=== PATIENT | female | born 1950 | race Caucasian/White ===

== ENCOUNTER 2020-02-04 14:28 | Outpatient (CLI) | payer MEDICARE, MEDICAID, SELFPAY ==
--- NOTE | 2020-02-04 14:40 | USCV_ITS ---
Lisa Rahman Age: 69 Gender: F : 1950 Exam Date: 02/04/2020 14:57 Ordering Phys: Slava Hart MD ([email or web address]) Technologist: Joanne Post [place] [facility] [place]: AV STENOSIS BP: 115 / 78 HR: 60 Rhythm: Sinus Technical Quality: Adequate MEASUREMENTS (Male / Female) Normal Values 2D ECHO LV Diastolic Diameter PLAX 5.1 cm 4.2 - 5.9 / 3.9 - 5.3 cm LV Systolic Diameter PLAX 2.6 cm LV Chamber Size 3.3 cm IVS Diastolic Thickness 1.7 cm 0.6 - 1.0 / 0.6 - 0.9 cm IVS Systolic Thickness 1.7 cm LVPW Diastolic Thickness 1.9 cm 0.6 - 1.0 / 0.6 - 0.9 cm LVPW Systolic Thickness 2.3 cm RV Chamber Size 3.6 cm LVOT Diameter 2.0 cm LV Ejection Fraction 2D Teich 79.7 % LV Ejection Fraction MOD 2C 52.5 % LV Ejection Fraction 2C AL 52.1 % LA Diameter 5.1 cm LA Width 3.9 cm LA Height 5.0 cm RA Width 4.4 cm RA Height 4.8 cm Aorta at Sinotubular Diameter 2.2 cm M-MODE LV Diastolic Diameter MM 6.7 cm 4.2 - 5.9 / 3.9 - 5.3 cm LV Systolic Diameter MM 4.3 cm LV Ejection Fraction MM Teich 63.7 % IVS Diastolic Thickness MM 1.2 cm 0.6 - 1.0 / 0.6 - 0.9 cm IVS Systolic Thickness MM 1.4 cm LVPW Diastolic Thickness MM 1.0 cm 0.6 - 1.0 / 0.6 - 0.9 cm LVPW Systolic Thickness MM 1.4 cm Aortic Annulus Diameter 2.8 cm LA Ao Ratio MM 1.8 MV E Point Septal Separation 1.0 cm DOPPLER AV Peak Velocity 230.0 cm/s LVOT Peak Velocity 141.0 cm/s AV Area Cont Eq vti 2.5 cm squared AV Area Cont Eq pk 2.0 cm squared MV Area PHT 2.8 cm squared Mitral E to A Ratio 0.7 MV E' Velocity 9.0 cm/s Mitral E to MV E' Ratio 6.5 Mitral E to LV E' Lateral Ratio 7.1 Mitral E to LV E' Septal Ratio 6.0 TR Peak Velocity 183.0 cm/s TR Peak Gradient 13.4 mmHg TV Peak E Velocity 61.0 cm/s Right Atrial Pressure 3.0 mmHg Pulmonary Artery Systolic Pressu 16.4 mmHg PV Peak Velocity 112.0 cm/s RV Acceleration Time 0.2 s RV Ejection Time 0.4 s RV AcT/ET 0.5 FINDINGS Left Ventricle Normal left ventricular size and systolic function, EF 56 %. Moderate left ventricular hypertrophy. No regional wall motion abnormalities. Right Ventricle Normal right ventricular size and systolic function. Right Atrium Normal right atrial size. Left Atrium Mildly increased left atrial size. Mitral Valve Structurally normal mitral valve without significant stenosis or prolapse. There is no mitral regurgitation. Aortic Valve Thickened aortic valve. Aortic valve sclerosis. Tricuspid Valve No gross abnormalities noted.trace tricuspid valve regurgitation. Pulmonic Valve Not visualized well Pericardium No pericardial effusion. Aorta Normal ascending aorta dimension. CONCLUSIONS Normal left ventricular size and systolic function, EF 56 %. Moderate left ventricular hypertrophy. Type I diastolic dysfunction. No regional wall motion abnormalities. Features of aortic valve sclerosis. Peak velocity of 2.3 m/s . Mildly increased left atrial size. Trace tricuspid valve regurgitation. Normal pulmonary artery peak systolic pressure There is no pericardial effusion. There are no intracardiac masses. No previous study is available for comparison. Compared to the previous study from 04/28/2016, there may not be a significant change Dr Slava Hart MD [facility] (Electronically Signed) Final Date: 05 February 2020 10:01 S
== END 2020-02-04 14:29 | disposition home or self-care (01) ==
LOC: RAD 14:33
PROVIDERS: PCP Internal Medicine; Visit Provider Internal Medicine Cardiovascular Disease
DX: I08.2 Rheumatic disorders of both aortic and tricuspid valves
CPT/HCPCS: 93306

== ENCOUNTER → 2021-05-17 12:06 | Outpatient (BNVA) | payer MEDICARE, MEDICAID, SELFPAY | PROVIDERS: PCP Internal Medicine; Visit Provider Internal Medicine Cardiovascular Disease | DX: T46.0X1A Poisoning by cardiac-stimulant glycosides and drugs of similar action, accidental (unintentional), initial encounter (principal); E11.65 Type 2 diabetes mellitus with hyperglycemia | CPT/HCPCS: 80048; 80162 ==

== ENCOUNTER → 2021-12-08 10:40 | Outpatient (BNVA) | payer MEDICARE, MEDICAID, SELFPAY | PROVIDERS: PCP Internal Medicine; Visit Provider Internal Medicine Cardiovascular Disease | DX: I10 Essential (primary) hypertension (principal); G47.33 Obstructive sleep apnea (adult) (pediatric); E11.65 Type 2 diabetes mellitus with hyperglycemia; Z79.84 Long term (current) use of oral hypoglycemic drugs; I35.8 Other nonrheumatic aortic valve disorders; Z79.01 Long term (current) use of anticoagulants; Z87.891 Personal history of nicotine dependence | CPT/HCPCS: 99213; 99214 ==

== ENCOUNTER 2022-04-27 09:58 | Outpatient (CLI) | payer MEDICARE, MEDICAID, SELFPAY ==
--- NOTE | 2022-04-27 10:15 | MM_ITS ---
WS: [id number] BILATERAL SCREENING DIGITAL TOMOSYNTHESIS MAMMOGRAM WITH CAD HISTORY: SCREENING COMPARISON: 12/05/2018 and 12/04/2017 Bilateral CC and MLO views with tomosynthesis and synthetic mammography submitted. Computer aided det ection analyzed. Breast composition: There are scattered areas of fibroglandular density. No suspicious masses, microc alcifications or architectural distortion. Benign calcifications in each breast. MM/[place] [id number] IMPRESSION: BI-RADS: 2-Benign FOLLOW UP: 1 Year Follow-up
== END 2022-04-27 09:59 | disposition home or self-care (01) ==
LOC: RAD 10:00
PROVIDERS: PCP Internal Medicine; Visit Provider Internal Medicine
DX: Z12.31 Encounter for screening mammogram for malignant neoplasm of breast (principal)
CPT/HCPCS: 77063; 77067

== ENCOUNTER → 2022-07-20 11:00 | Outpatient (BNVA) | payer MEDICARE, MEDICAID, SELFPAY | PROVIDERS: PCP Internal Medicine; Visit Provider Internal Medicine Cardiovascular Disease | DX: I25.10 Atherosclerotic heart disease of native coronary artery without angina pectoris (principal); Z79.01 Long term (current) use of anticoagulants; Z79.899 Other long term (current) drug therapy; E11.65 Type 2 diabetes mellitus with hyperglycemia; Z79.84 Long term (current) use of oral hypoglycemic drugs; I35.8 Other nonrheumatic aortic valve disorders; I10 Essential (primary) hypertension; I48.0 Paroxysmal atrial fibrillation; G47.33 Obstructive sleep apnea (adult) (pediatric); Z87.891 Personal history of nicotine dependence | CPT/HCPCS: 99213 ==

== ENCOUNTER → 2023-01-18 14:48 | Outpatient (BNVA) | payer MEDICARE, MEDICAID, SELFPAY | PROVIDERS: PCP Internal Medicine; Visit Provider Internal Medicine Cardiovascular Disease | DX: R07.9 Chest pain, unspecified (principal); I70.0 Atherosclerosis of aorta; I35.8 Other nonrheumatic aortic valve disorders; E11.65 Type 2 diabetes mellitus with hyperglycemia; I10 Essential (primary) hypertension; G47.33 Obstructive sleep apnea (adult) (pediatric); I48.0 Paroxysmal atrial fibrillation; Z79.891 Long term (current) use of opiate analgesic; Z87.891 Personal history of nicotine dependence; R94.31 Abnormal electrocardiogram [ECG] [EKG] | CPT/HCPCS: 93005; 99214 ==

== ENCOUNTER 2023-02-08 10:29 | Outpatient (CLI) | payer MEDICARE, MEDICAID, SELFPAY ==
--- NOTE | 2023-02-08 11:00 | USCV_ITS ---
Lisa Rahman Age: 72 Gender: F : 1950 Exam Date: 02/08/2023 10:44 Ordering Phys: Slava Hart MD ([email or web address]) Technologist: Dora Sarkar [place]am Location[place] [facility] [place]ication: AORTIC VALVE STENOSIS BP: 130 / 75 HR: 62 Rhythm: Sinus Technical Quality: Adequate MEASUREMENTS (Male / Female) Normal Values 2D ECHO LV Diastolic Diameter PLAX 4.0 cm 4.2 - 5.9 / 3.9 - 5.3 cm LV Systolic Diameter PLAX 2.1 cm LV Chamber Size 4.7 cm IVS Diastolic Thickness 1.5 cm 0.6 - 1.0 / 0.6 - 0.9 cm IVS Systolic Thickness 1.3 cm LVPW Diastolic Thickness 1.7 cm 0.6 - 1.0 / 0.6 - 0.9 cm LVPW Systolic Thickness 1.7 cm RV Chamber Size 3.9 cm LVOT Diameter 2.0 cm LV Ejection Fraction 2D Teich 76.4 % LV Ejection Fraction MOD 2C 64.9 % LV Ejection Fraction 2C AL 64.8 % LA Diameter 4.5 cm LA Width 3.8 cm LA Height 4.5 cm RA Width 2.9 cm RA Height 4.0 cm Aorta at Sinotubular Diameter 2.4 cm IVC Diameter 1.2 cm M-MODE Aortic Annulus Diameter 3.1 cm LA Ao Ratio MM 1.8 MV E Point Septal Separation 0.3 cm DOPPLER AV Peak Velocity 215.0 cm/s LVOT Peak Velocity 113.0 cm/s AV Area Cont Eq vti 1.8 cm squared AV Area Cont Eq pk 1.7 cm squared MV Area PHT 2.2 cm squared Mitral E to A Ratio 1.0 MV E' Velocity 52.0 cm/s Mitral E to MV E' Ratio 10.9 Mitral E to LV E' Lateral Ratio 9.0 Mitral E to LV E' Septal Ratio 14.0 TR Peak Velocity 185.1 cm/s TR Peak Gradient 13.7 mmHg TR Mean Velocity 126.6 cm/s TR Mean Gradient 7.1 mmHg TR Velocity Time Integral 46.6 cm TV Peak E Velocity 52.0 cm/s Right Atrial Pressure 3.0 mmHg Pulmonary Artery Systolic Pressu 16.7 mmHg RV Acceleration Time 0.1 s RV Ejection Time 0.3 s RV AcT/ET 0.3 FINDINGS Left Ventricle Normal left ventricular size and systolic function, EF 73 %. No regional wall motion abnormalities. Mild to moderate concentric left-ventricular hypertrophy.Grade I/IV diastolic dysfunction (abnormal relaxation filling pattern), normal to mildly elevated filling pressures. Right Ventricle The right ventricle is normal in size and function. Right Atrium The right atrium is normal in size. Left Atrium Mildly increased left atrial size. Mitral Valve Thickened mitral valve. Aortic Valve Moderate aortic valve calcification. Aortic valve sclerosis. Tricuspid Valve Trace tricuspid valve regurgitation. Estimated pulmonary artery peak systolic pressure, within normal limits Pulmonic Valve Pulmonic valve not well visualized. Pericardium Normal pericardium without effusion. Aorta Normal aortic annulus size. IVC Normal inferior vena cava. CONCLUSIONS Normal left ventricular size and systolic function, EF 73 %. No regional wall motion abnormalities. Mild to moderate concentric left-ventricular hypertrophy.Grade I/IV diastolic dysfunction (abnormal relaxation filling pattern), normal to mildly elevated filling pressures. Mildly increased left atrial size. Thickened mitral valve. Moderate aortic valve calcification. Aortic valve sclerosis. Trace tricuspid valve regurgitation. Estimated pulmonary artery peak systolic pressure, within normal limits. There is no pericardial effusion. There are no intracardiac masses. Compared to the study from 02/04/2020, there may not be a significant change Dr Slava Hart MD [facility] (Electronically Signed) Final Date: 09 February 2023 17:39 S
== END 2023-02-08 10:30 | disposition home or self-care (01) ==
LOC: RAD 10:31
PROVIDERS: PCP Internal Medicine; Visit Provider Internal Medicine Cardiovascular Disease
DX: I35.0 Nonrheumatic aortic (valve) stenosis (principal); R06.09 Other forms of dyspnea; I51.7 Cardiomegaly; I35.8 Other nonrheumatic aortic valve disorders
CPT/HCPCS: 93306

== ENCOUNTER 2023-03-09 07:30 | Inpatient (IN) | payer MEDICARE, MEDICAID, SELFPAY ==
[2023-03-09] VITALS (73 sets, daily range): BP systolic 56–126; BP diastolic 5–78; PULSE 57–127; RESP 12–26; TEMP 36.1–37.3; O2SAT 92–99; BMI 43.8
--- NOTE | 2023-03-09 07:48 | XR_ITS ---
WS: [id number] Exam: XR chest 1V portable [id number] Date/Time of Exam: 03/09/2023 8:25 AM Reason For Exam: dyspnea/cough Comparison 12/28/2022. Lungs are clear and fully inflated. Normal cardiomediastinal silhouette. No pleural effusions. Region al bony elements are intact. Several scattered calcified granulomas noted. IMPRESSION: 1. No acute process identified.
--- NOTE | 2023-03-09 07:48 | CT_ITS ---
WS: [id number] CT ABDOMEN AND PELVIS WITH CONTRAST HISTORY: abd pain, dark stools and vomiting for 3 days. TECHNIQUE: Imaging performed of the abdomen and pelvis with IV contrast. Single phase imaging of the abdomen. Coronal and sagittal reformats are submitted. All CT scans at [facility] use at [address] one of these dose optimization techniques: automated exposure control; mA and/or kV adjustment per patient size (includes targeted exams where dose is matched to clinical indication); or iterative re construction. IV CONTRAST: Omnipaque 350; 100 mL IV. Oral contrast: No DLP: 1127.59 mGy.cm COMPARISON: 12/25/2005 Lower thorax: Lung bases are clear. Heart is normal size. No hiatal hernia. Liver/biliary system: Liver is normal size. Surface of the liver is nodular and irregular. No mass. N ormal portal vein. Gallbladder: Moderately distended gallbladder with stones. There are several stones in the gallbladde r with the largest measuring 1.8 cm. No bile duct dilatation. Pancreas: Normal size pancreas and pancreatic duct. No adjacent inflammation. Spleen: Normal size spleen. No mass or infarct. Adrenal glands: Normal. Right kidney: Atrophied kidney. Multiple acquired cysts. There is no obstruction. Mild perinephric st randing. Kidney has atrophied since the prior study from 2005. Left kidney: Normal size kidney with numerous cysts. Some of these low-attenuation masses are too sma ll to characterize. There is a complex mass from the lower pole of the LEFT kidney measuring 2.1 x 2. 7 cm. There is increased density within this mass. This is not a simple cyst. Mild perinephric strand ing. Aorta: Mild atherosclerosis with no aneurysm. Lymphadenopathy: None. Free fluid: None. GI tract: Nondistended stomach. There are several small bowel loops which are mildly distended but th ere is no obstructive pattern. Normal appendix. No colitis. There are a few diverticula in the sigmoi d colon. No mass is identified. Abdominal wall: Unremarkable abdominal wall. No hernia. Pelvis: Uterus is midline. No mass or fluid. Negative bladder. Bones: L4 anterolisthesis by 3 mm. Large bridging osteophytes along the lower LEFT lateral L5 and S1 vertebral bodies with complete fusion. IMPRESSION: 1. No GI tract obstruction. No mass identified by CT. 2. Cholelithiasis without acute cholecystitis. 3. Atrophied RIGHT kidney. Atrophy is new since 2006. Acquired cyst. 4. Solid mass versus hemorrhagic cyst LEFT kidney. Mass measures 2.1 x 2.7 cm. Recommend renal mass CT or MRI protocol further evaluation. 5. Cirrhosis.
[2023-03-09 08:09] LABS: Basophils # 0.1 10^3/uL (0.0-0.1); Basophils % 0.4 %; Eosinophils % 0.1 %; Lymphocytes # 3.2 10^3/uL (0.8-4.8); Lymphocytes % 17.6 %; Mean Corpuscular Hemoglobin 30.4 pg (27-33); Mean Platelet Volume 11.8 fL (7.4-10.4); Monocytes # 0.8 10^3/uL (0.2-0.9); Monocytes % 4.6 %; Neutrophils # 13.93 10^3/uL (1.8-7.7); Neutrophils % 76.6 %; Nucleated Red Blood Cells % 0 %; Platelet Count 187 10^3/cmm (157-399); Red Blood Count 3.06 10^6/uL (3.85-5.65); White Blood Count 18.18 10^3/uL (3.29-11.43)
--- NOTE | 2023-03-09 08:13 | ED_ITS ---
HPI - GI Bleed General: Chief complaint: GI Bleed Stated complaint: N/D Time Seen by Provider: 03/09/23 07:47 Source: patient Mode of arrival: ambulatory History of Present Illness: 72-year-old female presents emergency room complaining of an melena. Patient has had dark stools and vomiting for 3 days worse this morning with hematemesis and melena. Patient is on Eliquis for A-fib she has been taking her Eliquis through last night. Presents here with obvious gross hematemesis from smears of melanotic stool on her clothing and lower extremities. She feels lightheaded and weak denies any chest pain or shortness of breath MD complaint: gross hematemesis and melena Onset (ago): day(s) (3) Relieving factors: none Exacerbating factors: none Associated symptoms: Reports nausea, poor appetite, vomiting and weakness; Denies abdominal pain, chills, easy bruising, epistaxis, fever(s), headache(s), malaise, other bleeding, rash, syncope or other Treatments Prior to Arrival: none Review of Systems Const: Denies: fever(s), chills or malaise ENMT: Denies: epistaxis Card: Denies: chest pain or syncope Resp: Denies: dyspnea GI: Reports: nausea, vomiting, hematemesis, GI cramping, change in bowel habits and melena; Denies: abdominal pain : Denies: dysuria, urinary frequency or urinary urgency Musc: Denies: neck pain or back pain Skin/Breast: Denies: rash Neuro: Denies: headache(s) Obie/Lymph: Denies: easy bruising PFSH ED PFSH: Medical History Anticoagulation adequate with anticoagulant therapy Aortic valve sclerosis Asthma CAD (coronary artery disease) Chronic cough Essential (primary) hypertension GERD (gastroesophageal reflux disease) High risk medication use ELVIN (obstructive sleep apnea) Paroxysmal A-fib Type 2 diabetes mellitus Surgical History H/O partial nephrectomy H/O shoulder surgery H/O tubal ligation History of kidney surgery Hx of cataract surgery Family History Mother Hypertension Diabetes CHF (congestive heart failure) CAD (coronary artery disease) Stroke Brother Hypertension Stroke Cancer Diabetes Father Myocardial infarction CAD (coronary artery disease) Grandfather Diabetes Family/Other Diabetes Denies family history of Clotting disorder Dementia Chronic kidney disease (CKD) Suicide Anesthesia complication Bleeding disorder Lung disease Social History Smoking and tobacco/nicotine status: former use of tobacco/nicotine Quit status (tobacco/nicotine): has quit using Alcohol intake: never Substance/Drug Use: never Household members: none Marital status: / Current occupational status: retired Do you think of yourself as: Straight/Heterosexual Current gender identity: Female Physical Exam 2 Const: GENERAL APPEARANCE: cooperative and comfortable ORIENTATION/CONSCIOUSNESS: Yes awake and Yes confused HENMT: COMMON NORMALS: normocephalic, atraumatic and hearing grossly normal bilaterally HEAD & SCALP: normocephalic and atraumatic Resp: COMMON NORMALS: normal respiratory effort, No retractions, No use of accessory muscles and clear to auscultation bilaterally AUSCULTATION: clear to auscultation bilaterally Cardio: COMMON NORMALS: regular rate, regular rhythm and No murmurs present (Cardio) RATE: regular rate RHYTHM: regular rhythm GI: COMMON NORMALS: Soft to palpation and No hepatosplenomegaly present AUSCULTATION: Yes normoactive bowel sounds PALPATION: Yes Soft to palpation, No Tenderness to palpation present (GI), No Guarding due to palpation present (GI) and Yes No hepatosplenomegaly present Extremity: COMMON NORMALS: normal to inspection, capillary refill normal, no clubbing, cyanosis or edema, no calf tenderness and no pedal edema Skin: COMMON NORMALS: no rashes or lesions noted GENERAL SKIN EXAM: no rashes or lesions noted Course Vital Signs: Vital signs: Vital Signs Temperature 97 F L 03/09/23 12:53 Pulse Rate 81 03/09/23 12:53 Respiratory Rate 16 03/09/23 12:53 Blood Pressure 107/66 03/09/23 12:53 Pulse Oximetry 93 03/09/23 12:53 Oxygen Delivery Me thod Room Air 03/09/23 12:49 MDM - GI Bleed Medical Decision Making Patient confused and disoriented for a time and to soft restraints prevented her from pulling out the IVs or giving blood she is hypotensive transiently blood pressures in the 50s and 60s systolic. Patient admitted to the ICU given 2 units of blood and 1 unit fresh frozen plasma in the emergency room. Discussed with hospitalist and with on-call surgery. Patient also given IV PPI. Medical Records I reviewed the patient's medical records. Lab Data I reviewed the patient's lab results. 03/09/23 08:00 03/09/23 08:00 Laboratory Results WBC 18.18 10^3/uL (3.29-11.43) H 03/09/23 08:00 RBC 3.06 10^6/uL (3.85-5.65) L 03/09/23 08:00 Hgb 9.30 g/dL (11.27-16.99) L 03/09/23 08:00 Hct 30.0 % (36-47) L 03/09/23 08:00 MCV 98.0 fl (85-98) 03/09/23 08:00 MCH 30.4 pg (27-33) 03/09/23 08:00 MCHC 31.0 g/dL (30-55) 03/09/23 08:00 RDW 16.0 % (12.1-15.1) H 03/09/23 08:00 Plt Count 187 10^3/cmm (157-399) 03/09/23 08:00 MPV 11.8 fL (7.4-10.4) H 03/09/23 08:00 Neut % (Auto) 76.6 % 03/09/23 08:00 Lymph % (Auto) 17.6 % 03/09/23 08:00 [place] % (Auto) 4.6 % 03/09/23 08:00 Eos % (Auto) 0.1 % 03/09/23 08:00 Baso % (Auto) 0.4 % 03/09/23 08:00 Neut # (Auto) 13.93 10^3/uL (1.8-7.7) H 03/09/23 08:00 Lymph # (Auto) 3.2 10^3/uL (0.8-4.8) 03/09/23 08:00 [place] # (Auto) 0.8 10^3/uL (0.2-0.9) 03/09/23 08:00 Eos # (Auto) 0.0 10^3/uL (0.0-0.8) 03/09/23 08:00 Baso # (Auto) 0.1 10^3/uL (0.0-0.1) 03/09/23 08:00 Nucleated RBC % (auto) 0 % 03/09/23 08:00 Nucleated RBCs # 0.0 /100WBC 03/09/23 08:00 PT 16.80 SECONDS (12.1-14.9) H 03/09/23 08:00 INR 1.32 (0.8-1.2) H 03/09/23 08:00 APTT 41.9 SECONDS (23.9-36.7) H 03/09/23 08:00 Sodium 139 mmol/L (136-145) 03/09/23 08:00 Potassium 4.7 mmol/L (3.5-5.1) 03/09/23 08:00 Chloride 104 mmol/L (98-107) 03/09/23 08:00 Carbon Dioxide 25 mmol/L (22-29) 03/09/23 08:00 Anion Gap 14.7 (5-19) 03/09/23 08:00 BUN 82 mg/dL (8-23) H* D 03/09/23 08:00 Creatinine 1.2 mg/dL (0.5-0.9) H 03/09/23 08:00 GFR Calculation Not Reportable 03/09/23 08:00 Glucose 173 mg/dL (65-115) H 03/09/23 08:00 Estimat Average Glucose 100 03/09/23 08:00 Hemoglobin A1c 5.1 % (4.0-6.0) 03/09/23 08:00 Calculated Osmolality 317 mOsm/kg (285-295) H 03/09/23 08:00 Calcium 8.3 mg/dL (8.5-10.5) L 03/09/23 08:00 Iron 52 ug/dL (37-145) 03/09/23 08:00 TIBC 239 mcg/dl 03/09/23 08:00 % Saturation 21.7 % (20-50) 03/09/23 08:00 Unsat Iron Binding 187 ug/dL (112-347) 03/09/23 08:00 Ferritin 73 ng/mL (15-150) 03/09/23 08:00 Total Bilirubin 0.3 mg/dL (0.15-1.2) 03/09/23 08:00 AST 16 U/L (0-32) 03/09/23 08:00 ALT 12 U/L (0-33) 03/09/23 08:00 Alkaline Phosphatase 64 U/L (35-105) 03/09/23 08:00 NT-Pro-B Natriuret Pep 91 pg/mL (0-125) 03/09/23 08:00 Total Protein 6.0 g/dL (6.6-8.7) L 03/09/23 08:00 Albumin 3.2 g/dL (3.5-5.2) L 03/09/23 08:00 Globulin 2.8 g/dL (1.3-4.6) 03/09/23 08:00 Triglycerides 157 mg/dL (0-150) H 03/09/23 08:00 Cholesterol 124 mg/dL (0-200) 03/09/23 08:00 LDL Cholesterol, Calc 58 mg/dL (50-129) 03/09/23 08:00 HDL Cholesterol 35 mg/dL (60-100) L 03/09/23 08:00 LDL/HDL Ratio 1.66 RATIO (0.00-3.22) 03/09/23 08:00 Cholesterol/HDL Ratio 3.54 mg/dL (0.0-4.40) 03/09/23 08:00 Lipase 63 U/L (13-60) H 03/09/23 08:00 Folate 7.4 ng/mL (4.8-37.3) 03/09/23 08:00 TSH 1.19 uIU/mL (0.27-4.20) 03/09/23 08:00 Digoxin 0.5 ng/mL (0.6-1.2) L 03/09/23 08:00 Hepatitis A IgM Ab Non-reactive (Nonreactive) 03/09/23 08:00 Hep Bs Antigen Non-reactive (Nonreactive) 03/09/23 08:00 Hep B Core IgM Ab Non-reactive (Nonreactive) 03/09/23 08:00 Hepatitis C Antibody Non-reactive (Nonreactive) 03/09/23 08:00 Blood Type O Negative 03/09/23 08:00 Blood Type O Negative 03/09/23 08:00 Rho(D) Type Negative 03/09/23 08:00 Rho(D) Type Negative 03/09/23 08:00 Antibody Screen Negative 03/09/23 08:00 Antibody Screen Negative 03/09/23 08:00 Crossmatch See Detail 03/09/23 08:00 Crossmatch See Detail 03/09/23 08:00 All radiology interpretation(s) finalized by discharge Discharge Plan Discharge Patient Disposition: Admitted As Inpatient Admit Provider: Arslan Howard Clinical Impression: Upper GI bleed, Acute anemia, Type 2 diabetes mellitus Condition: Stable Coding Level of Care Code ED Band Saw Filer for Bhavik Hernandez
[2023-03-09] MEDS: sodium chloride 0.9% 1,000 ML 999 ML IV (08:17)
[2023-03-09] MEDS: pantoprazole 40 mg SDV 80 MG IVP (08:17)
[2023-03-09 08:22] LABS: Partial Thromboplastin Time 41.9 SECONDS (23.9-36.7)
[2023-03-09 08:23] LABS: INR 1.32 (0.8-1.2)
[2023-03-09 08:28] LABS: Alanine Aminotransferase 12 U/L (0-33); Albumin Level 3.2 g/dL (3.5-5.2); Alkaline Phosphatase 64 U/L (35-105); Anion Gap 14.7 (5-19); Aspartate Amino Transferase 16 U/L (0-32); Calcium 8.3 mg/dL (8.5-10.5); Carbon Dioxide 25 mmol/L (22-29); Chloride 104 mmol/L (98-107); Globulin 2.8 g/dL (1.3-4.6); Glucose 173 mg/dL (65-115); Lipase 63 U/L (13-60); Osmolality Calculated 317 mOsm/kg (285-295); Potassium 4.7 mmol/L (3.5-5.1); Sodium 139 mmol/L (136-145); Total Bilirubin 0.3 mg/dL (0.15-1.2)
[2023-03-09 08:34] LABS: Blood Urea Nitrogen 82 mg/dL (8-23)
[2023-03-09] MEDS: iohexol 350 mg/mL 500 mL Btl (per mL) IV (10:10)
[2023-03-09 11:22] LABS: Digoxin 0.5 ng/mL (0.6-1.2)
--- NOTE | 2023-03-09 12:13 | P.HP_ITS ---
Providers/Chief Complaint Admitting Physician: Arslan Howard MD Primary Care Provider: Ihsan Velásquez DO Chief Complaint: N/D History of Present Illness Lisa Rahman is a 72 year old female with a past medical history of atrial fibrillation, on Eliquis, history of aortic valve sclerosis, type 2 diabetes mellitus, obstructive sleep apnea, morbid obesity, hypertension, who presents to [facility] due to a few day history of feeling fatigue, malaise, and black tarry stools, denies a history of alcoholism, denies a history of alcoholic liver cirrhosis, no history of esophageal varices, denies using NSAIDs, she does have chronic back pain for which she uses hydrocodone, denies a history of GI bleeds in the past, no history of blood transfusion she does report she had a colonoscopy a few years ago and a few noncancerous polyps were removed, she did use her Eliquis last night, has not taken it this morning, in the emergency room, she was found to have an acute GI bleed, with BUN of 82 creatinine 1.2, hemoglobin of 9.3, is receiving her second unit of blood, has received 2 units of FFP, she was hypotensive on admission, blood pressures for fevers of 40, hemorrhagic shock, currently she is alert awake, following all commands, blood pressure 111/47, pulse 80, respirate 20, 96% on room air, denies any lightheadedness, no dizziness, INR is 1.32, CT of the abdomen and pelvis does note she has a left renal mass cyst versus mass, she does have radiographic evidence of liver cirrhosis, LFTs are within normal limits, albumin slightly low at 3.2 Review of Systems Const: Denies: fever(s) Eyes: Denies: change in vision Card: Denies: chest pain Resp: Denies: dyspnea GI: Denies: abdominal pain : Denies: flank pain Musc: Reports: back pain Skin/Breast: Denies: rash Neuro: Reports: dizziness; Denies: headache(s) Psych: Denies: anxiety Medications/Allergies Home Medications Medication Instructions Recorded Confirmed Last Taken Type alprazolam 0.5 mg tablet 0.5 mg PO TID 05/27/19 03/09/23 03/08/23 History fluticasone propionate 50 2 spray intranasal DAILY 05/27/19 03/09/23 03/08/23 History mcg/actuation nasal spray,suspension (Flonase Allergy Relief) hydrocodone 7.5 mg-acetaminophen 1 tab PO Q4H PRN Pain 05/27/19 03/09/23 Unknown History 325 mg tablet montelukast 10 mg tablet 10 mg PO DAILY 05/27/19 03/09/23 03/08/23 History (Singulair) apixaban 5 mg tablet (Eliquis) 5 mg PO BID #180 tabs 05/30/22 03/09/23 03/08/23 Rx amlodipine 2.5 mg tablet 2.5 mg PO DAILY #90 tabs 06/29/22 03/09/23 03/08/23 Rx digoxin 125 mcg (0.125 mg) tablet 125 mcg PO DAILY #90 tabs 06/29/22 03/09/23 03/08/23 Rx potassium chloride 8 mEq 8 meq PO DAILY #90 caps 06/29/22 03/09/23 03/08/23 Rx capsule,extended release sotalol 80 mg tablet 120 mg PO BID #270 tabs 06/29/22 03/09/23 03/08/23 Rx losartan 25 mg tablet 25 mg PO DAILY 07/20/22 03/09/23 03/08/23 History magnesium oxide 250 mg PO DAILY #90 tabs 07/27/22 03/09/23 03/08/23 Rx hydrochlorothiazide 12.5 mg tablet 12.5 mg PO QAM 03/09/23 03/09/23 03/08/23 History Allergies Allergy/AdvReac Type Severity Reaction Status Date / Time [id number] Reductase Allergy leg pain Verified 01/18/23 14:24 Inhibitor PFSH Acute PFSH: Medical History Anticoagulation adequate with anticoagulant therapy Aortic valve sclerosis Asthma CAD (coronary artery disease) Chronic cough Essential (primary) hypertension GERD (gastroesophageal reflux disease) High risk medication use ELVIN (obstructive sleep apnea) Paroxysmal A-fib Type 2 diabetes mellitus Surgical History H/O partial nephrectomy H/O shoulder surgery H/O tubal ligation History of kidney surgery Hx of cataract surgery Family History Mother Hypertension Diabetes CHF (congestive heart failure) CAD (coronary artery disease) Stroke Brother Hypertension Stroke Cancer Diabetes Father Myocardial infarction CAD (coronary artery disease) Grandfather Diabetes Family/Other Diabetes Denies family history of Clotting disorder Dementia Chronic kidney disease (CKD) Suicide Anesthesia complication Bleeding disorder Lung disease Social History Smoking and tobacco/nicotine status: former use of tobacco/nicotine Quit status (tobacco/nicotine): has quit using Alcohol intake: never Substance/Drug Use: never Household members: none Marital status: / Current occupational status: retired Do you think of yourself as: Straight/Heterosexual Current gender identity: Female Vitals/I&O/Wt Last Vital Signs Temp 98.6 F 03/09/23 09:35 Pulse 80 03/09/23 10:17 Resp 20 H 03/09/23 10:17 BP 111/47 03/09/23 10:17 Pulse Ox 96 03/09/23 10:17 O2 Del Method Room Air 03/09/23 10:17 03/08/23 03/09/23 03/09/23 22:59 06:59 14:59 Intake Total 339 / 339 Balance 339 / 339 Weight last 48 hrs Weight 127.006 kg Physical Exam Const: COMMON NORMALS: no acute distress and patient oriented x3 GENERAL APPEARANCE: cooperative and comfortable ORIENTATION/CONSCIOUSNESS: Yes awake, Yes oriented to person and Yes oriented to time HENMT: COMMON NORMALS: normocephalic HEAD & SCALP: normocephalic Eye: COMMON NORMALS: Equal, round and reactive pupils present and EOMs intact bilaterally Neck/C-Spine: COMMON NORMALS: no JVD Lymph: LYMPHATIC: no lymphadenopathy noted Chest: COMMONS NORMALS: normal inspection of the chest Resp: COMMON NORMALS: normal respiratory effort, No retractions, No use of accessory muscles and clear to auscultation bilaterally AUSCULTATION: clear to auscultation bilaterally Cardio: COMMON NORMALS: no JVD, regular rate, regular rhythm, S1 normal heart sound present and S2 normal heart sound present RATE: regular rate RHYTHM: regular rhythm HEART SOUNDS: S1 normal heart sound present and S2 normal heart sound present GI: COMMON NORMALS: Normal to inspection, nondistended, normoactive bowel sounds present, Soft to palpation and non-tender Extremity: COMMON NORMALS: no calf tenderness and no pedal edema Neuro: COMMON NORMALS: patient oriented x3, CN's II-XII intact bilaterally, moves all extremities and no focal motor deficits Psych: COMMON NORMALS: mental status grossly normal Data 03/09/23 08:00 03/09/23 08:00 A&P Assessment and plan (1) Hemorrhagic shock: (2) Upper GI bleed: (3) Acute anemia: (4) Type 2 diabetes mellitus: Qualifiers: Diabetes mellitus correction insulin use: without correction use Diabetes mellitus complication status: with hyperglycemia Qualified Code(s): E11.65 - Type 2 diabetes mellitus with hyperglycemia (5) Essential (primary) hypertension: (6) ELVIN (obstructive sleep apnea): (7) Paroxysmal A-fib: (8) Hypertension: (9) Liver cirrhosis: (10) Left kidney mass: Plan Hemorrhagic shock ? Upper GI bleed ? Acute anemia ? Hypotension ? On Eliquis therapy Plan ? N.p.o. ? General surgery has been consulted for EGD ? Status post 2 units FFP, has received 1 unit of blood, 1 unit currently being transfused ? Monitor hemodynamics closely, IV fluids, 1 dose of albumin -Protonix 40 IV twice daily, Carafate ? Monitor lactic acid, serial hemoglobins every 4 hours ? Is on atrial fibrillation medication blood pressure medications, hold for now ? Hold Eliquis for now ? Iron studies ? Monitor hemodynamics monitor telemetry ? Radiographic evidence of liver cirrhosis, denies history of alcoholism, does have morbid obesity could be related to fatty liver disease, will check hepatitis panel ? Left renal mass, will need to have patient follow-up with urology as outpatient -Type II diabetes mellitus A1c, blood sugar monitoring ? CODE STATUS patient is a full code ? SCDs for DVT prophylaxis, Lovenox relatively contraindicated as patient has an upper GI bleed and hemorrhagic shock Attestations Medical Necessity Statement*: Patient requires hospitalization, inpatient, greater than 2 midnights, for hemorrhagic shock, GI bleed, acute anemia, hypotension Diagnoses Hemorrhagic shock R57.8 Upper GI bleed K92.2 Acute anemia D64.9 Type 2 diabetes mellitus E11.65 Diabetes mellitus correction insulin use: without correction use Diabetes mellitus complication status: with hyperglycemia Essential (primary) hypertension I10 ELVIN (obstructive sleep apnea) G47.33 Paroxysmal A-fib I48.0 Hypertension I10 Liver cirrhosis K74.60 Left kidney mass N28.89
[2023-03-09] MEDS: sodium chloride 0.9% 1,000 ML 100 ML IV (12:22)
[2023-03-09 12:48] LABS: Add Urine Microscopic? NO; Charge for UA Resulting for Rev
[2023-03-09 12:48] LABS: Estmated Average Glucose 100; Hemoglobin A1C 5.1 % (4.0-6.0)
--- NOTE | 2023-03-09 12:50 | PM.CONSULT ---
Providers/Reason For Consult Consulting Physician/Specialty*: Dr. Demetrio Lindsey, /General surgery Reason for Consult*: GI bleed Attending Physician: Arsaln Howard MD Primary Care Provider: Ihsan Velásquez DO History of Present Illness History of Present Illness Lisa Rahman is a 72 year old female, on Eliquis for A-fib, who presented to the hospital with a 3-day history of epigastric abdominal pain nausea, hematemesis and melena. The pain is dull and constant and does not radiate. Nothing makes the pain better or worse. She last took her Eliquis last night. Denies any hematochezia. Denies any fever or chills Review of Systems General: Reports: 10 or more systems reviewed and unremarkable except in HPI and below Medications/Allergies Home Medications Medication Instructions Recorded Confirmed Last Taken Type alprazolam 0.5 mg tablet 0.5 mg PO TID 05/27/19 03/09/23 03/08/23 History fluticasone propionate 50 2 spray intranasal DAILY 05/27/19 03/09/23 03/08/23 History mcg/actuation nasal spray,suspension (Flonase Allergy Relief) hydrocodone 7.5 mg-acetaminophen 1 tab PO Q4H PRN Pain 05/27/19 03/09/23 Unknown History 325 mg tablet montelukast 10 mg tablet 10 mg PO DAILY 05/27/19 03/09/23 03/08/23 History (Singulair) apixaban 5 mg tablet (Eliquis) 5 mg PO BID #180 tabs 05/30/22 03/09/23 03/08/23 Rx amlodipine 2.5 mg tablet 2.5 mg PO DAILY #90 tabs 06/29/22 03/09/23 03/08/23 Rx digoxin 125 mcg (0.125 mg) tablet 125 mcg PO DAILY #90 tabs 06/29/22 03/09/23 03/08/23 Rx potassium chloride 8 mEq 8 meq PO DAILY #90 caps 06/29/22 03/09/23 03/08/23 Rx capsule,extended release sotalol 80 mg tablet 120 mg PO BID #270 tabs 06/29/22 03/09/23 03/08/23 Rx losartan 25 mg tablet 25 mg PO DAILY 07/20/22 03/09/23 03/08/23 History magnesium oxide 250 mg PO DAILY #90 tabs 07/27/22 03/09/23 03/08/23 Rx hydrochlorothiazide 12.5 mg tablet 12.5 mg PO QAM 03/09/23 03/09/23 03/08/23 History Allergies Allergy/AdvReac Type Severity Reaction Status Date / Time [id number] Reductase Allergy leg pain Verified 01/18/23 14:24 Inhibitor Current Medications Generic Name Dose Route Start Last Admin Trade Name Vanessa PRN Reason Stop Dose Admin Sodium Chloride 1,000 mls @ 100 mls/hr 03/09/23 12:15 03/09/23 12:22 Sodium Chloride 0.9% IV 100 mls/hr .Q10H MATTIE Administration PFSH Acute PFSH: Medical History Anticoagulation adequate with anticoagulant therapy Aortic valve sclerosis Asthma CAD (coronary artery disease) Chronic cough Essential (primary) hypertension GERD (gastroesophageal reflux disease) High risk medication use ELVIN (obstructive sleep apnea) Paroxysmal A-fib Type 2 diabetes mellitus Surgical History H/O partial nephrectomy H/O shoulder surgery H/O tubal ligation History of kidney surgery Hx of cataract surgery Family History Mother Hypertension Diabetes CHF (congestive heart failure) CAD (coronary artery disease) Stroke Brother Hypertension Stroke Cancer Diabetes Father Myocardial infarction CAD (coronary artery disease) Grandfather Diabetes Family/Other Diabetes Denies family history of Clotting disorder Dementia Chronic kidney disease (CKD) Suicide Anesthesia complication Bleeding disorder Lung disease Social History Smoking and tobacco/nicotine status: former use of tobacco/nicotine Quit status (tobacco/nicotine): has quit using Alcohol intake: never Substance/Drug Use: never Household members: none Marital status: / Current occupational status: retired Do you think of yourself as: Straight/Heterosexual Current gender identity: Female Vitals/I&O/Wt Last Vital Signs Temp 97.0 F L 03/09/23 12:49 Pulse 74 03/09/23 12:49 Resp 16 03/09/23 12:49 BP 107/66 03/09/23 12:49 Pulse Ox 94 03/09/23 12:49 O2 Del Method Room Air 03/09/23 12:49 03/08/23 03/09/23 03/09/23 22:59 06:59 14:59 Intake Total 339 / 339 Balance 339 / 339 Weight last 48 hrs Weight 280 lb Physical Exam Narrative: General : Patient is well developed , no acute distress, oriented x3 Head : Normal cephalic, a-traumatic. Ears : Pinnae and external canal are normal. Hearing is normal. Eyes : PERRLA, Sclera and injection are normal. No conjunctival discharge. Nose : Mucous membranes are without erythema. Throat : buccal mucosa is normal, gums are without significant recession or hypertrophy. Lungs : Equal chest rise bilaterally, no use of accessory muscles, trachea is midline. Cor : Rate and rhythm are normal. Abdomen : Soft, ND, NT, no g/r/m Extremities : No edema, no cyanosis or clubbing, dorsalis pedis pulses are present bilaterally, non-tender to palpation of calves. Upper extremities are normal bilaterally. Back : non-tender to palpation, no CVA tenderness. Neuro : CN II - XII intact, Upper and lower extremities have equal and full strength Data 03/09/23 08:00 03/09/23 08:00 A&P Assessment and plan (1) Upper GI bleed: Plan EGD The risks and benefits of the procedure, including bleeding, infection, intestinal perforation requiring surgery, missed lesion were explained to the patient. The patient is understanding of the risks and wishes to proceed. Medical management per hospitalist Coding Level of Care Code 14902 Diagnoses Upper GI bleed K92.2
[2023-03-09 12:54] LABS: Bilirubin Urine Neg (Negative); Blood Urine Neg (Negative); Glucose Urine UA Norm (Normal); Ketones Urine Negative (Negative); Leukocyte Esterase Urine Negative (Negative); Nitrate Urine Negative (Negative); Protein Urine Neg (Negative); Specific Gravity, Urine 1.005 (1.005-1.030); Urine Appearance Clear (CLEAR); Urine Color Yellow (Yellow); Urobilinogen Urine Norm (Negative); pH Urine 5 (5-7)
[2023-03-09 12:54] LABS: Chol HDL Ratio 3.54 mg/dL (0.0-4.40); Cholesterol 124 mg/dL (0-200); HDL Cholesterol 35 mg/dL (60-100); LDL Cholesterol Calculated 58 mg/dL (50-129); LDL HDL Ratio 1.66 RATIO (0.00-3.22); NT Pro B Type Natriuretic Pept 91 pg/mL (0-125); Thyroid Stimulating Hormone 1.19 uIU/mL (0.27-4.20); Triglycerides 157 mg/dL (0-150)
[2023-03-09 12:59] LABS: Hepatitis A Antibody IgM Non-Reactive (Nonreactive); Hepatitis B Core IgM Non-Reactive (Nonreactive); Hepatitis B Surface Antigen Non-Reactive (Nonreactive); Hepatitis C Virus Antibody Non-Reactive (Nonreactive)
[2023-03-09 13:02] LABS: Ferritin 73 ng/mL (15-150); Iron 52 ug/dL (37-145); Percent Saturation 21.7 % (20-50); Total Iron Binding Capacity 239 mcg/dl; Unsaturated Iron Binding 187 ug/dL (112-347); Vitamin B12 189 pg/mL (232-1245)
[2023-03-09 13:03] LABS: Folate Level 7.4 ng/mL (4.8-37.3)
--- NOTE | 2023-03-09 13:06 | P.ANESASSM_ITS ---
Pre-Anesthetic Assessment Height/Weight: Height 1.7 m Weight 127.006 kg Temp Pulse Resp BP Pulse Ox O2 Del Method 97 F L 81 16 107/66 93 Room Air 03/09/23 12:53 03/09/23 12:53 03/09/23 12:53 03/09/23 12:53 03/09/23 12:53 03/09/23 12:49 Operation Date: 03/09/23 12:30 Proposed Procedures p EGD(Not Applicable) - Demetrio Lindsey DO Familial anesthetic complications: none Was Beta Yudith taken within 24 hours: N/A Was Clonidine taken within 24 hours: N/A Social No alcohol and No tobacco Exam alert, oriented x 3, clear to auscultation bilaterally and regular rate & rhythm Palpation of pulse regular Airway Submandibular: within normal limits Cervical ROM: within normal limits Mallampati: Class I Dentition: false Pulmonary Sleep Apnea CV/HEM Atrial Fibrillation, Anemia and Hypertension Metabolic Diabetes Mellitus, Hyperlipidemia and Morbid Obesity Anesthetic Plan ASA status: 3 Anesthesia: MAC Medications/Allergies Home Medications Medication Instructions Recorded Confirmed Last Taken Type alprazolam 0.5 mg tablet 0.5 mg PO TID 05/27/19 03/09/23 03/08/23 History fluticasone propionate 50 2 spray intranasal DAILY 05/27/19 03/09/23 03/08/23 History mcg/actuation nasal spray,suspension (Flonase Allergy Relief) hydrocodone 7.5 mg-acetaminophen 1 tab PO Q4H PRN Pain 05/27/19 03/09/23 Unknown History 325 mg tablet montelukast 10 mg tablet 10 mg PO DAILY 05/27/19 03/09/23 03/08/23 History (Singulair) apixaban 5 mg tablet (Eliquis) 5 mg PO BID #180 tabs 05/30/22 03/09/23 03/08/23 Rx amlodipine 2.5 mg tablet 2.5 mg PO DAILY #90 tabs 06/29/22 03/09/23 03/08/23 Rx digoxin 125 mcg (0.125 mg) tablet 125 mcg PO DAILY #90 tabs 06/29/22 03/09/23 03/08/23 Rx potassium chloride 8 mEq 8 meq PO DAILY #90 caps 06/29/22 03/09/23 03/08/23 Rx capsule,extended release sotalol 80 mg tablet 120 mg PO BID #270 tabs 06/29/22 03/09/23 03/08/23 Rx losartan 25 mg tablet 25 mg PO DAILY 07/20/22 03/09/23 03/08/23 History magnesium oxide 250 mg PO DAILY #90 tabs 07/27/22 03/09/23 03/08/23 Rx hydrochlorothiazide 12.5 mg tablet 12.5 mg PO QAM 03/09/23 03/09/23 03/08/23 History Allergies Allergy/AdvReac Type Severity Reaction Status Date / Time [id number] Reductase Allergy leg pain Verified 01/18/23 14:24 Inhibitor Current Medications Generic Name Dose Route Start Last Admin Trade Name Freq PRN Reason Stop Dose Admin Sodium Chloride 1,000 mls @ 100 mls/hr 03/09/23 12:15 03/09/23 12:22 Sodium Chloride 0.9% IV 100 mls/hr .Q10H MATTIE Administration PFSH Anesthesia Medical History Anticoagulation adequate with anticoagulant therapy Aortic valve sclerosis Asthma CAD (coronary artery disease) Chronic cough Essential (primary) hypertension GERD (gastroesophageal reflux disease) High risk medication use ELVIN (obstructive sleep apnea) Paroxysmal A-fib Type 2 diabetes mellitus Surgical History H/O partial nephrectomy H/O shoulder surgery H/O tubal ligation History of kidney surgery Hx of cataract surgery Family History Mother Hypertension Diabetes CHF (congestive heart failure) CAD (coronary artery disease) Stroke Brother Hypertension Stroke Cancer Diabetes Father Myocardial infarction CAD (coronary artery disease) Grandfather Diabetes Family/Other Diabetes Denies family history of Clotting disorder Dementia Chronic kidney disease (CKD) Suicide Anesthesia complication Bleeding disorder Lung disease Social History Smoking and tobacco/nicotine status: former use of tobacco/nicotine Quit status (tobacco/nicotine): has quit using Alcohol intake: never Substance/Drug Use: never Household members: none Marital status: / Current occupational status: retired Do you think of yourself as: Straight/Heterosexual Current gender identity: Female Data Anesthesia 03/09/23 08:00 03/09/23 08:00 Short CBC 03/09/23 Range/Units 08:00 WBC 18.18 H (3.29-11.43) 10^3/uL Hgb 9.30 L (11.27-16.99) g/dL Hct 30.0 L (36-47) % MCV 98.0 (85-98) fl Plt Count 187 (157-399) 10^3/cmm Neut % (Auto) 76.6 % Neut # (Auto) 13.93 H (1.8-7.7) 10^3/uL BMP 03/09/23 08:00 Sodium 139 Potassium 4.7 Chloride 104 Carbon Dioxide 25 BUN 82 H* D Creatinine 1.2 H Glucose 173 H Calcium 8.3 L Cardiac Enzymes 03/09/23 Range/Units 08:00 NT-Pro-B Natriuret Pep 91 (0-125) pg/mL Liver Function 03/09/23 Range/Units 08:00 Total Bilirubin 0.3 (0.15-1.2) mg/dL AST 16 (0-32) U/L ALT 12 (0-33) U/L Alkaline Phosphatase 64 (35-105) U/L Albumin 3.2 L (3.5-5.2) g/dL Urine 03/09/23 Range/Units 12:30 Urine Color Yellow (Yellow) Urine Appearance Clear (CLEAR) Urine pH 5 (5-7) Ur Specific [employer] 1.005 (1.005-1.030) Urine Protein Neg (Negative) Urine Glucose (UA) Norm (Normal) Urine Ketones Negative (Negative) Urine Nitrate Negative (Negative) Urine Bilirubin Neg (Negative) Ur Leukocyte Esterase Negative (Negative) Blood Bank 03/09/23 03/09/23 08:00 08:00 Blood Type O Negative O Negative Rho(D) Type Negative Negative Antibody Screen Negative Negative Coags 03/09/23 08:00 PT 16.80 H INR 1.32 H APTT 41.9 H Cardiac Studies: Echocardiogram 02/08/23 Echocardiogram Ultrasound 02/04/20 Cardiac Event Monitor 08/10/22
--- NOTE | 2023-03-09 13:26 | ANE.PACU2 ---
Inpatient post-anesthesia follow up: Airway intact: Yes Vital signs: Temperature 97.0 F Pulse Rate 76 Respiratory Rate 16 Blood Pressure 99/63 Pulse Oximetry 98 Oxygen Delivery Me thod Room Air Oxygen Flow Rate Fraction of Inspir ed Oxygen Hydration adequate: Yes Nausea and vomiting: No Pain level: 2 Mental status: Baseline
[2023-03-09] MEDS: sodium chloride 0.9% 100 mL Bag 50 ML IV (15:18)
[2023-03-09] MEDS: ALPRAZolam 0.5 mg Tablet PO ×2 (15:18→20:40)
[2023-03-09] MEDS: albumin 50 G/200 ML BAG 60 G IV (16:34)
--- NOTE | 2023-03-09 17:08 | PC.NURSE ---
Recieved patient from ER staff at 1230. Patient is alert to person, place, time, and situation. BP: 121/66, HR: 79, SPO2: 94% on room air.
[2023-03-09 18:01] LABS: Hematocrit 31.7 % (36-47)
[2023-03-09 20:32] LABS: Hematocrit 27.7 % (36-47)
[2023-03-09] MEDS: sucralfate 1 gm/10 mL Oral Liq UDC PO (20:39)
[2023-03-09] MEDS: pantoprazole 40 mg SDV IVP (20:40)
[2023-03-10] VITALS (36 sets, daily range): BP systolic 94–142; BP diastolic 54–80; PULSE 69–97; RESP 3–27; TEMP 36.8–37.1; O2SAT 91–98
[2023-03-10 02:32] LABS: Glucose Point of Care 159 mg/dL (70-110)
[2023-03-10 05:07] LABS: Basophils % 0.2 %; Hematocrit 26.4 % (36-47); Lymphocytes # 2.3 10^3/uL (0.8-4.8); Lymphocytes % 19.7 %; Mean Corpuscular HGB Conc 31.4 g/dL (30-55); Mean Corpuscular Hemoglobin 29.9 pg (27-33); Mean Platelet Volume 12.1 fL (7.4-10.4); Monocytes # 0.6 10^3/uL (0.2-0.9); Monocytes % 5.4 %; Neutrophils # 8.51 10^3/uL (1.8-7.7); Nucleated Red Blood Cells % 0 %; Platelet Count 105 10^3/cmm (157-399); Red Blood Count 2.78 10^6/uL (3.85-5.65); Red Cell Distribution Width 16.9 % (12.1-15.1)
[2023-03-10 05:29] LABS: Alanine Aminotransferase 9 U/L (0-33); Albumin Level 3.6 g/dL (3.5-5.2); Alkaline Phosphatase 53 U/L (35-105); Anion Gap 14.2 (5-19); Aspartate Amino Transferase 16 U/L (0-32); Blood Urea Nitrogen 67 mg/dL (8-23); Calcium 8.9 mg/dL (8.5-10.5); Carbon Dioxide 24 mmol/L (22-29); Chloride 111 mmol/L (98-107); Globulin 2.6 g/dL (1.3-4.6); Glucose 145 mg/dL (65-115); Magnesium 2.5 mg/dL (1.7-2.3); Osmolality Calculated 322 mOsm/kg (285-295); Phosphorus 4.2 mg/dL (2.5-4.5); Potassium 4.2 mmol/L (3.5-5.1); Sodium 145 mmol/L (136-145); Total Bilirubin 0.3 mg/dL (0.15-1.2); Total Protein 6.2 g/dL (6.6-8.7)
[2023-03-10 05:35] LABS: NT Pro B Type Natriuretic Pept 231 pg/mL (0-125)
[2023-03-10] MEDS: pantoprazole 40 mg SDV IVP ×2 (07:56→19:03)
[2023-03-10] MEDS: sucralfate 1 gm/10 mL Oral Liq UDC PO ×2 (07:56→19:03)
[2023-03-10] MEDS: ALPRAZolam 0.5 mg Tablet PO ×2 (07:59→19:06)
[2023-03-10] MEDS: montelukast sodium 10 mg Tablet PO (07:59)
[2023-03-10 08:49] LABS: Hematocrit 26.5 % (36-47)
[2023-03-10] MEDS: sotalol 80 mg Tablet 120 MG PO ×2 (08:55→19:03)
[2023-03-10] MEDS: digoxin 125 mcg Tablet PO (08:55)
--- NOTE | 2023-03-10 10:26 | P.DS_ITS ---
Discharge Providers Date of Admission: 03/09/23 10:52 Date of Discharge: March 13, 2023 Attending Provider at Admission: Arslan Howard MD Attending Provider at Discharge: Arslan Howard MD Primary Care Provider: Ihsan Velásquez DO Diagnoses at Discharge Discharge Diagnosis (1) Upper GI bleed: Status: Acute Reason for Visit Reason for Visit: N/D Hospital Course Hospital Course stephanie Rahman is a 72 year old female with a past medical history of atrial fibrillation, on Eliquis, history of aortic valve sclerosis, type 2 diabetes mellitus, obstructive sleep apnea, morbid obesity, hypertension, who presents to [facility] due to a few day history of feeling fatigue, malaise, and black tarry stools, denies a history of alcoholism, denies a history of alcoholic liver cirrhosis, no history of esophageal varices, denies using NSAIDs, she does have chronic back pain for which she uses hydrocodone, denies a history of GI bleeds in the past, no history of blood transfusion she does report she had a colonoscopy a few years ago and a few noncancerous polyps were removed, she did use her Eliquis last night, has not taken it this morning, in the emergency room, she was found to have an acute GI bleed, with BUN of 82 creatinine 1.2, hemoglobin of 9.3, is receiving her second unit of blood, has received 2 units of FFP, she was hypotensive on admission, blood pressures for fevers of 40, hemorrhagic shock, currently she is alert awake, following all commands, blood pressure 111/47, pulse 80, respirate 20, 96% on room air, denies any lightheadedness, no dizziness, INR is 1.32, CT of the abdomen and pelvis does note she has a left renal mass cyst versus mass, she does have radiographic evidence of liver cirrhosis, LFTs are within normal limits, albumin slightly low at 3.2 For hemorrhagic shock secondary to GI bleed, with acute anemia, on Eliquis therapy, she received 2 units PRBC 2 units platelets, general surgery performed EGD, found to have a gastric ulcer, with gastritis, no signs of bleeding, no biopsy was obtained as patient last dose of Eliquis was less than 12 hours ago, she was monitored as inpatient, hemoglobin monitored, she did have episodes of black tarry stools thereafter, hemoglobin has remained stable 8.4, hemodynamically stable. On discharge, I had an extensive discussion with patient about anticoagulant therapy, no gastric ulcer, certainly this is not a ideal situation, there is no perfect answer. On the one hand she has a significant risk of strokes as she is not on Eliquis, but on the other hand with her gastric ulcer, she is a high risk of bleeding, and with her persistent anemia, she is a high risk of further GI bleeds. Anticoagulant therapy was held as inpatient, after EGD, she was monitored for another 48 hours as her hemoglobin drifted down to 7, requiring another unit of blood, monitor thereafter hemoglobin on discharge was 8.0. After discussing the risk and benefits of holding anticoagulation, as she has persistent anemia that is transfusion dependent,, shared decision making, all questions answered, decision was made to hold anticoagulant therapy at least 2 weeks, longer depending on her hemoglobin trend and her symptomatology, she sees her primary care within this week, we will recheck her hemoglobin, if her hemoglobin is less than 7 she might require another unit of blood, no recurrent black or tarry stools. Nonetheless have discharged on Protonix, Carafate with a close follow-up with general surgery in 2 weeks. I have also ordered H. pylori antigen, test results to be followed up as outpatient. Patient was advised if she were to have any recurrent bloody or black stools lightheadedness dizziness to go to the emergency room. In terms of her H. pylori risk factors she has significant risk factors for H. pylori, given her diet, and her gastric ulcers, no biopsy was obtained due to patient being on Eliquis therapy, H. pylori stool antigen is pending, after discussing the risk and benefits of treating her for presumptive H. pylori infection, she voiced understanding, all consents are, agreed to proceed. We will treat her with amoxicillin, clarithromycin, PPI, as above, for at least 2 weeks, follow-up with general surgery and primary care as outpatient Patient was also found to have a left renal mass, cyst versus mass, will have patient follow-up with urology as outpatient She was also found to have liver cirrhosis, on CT imaging, possibly fatty liver disease, will have her follow-up with gastroenterology as outpatient. Have her follow-up with cardiology. - Please hold Eliquis at least 2 weeks, it could be longer depending on what your hemoglobin trend as -Please have your primary care provider recheck your hemoglobin in 48 hours -Decision to resume anticoagulation will be based on shared decision making with general surgery and primary care, as you have persistent anemia -Your hemoglobin on discharge was 8.0 -Take antibiotics for H. pylori gastritis -If hemoglobin less than 7 you might require a unit of blood -If you develop bloody or black stools please go to emergency room -Follow-up with general surgery in 2 weeks -Follow-up results general surgery in 2 weeks for consideration of repeat EGD and colonoscopy -Avoid blood thinners, avoid anti-inflammatory medications, avoid NSAIDs -For your liver mass, please follow-up with urology in 2 weeks -For your liver cirrhosis please follow-up with gastroenterology in 1 month -If you develop recurrent bloody or black stools please go to the emergency room Physical Exam Const: COMMON NORMALS: no acute distress Resp: COMMON NORMALS: normal respiratory effort, No retractions, No use of accessory muscles and clear to auscultation bilaterally AUSCULTATION: clear to auscultation bilaterally Cardio: COMMON NORMALS: regular rate, regular rhythm, S1 normal heart sound present and S2 normal heart sound present RATE: regular rate RHYTHM: regular rhythm HEART SOUNDS: S1 normal heart sound present and S2 normal heart sound present GI: COMMON NORMALS: Normal to inspection, nondistended, normoactive bowel sounds present and non-tender Extremity: COMMON NORMALS: no pedal edema Urinary Catheter Management: Ulloa: Cath Placed During This Visit: yes Reason for Continuing Indwelling Catheter: Accurate Measurement of Urinary Output in Critically Ill Patients Urinary Catheter Date of Insertion: 03/09/23 Urinary Catheter Time of Insertion: 17:25 Discharge Data Studies Completed and Pending Completed Studies During Hospitalization Category Date Time Status CT abdomen pelvis w con* [id number] Stat Cat Scan 03/09/23 07:48 Completed XR chest 1V portable [id number] Stat Exams 03/09/23 07:48 Completed Pending at discharge Category Date Time Status Complete Blood Count w/Auto AM LABS Lab 03/11/23 04:00 Ordered Complete Blood Count w/Auto AM LABS Lab 03/12/23 04:00 Ordered Comprehensive Metabolic Panel AM LABS Lab 03/11/23 04:00 Ordered Comprehensive Metabolic Panel AM LABS Lab 03/12/23 04:00 Ordered Helicobacter Pylori AG Stool Routine Lab 03/11/23 10:00 Uncollected Hemoglobin and Hematocrit Stat Lab 03/10/23 12:00 Ordered Magnesium AM LABS Lab 03/11/23 04:00 Ordered Magnesium AM LABS Lab 03/12/23 04:00 Ordered Phosphorus AM LABS Lab 03/11/23 04:00 Ordered Phosphorus AM LABS Lab 03/12/23 04:00 Ordered Laboratory Results WBC 11.50 10^3/uL (3.29-11.43) H 03/10/23 04:05 RBC 2.78 10^6/uL (3.85-5.65) L 03/10/23 04:05 Hgb 8.40 g/dL (11.27-16.99) L 03/10/23 08:18 Hct 26.5 % (36-47) L 03/10/23 08:18 MCV 95.0 fl (85-98) 03/10/23 04:05 MCH 29.9 pg (27-33) 03/10/23 04:05 MCHC 31.4 g/dL (30-55) 03/10/23 04:05 RDW 16.9 % (12.1-15.1) H 03/10/23 04:05 Plt Count 105 10^3/cmm (157-399) L D 03/10/23 04:05 MPV 12.1 fL (7.4-10.4) H 03/10/23 04:05 Neut % (Auto) 74.0 % 03/10/23 04:05 Lymph % (Auto) 19.7 % 03/10/23 04:05 Dickenson % (Auto) 5.4 % 03/10/23 04:05 Eos % (Auto) 0.0 % 03/10/23 04:05 Baso % (Auto) 0.2 % 03/10/23 04:05 Neut # (Auto) 8.51 10^3/uL (1.8-7.7) H 03/10/23 04:05 Lymph # (Auto) 2.3 10^3/uL (0.8-4.8) 03/10/23 04:05 Dickenson # (Auto) 0.6 10^3/uL (0.2-0.9) 03/10/23 04:05 Eos # (Auto) 0.0 10^3/uL (0.0-0.8) 03/10/23 04:05 Baso # (Auto) 0.0 10^3/uL (0.0-0.1) 03/10/23 04:05 Nucleated RBC % (auto) 0 % 03/10/23 04:05 Nucleated RBCs # 0.0 /100WBC 03/10/23 04:05 PT 16.80 SECONDS (12.1-14.9) H 03/09/23 08:00 INR 1.32 (0.8-1.2) H 03/09/23 08:00 APTT 41.9 SECONDS (23.9-36.7) H 03/09/23 08:00 Sodium 145 mmol/L (136-145) 03/10/23 04:05 Potassium 4.2 mmol/L (3.5-5.1) 03/10/23 04:05 Chloride 111 mmol/L (98-107) H 03/10/23 04:05 Carbon Dioxide 24 mmol/L (22-29) 03/10/23 04:05 Anion Gap 14.2 (5-19) 03/10/23 04:05 BUN 67 mg/dL (8-23) H 03/10/23 04:05 Creatinine 0.9 mg/dL (0.5-0.9) 03/10/23 04:05 GFR Calculation Not Reportable 03/10/23 04:05 Glucose 145 mg/dL (65-115) H 03/10/23 04:05 POC Glucose 159 mg/dL (70-110) H 03/09/23 22:38 Estimat Average Glucose 100 03/09/23 08:00 Hemoglobin A1c 5.1 % (4.0-6.0) 03/09/23 08:00 Calculated Osmolality 322 mOsm/kg (285-295) H 03/10/23 04:05 Lactic Acid 2.0 mmol/L (0.5-2.2) 03/09/23 17:50 Calcium 8.9 mg/dL (8.5-10.5) 03/10/23 04:05 Phosphorus 4.2 mg/dL (2.5-4.5) 03/10/23 04:05 Magnesium 2.5 mg/dL (1.7-2.3) H 03/10/23 04:05 Iron 52 ug/dL (37-145) 03/09/23 08:00 TIBC 239 mcg/dl 03/09/23 08:00 % Saturation 21.7 % (20-50) 03/09/23 08:00 Unsat Iron Binding 187 ug/dL (112-347) 03/09/23 08:00 Ferritin 73 ng/mL (15-150) 03/09/23 08:00 Total Bilirubin 0.3 mg/dL (0.15-1.2) 03/10/23 04:05 AST 16 U/L (0-32) 03/10/23 04:05 ALT 9 U/L (0-33) 03/10/23 04:05 Alkaline Phosphatase 53 U/L (35-105) 03/10/23 04:05 NT-Pro-B Natriuret Pep 231 pg/mL (0-125) H 03/10/23 04:05 Total Protein 6.2 g/dL (6.6-8.7) L 03/10/23 04:05 Albumin 3.6 g/dL (3.5-5.2) 03/10/23 04:05 Globulin 2.6 g/dL (1.3-4.6) 03/10/23 04:05 Triglycerides 157 mg/dL (0-150) H 03/09/23 08:00 Cholesterol 124 mg/dL (0-200) 03/09/23 08:00 LDL Cholesterol, Calc 58 mg/dL (50-129) 03/09/23 08:00 HDL Cholesterol 35 mg/dL (60-100) L 03/09/23 08:00 LDL/HDL Ratio 1.66 RATIO (0.00-3.22) 03/09/23 08:00 Cholesterol/HDL Ratio 3.54 mg/dL (0.0-4.40) 03/09/23 08:00 Lipase 63 U/L (13-60) H 03/09/23 08:00 Vitamin B12 189 pg/mL (232-1245) L 03/09/23 08:00 Folate 7.4 ng/mL (4.8-37.3) 03/09/23 08:00 TSH 1.19 uIU/mL (0.27-4.20) 03/09/23 08:00 Urine Color Yellow (Yellow) 03/09/23 12:30 Urine Appearance Clear (CLEAR) 03/09/23 12:30 Urine pH 5 (5-7) 03/09/23 12:30 Ur Specific [place] 1.005 (1.005-1.030) 03/09/23 12:30 Urine Protein Neg (Negative) 03/09/23 12:30 Urine Glucose (UA) Norm (Normal) 03/09/23 12:30 Urine Ketones Negative (Negative) 03/09/23 12:30 Urine Blood Neg (Negative) 03/09/23 12:30 Urine Nitrate Negative (Negative) 03/09/23 12:30 Urine Bilirubin Neg (Negative) 03/09/23 12:30 Urine Urobilinogen Norm mg/dL (Negative) 03/09/23 12:30 Ur Leukocyte Esterase Negative (Negative) 03/09/23 12:30 Digoxin 0.5 ng/mL (0.6-1.2) L 03/09/23 08:00 Hepatitis A IgM Ab Non-reactive (Nonreactive) 03/09/23 08:00 Hep Bs Antigen Non-reactive (Nonreactive) 03/09/23 08:00 Hep B Core IgM Ab Non-reactive (Nonreactive) 03/09/23 08:00 Hepatitis C Antibody Non-reactive (Nonreactive) 03/09/23 08:00 Blood Type O Negative 03/09/23 08:00 Blood Type O Negative 03/09/23 08:00 Rho(D) Type Negative 03/09/23 08:00 Rho(D) Type Negative 03/09/23 08:00 Antibody Screen Negative 03/09/23 08:00 Antibody Screen Negative 03/09/23 08:00 Crossmatch See Detail 03/09/23 08:00 Crossmatch See Detail 03/09/23 08:00 Vitals Last Vital Signs Temp 98.8 F 03/09/23 19:30 Pulse 90 03/10/23 09:09 Resp 17 03/10/23 09:00 BP 120/80 03/10/23 09:00 Pulse Ox 97 03/10/23 09:09 O2 Del Method Nasal Cannula 03/10/23 09:09 O2 Flow Rate 2 03/10/23 09:09 Discharge Plan Discharge Patient Disposition: Home Condition: Stable Prescriptions: New Protonix 40 mg tablet,delayed release (DR/EC) 40 mg PO BID 30 Days Qty: 60 0RF Carafate 1 gram tablet 1 g PO BID 28 Days Qty: 56 0RF amoxicillin 500 mg Capsule 1,000 mg PO BID 12 Days Qty: 48 0RF clarithromycin 500 mg Tablet 500 mg PO BID 12 Days Qty: 24 0RF Continued montelukast [Singulair] 10 mg tablet 10 mg PO DAILY fluticasone propionate [Flonase Allergy Relief] 50 mcg/actuation spray,suspension 2 spray INTRANASAL DAILY hydrocodone-acetaminophen 7.5-325 mg tablet 1 tab PO Q4H PRN (Reason: Pain) alprazolam 0.5 mg tablet 0.5 mg PO TID sotalol 80 mg tablet 120 mg PO BID Qty: 270 3RF digoxin 125 mcg (0.125 mg) tablet 125 mcg PO DAILY Qty: 90 3RF potassium chloride 8 mEq capsule, extended release 8 meq PO DAILY Qty: 90 3RF magnesium oxide 250 mg magnesium tablet 250 mg PO DAILY Qty: 90 3RF Held losartan 25 mg tablet 25 mg PO DAILY Hold Instructions: Resume on 03/17/23. Hold until you see your primary care hydrochlorothiazide 12.5 mg tablet 12.5 mg PO QAM Hold Instructions: Resume on 03/17/23. Hold until you see your primary care Discontinued Eliquis 5 mg tablet 5 mg PO BID Qty: 180 3RF Hold Instructions: Resume on 03/13/23. hold until monday recheck hgb on monday, if reasonable resume amlodipine 2.5 mg tablet 2.5 mg PO DAILY Qty: 90 3RF Hold Instructions: Resume on 03/13/23. hold until you see primary care Discharge Orders: Discharge Order (Routine); Ordered 03/13/23 Ordered By: Arslan Howard Other Ambulatory Orders: DME: [facility] (Order) Location: None Selected Ordered By: Arslan Howard [place] [facility] [place] Shaheen Muhammad MD [Referring] - 1 month (liver cirohosis / left message for this clinic in [facility]/please contact this clinic if you do not hear from them or please have Primary Care Physican contact for referrral ) Demetrio Lindsey DO [Physician] - 2 weeks (We have notified your physician's clinic of the need for a follow-up appointment to be scheduled. If you have not heard from them within the next 2 business days, please call them directly. You may also reach out to our controller operations and hr manager at [phone] and she can assist you.) Adams Alvarado MD [Referring] - 2 weeks (Will need to contact have attempted to call from your discharge today /please call or have Primary Care [facility] staff contact for referral ) Judi Back FNP [Nurse Practitioner] - 03/20/23 9:00 am (We have notified your physician's clinic of the need for a follow-up appointment to be scheduled. If you have not heard from them within the next 2 business days, please call them directly. You may also reach out to our controller operations and hr manager at [phone] and she can assist you.) Ihsan Velásquez DO [Primary Care Provider] - 03/13/23 9:10 am Discharge Diet: Cardiac Discharge Activity: Resume usual activity Patient Instructions: Sucralfate (By mouth) (Carafate), Pantoprazole (By mouth) (Protonix), Gastrointestinal Bleeding (DC), GI Discharge Instructions, Opioid Safety Activity Restrictions/Additional Instructions: - Please hold Eliquis at least 2 weeks, it could be longer depending on what your hemoglobin trend as -Please have your primary care provider recheck your hemoglobin in 48 hours -Decision to resume anticoagulation will be based on shared decision making with general surgery and primary care, as you have persistent anemia -Your hemoglobin on discharge was 8.0 -Take antibiotics for H. pylori gastritis -If hemoglobin less than 7 you might require a unit of blood -If you develop bloody or black stools please go to emergency room -Follow-up with general surgery in 2 weeks -Follow-up results general surgery in 2 weeks for consideration of repeat EGD and colonoscopy -Avoid blood thinners, avoid anti-inflammatory medications, avoid NSAIDs -For your liver mass, please follow-up with urology in 2 weeks -For your liver cirrhosis please follow-up with gastroenterology in 1 month -If you develop recurrent bloody or black stools please go to the emergency room Discharge Attestations Time Spent in Discharge Care*: greater than 30 min Quality Metrics Clinical Quality Measures [ No reported AMI, CVA or VTE this stay] Coding Level of Care Code 85076 Total time (in minutes) for Discharge: 45 Diagnoses Upper GI bleed K92.2
--- NOTE | 2023-03-10 11:06 | PC.RESP ---
nsg. wants to wait on PT. before getting up for home O2
[2023-03-10 12:07] LABS: Hematocrit 25.7 % (36-47)
[2023-03-10] MEDS: HYDROcodone-acetaminophen 7.5-325 mg Tablet 1 TAB PO ×2 (13:35→19:02)
--- NOTE | 2023-03-10 14:03 | PC.NURSE ---
Report called to ARMINDA Goodwin on the medical surgical floor. Patient transferred via wheelchair to room 253-1 accompanied by this nurse and 3 daughters. Belongings placed at bedside. Christa noted to be at bedside during transfer of care. Patient denies pain at this time and is noted to be A&Ox4.
[2023-03-10 17:30] LABS: Glucose Point of Care 168 mg/dL (70-110)
[2023-03-10] MEDS: clarithromycin 500 mg Tablet PO (17:44)
[2023-03-10] MEDS: amoxicillin 500 mg Capsule 1000 MG PO (17:44)
[2023-03-10 20:53] LABS: Glucose Point of Care 161 mg/dL (70-110)
[2023-03-11] VITALS (11 sets, daily range): BP systolic 96–130; BP diastolic 55–72; PULSE 58–70; RESP 16–18; TEMP 36.6–36.9; O2SAT 92–98
--- NOTE | 2023-03-11 01:12 | PC.NURSE ---
Patient had BM in toilet. Bright red blood noted with stool.
[2023-03-11] MEDS: HYDROcodone-acetaminophen 7.5-325 mg Tablet 1 TAB PO ×2 (04:39→20:53)
[2023-03-11] MEDS: ALPRAZolam 0.5 mg Tablet PO ×2 (04:42→20:53)
[2023-03-11 05:18] LABS: Basophils % 0.1 %; Hematocrit 25.9 % (36-47); Lymphocytes # 1.8 10^3/uL (0.8-4.8); Lymphocytes % 15.6 %; Mean Corpuscular HGB Conc 30.5 g/dL (30-55); Mean Corpuscular Volume 98.5 fl (85-98); Mean Platelet Volume 11.9 fL (7.4-10.4); Monocytes # 0.7 10^3/uL (0.2-0.9); Monocytes % 5.8 %; Neutrophils # 8.89 10^3/uL (1.8-7.7); Neutrophils % 77.6 %; Nucleated Red Blood Cells % 0 %; Platelet Count 109 10^3/cmm (157-399); Red Blood Count 2.63 10^6/uL (3.85-5.65); Red Cell Distribution Width 16.9 % (12.1-15.1); White Blood Count 11.44 10^3/uL (3.29-11.43)
[2023-03-11 05:59] LABS: Alanine Aminotransferase 12 U/L (0-33); Albumin Level 3.6 g/dL (3.5-5.2); Alkaline Phosphatase 54 U/L (35-105); Aspartate Amino Transferase 22 U/L (0-32); Blood Urea Nitrogen 49 mg/dL (8-23); Calcium 8.5 mg/dL (8.5-10.5); Carbon Dioxide 24 mmol/L (22-29); Chloride 111 mmol/L (98-107); Globulin 2.7 g/dL (1.3-4.6); Glucose 132 mg/dL (65-115); Magnesium 2.4 mg/dL (1.7-2.3); Osmolality Calculated 315 mOsm/kg (285-295); Phosphorus 3.7 mg/dL (2.5-4.5); Sodium 145 mmol/L (136-145); Total Bilirubin 0.4 mg/dL (0.15-1.2); Total Protein 6.3 g/dL (6.6-8.7)
[2023-03-11 06:55] LABS: Glucose Point of Care 147 mg/dL (70-110)
[2023-03-11] MEDS: sotalol 80 mg Tablet 120 MG PO ×2 (07:47→19:43)
[2023-03-11] MEDS: montelukast sodium 10 mg Tablet PO (07:48)
[2023-03-11] MEDS: digoxin 125 mcg Tablet PO (07:48)
[2023-03-11] MEDS: sucralfate 1 gm/10 mL Oral Liq UDC PO ×2 (07:50→19:42)
[2023-03-11] MEDS: pantoprazole 40 mg SDV IVP ×2 (07:50→19:43)
[2023-03-11] MEDS: amoxicillin 500 mg Capsule 1000 MG PO ×2 (08:07→17:25)
[2023-03-11] MEDS: clarithromycin 500 mg Tablet PO ×2 (08:07→17:25)
[2023-03-11 11:44] LABS: Glucose Point of Care 133 mg/dL (70-110)
[2023-03-11 12:05] LABS: Hematocrit 26.8 % (36-47)
--- NOTE | 2023-03-11 13:54 | PC.NUTR ---
Pt had asked to speak to a dietitian. Took low-fiber handout to her and discussed what a GI soft diet entailed. She asked appropriate questions and seemed motivated.
--- NOTE | 2023-03-11 16:29 | PM.PN ---
Subjective Subjective: Patient was seen this morning, yesterday I had extensive discussion with patient and her daughters at bedside, patient has risk factors for H. pylori. She eats a lot of smoke leads, she eats a lot of peppers, hot foods, given that she had a gastric ulcer however biopsy was not able to be obtained as she had taken Eliquis, there is a question if she has H. pylori or not, and the question if the gastric ulcer is having features of malignancy, she will need to have another EGD in 2 weeks, but given her persistent anemia, and her risk factors, I am going to presumptively treat her for H. pylori, discussed risk and benefits, she voiced understanding, all questions are, agreed to proceed, this morning hemoglobin has drifted down to 7.9, she does report dizziness with exertion, and when changing position, presyncopal symptoms, and she does report black tarry stools, we discussed monitoring her hemoglobin as inpatient, continue to have physical therapy work with her, she is agreeable Vitals/I&O/Wt Last Vital Signs Temp 97.9 F 03/11/23 15:55 Pulse 65 03/11/23 15:55 Resp 17 03/11/23 15:55 BP 130/72 03/11/23 15:55 Pulse Ox 95 03/11/23 15:55 O2 Del Method CPAP 03/11/23 03:31 O2 Flow Rate 2 03/10/23 21:20 03/11/23 03/11/23 03/11/23 06:59 14:59 22:59 Intake Total 480 / 480 Output Total 300 / 1300 Balance -300 / 660 480 / 480 Physical Exam Const: COMMON NORMALS: no acute distress and patient oriented x3 Resp: COMMON NORMALS: normal respiratory effort, No retractions, No use of accessory muscles and clear to auscultation bilaterally AUSCULTATION: clear to auscultation bilaterally Cardio: COMMON NORMALS: regular rate, regular rhythm, S1 normal heart sound present and S2 normal heart sound present RATE: regular rate RHYTHM: regular rhythm HEART SOUNDS: S1 normal heart sound present and S2 normal heart sound present GI: COMMON NORMALS: Normal to inspection, nondistended, normoactive bowel sounds present and non-tender Extremity: COMMON NORMALS: no pedal edema Neuro: COMMON NORMALS: patient oriented x3 Psych: COMMON NORMALS: mental status grossly normal Urinary Catheter Management: Ulloa: Cath Placed During This Visit: yes, but has since been removed by the nurse Reason for Continuing Indwelling Catheter: Does Not Meet Criteria Urinary Catheter Date of Insertion: 03/09/23 Urinary Catheter Time of Insertion: 17:25 Date Urinary Catheter Removed: 03/10/23 Time Urinary Catheter Discontinued: 16:50 Data 03/11/23 11:59 03/11/23 04:30 A&P Assessment and plan (1) Hemorrhagic shock: (2) Upper GI bleed: (3) Acute anemia: (4) Type 2 diabetes mellitus: (5) Essential (primary) hypertension: (6) ELVIN (obstructive sleep apnea): (7) Paroxysmal A-fib: (8) Hypertension: (9) Liver cirrhosis: (10) Left kidney mass: Plan Hemorrhagic shock ? Upper GI bleed ? Acute anemia ? Hypotension ? On Eliquis therapy Plan ? Cardiac diet ? General surgery has been consulted for EGD, EGD showed nonbleeding bleeding gastric ulcer, no biopsies obtained due to patient on Eliquis therapy, risk of bleeding ? In 2 to 4 weeks she would likely need another EGD for consideration of biopsy, H. pylori testing ? Given her H. pylori risk factors, we will presumptively treat her for H. pylori ? Status post 2 units FFP, status post 2 units PRBC ? Monitor hemodynamics closely, -Protonix 40 IV twice daily, Carafate ?Hemoglobin 8.3, monitor hemoglobin ? Is on atrial fibrillation medication blood pressure medications, ? Hold Eliquis for now ? Iron studies, ferritin 73, iron 52 ? Monitor hemodynamics monitor telemetry ? Radiographic evidence of liver cirrhosis, denies history of alcoholism, does have morbid obesity could be related to fatty liver disease, hepatitis panel within normal limits ? Left renal mass, will need to have patient follow-up with urology as outpatient -Type II diabetes mellitus A1c, blood sugar monitoring ? CODE STATUS patient is a full code ? SCDs for DVT prophylaxis, Lovenox relatively contraindicated as patient has an upper GI bleed and hemorrhagic shock Plan for today monitor hemoglobin, monitor hemodynamics, treat for H. pylori gastritis, continue to hold Eliquis Patient was seen this morning, yesterday I had extensive discussion with patient and her daughters at bedside, patient has risk factors for H. pylori. She eats a lot of smoke leads, she eats a lot of peppers, hot foods, given that she had a gastric ulcer however biopsy was not able to be obtained as she had taken Eliquis, there is a question if she has H. pylori or not, and the question if the gastric ulcer is having features of malignancy, she will need to have another EGD in 2 weeks, but given her persistent anemia, and her risk factors, I am going to presumptively treat her for H. pylori, discussed risk and benefits, she voiced understanding, all questions are, agreed to proceed, this morning hemoglobin has drifted down to 7.9, she does report dizziness with exertion, and when changing position, presyncopal symptoms, and she does report black tarry stools, we discussed monitoring her hemoglobin as inpatient, continue to have physical therapy work with her, she is agreeable Attestations Medical Necessity Statement*: This is a 72-year-old female, presents [facility] for hemorrhagic shock, GI bleed, now with presyncopal symptoms persistent anemia, black tarry stools, requiring inpatient monitoring, treatment for H. pylori gastritis Diagnoses Hemorrhagic shock R57.8 Upper GI bleed K92.2 Acute anemia D64.9 Type 2 diabetes mellitus E11.9 Essential (primary) hypertension I10 ELVIN (obstructive sleep apnea) G47.33 Paroxysmal A-fib I48.0 Hypertension I10 Liver cirrhosis K74.60 Left kidney mass N28.89
[2023-03-11 17:16] LABS: Glucose Point of Care 135 mg/dL (70-110)
[2023-03-11 18:29] LABS: Hematocrit 26.1 % (36-47)
[2023-03-11 21:20] LABS: Glucose Point of Care 167 mg/dL (70-110)
[2023-03-12] VITALS (18 sets, daily range): BP systolic 96–135; BP diastolic 55–76; PULSE 54–78; RESP 16–18; TEMP 36.4–37.1; O2SAT 92–99
[2023-03-12] MEDS: HYDROcodone-acetaminophen 7.5-325 mg Tablet 1 TAB PO ×2 (03:28→21:17)
[2023-03-12 04:27] LABS: Basophils % 0.1 %; Hematocrit 23.3 % (36-47); Lymphocytes # 1.8 10^3/uL (0.8-4.8); Lymphocytes % 22.2 %; Mean Corpuscular HGB Conc 30.5 g/dL (30-55); Mean Corpuscular Hemoglobin 30.1 pg (27-33); Mean Corpuscular Volume 98.7 fl (85-98); Monocytes # 0.6 10^3/uL (0.2-0.9); Monocytes % 7.3 %; Neutrophils # 5.62 10^3/uL (1.8-7.7); Neutrophils % 69.2 %; Nucleated Red Blood Cells % 0 %; Platelet Count 102 10^3/cmm (157-399); Red Blood Count 2.36 10^6/uL (3.85-5.65); Red Cell Distribution Width 16.5 % (12.1-15.1); White Blood Count 8.12 10^3/uL (3.29-11.43)
[2023-03-12 04:54] LABS: Alanine Aminotransferase 17 U/L (0-33); Albumin Level 3.6 g/dL (3.5-5.2); Alkaline Phosphatase 53 U/L (35-105); Anion Gap 10.8 (5-19); Aspartate Amino Transferase 30 U/L (0-32); Blood Urea Nitrogen 44 mg/dL (8-23); Calcium 8.4 mg/dL (8.5-10.5); Carbon Dioxide 25 mmol/L (22-29); Chloride 109 mmol/L (98-107); Globulin 2.3 g/dL (1.3-4.6); Glucose 141 mg/dL (65-115); Magnesium 2.5 mg/dL (1.7-2.3); Osmolality Calculated 306 mOsm/kg (285-295); Phosphorus 3.6 mg/dL (2.5-4.5); Potassium 3.8 mmol/L (3.5-5.1); Sodium 141 mmol/L (136-145); Total Bilirubin 0.3 mg/dL (0.15-1.2); Total Protein 5.9 g/dL (6.6-8.7)
[2023-03-12 06:47] LABS: Glucose Point of Care 144 mg/dL (70-110)
[2023-03-12] MEDS: sucralfate 1 gm/10 mL Oral Liq UDC PO ×2 (08:12→20:06)
[2023-03-12] MEDS: montelukast sodium 10 mg Tablet PO (08:12)
[2023-03-12] MEDS: digoxin 125 mcg Tablet PO (08:12)
[2023-03-12] MEDS: amoxicillin 500 mg Capsule 1000 MG PO ×2 (08:13→18:06)
[2023-03-12] MEDS: clarithromycin 500 mg Tablet PO ×2 (08:13→18:06)
[2023-03-12] MEDS: pantoprazole 40 mg SDV IVP ×2 (08:13→20:07)
[2023-03-12] MEDS: sotalol 80 mg Tablet 120 MG PO ×2 (08:18→20:06)
[2023-03-12 12:10] LABS: Glucose Point of Care 132 mg/dL (70-110)
--- NOTE | 2023-03-12 15:42 | PM.PN ---
Subjective Subjective: Patient was seen this morning, she does report lightheadedness and dizziness at times when exerting herself does report generalized weakness, denies any fevers, no chills, no cough, Vitals/I&O/Wt Last Vital Signs Temp 98.6 F 03/12/23 12:48 Pulse 68 03/12/23 14:00 Resp 16 03/12/23 13:11 BP 102/57 03/12/23 12:48 Pulse Ox 92 03/12/23 13:11 O2 Del Method Room Air 03/12/23 13:11 O2 Flow Rate 2 03/10/23 21:20 03/12/23 03/12/23 03/12/23 06:59 14:59 22:59 Intake Total 960 / 960 Output Total 950 / 950 Balance -950 / 250 960 / 960 Physical Exam Const: COMMON NORMALS: no acute distress and patient oriented x3 Resp: COMMON NORMALS: normal respiratory effort, No retractions, No use of accessory muscles and clear to auscultation bilaterally AUSCULTATION: clear to auscultation bilaterally Cardio: COMMON NORMALS: regular rate, regular rhythm, S1 normal heart sound present and S2 normal heart sound present RATE: regular rate RHYTHM: regular rhythm HEART SOUNDS: S1 normal heart sound present and S2 normal heart sound present GI: COMMON NORMALS: Normal to inspection, nondistended, normoactive bowel sounds present and non-tender Extremity: COMMON NORMALS: no pedal edema Neuro: COMMON NORMALS: patient oriented x3 Psych: COMMON NORMALS: mental status grossly normal Urinary Catheter Management: Ulloa: Cath Placed During This Visit: yes, but has since been removed by the nurse Reason for Continuing Indwelling Catheter: Does Not Meet Criteria Urinary Catheter Date of Insertion: 03/09/23 Urinary Catheter Time of Insertion: 17:25 Date Urinary Catheter Removed: 03/10/23 Time Urinary Catheter Discontinued: 16:50 Data 03/12/23 03:26 03/12/23 03:26 A&P Assessment and plan (1) Hemorrhagic shock: (2) Upper GI bleed: (3) Acute anemia: (4) Type 2 diabetes mellitus: (5) Essential (primary) hypertension: (6) ELVIN (obstructive sleep apnea): (7) Paroxysmal A-fib: (8) Hypertension: (9) Liver cirrhosis: (10) Left kidney mass: Plan Hemorrhagic shock ? Upper GI bleed ? Acute anemia ? Hypotension ? On Eliquis therapy Plan ? Cardiac diet ? General surgery has been consulted for EGD, EGD showed nonbleeding bleeding gastric ulcer, no biopsies obtained due to patient on Eliquis therapy, risk of bleeding ? In 2 to 4 weeks she would likely need another EGD for consideration of biopsy, H. pylori testing ? Given her H. pylori risk factors, we will presumptively treat her for H. pylori ? Status post 2 units FFP, status post 2 units PRBC -We will give another unit of PRBC ? Monitor hemodynamics closely, -Protonix 40 IV twice daily, Carafate ?Hemoglobin 7.1, monitor hemoglobin ? Is on atrial fibrillation medication blood pressure medications, ? Hold Eliquis at least 2 weeks ? Iron studies, ferritin 73, iron 52 ? Monitor hemodynamics monitor telemetry ? Radiographic evidence of liver cirrhosis, denies history of alcoholism, does have morbid obesity could be related to fatty liver disease, hepatitis panel within normal limits ? Left renal mass, will need to have patient follow-up with urology as outpatient -Type II diabetes mellitus A1c, blood sugar monitoring ? CODE STATUS patient is a full code ? SCDs for DVT prophylaxis, Lovenox relatively contraindicated as patient has an upper GI bleed and hemorrhagic shock Plan for today monitor hemoglobin, monitor hemodynamics, treat for H. pylori gastritis, continue to hold Eliquis, PT OT, 1 unit PRBC Attestations Medical Necessity Statement*: Patient requires hospitalization for hemorrhagic shock, persistent anemia, requiring further transfusion, concerns for H. pylori gastritis to be getting treated with antibiotic treatment Coding Level of Care Code Acute Code for Chg Fwd Diagnoses Hemorrhagic shock R57.8 Upper GI bleed K92.2 Acute anemia D64.9 Type 2 diabetes mellitus E11.9 Essential (primary) hypertension I10 ELVIN (obstructive sleep apnea) G47.33 Paroxysmal A-fib I48.0 Hypertension I10 Liver cirrhosis K74.60 Left kidney mass N28.89
[2023-03-12 18:02] LABS: Glucose Point of Care 128 mg/dL (70-110)
[2023-03-12 21:07] LABS: Glucose Point of Care 218 mg/dL (70-110)
[2023-03-12] MEDS: ALPRAZolam 0.5 mg Tablet PO (21:17)
[2023-03-13] MEDS: HYDROcodone-acetaminophen 7.5-325 mg Tablet 1 TAB PO (01:55)
[2023-03-13 04:00] VITALS: BP 108/65; PULSE 62; RESP 18; TEMP 36.7; O2SAT 98
[2023-03-13 05:20] VITALS: PULSE 53
[2023-03-13 05:22] LABS: Basophils % 0.1 %; Eosinophils % 0.2 %; Hematocrit 25.7 % (36-47); Lymphocytes # 2.4 10^3/uL (0.8-4.8); Lymphocytes % 28.2 %; Mean Corpuscular HGB Conc 31.1 g/dL (30-55); Mean Corpuscular Hemoglobin 30.3 pg (27-33); Mean Corpuscular Volume 97.3 fl (85-98); Mean Platelet Volume 11.9 fL (7.4-10.4); Monocytes # 0.8 10^3/uL (0.2-0.9); Neutrophils # 5.03 10^3/uL (1.8-7.7); Neutrophils % 60.5 %; Nucleated Red Blood Cells % 0 %; Platelet Count 109 10^3/cmm (157-399); Red Blood Count 2.64 10^6/uL (3.85-5.65); Red Cell Distribution Width 16.4 % (12.1-15.1); White Blood Count 8.32 10^3/uL (3.29-11.43)
[2023-03-13 05:52] LABS: Alanine Aminotransferase 26 U/L (0-33); Albumin Level 3.3 g/dL (3.5-5.2); Alkaline Phosphatase 54 U/L (35-105); Anion Gap 11.9 (5-19); Aspartate Amino Transferase 36 U/L (0-32); Blood Urea Nitrogen 32 mg/dL (8-23); Calcium 7.9 mg/dL (8.5-10.5); Carbon Dioxide 26 mmol/L (22-29); Chloride 109 mmol/L (98-107); Globulin 2.4 g/dL (1.3-4.6); Glucose 93 mg/dL (65-115); Magnesium 2.3 mg/dL (1.7-2.3); Osmolality Calculated 303 mOsm/kg (285-295); Phosphorus 2.7 mg/dL (2.5-4.5); Potassium 3.9 mmol/L (3.5-5.1); Sodium 143 mmol/L (136-145); Total Bilirubin 0.4 mg/dL (0.15-1.2); Total Protein 5.7 g/dL (6.6-8.7)
[2023-03-13 06:45] LABS: Glucose Point of Care 105 mg/dL (70-110)
[2023-03-13 07:33] VITALS: BP 129/83; PULSE 57; RESP 17; TEMP 36.7; O2SAT 96
[2023-03-13] MEDS: sucralfate 1 gm/10 mL Oral Liq UDC PO (09:00)
[2023-03-13] MEDS: pantoprazole 40 mg SDV IVP (09:00)
[2023-03-13 09:01] VITALS: PULSE 61
[2023-03-13] MEDS: sotalol 80 mg Tablet 120 MG PO (09:01)
[2023-03-13] MEDS: digoxin 125 mcg Tablet PO (09:01)
[2023-03-13] MEDS: montelukast sodium 10 mg Tablet PO (09:02)
[2023-03-13] MEDS: amoxicillin 500 mg Capsule 1000 MG PO (10:13)
[2023-03-13] MEDS: clarithromycin 500 mg Tablet PO (10:14)
[2023-03-13 11:46] VITALS: BP 123/78; PULSE 61; RESP 17; TEMP 36.8; O2SAT 96
[2023-03-13 11:54] LABS: Glucose Point of Care 108 mg/dL (70-110)
--- NOTE | 2023-03-13 12:31 | PC.SOCIAL ---
PG 2 IMM Explained to pt Pg 2 IMM. No questions voiced. Provided pt a copy. Initialed, dated, & timed a copy & placed in chart.
[2023-03-13 15:10] VITALS: BP 123/78; PULSE 61; RESP 17; TEMP 36.8; O2SAT 96
== END 2023-03-13 15:10 | disposition home or self-care (01) | DRG 377 ==
LOC: ER 08:16 → ICU 11:22 → MEDSURG 03-10 14:27
PROVIDERS: Surgery; Admitting Provider Family Medicine; Emergency Provider Family Medicine; PCP Internal Medicine; Visit Provider Family Medicine
PROC: 0DJ08ZZ Inspection of Upper Intestinal Tract, Via Natural or Artificial Opening Endoscopic (ICD-10-PCS; CPT 43235; principal; 2023-03-09 12:30)
DX: K92.2 Gastrointestinal hemorrhage, unspecified (principal); R57.8 Other shock; D62 Acute posthemorrhagic anemia; I48.91 Unspecified atrial fibrillation; Z79.01 Long term (current) use of anticoagulants; E66.01 Morbid (severe) obesity due to excess calories; I10 Essential (primary) hypertension; K92.0 Hematemesis; K92.1 Melena; G89.29 Other chronic pain; M54.50 Low back pain, unspecified; K74.60 Unspecified cirrhosis of liver; J45.909 Unspecified asthma, uncomplicated; G47.33 Obstructive sleep apnea (adult) (pediatric); K21.9 Gastro-esophageal reflux disease without esophagitis; E11.65 Type 2 diabetes mellitus with hyperglycemia; N28.89 Other specified disorders of kidney and ureter; Z87.891 Personal history of nicotine dependence
CPT/HCPCS: 36415; 36416; 36430; 43235; 51702; 71045; 74177; 80053; 80061; 80074; 80162; 81003; 82607; 82728; 82746; 82962; 83036; 83540; 83550; 83605; 83690; 83735; 83880; 84100; 84443; 85014; 85018; 85025; 85610; 85730; 86850; 86900; 86920; 86927; 87338; 94660; 94664; 94760; 96374; 96376; 97110; 97116; 97161; 97165; 99285; C9113; J2704; J7030; P9016; P9017; P9046; Q9967

== ENCOUNTER → 2023-03-20 08:56 | Outpatient (BNVA) | payer MEDICARE, MEDICAID, SELFPAY | PROVIDERS: PCP Internal Medicine; Visit Provider Nurse Practitioner Family | DX: I25.10 Atherosclerotic heart disease of native coronary artery without angina pectoris (principal); I10 Essential (primary) hypertension; I48.0 Paroxysmal atrial fibrillation; Z79.01 Long term (current) use of anticoagulants; Z87.891 Personal history of nicotine dependence | CPT/HCPCS: 99213 ==

== ENCOUNTER → 2023-03-21 12:20 | Outpatient (BNVA) | payer MEDICARE, MEDICAID, SELFPAY | PROVIDERS: PCP Internal Medicine; Visit Provider Nurse Practitioner Family | DX: D64.9 Anemia, unspecified (principal) | CPT/HCPCS: 85025 ==

== ENCOUNTER → 2023-03-29 11:59 | Outpatient (BNVA) | payer MEDICARE, MEDICAID, SELFPAY | PROVIDERS: PCP Internal Medicine; Visit Provider Nurse Practitioner Family | DX: D64.9 Anemia, unspecified (principal) | CPT/HCPCS: 85025 ==

== ENCOUNTER → 2023-04-04 10:57 | Outpatient (BNVA) | payer MEDICARE, MEDICAID, SELFPAY | PROVIDERS: PCP Internal Medicine; Visit Provider Surgery | DX: K25.9 Gastric ulcer, unspecified as acute or chronic, without hemorrhage or perforation; Z12.11 Encounter for screening for malignant neoplasm of colon | CPT/HCPCS: 99024; 99204 ==

== ENCOUNTER → 2023-04-05 11:01 | Outpatient (BNVA) | payer MEDICARE, MEDICAID, SELFPAY | PROVIDERS: PCP Internal Medicine; Visit Provider Nurse Practitioner Family | DX: K25.9 Gastric ulcer, unspecified as acute or chronic, without hemorrhage or perforation (principal) | CPT/HCPCS: 85025 ==

== ENCOUNTER 2023-05-24 07:01 | Day surgery (SDC) | payer MEDICARE, MEDICAID, SELFPAY ==
--- NOTE | 2023-05-24 07:18 | ANES.PREANE2 ---
Pre-Anesthetic Assessment Height/Weight: Height 1.7 m Preop Diagnosis: GI bleed/screening Operation Date: 05/24/23 08:00 Proposed Procedures p [id number] egd [id number] colon G0121 screen colon A risk(Not Applicable) - Demetrio Lindsey DO s Colonoscopy(Not Applicable) - Demetrio Lindsey DO Familial anesthetic complications: None Was Beta Yudith taken within 24 hours: Yes Was Clonidine taken within 24 hours: N/A Last intake: Solid food 05/22, liquid 05/23 Social No alcohol and No tobacco (Once in a while) Exam alert, oriented x 3 and regular rate & rhythm Diminished bilateral breath sounds Airway Submandibular: within normal limits Cervical ROM: within normal limits Mallampati: Class III Dentition: false History/ROS No significant history except as noted and No significant complaints Pulmonary Asthma, Cough and Sleep Apnea (CPAP) CV/HEM Atrial Fibrillation, Anemia, Arrythmia, Coronary Artery Disease, Hypertension and Murmur CONCLUSIONS Normal left ventricular size and systolic function, EF 73 %. No regional wall motion abnormalities. Mild to moderate concentric left-ventricular hypertrophy.Grade I/IV diastolic dysfunction (abnormal relaxation filling pattern), normal to mildly elevated filling pressures. Mildly increased left atrial size. Thickened mitral valve. Moderate aortic valve calcification. Aortic valve sclerosis. Trace tricuspid valve regurgitation. Estimated pulmonary artery peak systolic pressure, within normal limits. There is no pericardial effusion. There are no intracardiac masses. Compared to the study from 02/04/2020, there may not be a significant change Right kidney deformed at , left kidney mass Hepatic Cirrhosis GI Peptic Ulcer Disease Metabolic Diabetes Mellitus and Morbid Obesity [facility] [place] [facility] [place] Osteoarthritis/DJD and Rheumatoid Arthritis Neuropsych Anxiety, Depression and Neuropathy (left arm) Anesthetic Plan ASA status: 3 Anesthesia: Anesthesia Evaluation, General and MAC Risk of > 500 ml blood loss (7ml/kg in children): No Medications/Allergies Home Medications Medication Instructions Recorded Confirmed Last Taken Type alprazolam 0.5 mg tablet 0.5 mg PO TID 05/27/19 05/22/23 05/23/23 History fluticasone propionate 50 2 spray intranasal DAILY 05/27/19 05/22/23 05/23/23 History mcg/actuation nasal spray,suspension (Flonase Allergy Relief) hydrocodone 7.5 mg-acetaminophen 1 tab PO Q4H PRN Pain 05/27/19 05/22/23 05/23/23 History 325 mg tablet montelukast 10 mg tablet 10 mg PO DAILY 05/27/19 05/22/23 05/23/23 History (Singulair) digoxin 125 mcg (0.125 mg) tablet 125 mcg PO DAILY #90 tabs 06/29/22 05/22/23 05/23/23 Rx sotalol 80 mg tablet 120 mg (1.5 x 80 mg) PO BID #270 06/29/22 05/22/23 05/24/23 Rx tabs losartan 25 mg tablet 25 mg PO DAILY 07/20/22 05/22/23 05/23/23 History magnesium oxide 250 mg PO DAILY #90 tabs 07/27/22 05/22/23 05/23/23 Rx hydrochlorothiazide 12.5 mg tablet 12.5 mg PO QAM 03/09/23 05/22/23 05/23/23 History pantoprazole 40 mg tablet,delayed 40 mg PO BID 6 weeks #84 tabs 04/04/23 05/22/23 05/23/23 Rx release (Protonix) Allergies Allergy/AdvReac Type Severity Reaction Status Date / Time [id number] Reductase Allergy leg pain Verified 04/04/23 11:35 Inhibitor PFSH Anesthesia Medical History Anticoagulation adequate with anticoagulant therapy Aortic valve sclerosis Asthma CAD (coronary artery disease) Chronic cough Essential (primary) hypertension GERD (gastroesophageal reflux disease) High risk medication use ELVIN (obstructive sleep apnea) Paroxysmal A-fib Type 2 diabetes mellitus Surgical History H/O partial nephrectomy H/O shoulder surgery H/O tubal ligation History of kidney surgery Hx of cataract surgery Family History Mother Hypertension Diabetes CHF (congestive heart failure) CAD (coronary artery disease) Stroke Brother Hypertension Stroke Cancer Diabetes Father Myocardial infarction CAD (coronary artery disease) Grandfather Diabetes Family/Other Diabetes Denies family history of Clotting disorder Dementia Chronic kidney disease (CKD) Suicide Anesthesia complication Bleeding disorder Lung disease Social History (Updated 05/22/23 @ 10:20 by Angélica Last RN) Smoking and tobacco/nicotine status: current some day tobacco/nicotine user cigarettes Number of cigarettes per day: 1-5 Quit status (tobacco/nicotine): has quit using Alcohol intake: never Substance/Drug Use: never Household members: none Marital status: / Current occupational status: retired Do you think of yourself as: Straight/Heterosexual Current gender identity: Female Data Anesthesia Cardiac Studies: Echocardiogram 02/08/23 Echocardiogram Ultrasound 02/04/20 Cardiac Event Monitor 08/10/22
[2023-05-24 07:24] VITALS: BP 167/83; PULSE 58; RESP 18; TEMP 36.7; O2SAT 97
[2023-05-24] MEDS: sodium chloride 0.9% 1,000 ML 30 ML IV (07:29)
--- NOTE | 2023-05-24 07:29 | PM.HP ---
Providers/Chief Complaint Primary Care Provider: Ihsan Velásquez DO Chief Complaint: K25.9, Z12.11 History of Present Illness Lisa Rahman is a 72 year old female Review of Systems General: Reports: 10 or more systems reviewed and unremarkable except in HPI and below Medications/Allergies Home Medications Medication Instructions Recorded Confirmed Last Taken Type alprazolam 0.5 mg tablet 0.5 mg PO TID 05/27/19 05/22/23 05/23/23 History fluticasone propionate 50 2 spray intranasal DAILY 05/27/19 05/22/23 05/23/23 History mcg/actuation nasal spray,suspension (Flonase Allergy Relief) hydrocodone 7.5 mg-acetaminophen 1 tab PO Q4H PRN Pain 05/27/19 05/22/23 05/23/23 History 325 mg tablet montelukast 10 mg tablet 10 mg PO DAILY 05/27/19 05/22/23 05/23/23 History (Singulair) digoxin 125 mcg (0.125 mg) tablet 125 mcg PO DAILY #90 tabs 06/29/22 05/22/23 05/23/23 Rx sotalol 80 mg tablet 120 mg (1.5 x 80 mg) PO BID #270 06/29/22 05/22/23 05/24/23 Rx tabs losartan 25 mg tablet 25 mg PO DAILY 07/20/22 05/22/23 05/23/23 History magnesium oxide 250 mg PO DAILY #90 tabs 07/27/22 05/22/23 05/23/23 Rx hydrochlorothiazide 12.5 mg tablet 12.5 mg PO QAM 03/09/23 05/22/23 05/23/23 History pantoprazole 40 mg tablet,delayed 40 mg PO BID 6 weeks #84 tabs 04/04/23 05/22/23 05/23/23 Rx release (Protonix) Allergies Allergy/AdvReac Type Severity Reaction Status Date / Time [id number] Reductase Allergy leg pain Verified 04/04/23 11:35 Inhibitor PFSH Acute PFSH: Medical History Anticoagulation adequate with anticoagulant therapy Aortic valve sclerosis Asthma CAD (coronary artery disease) Chronic cough Essential (primary) hypertension GERD (gastroesophageal reflux disease) High risk medication use ELVIN (obstructive sleep apnea) Paroxysmal A-fib Type 2 diabetes mellitus Surgical History H/O partial nephrectomy H/O shoulder surgery H/O tubal ligation History of kidney surgery Hx of cataract surgery Family History Mother Hypertension Diabetes CHF (congestive heart failure) CAD (coronary artery disease) Stroke Brother Hypertension Stroke Cancer Diabetes Father Myocardial infarction CAD (coronary artery disease) Grandfather Diabetes Family/Other Diabetes Denies family history of Clotting disorder Dementia Chronic kidney disease (CKD) Suicide Anesthesia complication Bleeding disorder Lung disease Social History (Updated 05/22/23 @ 10:20 by Angélica Last RN) Smoking and tobacco/nicotine status: current some day tobacco/nicotine user cigarettes Number of cigarettes per day: 1-5 Quit status (tobacco/nicotine): has quit using Alcohol intake: never Substance/Drug Use: never Household members: none Marital status: / Current occupational status: retired Do you think of yourself as: Straight/Heterosexual Current gender identity: Female Vitals/I&O/Wt Last Vital Signs Temp 98.1 F 05/24/23 07:24 Pulse 58 L 05/24/23 07:24 Resp 18 05/24/23 07:24 BP 167/83 05/24/23 07:24 Pulse Ox 97 05/24/23 07:24 O2 Del Method Room Air 05/24/23 07:24 Weight last 48 hrs Weight 285 lb A&P Assessment and plan (1) Gastric ulcer: (2) Colon cancer screening: Plan EGD and Colonoscopy Attestations Medical Necessity Statement*: home Coding Level of Care Code Acute Code for Chg Fwd Diagnoses Gastric ulcer K25.9 Colon cancer screening Z12.11
[2023-05-24 08:13] VITALS: BP 100/46; PULSE 63; RESP 18; TEMP 36.1; O2SAT 91
[2023-05-24 08:24] VITALS: BP 109/76; PULSE 61; RESP 18; O2SAT 92
[2023-05-24 08:33] VITALS: BP 116/60; PULSE 57; RESP 16; O2SAT 97
== END 2023-05-24 08:54 | disposition home or self-care (01) ==
PROVIDERS: PCP Internal Medicine; Visit Provider Surgery
PROC: 0DJ08ZZ Inspection of Upper Intestinal Tract, Via Natural or Artificial Opening Endoscopic (ICD-10-PCS; CPT 43235; principal; 2023-05-24 08:00)
PROC: 0DJD8ZZ Inspection of Lower Intestinal Tract, Via Natural or Artificial Opening Endoscopic (ICD-10-PCS; CPT 45378; 2023-05-24 08:00)
DX: Z12.11 Encounter for screening for malignant neoplasm of colon (principal); D12.3 Benign neoplasm of transverse colon; K25.9 Gastric ulcer, unspecified as acute or chronic, without hemorrhage or perforation; K29.50 Unspecified chronic gastritis without bleeding; I25.10 Atherosclerotic heart disease of native coronary artery without angina pectoris; I10 Essential (primary) hypertension; K21.9 Gastro-esophageal reflux disease without esophagitis; G47.33 Obstructive sleep apnea (adult) (pediatric); I48.0 Paroxysmal atrial fibrillation; E11.9 Type 2 diabetes mellitus without complications; F17.210 Nicotine dependence, cigarettes, uncomplicated; Z87.11 Personal history of peptic ulcer disease; M06.9 Rheumatoid arthritis, unspecified
CPT/HCPCS: 43239; 45385; 88305; 88342; J2704; J7030

== ENCOUNTER 2023-07-05 08:23 | Outpatient (CLI) | payer MEDICARE, MEDICAID, SELFPAY ==
--- NOTE | 2023-07-05 08:29 | MR_ITS ---
WS: [id number] MRI ABDOMEN WITH AND WITHOUT CONTRAST. COMPARISON: CT abdomen 03/09/2023 and liver ultrasound 03/28/2023 Multiplanar, multisequence imaging is performed with and without contrast. MultiHance 20 mL IV. Renal mass MR protocol with dynamic postcontrast imaging. LEFT kidney: Normal size LEFT kidney. There are multiple T2 hyperintense masses scattered throughout the kidney. On the T1 fat-sat generation precontrast imaging majority of these masses are of low sign al. The indeterminate mass previously described in the inferior medial LEFT kidney is identified as i ntermediate signal. The intermediate signal mass measures 2.7 x 3.0 x 2.3 cm. On the dynamic postcont rast imaging there is increased enhancement of this mass which is most consistent with a solid neopla sm. The remaining cyst do not enhance. There is no obstruction. RIGHT kidney: Moderate atrophy with numerous cysts. There are multiple acquired cysts and cortical th inning. There are no enhancing masses or obstruction. Entire liver is not included. Liver is slightly enlarged. No significant loss of signal on the out of phase sequence. Spleen is enlarged measuring 15.9 cm. Abnormal gallbladder. Mildly hydropic distende d gallbladder. No adjacent pericholecystic fluid and the wall is not thickened. There are stones and sludge present. No bile duct dilatation. Pancreas is negative. No adenopathy or ascites. IMPRESSION: 1. Solid renal mass with enhancement in the inferior medial pole of the LEFT kidney. Mass measures 2 .7 x 3.0 x 2.3 cm and is highly suspicious for renal cell neoplasm. 2. Additional bilateral renal cysts. No additional enhancing mass. 3. Moderate atrophy RIGHT kidney with cortical thinning. 4. Abnormal gallbladder. Gallbladder is mildly hydropic with stones and sludge. Consider surgical ev aluation for cholecystectomy. Abnormal gallbladder was also noted on the prior ultrasound of 03/28/20 23. There is masslike material within the gallbladder which did not enhance. Recommend surgical evalu ation. 5. Mild splenomegaly.
[2023-07-05] MEDS: gadobenate dimeglumine 20 mL vial IV (10:04)
== END 2023-07-05 08:24 | disposition home or self-care (01) ==
LOC: RAD 08:24
PROVIDERS: PCP Internal Medicine; Visit Provider Physician Assistant
DX: N28.89 Other specified disorders of kidney and ureter (principal); N28.1 Cyst of kidney, acquired; N26.1 Atrophy of kidney (terminal); K80.20 Calculus of gallbladder without cholecystitis without obstruction; R16.1 Splenomegaly, not elsewhere classified
CPT/HCPCS: 74183; A9577

== ENCOUNTER → 2023-07-27 13:56 | Outpatient (BNVA) | payer MEDICARE, MEDICAID, SELFPAY | PROVIDERS: PCP Internal Medicine; Visit Provider Internal Medicine Cardiovascular Disease | DX: I48.0 Paroxysmal atrial fibrillation (principal); I35.8 Other nonrheumatic aortic valve disorders; I10 Essential (primary) hypertension; K25.4 Chronic or unspecified gastric ulcer with hemorrhage; N28.89 Other specified disorders of kidney and ureter; Z79.899 Other long term (current) drug therapy; F17.210 Nicotine dependence, cigarettes, uncomplicated | CPT/HCPCS: 99214 ==

== ENCOUNTER → 2023-08-07 14:37 | Outpatient (BNVA) | payer MEDICARE, MEDICAID, SELFPAY | PROVIDERS: PCP Internal Medicine; Visit Provider Internal Medicine Cardiovascular Disease | DX: I48.0 Paroxysmal atrial fibrillation (principal); Z79.899 Other long term (current) drug therapy | CPT/HCPCS: 93005 ==

== ENCOUNTER → 2023-09-04 13:52 | Outpatient (BNVA) | payer MEDICARE, MEDICAID, SELFPAY | PROVIDERS: PCP Internal Medicine; Visit Provider Surgery | DX: K82.8 Other specified diseases of gallbladder (principal); K80.20 Calculus of gallbladder without cholecystitis without obstruction | CPT/HCPCS: 99214 ==

== ENCOUNTER 2023-09-14 17:12 | Inpatient (IN) | payer MEDICARE, MEDICAID, SELFPAY ==
[2023-09-14] VITALS (64 sets, daily range): BP systolic 66–174; BP diastolic 42–94; PULSE 49–76; RESP 16–25; TEMP 36.2–36.7; O2SAT 89–100; BMI 44.8; BMI 46.0
[2023-09-14] MEDS: sodium chloride 0.9% 1,000 ML 30 ML IV (08:59)
--- NOTE | 2023-09-14 09:02 | ANES.PREANE2 ---
Pre-Anesthetic Assessment Height/Weight: Height 1.7 m Weight 129.727 kg Temp Pulse Resp BP Pulse Ox O2 Del Method 97.4 F L 49 L 17 174/84 94 Room Air 09/14/23 08:43 09/14/23 08:43 09/14/23 08:43 09/14/23 08:43 09/14/23 08:43 09/14/23 08:44 Operation Date: 09/14/23 09:50 Proposed Procedures p Laparoscopic Cholecystectomy 34920, K82.8 , K80.20(Not Applicable) - Demetrio Lindsey DO Last intake: Intake Last Liquid Date 09/13/23 Last Liquid Time 22:30 Last Solid Date 09/13/23 Last Solid Time 19:00 Social No alcohol and No tobacco Exam alert, oriented x 3, clear to auscultation bilaterally and regular rate & rhythm (no murmurs; occasional irreg beat) Airway Submandibular: within normal limits Cervical ROM: within normal limits Mallampati: Class II Pulmonary Sleep Apnea and Shortness of Breath CV/HEM Atrial Fibrillation and Hypertension Chronic Renal Insufficiency Left Renal Mass Hepatic Cirrhosis GI Gastroesophageal Reflux Disease Metabolic Diabetes Mellitus, Hyperlipidemia and Morbid Obesity Anesthetic Plan ASA status: 4 Anesthesia: General Medications/Allergies Home Medications Medication Instructions Recorded Confirmed Last Taken Type alprazolam 0.5 mg tablet 0.5 mg PO TID 05/27/19 09/13/23 09/13/23 History fluticasone propionate 50 2 spray intranasal DAILY 05/27/19 09/13/23 09/11/23 History mcg/actuation nasal spray,suspension (Flonase Allergy Relief) hydrocodone 7.5 mg-acetaminophen 1 tab PO Q4H PRN Pain 05/27/19 09/13/23 09/13/23 History 325 mg tablet montelukast 10 mg tablet 10 mg PO DAILY 05/27/19 09/13/23 09/13/23 History (Singulair) losartan 25 mg tablet 25 mg PO DAILY 07/20/22 09/13/23 09/13/23 History hydrochlorothiazide 12.5 mg tablet 12.5 mg PO QAM 03/09/23 09/13/23 09/13/23 History pantoprazole 40 mg tablet,delayed 40 mg PO BID 6 weeks #84 tabs 04/04/23 09/13/23 09/13/23 Rx release (Protonix) sotalol 80 mg tablet See Rx Instructions .Route 07/04/23 09/13/23 09/14/23 Rx .COMPLEX #270 tabs iron 65 mg-65 mg-folic acid 1,000 65 - 1,000 tab PO DAILY 07/27/23 09/13/23 09/13/23 History mcg (24)-vitB with C#12-succ. tablet magnesium oxide 250 mg PO DAILY #90 tabs 08/08/23 09/13/23 09/13/23 Rx digoxin 125 mcg (0.125 mg) tablet 125 mcg PO DAILY 09/13/23 09/13/23 09/13/23 History Allergies Allergy/AdvReac Type Severity Reaction Status Date / Time [id number] Reductase Allergy leg pain Verified 09/04/23 13:55 Inhibitor Current Medications Generic Name Dose Route Start Last Admin Trade Name Freq PRN Reason Stop Dose Admin Sodium Chloride 1,000 mls @ 30 mls/hr 09/14/23 07:30 09/14/23 08:59 Sodium Chloride 0.9% IV 09/15/23 07:29 30 mls/hr .Q24H AMTTIE Administration PFSH Anesthesia Medical History Anticoagulation adequate with anticoagulant therapy High risk medication use Aortic valve sclerosis Essential (primary) hypertension GERD (gastroesophageal reflux disease) Paroxysmal A-fib Asthma ELVIN (obstructive sleep apnea) Chronic cough CAD (coronary artery disease) Type 2 diabetes mellitus Surgical History History of kidney surgery H/O partial nephrectomy H/O tubal ligation H/O shoulder surgery Hx of cataract surgery Family History Mother Hypertension Diabetes Congestive heart failure (CHF) CAD (coronary artery disease) Stroke Brother Hypertension Stroke Cancer Diabetes Father Myocardial infarction CAD (coronary artery disease) Grandfather Diabetes Family/Other Diabetes Denies family history of Clotting disorder Dementia Chronic kidney disease (CKD) Suicide Anesthesia complication Bleeding disorder Lung disease Social History Smoking and tobacco/nicotine status: current some day tobacco/nicotine user cigarettes Quit status (tobacco/nicotine): has quit using Alcohol intake: never Substance/Drug Use: never Household members: none Marital status: / Current occupational status: retired Do you think of yourself as: Straight/Heterosexual Current gender identity: Female Data Anesthesia Cardiac Studies: Echocardiogram 02/08/23 Echocardiogram Ultrasound 02/04/20 Cardiac Event Monitor 08/10/22
--- NOTE | 2023-09-14 09:12 | W.PM.OPSUD ---
Surgery/Procedure H&P Update DATE OF PROCEDURE: September 14, 2023 DATE H&P PERFORMED: 09/04/23 H&P UPDATE INFORMATION: I have reviewed H&P completed within last 30 days, I have examined patient prior to procedure and No changes to prior documentation PLANNED PROCEDURE: Operation Date: 09/14/23 09:50 Proposed Procedures p Laparoscopic Cholecystectomy 89832, K82.8 , K80.20(Not Applicable) - Demetrio Lindsey, DO
[2023-09-14] MEDS: ceFAZolin 3,000 MG in sodium chloride 0.9% (plus) 100 ML 200 MG IV (09:18)
[2023-09-14] MEDS: lidocaine-epi 2% PF 1:200,000 20 mL SDV XX (09:54)
--- NOTE | 2023-09-14 10:00 | P.ANESASSM_ITS ---
Pre-Anesthetic Assessment Height/Weight: Height 1.7 m Weight 129.727 kg Temp Pulse Resp BP Pulse Ox O2 Del Method 97.4 F L 49 L 17 174/84 94 Room Air 09/14/23 08:43 09/14/23 08:43 09/14/23 08:43 09/14/23 08:43 09/14/23 08:43 09/14/23 08:44 Operation Date: 09/14/23 09:50 Proposed Procedures p Laparoscopic Cholecystectomy 18727, K82.8 , K80.20(Not Applicable) - Demetrio Lindsey DO Last intake: Intake Last Liquid Date 09/13/23 Last Liquid Time 22:30 Last Solid Date 09/13/23 Last Solid Time 19:00 Medications/Allergies Home Medications Medication Instructions Recorded Confirmed Last Taken Type alprazolam 0.5 mg tablet 0.5 mg PO TID 05/27/19 09/13/23 09/13/23 History fluticasone propionate 50 2 spray intranasal DAILY 05/27/19 09/13/23 09/11/23 History mcg/actuation nasal spray,suspension (Flonase Allergy Relief) hydrocodone 7.5 mg-acetaminophen 1 tab PO Q4H PRN Pain 05/27/19 09/13/23 09/13/23 History 325 mg tablet montelukast 10 mg tablet 10 mg PO DAILY 05/27/19 09/13/23 09/13/23 History (Singulair) losartan 25 mg tablet 25 mg PO DAILY 07/20/22 09/13/23 09/13/23 History hydrochlorothiazide 12.5 mg tablet 12.5 mg PO QAM 03/09/23 09/13/23 09/13/23 History pantoprazole 40 mg tablet,delayed 40 mg PO BID 6 weeks #84 tabs 04/04/23 09/13/23 09/13/23 Rx release (Protonix) sotalol 80 mg tablet See Rx Instructions .Route 07/04/23 09/13/23 09/14/23 Rx .COMPLEX #270 tabs iron 65 mg-65 mg-folic acid 1,000 65 - 1,000 tab PO DAILY 07/27/23 09/13/23 09/13/23 History mcg (24)-vitB with C#12-succ. tablet magnesium oxide 250 mg PO DAILY #90 tabs 08/08/23 09/13/23 09/13/23 Rx digoxin 125 mcg (0.125 mg) tablet 125 mcg PO DAILY 09/13/23 09/13/23 09/13/23 History Allergies Allergy/AdvReac Type Severity Reaction Status Date / Time [id number] Reductase Allergy leg pain Verified 09/04/23 13:55 Inhibitor Current Medications Generic Name Dose Route Start Last Admin Trade Name Freq PRN Reason Stop Dose Admin Sodium Chloride 1,000 mls @ 30 mls/hr 09/14/23 07:30 09/14/23 08:59 Sodium Chloride 0.9% IV 09/15/23 07:29 30 mls/hr .Q24H MATTIE Administration PFSH Anesthesia Medical History Anticoagulation adequate with anticoagulant therapy High risk medication use Aortic valve sclerosis Essential (primary) hypertension GERD (gastroesophageal reflux disease) Paroxysmal A-fib Asthma ELVIN (obstructive sleep apnea) Chronic cough CAD (coronary artery disease) Type 2 diabetes mellitus Surgical History History of kidney surgery H/O partial nephrectomy H/O tubal ligation H/O shoulder surgery Hx of cataract surgery Family History Mother Hypertension Diabetes Congestive heart failure (CHF) CAD (coronary artery disease) Stroke Brother Hypertension Stroke Cancer Diabetes Father Myocardial infarction CAD (coronary artery disease) Grandfather Diabetes Family/Other Diabetes Denies family history of Clotting disorder Dementia Chronic kidney disease (CKD) Suicide Anesthesia complication Bleeding disorder Lung disease Social History Smoking and tobacco/nicotine status: current some day tobacco/nicotine user cigarettes Quit status (tobacco/nicotine): has quit using Alcohol intake: never Substance/Drug Use: never Household members: none Marital status: / Current occupational status: retired Do you think of yourself as: Straight/Heterosexual Current gender identity: Female Data Anesthesia 09/14/23 08:53 09/14/23 08:53 Short CBC 09/14/23 Range/Units 08:53 WBC Cancelled Hgb Cancelled Hct Cancelled MCV Cancelled Plt Count Cancelled Neut % (Auto) Cancelled Neut # (Auto) Cancelled BMP 09/14/23 08:53 Sodium Cancelled Potassium Cancelled Chloride Cancelled Carbon Dioxide Cancelled BUN Cancelled Creatinine Cancelled Glucose Cancelled Calcium Cancelled Cardiac Studies: 2 Echocardiogram 02/08/23 Echocardiogram Ultrasound 02/04/20 Cardiac Event Monitor 08/10/22
--- NOTE | 2023-09-14 10:40 | P.OP_ITS ---
Operative Report Date of procedure: September 14, 2023 Pre-op diagnosis: Symptomatic cholelithiasis Gallbladder mass Cirrhosis Post-op diagnosis: same Procedure done: Laparoscopic cholecystectomy Implants: Surgicel x 3 Specimens removed/disposition: Gallbladder Surgeon: Demetrio Lindsey DO Anesthesia: General and Local Estimated blood loss (mL): 20 Complications: None apparent Brief History: This very pleasant 73-year-old female with known cirrhosis and symptomatic cholelithiasis. A gallbladder ultrasound identified cholelithiasis as well as a gallbladder mass. Laparoscopic cholecystectomy is indicated. The risk and benefits were explained and documented. Procedure: Patient was wheeled into the operative room and placed on the OR table in a supine position. Abdomen was inspected prepped and draped in usual sterile fashion. Time-out was performed and all present were in agreement. A 15 blade scalp was used to make a stab incision in the left upper quadrant and intra- abdominal insufflation was achieved using a Veress needle. After localizing the tissue incisions were made and a 5 millimeter trocar was placed into the umbilicus as well as 2 in the right upper quadrant. A 12 millimeter trocar was placed in the epigastrium. The gallbladder was extremely large gallbladder was grasped and elevated. The triangle of [place] was carefully dissected using blunt dissection and electrocautery until the triangle of [place] clearly identified. The cystic duct was clipped proximally and double clipped distally. The duct was then ligated proximally. The cystic artery was doubly clipped and ligated. The gallbladder was then removed from the liver bed using electrocautery. The gallbladder was removed from the abdomen using an Endo-Catch bag through the epigastric incision. The liver bed was inspected and there was venous oozing from the liver. 3 pieces of Surgicel were placed into the liver bed and hemostasis was noted. The abdomen was irrigated and suctioned. All ports removed. Skin was washed and dried. Incisions were closed with 4-0 Monocryl in a subcuticular interrupted fashion. Skin glue was applied. Patient tolerated the procedure well.
[2023-09-14] MEDS: fentaNYL 50 mcg/mL INJ 2mL IVP (11:03)
--- NOTE | 2023-09-14 11:11 | ANE.PACU2 ---
Inpatient post-anesthesia follow up: Vital signs: Temperature 97.6 F Pulse Rate 63 Respiratory Rate 21 Blood Pressure 165/65 Pulse Oximetry 97 Oxygen Delivery Me thod Simple Mask Oxygen Flow Rate 5 Fraction of Inspir ed Oxygen Hydration adequate: Yes Nausea and vomiting: No Pain level: 4 Mental status: Baseline
[2023-09-14] MEDS: HYDROmorphone 1 mg/mL INJ 1 mL 0.25 MG IVP (11:46)
[2023-09-14] MEDS: oxyCODONE 5 mg IR Tab/Cap 10 MG PO (12:24)
[2023-09-14] MEDS: ondansetron 2 mg/ML SDV 2 mL 4 MG IVP (12:58)
--- NOTE | 2023-09-14 13:36 | SUR.PHASEII ---
Patient has been very drowsy during post op phase 2 but is more awake now. Patient has sleep apnea and uses cpap at night. Her baseline O2 is 94%. O2 currently is 90-91% room air. Incentive spirometer has been ordered and teaching done to patient. Instructed her to use q15-20 min once at home. Also instructed patient to use her CPAP when napping today and for bedtime tonight. I instructed patient to not take any of her alprazolam today. Patient's family members have been at bedside for teaching.
[2023-09-14] MEDS: ipratropium-albuterol 3 mL Neb INHALATION (14:10)
[2023-09-14] MEDS: sodium chloride 0.9% 500 ML 999 ML IV (14:33)
[2023-09-14 14:42] LABS: Basophils # 0.1 10^3/uL (0.0-0.1); Basophils % 0.3 %; Eosinophils % 0.1 %; Hematocrit 44.9 % (36-47); Lymphocytes # 1.7 10^3/uL (0.8-4.8); Mean Corpuscular HGB Conc 31.2 g/dL (30-55); Mean Corpuscular Hemoglobin 28.4 pg (27-33); Mean Corpuscular Volume 91.1 fl (85-98); Mean Platelet Volume 10.8 fL (7.4-10.4); Monocytes # 0.6 10^3/uL (0.2-0.9); Monocytes % 3.4 %; Neutrophils # 16.28 10^3/uL (1.8-7.7); Neutrophils % 86.6 %; Nucleated Red Blood Cells % 0 %; Platelet Count 174 10^3/cmm (157-399); Red Blood Count 4.93 10^6/uL (3.85-5.65); Red Cell Distribution Width 21.4 % (12.1-15.1)
--- NOTE | 2023-09-14 14:48 | SUR.PHASEII ---
Patient still unable to stay above 88-89% on room air after breathing treatment administered and BP has been ranging from 80s/60s to 90s/60s. Dr. Bartlett contacted and he assessed patient. He has ordered to admit patient to observation to hospitalist for management of oxygen and blood pressure post op. Dr. Santiago contacted and he is waiting call from Dr. Bartlett. Will admit patient to med surg when room assigned and available. Patient is currently on NC with sats at 94% at 3L. BP currently 95/50 HR 67. Patient reports pain and being uncomfortable in the gurney. 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 Will hold pain meds until o2 and bp are improved.
--- NOTE | 2023-09-14 15:21 | XRR_ITS ---
PROCEDURE INFORMATION: Exam: XR Chest Exam date and time: 09/14/2023 4:14 PM Age: 73 years old Clinical indication: Prior surgery; Surgery date: Post-operative (0-2 days); Surgery type: Post op lap rolanda hypotension TECHNIQUE: Imaging protocol: Radiologic exam of the chest. Views: 1 view. COMPARISON: CR XR chest 1V portable [id number] 03/09/2023 8:21 AM FINDINGS: Lungs: No focal consolidation. Mild pulmonary vascular congestion. Pleural spaces: No evidence of pneumothorax. No evidence of pleural effusion. Heart/Mediastinum: Cardiomediastinal silhouette is within normal limits. Bones/joints: No evidence of acute osseous abnormality. XR/XR chest 1V portable [id number] IMPRESSION: 1. Mild pulmonary vascular congestion. Otherwise no acute cardiopulmonary abnormality.
--- NOTE | 2023-09-14 15:47 | P.CONIM_ITS ---
Providers/Reason For Consult 2 Consulting Physician/Specialty*: Internal Medicine/Dr. Shanon Colon Reason for Consult*: Post op hypotension Attending Physician: Demetrio Lindsey DO Primary Care Provider: Ihsan Velásquez DO History of Present Illness History of Present Illness Lisa Rahman is a 73 year old female With past medical history of GI bleed, previously on Eliquis which was stopped due to that, hypertension, GERD, paroxysmal atrial fibrillation, asthma, obstructive sleep apnea, chronic cough, CAD, type 2 diabetes mellitus presented to the hospital for elective cholecystectomy today. Postop patient required 3 L of oxygen and was hypotensive therefore hospital medicine was consulted for comanagement. Patient seen at the bedside. 3 daughters and a son present there. Daughters tell me that she has had a bleeding ulcer back in February and she was in the ICU for 3 days. At that time she was on Eliquis which was then stopped. She was found to have a mass on her kidney for which she has not pursued further workup yet since they also found issues with gallbladder and therefore lidocaine for the cholecystectomy today. Patient denies having COPD however has been a smoker in the past. Right now she feels nauseated and is having generalized abdominal pain. She states she is also hurting all over. Patient is morbidly obese. Family at bedside. Blood pressure currently 70 systolic. Albumin is running. Patient is currently in the PACU and stat labs have been ordered however nothing is resulted yet. It is noted that patient blood quite a bit during surgery. I do not have the actual estimated blood loss value at this time. Right now she has just been given Reymundo-Synephrine and blood pressure has come up to 100 systolic. Plan is to do a stat CT abdomen pelvis along with CT chest PE protocol. I explained to the family that if patient does have a PE we might not be able to do any kind of anticoagulation secondary to history of bleed and the fact that she just went through surgery and had increased bleeding. Family aware and understanding of the situation. Patient is not very stable to go for CT however we will have to do that as there is no other option at this time. Family agreeable. They understand the risk versus benefits. Daughter goes on to say we know she is a mess . Medications/Allergies Home Medications Medication Instructions Recorded Confirmed Last Taken Type alprazolam 0.5 mg tablet 0.5 mg PO TID 01/09/13/23 09/13/23 History fluticasone propionate 50 2 spray intranasal DAILY 05/27/19 09/13/23 09/11/23 History mcg/actuation nasal spray,suspension (Flonase Allergy Relief) hydrocodone 7.5 mg-acetaminophen 1 tab PO Q4H PRN Pain 05/27/19 09/13/23 09/13/23 History 325 mg tablet montelukast 10 mg tablet 10 mg PO DAILY 05/27/19 09/13/23 09/13/23 History (Singulair) losartan 25 mg tablet 25 mg PO DAILY 07/20/22 09/13/23 09/13/23 History hydrochlorothiazide 12.5 mg tablet 12.5 mg PO QAM 03/09/23 09/13/23 09/13/23 History pantoprazole 40 mg tablet,delayed 40 mg PO BID 6 weeks #84 tabs 04/04/23 09/13/23 09/13/23 Rx release (Protonix) sotalol 80 mg tablet See Rx Instructions .Route 07/04/23 09/13/23 09/14/23 Rx .COMPLEX #270 tabs iron 65 mg-65 mg-folic acid 1,000 65 - 1,000 tab PO DAILY 07/27/23 09/13/23 09/13/23 History mcg (24)-vitB with C#12-succ. tablet magnesium oxide 250 mg PO DAILY #90 tabs 08/08/23 09/13/23 09/13/23 Rx digoxin 125 mcg (0.125 mg) tablet 125 mcg PO DAILY 09/13/23 09/13/23 09/13/23 History amoxicillin 875 mg-potassium 1 tab PO Q12H #28 tabs 09/14/23 Unknown Rx clavulanate 125 mg tablet docusate sodium 100 mg capsule 100 mg PO BID #14 caps 09/14/23 Unknown Rx (Colace) oxycodone 10 mg tablet 10 mg PO Q6H PRN pain #20 tabs 09/14/23 Unknown Rx Allergies Allergy/AdvReac Type Severity Reaction Status Date / Time Lticdrx-UYG-OlK Reductase Allergy leg pain Verified 09/04/23 13:55 Inhibitor Current Medications Generic Name Dose Route Start Last Admin Trade Name Freq PRN Reason Stop Dose Admin Fentanyl 50 mcg 09/14/23 07:29 09/14/23 11:03 Fentanyl 50 Mcg/Ml Inj 2ml IVP 50 mcg Q10M PRN Administration Preop Pain Hydromorphone HCl 0.25 mg 09/14/23 07:29 09/14/23 11:46 Hydromorphone 1 Mg/Ml Inj 1 Ml IVP 09/15/23 07:29 0.25 mg Q10M PRN Administration Pain level 4-6 PACU Phase I Sodium Chloride 1,000 mls @ 30 mls/hr 09/14/23 07:30 09/14/23 08:59 Sodium Chloride 0.9% IV 09/15/23 07:29 30 mls/hr .Q24H MATTIE Administration Sodium Chloride 500 mls @ 999 mls/hr 09/14/23 07:29 09/14/23 14:33 Sodium Chloride 0.9% IV 999 mls/hr .Q31M PRN Administration HYPOTENSION Ondansetron HCl 4 mg 09/14/23 07:29 09/14/23 12:58 Ondansetron 2 Mg/Ml Sdv 2 Ml IVP 4 mg Q15M PRN Administration Nausea/Vomiting PACU PHASE II PFSH Acute 2 PFSH: Medical History Anticoagulation adequate with anticoagulant therapy High risk medication use Aortic valve sclerosis Essential (primary) hypertension GERD (gastroesophageal reflux disease) Paroxysmal A-fib Asthma ELVIN (obstructive sleep apnea) Chronic cough CAD (coronary artery disease) Type 2 diabetes mellitus Surgical History History of kidney surgery H/O partial nephrectomy H/O tubal ligation H/O shoulder surgery Hx of cataract surgery Family History Mother Hypertension Diabetes Congestive heart failure (CHF) CAD (coronary artery disease) Stroke Brother Hypertension Stroke Cancer Diabetes Father Myocardial infarction CAD (coronary artery disease) Grandfather Diabetes Family/Other Diabetes Denies family history of Clotting disorder Dementia Chronic kidney disease (CKD) Suicide Anesthesia complication Bleeding disorder Lung disease Social History Smoking and tobacco/nicotine status: current some day tobacco/nicotine user cigarettes Quit status (tobacco/nicotine): has quit using Alcohol intake: never Substance/Drug Use: never Household members: none Marital status: / Current occupational status: retired Do you think of yourself as: Straight/Heterosexual Current gender identity: Female Vitals/I&O/Wt Last Vital Signs Temp 97.7 F 09/14/23 11:35 Pulse 59 L 09/14/23 15:32 Resp 17 09/14/23 15:32 BP 79/50 09/14/23 15:32 Pulse Ox 95 09/14/23 15:32 O2 Del Method Nasal Cannula 09/14/23 15:32 O2 Flow Rate 3 09/14/23 15:32 09/14/23 09/14/23 09/14/23 06:59 14:59 22:59 Intake Total 100 / 100 Output Total 25 / Balance 75 / 75 Weight last 48 hrs Weight 129.727 kg Physical Exam 2 Narrative: General: Alert oriented x3, patient seen laying in bed appearing slightly nauseated. Awake and talking. HEENT: Normocephalic, atraumatic, EOMI, breathing 2 L nasal cannula saturating 95%. Cardio: Regular rate rhythm., normal S1-S2, Respiratory: Mainly clear to auscultation with diminished at bases. Difficult auscultation due to body habitus. GI: Abdomen slightly firm, generalized tenderness to palpation, expected after surgery. Bowel sounds sluggish Behavior: Appropriate and cooperative Extremities: Obese extremities, trace edema bilateral lower extremities Data 09/14/23 16:53 09/14/23 15:46 A&P Assessment and plan (1) CAD (coronary artery disease): Qualifiers: Coronary Disease-Associated Artery/Lesion type: [place] artery [place] vs. transplanted heart: [place] heart Associated angina: without angina Qualified Code(s): I25.10 - Atherosclerotic heart disease of [place] coronary artery without angina pectoris (2) Paroxysmal A-fib: (3) Liver cirrhosis: (4) Gallbladder mass: (5) Cholelithiasis: (6) GI bleed: Qualifiers: GI bleed type/associated pathology: gastric ulcer Qualified Code(s): K 25.4 - Chronic or unspecified gastric ulcer with hemorrhage (7) Postoperative haemorrhage: (8) Acute anemia: (9) Acute blood loss anemia: (10) Acute pulmonary embolism: (11) Type 2 diabetes mellitus: Plan #Hemorrhagic shock status post laparoscopic cholecystectomy #Acute pulmonary embolism right lower lobe #Liver disease? Nodular liver. Probable cirrhosis? #Kidney mass? #Masslike density in gallbladder along with cholecystitis status post elective cholecystectomy. #History of GI bleed, ulcers in the past #Unable to tolerate anticoagulation #High risk medication use #Type 2 diabetes mellitus/prediabetes #CAD #Splenomegaly, hepatomegaly ? Type and cross 4 units packed RBC, 2 units FFP ordered, 1 unit platelet ordered ? Check stat CBC, CMP, magnesium, ABG ? Check CT chest angio protocol PE, CT abdomen pelvis with contrast stat. ? V rads called with results: Patient does have acute pulmonary embolism right lower lobe, he is actively bleeding in gallbladder fossa. Findings suggestive of active hemorrhage arising from gallbladder right upper quadrant hemoperitoneum/hematoma. Hematoma exerts mass effect of proximal duodenum possibly resulting in functional gastric outlet obstruction. Pneumoperitoneum in lesser sac and upper abdomen favored to be postsurgical however consider correlation with direct visualization to exclude gastric perforation. ? Discussed the above findings with patient's family. Patient is being taken back to the OR at this time for exploration. ? I have told the family that patient is high risk at this time and prognosis may be poor given that she has active bleeding and a pulmonary embolism at the same time. I have told family patient is high risk for further blood clots. ? Tranexamic as it has been ordered by the surgeon. ? Levophed has been ordered ? Protonix 40 IV twice daily ? Recheck labs postop. Check CBC every 8 hours ? Check CMP, magnesium in a.m. ? Started on empiric Zosyn every 8 hours ? Check lactic acid -Continue oxygen and wean off as able. -Will transfer patient to ICU after surgery. Full code. Discussed this with the patient and she would like to be a full code at this time ? DVT prophylaxis: Pharmacological is contraindicated strictly in this patient. May only do SCDs. Thank you for involving us in the care of this patient. Medicine will continue to follow. Consult Attestations 2 Medical Necessity Statement: Patient requires ICU level care secondary to hemorrhagic shock status post laparoscopic cholecystectomy. Critical Care Time: The high probability of a clinically significant, sudden or life threatening deterioration of the patient's [cardiovascular, respiratory] system(s) required my full and direct attention, intervention and personal management. The critical care time is as shown. This time is in addition to time spent performing any reported procedures but includes the following: [x] Data and vital sign review and interpretation [x] Patient assessment, examination and intervention [x] Documentation [x] Medication orders and management Critical Care Time (min): 75 Coding Level of Care Code Critical Care >/= 30 minutes Critical care time (in minutes): 75 The high probability of a clinically significant, sudden or life threatening deterioration, as referenced in this documentation, required my full and direct attention, intervention and personal management. The critical care time shown is in addition to time spent performing any reported separately billable procedures and includes the following: [x] Data and vital sign review and interpretation [x ] Patient assessment, examination and intervention [x] Medication orders and management [x] Patient/Family updates as able [x] Care Coordination and Documentation. Diagnoses Coronary artery disease involving [place] coronary artery of [place] heart without angina pectoris I25.10 Coronary Disease-Associated Artery/Lesion type: [place] artery [place] vs. transplanted heart: [place] heart Associated angina: without angina Paroxysmal A-fib I48.0 Liver cirrhosis K74.60 Gallbladder mass K82.8 Cholelithiasis K80.20 Gastrointestinal hemorrhage associated with gastric ulcer K25.4 GI bleed type/associated pathology: gastric ulcer Postoperative haemorrhage Acute anemia D64.9 Acute blood loss anemia D62 Acute pulmonary embolism I26.99 Type 2 diabetes mellitus with hyperglycemia, without long-term current use of insulin E11.9
[2023-09-14] MEDS: albumin 12.5 GM/250 ML VIAL IV (16:04)
--- NOTE | 2023-09-14 16:17 | CTR_ITS ---
PROCEDURE INFORMATION: Exam: CTA Chest With Contrast Exam date and time: 09/14/2023 5:09 PM Age: 73 years old Clinical indication: Abdominal pain; Additional info: Post op, hypotension, hypoxia, check pe TECHNIQUE: Imaging protocol: Computed tomographic angiography of the chest with contrast. Exam focused on the arteries. 3D rendering (Not supervised by radiologist): MIP and/or 3D reconstructed images were created by the technologist. Radiation optimization: All CT scans at this facility use at least one of these dose optimization techniques: automated exposure control; mA and/or kV adjustment per patient size (includes targeted exams where dose is matched to clinical indication); or iterative reconstruction. Contrast material: OMNI 350; Contrast volume: 100 ml; Contrast route: INTRAVENOUS (IV); COMPARISON: CR XR chest 1V portable [id number] 09/14/2023 4:14 PM RADIATION DOSE METRICS: Total DLP (mGy-cm): 491 FINDINGS: Pulmonary arteries: Evaluation for pulmonary thromboembolism is limited beyond the segmental level due to respiratory motion. There is a filling defect within a right lower lobe posterior basilar subsegmental branch suspicious for PE (for example, images 324-327 of series 7). Aorta: No evidence of aneurysmal dilatation of the thoracic aorta. Evaluation for acute abnormalities limited by paucity of intraluminal contrast, designed for purposes of evaluation of the pulmonary arteries. Thyroid: Dense calcifications of the left thyroid lobe. Consider follow-up outpatient thyroid ultrasound. Lungs: No focal consolidation. No evidence of pneumonia. Bibasilar subsegmental atelectasis. No evidence of pulmonary infarct. Pleural spaces: No evidence of pleural effusion. No pneumothorax. Heart: No cardiomegaly. No pericardial effusion. Cardiac RV:LV ratio measures approximately 1.1. Mediastinal space: No evidence of mediastinal mass, fluid collection or hematoma. Lymph nodes: No mediastinal or hilar adenopathy. Bones/joints: No evidence of acute fracture or aggressive osseous lesion. Soft tissues: No evidence of fluid collection or hematoma in the superficial soft tissues. PROCEDURE INFORMATION: Exam: CT Abdomen And Pelvis With Contrast Exam date and time: 09/14/2023 5:09 PM Age: 73 years old Clinical indication: Abdominal pain; Additional info: Post op, hypotension, hypoxia, check pe TECHNIQUE: Imaging protocol: Computed tomography of the abdomen and pelvis with contrast. Radiation optimization: All CT scans at this facility use at least one of these dose optimization techniques: automated exposure control; mA and/or kV adjustment per patient size (includes targeted exams where dose is matched to clinical indication); or iterative reconstruction. Contrast material: OMNI 350; Contrast volume: 100 ml; Contrast route: INTRAVENOUS (IV); COMPARISON: MR abdomen wo/w con* [id number] 07/05/2023 9:16 AM RADIATION DOSE METRICS: Total DLP (mGy-cm): 1285 FINDINGS: Hepatobiliary: Patient is reportedly postoperative following laparoscopic cholecystectomy. There is associated pneumoperitoneum. Dense material in the right upper quadrant including a 12.5 x 9 cm rounded region of density in the subhepatic space is concerning for hemoperitoneum/hematoma. There are foci of hyperdensity in the right upper quadrant concerning for active hemorrhage (images 38 and 41 of series 5). Additional indents material is noted extending along the greater curvature of the stomach concerning for brisk active hemorrhage. Pancreas: Unremarkable. Spleen: Additional perisplenic hemoperitoneum. No evidence of acute abnormality of the splenic parenchyma. Adrenal glands: Unremarkable. Kidneys and ureters: There are simple appearing renal cysts for which dedicated imaging follow-up is not required. Otherwise no evidence of renal parenchymal abnormality. No hydronephrosis or ureteral stone. Stomach and bowel: There is extraluminal air in the lesser sac and upper abdomen, favored to be postsurgical. Consider correlation with direct visualization to assess for gastric perforation. There is fluid noted in the mid-distal esophagus compatible with GERD. Hemorrhage/hematoma results in severe narrowing of the proximal duodenum, likely resulting in a component of gastric outlet obstruction. Appendix: The appendix is not visualized, however there are no findings to suggest appendicitis. Vasculature: No aneurysmal dilatation or dissection of the abdominal aorta. The celiac trunk, SMA and CHRISTOPHE are grossly patent. No evidence of IVC thrombus. The portal vein, SMV and splenic veins are grossly patent. Lymph nodes: No adenopathy. Urinary bladder: Fully distended. Otherwise grossly unremarkable. Reproductive: Grossly unremarkable. Bones/joints: No evidence of acute fracture or aggressive osseous lesion. Soft tissues: No evidence of fluid collection or hematoma in the superficial soft tissues. CT/CT angio chest w abd pel w con IMPRESSION: 1. Acute right lower lobe subsegmental PE. No evidence of pulmonary infarct or right heart strain. IMPRESSION: 1. Findings suggestive of active hemorrhage arising from the gallbladder fossa with right upper quadrant hemoperitoneum/hematoma. 2. Hematoma exerts mass effect of the proximal duodenum, possibly resulting in functional gastric outlet obstruction. 3. Pneumoperitoneum in the lesser sac and upper abdomen, favored to be postsurgical. Consider correlation with direct visualization to exclude gastric perforation. The findings were verbally communicated by telephone with Dr. Colon at 5:37 PM CDT on 09/14/2023.
[2023-09-14 16:31] LABS: Alanine Aminotransferase 19 U/L (0-33); Albumin Level 3.2 g/dL (3.5-5.2); Alkaline Phosphatase 89 U/L (35-105); Blood Urea Nitrogen 22 mg/dL (8-23); Calcium 8.2 mg/dL (8.5-10.5); Carbon Dioxide 24 mmol/L (22-29); Chloride 103 mmol/L (98-107); Creatinine Clr Calc Pharmacy 61.9824; Globulin 3.9 g/dL (1.3-4.6); Glucose 178 mg/dL (65-115); Osmolality Calculated 290 mOsm/kg (285-295); Sodium 136 mmol/L (136-145); Total Bilirubin 0.5 mg/dL (0.15-1.2); Total Protein 7.1 g/dL (6.6-8.7)
--- NOTE | 2023-09-14 16:31 | SUR.PHASEII ---
Dr. Colon assessing patient, RT at bedside for ABG. Awaiting bed in ICU per request from Dr. Colon. CXR completed. Patient awake, bp 102/60, hr 60, O2 96 3L NC. Awaiting cmp results for CT to be done. Dr. Bartlett at bedside as well.
[2023-09-14 16:37] LABS: Anion Gap 14.5 (5-19); Aspartate Amino Transferase 42 U/L (0-32); Potassium 5.5 mmol/L (3.5-5.1)
[2023-09-14 16:41] LABS: ABG PCO2 43.2 mmHg (35-45); ABG PH Result 7.35 (7.35-7.45); Alveolar-Arterial Oxygen Gradi 11.1 mmHg (5-10); Arterial Blood Gas Hematocrit 39.4 % (37-47); Base Excess ABG -2.2 mmol/L (-2.0-2.0); Blood Gas Allen Test Pos; Blood Gas Operator Identificat glc; Blood Gas Sample Site Radial, right; Blood Gas Sample Type Arterial; Carboxyhemoglobin 2.4 %THgb (0.4-20.1); HCO3 ABG 23.6 mmol/L (22-26); HGB O2 Sat 93.7 % (95-100); Ionized Calcium Level - ABG 1.3 mmol/L (1.1-1.4); Methemoglobin 0.7 % (0.4-1.5); Oxygen Device NC; Oxygen Saturation ABG 96.7; PO2 FiO2 Ratio Arterial Blood 0; Potassium Level - ABG 4.7 mmol/L (3.5-5.0); Total Hemoglobin 12.8 g/dL (12-16)
[2023-09-14 17:08] LABS: Basophils # 0.1 10^3/uL (0.0-0.1); Basophils % 0.3 %; Hematocrit 42.3 % (36-47); Lymphocytes # 2.2 10^3/uL (0.8-4.8); Lymphocytes % 9.4 %; Mean Corpuscular HGB Conc 30.5 g/dL (30-55); Mean Corpuscular Hemoglobin 28.1 pg (27-33); Mean Corpuscular Volume 92.2 fl (85-98); Mean Platelet Volume 11.2 fL (7.4-10.4); Monocytes % 8.4 %; Neutrophils # 19.16 10^3/uL (1.8-7.7); Neutrophils % 81.2 %; Nucleated Red Blood Cells % 0 %; Platelet Count 196 10^3/cmm (157-399); Red Blood Count 4.59 10^6/uL (3.85-5.65); Red Cell Distribution Width 21.3 % (12.1-15.1); White Blood Count 23.59 10^3/uL (3.29-11.43)
[2023-09-14 17:22] LABS: D Dimer 2.24 ug/mLFEU (0-0.59)
[2023-09-14] MEDS: iohexol 350 mg/mL 500 mL Btl (per mL) IV (17:24)
[2023-09-14] MEDS: norepinephrine 4 MG/250 ML BAG 7.5 MG IV (17:39)
[2023-09-14] MEDS: piperacillin-tazobactam 3.375 GM in sodium chloride 0.9% (plus) 50 ML IV (17:40)
[2023-09-14] MEDS: sodium chloride 0.9% 1,000 ML 999 ML IV (17:40)
--- NOTE | 2023-09-14 17:43 | SUR.PHASEII ---
Patient taken to CT on [place], [place] 3L with sats at 95%. Hayley RANGEL and Jasen RN present in CT as well. Patient tolerated CT well. Patient taken to ICU from CT. Report given to ICU nurse. Patient awake, but very drowsy, VS charted. Patient family in ICU waiting room and family notified.
--- NOTE | 2023-09-14 17:45 | PC.NURSE ---
Dr. Colon called gave t.o. to 4 units PRBC 2 units Platelets 2 units ffp plan for patient to go back to OR
--- NOTE | 2023-09-14 17:57 | P.PN_ITS ---
Subjective 2 Subjective: Patient seen and examined. She underwent laparoscopic cholecystectomy earlier today and was found to have quite advanced cirrhosis. Postoperatively she was hypotensive and hypoxic. She was recently put on a neomycin drip. Hemoglobin drawn recently was 12.9. She underwent a CT of the abdomen pelvis which shows active bleeding from the gallbladder fossa. She has diffuse abdominal tenderness. She is not tachycardic but she does take sotalol at home for paroxysmal A-fib. Vitals/I&O/Wt Last Vital Signs Temp 98.1 F 09/14/23 17:35 Pulse 66 09/14/23 17:44 Resp 17 09/14/23 17:44 BP 91/69 09/14/23 17:35 Pulse Ox 95 09/14/23 17:44 O2 Del Method Nasal Cannula 09/14/23 17:44 O2 Flow Rate 3 09/14/23 17:44 09/14/23 09/14/23 09/14/23 06:59 14:59 22:59 Intake Total 100 / 100 Output Total 25 / 25 Balance 75 / 75 Weight last 48 hrs Weight 286 lb Physical Exam 2 Narrative: General: No acute distress, awake alert and oriented x 3 Abdomen: Soft, distended, diffusely tender to palpation, no guarding or rebound Data 09/14/23 16:53 09/14/23 15:46 A&P Assessment and plan (1) Postoperative haemorrhage: (2) Liver cirrhosis: (3) Paroxysmal A-fib: Plan Emergent diagnostic laparoscopy, possible exploratory laparotomy The risks and benefits of the procedure, including but not limited to, bleeding, infection, scar, numbness, pain, damage to surrounding structures, damage to common bile duct requiring additional surgery, conversion to an open procedure, were explained to the patient. She is understanding of the risks and wishes to proceed. Attestations 2 Medical Necessity Statement*: Patient is going to require at least 1 night in the intensive care unit for recovery from surgery for postoperative hemorrhage Coding Level of Care Code Acute Code for Chg Fwd Diagnoses Postoperative haemorrhage Liver cirrhosis K74.60 Paroxysmal A-fib I48.0
[2023-09-14] MEDS: tranexamic acid 1,000 MG/100 ML PREMIX 600 MG IV (18:00)
--- NOTE | 2023-09-14 18:18 | PC.NURSE ---
Pt brought to ICU at 1725. Levophed, fluid bolus, txa and ABT started on patient. Surgery staff took patient back to surgery shortly after. Family taken to surgery waiting room.
--- NOTE | 2023-09-14 18:50 | P.ANESASSM_ITS ---
Pre-Anesthetic Assessment Height/Weight: Height 1.7 m Weight 129.727 kg Temp Pulse Resp BP Pulse Ox O2 Del Method O2 Flow Rate 98.1 F 66 17 91/69 95 Nasal Cannula 3 09/14/23 17:35 09/14/23 17:44 09/14/23 17:44 09/14/23 17:35 09/14/23 17:44 09/14/23 17:44 09/14/23 17:44 Operation Date: 09/14/23 09:50 Proposed Procedures p Laparoscopic Cholecystectomy 08524, K82.8 , K80.20(Not Applicable) - Demetrio Lindsey DO Operation Date: 09/14/23 18:10 Proposed Procedures p Laparoscopic Cholecystectomy(Not Applicable) - Demetrio Lindsey DO Last intake: Intake Last Liquid Date 09/13/23 Last Liquid Time 22:30 Last Solid Date 09/13/23 Last Solid Time 19:00 Social Tobacco CV/HEM Severe hypotention ?post surgical bleeding Anesthetic Plan ASA status: 4E Anesthesia: General (GETA with a-line ; post op vent) Medications/Allergies Home Medications Medication Instructions Recorded Confirmed Last Taken Type alprazolam 0.5 mg tablet 0.5 mg PO TID 05/27/19 09/13/23 09/13/23 History fluticasone propionate 50 2 spray intranasal DAILY 05/27/19 09/13/23 09/11/23 History mcg/actuation nasal spray,suspension (Flonase Allergy Relief) hydrocodone 7.5 mg-acetaminophen 1 tab PO Q4H PRN Pain 05/27/19 09/13/23 09/13/23 History 325 mg tablet montelukast 10 mg tablet 10 mg PO DAILY 05/27/19 09/13/23 09/13/23 History (Singulair) losartan 25 mg tablet 25 mg PO DAILY 07/20/22 09/13/23 09/13/23 History hydrochlorothiazide 12.5 mg tablet 12.5 mg PO QAM 03/09/23 09/13/23 09/13/23 History pantoprazole 40 mg tablet,delayed 40 mg PO BID 6 weeks #84 tabs 04/04/23 09/13/23 09/13/23 Rx release (Protonix) sotalol 80 mg tablet See Rx Instructions .Route 07/04/23 09/13/23 09/14/23 Rx .COMPLEX #270 tabs iron 65 mg-65 mg-folic acid 1,000 65 - 1,000 tab PO DAILY 07/27/23 09/13/23 09/13/23 History mcg (24)-vitB with C#12-succ. tablet magnesium oxide 250 mg PO DAILY #90 tabs 08/08/23 09/13/23 09/13/23 Rx digoxin 125 mcg (0.125 mg) tablet 125 mcg PO DAILY 09/13/23 09/13/23 09/13/23 History amoxicillin 875 mg-potassium 1 tab PO Q12H #28 tabs 09/14/23 Unknown Rx clavulanate 125 mg tablet docusate sodium 100 mg capsule 100 mg PO BID #14 caps 09/14/23 Unknown Rx (Colace) oxycodone 10 mg tablet 10 mg PO Q6H PRN pain #20 tabs 09/14/23 Unknown Rx Allergies Allergy/AdvReac Type Severity Reaction Status Date / Time [id number] Reductase Allergy leg pain Verified 09/04/23 13:55 Inhibitor Current Medications Generic Name Dose Route Start Last Admin Trade Name Freq PRN Reason Stop Dose Admin norepinephrine 4 mg in 250 mls @ 0 mls/hr 09/14/23 16:15 09/14/23 17:39 Levophed IV 2 mcg/min .Q0M MATTIE 7.5 mls/hr Administration Protocol Per Protocol [facility] Anesthesia Medical History Anticoagulation adequate with anticoagulant therapy High risk medication use Aortic valve sclerosis Essential (primary) hypertension GERD (gastroesophageal reflux disease) Paroxysmal A-fib Asthma ELVIN (obstructive sleep apnea) Chronic cough CAD (coronary artery disease) Type 2 diabetes mellitus Surgical History History of kidney surgery H/O partial nephrectomy H/O tubal ligation H/O shoulder surgery Hx of cataract surgery Family History Mother Hypertension Diabetes Congestive heart failure (CHF) CAD (coronary artery disease) Stroke Brother Hypertension Stroke Cancer Diabetes Father Myocardial infarction CAD (coronary artery disease) Grandfather Diabetes Family/Other Diabetes Denies family history of Clotting disorder Dementia Chronic kidney disease (CKD) Suicide Anesthesia complication Bleeding disorder Lung disease Social History Smoking and tobacco/nicotine status: current some day tobacco/nicotine user cigarettes Quit status (tobacco/nicotine): has quit using Alcohol intake: never Substance/Drug Use: never Household members: none Marital status: / Current occupational status: retired Do you think of yourself as: Straight/Heterosexual Current gender identity: Female Data Anesthesia 09/14/23 16:53 09/14/23 15:46 Short CBC 09/14/23 09/14/23 09/14/23 Range/Units 08:53 14:28 16:53 WBC Cancelled 18.80 H 23.59 H Hgb Cancelled 14.00 12.90 Hct Cancelled 44.9 42.3 MCV Cancelled 91.1 92.2 Plt Count Cancelled 174 196 Neut % (Auto) Cancelled 86.6 81.2 Neut # (Auto) Cancelled 16.28 H 19.16 H BMP 09/14/23 09/14/23 08:53 15:46 Sodium Cancelled 136 Potassium Cancelled 5.5 H Chloride Cancelled 103 Carbon Dioxide Cancelled 24 BUN Cancelled 22 Creatinine Cancelled 1.1 H Glucose Cancelled 178 H Calcium Cancelled 8.2 L Liver Function 09/14/23 Range/Units 15:46 Total Bilirubin 0.5 (0.15-1.2) mg/dL AST 42 H (0-32) U/L ALT 19 (0-33) U/L Alkaline Phosphatase 89 (35-105) U/L Albumin 3.2 L (3.5-5.2) g/dL Blood Bank 09/14/23 16:48 Blood Type O Negative Rho(D) Type Rh negative Antibody Screen Negative Coags 09/14/23 16:49 D-Dimer 2.24 H ABG 09/14/23 16:30 Specimen Type Arterial Sample Site Radial, right ABG pH 7.35 ABG pCO2 43.2 ABG pO2 87.0 ABG PO2/FiO2 Ratio 0 ABG HCO3 23.6 ABG O2 Saturation 96.7 ABG Base Excess -2.2 L A-a O2 Gradient 11.1 H O2 Delivery Device Nc O2 Liters/Min 3.0 FiO2 32.0 Cardiac Studies: 2 Echocardiogram 02/08/23 Echocardiogram Ultrasound 02/04/20 Cardiac Event Monitor 08/10/22
--- NOTE | 2023-09-14 19:29 | P.OP_ITS ---
Operative Report Date of procedure: September 14, 2023 Pre-op diagnosis: Postoperative hemorrhage Hemorrhagic shock Post-op diagnosis: Postoperative hemorrhage from gallbladder fossa Hemorrhagic shock Cirrhosis Procedure done: Diagnostic laparoscopy with control of hemorrhage Implants: Surgicel x 2 for total of 5 pieces of Surgicel Specimens removed/disposition: None Surgeon: Demetrio Lindsey DO Anesthesia: General Estimated blood loss: 3100 cc of blood in the abdomen, 100 cc blood loss during surgery Complications: None apparent Findings: Arterial bleeding from the gallbladder fossa Brief History: This very pleasant 73-year-old female with advanced cirrhosis who underwent cholecystectomy earlier today for symptomatic cholelithiasis and gallbladder mass seen on ultrasound. Postoperatively she became hypotensive and hypoxic. A CT of the chest abdomen pelvis identified a pulmonary embolism as well as active bleeding from the gallbladder fossa. Diagnostic laparoscopy was indicated. The risk and benefits were explained and documented. Procedure: Patient was wheeled operative room placed on the OR table in the supine position. Patient was on a norepinephrine drip upon entering. General tracheal intubation was achieved by the department of anesthesia. 6 units PRBCs along with FFP and platelets were ordered. 1 g of TXA was given preoperatively. The abdomen was inspected prepped and draped in usual sterile fashion. A timeout was performed. All present were in agreement. Her previous incisions from the cholecystectomy were reopened with a 15 blade scalpel. A Veress needle was used in the left upper quadrant to achieve 15 mmHg intra-abdominal insufflation. A 5 mm trocar was placed into the umbilicus as well as 2 more 5 mm trocars placed into the right upper quadrant. A 12 mm trocar was placed into the epigastrium. Upon entering there was obvious clotted blood in the abdomen. Suctioning was performed in the gallbladder fossa and the previously placed Surgicel was taken down. Immediately pulsatile blood can be seen coming from the gallbladder fossa. A 10 mm clip machine operator hop worker was used to control this hemorrhage. No other active bleeding was identified. The abdomen was thoroughly irrigated and suctioned. After irrigation, a total of 3100 cc of blood was removed from the abdomen. A 19 [place] Venu drain was then placed along the liver and into Morison's pouch. This was sewn into place with a 3-0 silk suture. The epigastric incision was closed at the fascia with an 0 Vicryl suture and a Raffy-Tessie in a [id number]-wbtwm fashion. Skin was closed with 4-0 Monocryl in a subcuticular interrupted fashion. Skin was washed and dried. Dermabond was applied. A drain sponge was placed over the drain. Patient was then taken to the intensive care unit in critical but stable condition.
--- NOTE | 2023-09-14 19:39 | PC.NURSE ---
Arrival to ICU 4: Pt arrived from surgery @1939. Continuos cardiac monitoring continued. Levophed running @10mcg/min. Dr. Lindsey at bedside shortly after, verbal order to transfuse 3 units blood (in cooler at bedside) and 2 units FFP.
--- NOTE | 2023-09-14 19:42 | USCV_ITS ---
Lisa Rahman Age: 73 Gender: F : 1950 Exam Date: 09/14/2023 20:08 Ordering Phys: Curt Vaca MD Technologist: TREY [place] [facility] [place]: pulmonary emboli. Patient is on ventilator post-op in ICU-4 HISTORY: pulmonary emboli. Patient is on ventilator post-op in ICU-4 PROCEDURES: Venous duplex imaging was performed in bilateral lower extremities. The following venous structures were evaluated: common femoral vein, profunda vein, proximal portion of the greater saphenous vein, superficial femoral vein, and the popliteal vein. In addition, the posterior tibial veins were evaluated. Serial compression, augmentation maneuvers, and spectral Doppler flow evaluation were performed, which were normal. Bilaterally, the common femoral, superficial femoral, profunda femoral, popliteal, posterior tibial, and greater saphenous veins were identified and interrogated in the standard fashion. These veins were found to be easily compressible with spontaneous blood flow. No evidence of thrombus noted. CONCLUSIONS No evidence of right lower extremity DVT. No evidence of left lower extremity DVT. Jon Mullins MD (Electronically Signed) Final Date: 15 Sep 2023 08:38 S
[2023-09-14] MEDS: propofol 1,000 MG/100 ML INJ 7.78000000000000025 MG IV (20:14)
[2023-09-14] MEDS: fentaNYL 1,000 MCG/100 ML BAG 2.5 MCG IV (20:19)
[2023-09-14] MEDS: sodium chloride 0.9% 1,000 ML 125 ML IV (20:28)
[2023-09-14 20:32] LABS: Basophils # 0.1 10^3/uL (0.0-0.1); Basophils % 0.2 %; Lymphocytes # 1.9 10^3/uL (0.8-4.8); Lymphocytes % 6.5 %; Mean Corpuscular HGB Conc 31.2 g/dL (30-55); Mean Corpuscular Hemoglobin 28.3 pg (27-33); Mean Corpuscular Volume 90.5 fl (85-98); Mean Platelet Volume 11.7 fL (7.4-10.4); Monocytes # 1.9 10^3/uL (0.2-0.9); Monocytes % 6.8 %; Neutrophils # 24.46 10^3/uL (1.8-7.7); Neutrophils % 85.7 %; Nucleated Red Blood Cells % 0 %; Platelet Count 151 10^3/cmm (157-399); Red Blood Count 4.53 10^6/uL (3.85-5.65); Red Cell Distribution Width 19.5 % (12.1-15.1); White Blood Count 28.54 10^3/uL (3.29-11.43)
--- NOTE | 2023-09-14 20:59 | PC.NURSE ---
Ulloa Catheter: Placed in surgery, unknown insertion time.
[2023-09-14 21:05] LABS: Glucose Point of Care 155 mg/dL (70-110)
[2023-09-14 21:22] LABS: ABG PCO2 42.6 mmHg (35-45); ABG PH Result 7.31 (7.35-7.45); Alveolar-Arterial Oxygen Gradi 17.1 mmHg (5-10); Arterial Blood Gas Hematocrit 41.8 % (37-47); Base Excess ABG -4.8 mmol/L (-2.0-2.0); Blood Gas Allen Test Pos; Blood Gas Sample Site ARTLINE; Blood Gas Sample Type Arterial; Blood Gas Tidal Volume 0.45; Carboxyhemoglobin 2.1 %THgb (0.4-20.1); HCO3 ABG 21.4 mmol/L (22-26); HGB O2 Sat 95.4 % (95-100); Ionized Calcium Level - ABG 1.1 mmol/L (1.1-1.4); Methemoglobin 0.8 % (0.4-1.5); Oxygen Device VENT; Oxygen Saturation ABG 98.3; PO2 ABG 98.1 mmHg (80.0-100.0); PO2 FiO2 Ratio Arterial Blood 0; Potassium Level - ABG 5.7 mmol/L (3.5-5.0); Total Hemoglobin 13.6 g/dL (12-16)
[2023-09-14] MEDS: vancomycin 1,500 MG/300 ML PIGGYBACK 200 MG IV (21:48)
--- NOTE | 2023-09-14 22:00 | PC.NURSE ---
Infiltration: 16G IV present in R. AC on arrival to unit. Blood transfusion infiltrated in IV. IV removed, pressure dressing applied, arm is elevated on a pillow. Estimated 25-50ml infiltration. Spoke with daughter at bedside and explained that the arm would likely bruise. Dr. Vaca made aware, no new orders at this time.
--- NOTE | 2023-09-14 23:25 | SUR.OPER ---
185 UPDATED FAMILY VIA RAFAL TO WAITING AREA
--- NOTE | 2023-09-14 23:35 | PC.NURSE ---
Addendum entered by Brea Jin RN 09/15/23 05:24: Contacted Dr. Zambrano @[phone] to update on CBC results, continue with current care plan/hold off on blood/plt transfusion. Original Note: Physician Communication: Dr. Vaca on unit. New order to hold of on transfusion blood/platlets at this time. Check CBC @ midnight.
[2023-09-15] VITALS (68 sets, daily range): BP systolic 82–117; BP diastolic 45–98; PULSE 61–92; RESP 16–19; TEMP 36.3–37.3; O2SAT 93–100
[2023-09-15 00:22] LABS: Basophils % 0.2 %; Hematocrit 34.9 % (36-47); Lymphocytes # 2.2 10^3/uL (0.8-4.8); Lymphocytes % 8.5 %; Mean Corpuscular HGB Conc 32.1 g/dL (30-55); Mean Corpuscular Hemoglobin 28.6 pg (27-33); Mean Corpuscular Volume 89.3 fl (85-98); Mean Platelet Volume 10.7 fL (7.4-10.4); Monocytes # 2.2 10^3/uL (0.2-0.9); Monocytes % 8.4 %; Neutrophils # 21.51 10^3/uL (1.8-7.7); Neutrophils % 82.1 %; Nucleated Red Blood Cells % 0 %; Platelet Count 134 10^3/cmm (157-399); Red Blood Count 3.91 10^6/uL (3.85-5.65); Red Cell Distribution Width 19.9 % (12.1-15.1); White Blood Count 26.21 10^3/uL (3.29-11.43)
[2023-09-15 00:31] LABS: INR 1.26 (0.8-1.2)
[2023-09-15 00:36] LABS: Anion Gap 16.3 (5-19); Blood Urea Nitrogen 24 mg/dL (8-23); Calcium 7.9 mg/dL (8.5-10.5); Carbon Dioxide 21 mmol/L (22-29); Chloride 104 mmol/L (98-107); Creatinine Clr Calc Pharmacy 57.7802; Glucose 157 mg/dL (65-115); Osmolality Calculated 289 mOsm/kg (285-295); Potassium 5.3 mmol/L (3.5-5.1); Sodium 136 mmol/L (136-145)
[2023-09-15] MEDS: piperacillin-tazobactam 3.375 GM in sodium chloride 0.9% (plus) 50 ML IV ×3 (01:38→16:20)
[2023-09-15 02:31] LABS: Basophils # 0.1 10^3/uL (0.0-0.1); Basophils % 0.2 %; Hematocrit 34.3 % (36-47); Lymphocytes # 2.6 10^3/uL (0.8-4.8); Lymphocytes % 9.7 %; Mean Corpuscular HGB Conc 32.1 g/dL (30-55); Mean Corpuscular Hemoglobin 28.6 pg (27-33); Mean Corpuscular Volume 89.3 fl (85-98); Mean Platelet Volume 10.6 fL (7.4-10.4); Monocytes # 2.2 10^3/uL (0.2-0.9); Neutrophils # 21.85 10^3/uL (1.8-7.7); Neutrophils % 81.2 %; Nucleated Red Blood Cells % 0 %; Platelet Count 147 10^3/cmm (157-399); Red Blood Count 3.84 10^6/uL (3.85-5.65); Red Cell Distribution Width 20.2 % (12.1-15.1); White Blood Count 26.93 10^3/uL (3.29-11.43)
[2023-09-15] MEDS: propofol 1,000 MG/100 ML INJ 15.5700000000000003 MG IV (02:36)
[2023-09-15] MEDS: norepinephrine 4 MG/250 ML BAG 22.5 MG IV (03:14)
[2023-09-15] MEDS: sodium chloride 0.9% 1,000 ML 125 ML IV ×3 (04:33→18:19)
[2023-09-15 05:16] LABS: Basophils # 0.1 10^3/uL (0.0-0.1); Basophils % 0.2 %; Hematocrit 33.9 % (36-47); Lymphocytes # 2.9 10^3/uL (0.8-4.8); Mean Corpuscular HGB Conc 31.9 g/dL (30-55); Mean Corpuscular Hemoglobin 28.3 pg (27-33); Mean Platelet Volume 10.8 fL (7.4-10.4); Monocytes # 2.3 10^3/uL (0.2-0.9); Monocytes % 9.4 %; Neutrophils # 18.86 10^3/uL (1.8-7.7); Neutrophils % 77.7 %; Nucleated Red Blood Cells % 0 %; Platelet Count 145 10^3/cmm (157-399); Red Blood Count 3.81 10^6/uL (3.85-5.65); Red Cell Distribution Width 20.3 % (12.1-15.1)
[2023-09-15 05:40] LABS: Alanine Aminotransferase 16 U/L (0-33); Albumin Level 3.1 g/dL (3.5-5.2); Alkaline Phosphatase 71 U/L (35-105); Anion Gap 13.8 (5-19); Aspartate Amino Transferase 29 U/L (0-32); Blood Urea Nitrogen 25 mg/dL (8-23); Calcium 7.9 mg/dL (8.5-10.5); Carbon Dioxide 22 mmol/L (22-29); Chloride 106 mmol/L (98-107); Creatinine Clr Calc Pharmacy 57.7802; Glucose 161 mg/dL (65-115); Magnesium 1.7 mg/dL (1.7-2.3); Osmolality Calculated 292 mOsm/kg (285-295); Potassium 4.8 mmol/L (3.5-5.1); Sodium 137 mmol/L (136-145); Total Bilirubin 0.5 mg/dL (0.15-1.2); Total Protein 6.1 g/dL (6.6-8.7)
--- NOTE | 2023-09-15 08:20 | P.PN_ITS ---
Subjective 2 Subjective: Patient seen and examined. Still intubated and sedated on small amount of Levophed to support her blood pressure. No grimace to palpation of her abdomen Vitals/I&O/Wt Last Vital Signs Temp 99.0 F 09/15/23 10:00 Pulse 64 09/15/23 18:30 Resp 19 H 09/15/23 18:13 BP 112/98 09/15/23 10:00 Pulse Ox 96 09/15/23 18:30 O2 Del Method Mechanical Ventilation 09/15/23 09:54 O2 Flow Rate 50 09/14/23 19:39 FiO2 30 09/15/23 18:13 09/15/23 09/15/23 09/15/23 06:59 14:59 22:59 Intake Total 2037.610 / 7004.205 1450.199 / 1450.199 365.082 / 1815.281 Output Total 1050 / 5875 410 / 410 Balance 987.610 / 1807.699 9097.199 / 1040.199 365.082 / 1405.281 Weight last 48 hrs Weight 296 lb 8 oz Weight 294 lb 4.8 oz Weight 286 lb Physical Exam 2 Narrative: General: Intubated, sedated Abdomen: Soft, nondistended, no grimace to palpation, no guarding Urinary Catheter Management: Ulloa: Cath Placed During This Visit: yes Reason for Continuing Indwelling Catheter: Accurate Measurement of Urinary Output in Critically Ill Patients Urinary Catheter Date of Insertion: 09/14/23 Data 09/15/23 10:05 09/15/23 05:07 A&P Assessment and plan (1) Postoperative haemorrhage: (2) Liver cirrhosis: (3) Paroxysmal A-fib: Plan Postoperative day #1 status post diagnostic laparoscopy with control of hemorrhage after laparoscopic cholecystectomy 3100 cc blood in the abdomen, active bleeding from gallbladder fossa controlled with clipping and surgicel Daily labs I spoke with hospitalist. Planning to keep the patient intubated today and possibly weaning tomorrow. Hemoglobin has been stable Attestations 2 Medical Necessity Statement*: Anticipate greater than 2 midnights in the hospital for recovery after laparoscopic cholecystectomy and subsequent diagnostic laparoscopy with control of hemorrhage. Patient remains intubated and sedated on vasopressor Coding Level of Care Code Acute Code for Chg Fwd Diagnoses Postoperative haemorrhage Liver cirrhosis K74.60 Paroxysmal A-fib I48.0
[2023-09-15] MEDS: propofol 1,000 MG/100 ML INJ 19.4600000000000009 MG IV ×3 (08:21→16:17)
--- NOTE | 2023-09-15 09:08 | XR_ITS ---
WS: [id number] XR chest 1V portable [id number] REASON FOR EXAM: ET tube placement FINDINGS: Endotracheal tube in place with the tip at the level of the medial clavicles. Nasogastric tube in place the tip is not visualized but is beyond the gastroesophageal junction. Prominent central pulmonary veins. Chronic appearing interstitial reticular densities in both lung bases. No definite acute pulmonary parenchymal or pleural abnormality. The chest is stable compared to 09/14/2023. XR/XR chest 1V portable [id number] IMPRESSION: Stable chest with placement of endotracheal tube and nasogastric tube as above.
--- NOTE | 2023-09-15 10:14 | XRR_ITS ---
PROCEDURE INFORMATION: Exam: XR Chest Exam date and time: 09/15/2023 11:21 AM Age: 73 years old Clinical indication: Device placement; Other: Et tube advanced TECHNIQUE: Imaging protocol: Radiologic exam of the chest. Views: 1 view. COMPARISON: CR XR chest 1V portable [id number] 09/15/2023 9:16 AM FINDINGS: Tubes, catheters and devices: An endotracheal tube is present with the tip about 5 cm above the nithya. A nasogastric tube extends into the stomach. Lungs: There is bibasilar patchy atelectasis. Pleural spaces: Unremarkable. No pleural effusion. No pneumothorax. Heart/Mediastinum: Unremarkable. No cardiomegaly. Bones/joints: Unremarkable. XR/XR chest 1V portable [id number] IMPRESSION: 1. The tip of the endotracheal tube is about 5 cm above the nithya. 2. Patchy basilar atelectasis unchanged.
[2023-09-15 10:15] LABS: Basophils # 0.1 10^3/uL (0.0-0.1); Basophils % 0.4 %; Hematocrit 33.6 % (36-47); Lymphocytes # 3.5 10^3/uL (0.8-4.8); Lymphocytes % 16.2 %; Mean Corpuscular HGB Conc 32.7 g/dL (30-55); Mean Corpuscular Hemoglobin 29.4 pg (27-33); Mean Corpuscular Volume 89.8 fl (85-98); Mean Platelet Volume 11.1 fL (7.4-10.4); Monocytes % 14.1 %; Neutrophils # 14.71 10^3/uL (1.8-7.7); Neutrophils % 68.7 %; Nucleated Red Blood Cells % 0 %; Platelet Count 152 10^3/cmm (157-399); Red Blood Count 3.74 10^6/uL (3.85-5.65); Red Cell Distribution Width 20.3 % (12.1-15.1); White Blood Count 21.43 10^3/uL (3.29-11.43)
--- NOTE | 2023-09-15 13:26 | P.PN_ITS ---
Subjective 2 Subjective: intubated, sedated daughter at bedside still on levophed hb 11 wbc 21 Vitals/I&O/Wt Last Vital Signs Temp 99.0 F 09/15/23 10:00 Pulse 78 09/15/23 10:00 Resp 16 09/15/23 12:49 BP 112/98 09/15/23 10:00 Pulse Ox 95 09/15/23 12:49 O2 Del Method Mechanical Ventilation 09/15/23 09:54 O2 Flow Rate 50 09/14/23 19:39 FiO2 30 09/15/23 12:49 09/14/23 09/15/23 09/15/23 22:59 06:59 14:59 Intake Total 4866.595 / 4966.595 2037.610 / 7004.205 67.045 / 67.045 Output Total 4800 / 4825 1050 / 5875 330 / 330 Balance 66.595 / 141.595 987.610 / 1129.205 -262.955 / -262.955 Weight last 48 hrs Weight 134.49 kg Weight 133.492 kg Weight 129.727 kg Physical Exam 2 Narrative: General: intubated, sedated HEENT: Normocephalic, atraumatic, Cardio: Regular rate rhythm., normal S1-S2, Respiratory: Mainly clear to auscultation with diminished at bases. Difficult auscultation due to body habitus. GI: Abdomen slightly firm, aura drain in place Extremities: Obese extremities, trace edema bilateral lower extremities Urinary Catheter Management: Ulloa: Cath Placed During This Visit: yes Reason for Continuing Indwelling Catheter: Accurate Measurement of Urinary Output in Critically Ill Patients Urinary Catheter Date of Insertion: 09/14/23 Data 09/15/23 10:05 09/15/23 05:07 A&P Assessment and plan (1) CAD (coronary artery disease): Qualifiers: Coronary Disease-Associated Artery/Lesion type: [place] artery [place] vs. transplanted heart: [place] heart Associated angina: without angina Qualified Code(s): I25.10 - Atherosclerotic heart disease of [place] coronary artery without angina pectoris (2) Paroxysmal A-fib: (3) Liver cirrhosis: (4) Gallbladder mass: (5) Cholelithiasis: (6) GI bleed: Qualifiers: GI bleed type/associated pathology: gastric ulcer Qualified Code(s): K 25.4 - Chronic or unspecified gastric ulcer with hemorrhage (7) Postoperative haemorrhage: (8) Acute anemia: (9) Acute blood loss anemia: (10) Acute pulmonary embolism: (11) Type 2 diabetes mellitus: Plan #Hemorrhagic shock status post laparoscopic cholecystectomy followed by laproscopy for control of hemorrhage #Acute pulmonary embolism right lower lobe #Liver disease? Nodular liver. Probable cirrhosis? #Kidney mass? #Masslike density in gallbladder along with cholecystitis status post elective cholecystectomy. #History of GI bleed, ulcers in the past #Unable to tolerate anticoagulation #High risk medication use #Type 2 diabetes mellitus/prediabetes #CAD #Splenomegaly, hepatomegaly ? Type and cross 4 units packed RBC, 2 units FFP ordered, 1 unit platelet ordered ? Check stat CBC, CMP, magnesium, ABG ? Check CT chest angio protocol PE, CT abdomen pelvis with contrast stat. ? V rads called with results: Patient does have acute pulmonary embolism right lower lobe, he is actively bleeding in gallbladder fossa. Findings suggestive of active hemorrhage arising from gallbladder right upper quadrant hemoperitoneum/hematoma. Hematoma exerts mass effect of proximal duodenum possibly resulting in functional gastric outlet obstruction. Pneumoperitoneum in lesser sac and upper abdomen favored to be postsurgical however consider correlation with direct visualization to exclude gastric perforation. ? Discussed the above findings with patient's family. Patient is being taken back to the OR at this time for exploration. ? I have told the family that patient is high risk at this time and prognosis may be poor given that she has active bleeding and a pulmonary embolism at the same time. I have told family patient is high risk for further blood clots. ? Tranexamic as it has been ordered by the surgeon. ? Levophed has been ordered ? Protonix 40 IV twice daily ? Recheck labs postop. Check CBC every 8 hours ? Check CMP, magnesium in a.m. ? Started on empiric Zosyn every 8 hours ? Check lactic acid -Continue oxygen and wean off as able. -Will transfer patient to ICU after surgery. Full code. Discussed this with the patient and she would like to be a full code at this time ? DVT prophylaxis: Pharmacological is contraindicated strictly in this patient. May only do SCDs. Thank you for involving us in the care of this patient. Medicine will continue to follow. Todays plan: 09/15/2023 - Currently intubated sedated patient. ? Hemoglobin stable at 11. ? Continue to serially check CBC every 8 hours ? Wean off Levophed as able ? Continue propofol, fentanyl for sedation. ?Continue Zosyn, vancomycin ? Monitor for blood loss via Aura drain ? Plan for sedation vacation in a.m. if clinically stable and will attempt to extubate. ? Continue on vent today. ? Discussed with surgery, RN, patient's family in detail. Attestations 2 Medical Necessity Statement*: Patient is going to require at least 1 night in the intensive care unit for recovery from surgery for postoperative hemorrhage leading to hemorrhagic shock Critical Care Time: The high probability of a clinically significant, sudden or life threatening deterioration of the patient's [cardiovascular, respiratory] system(s) required my full and direct attention, intervention and personal management. The critical care time is as shown. This time is in addition to time spent performing any reported procedures but includes the following: [x] Data and vital sign review and interpretation [x] Patient assessment, examination and intervention [x] Documentation [x] Medication orders and management Critical Care Time (min): 45 Coding Level of Care Code Acute Code for Chg Fwd Diagnoses Coronary artery disease involving [place] coronary artery of [place] heart without angina pectoris I25.10 Coronary Disease-Associated Artery/Lesion type: [place] artery [place] vs. transplanted heart: [place] heart Associated angina: without angina Paroxysmal A-fib I48.0 Liver cirrhosis K74.60 Gallbladder mass K82.8 Cholelithiasis K80.20 Gastrointestinal hemorrhage associated with gastric ulcer K25.4 GI bleed type/associated pathology: gastric ulcer Postoperative haemorrhage Acute anemia D64.9 Acute blood loss anemia D62 Acute pulmonary embolism I26.99 Type 2 diabetes mellitus with hyperglycemia, without long-term current use of insulin E11.9
[2023-09-15] MEDS: fentaNYL 1,000 MCG/100 ML BAG 5 MCG IV (13:59)
[2023-09-15] MEDS: norepinephrine 4 MG/250 ML BAG 30 MG IV ×3 (13:59→21:52)
--- NOTE | 2023-09-15 18:32 | PC.NURSE ---
IV in left AC area infiltrated with levophed running. Dr. Smith notified and order for PICC line placed.
--- NOTE | 2023-09-15 18:37 | PC.NURSE ---
blood pressures printed and placed in paper chart
--- NOTE | 2023-09-15 18:58 | XRR_ITS ---
PROCEDURE INFORMATION: Exam: XR Chest Exam date and time: 09/15/2023 7:57 PM Age: 73 years old Clinical indication: Device placement; Patient HX: Picc line confirmation TECHNIQUE: Imaging protocol: Radiologic exam of the chest. Views: 1 view. COMPARISON: CR XR chest 1V portable [id number] 09/15/2023 11:21 AM FINDINGS: Tubes, catheters and devices: There is a right-sided PICC positioned with its tip near the upper cavoatrial junction. The ETT is positioned 6.3 cm above the nithya. There is an NG tube which tracks into the stomach and off the field of view. Lungs: Unremarkable. No consolidation. Pleural spaces: Unremarkable. No pleural effusion. No pneumothorax. Heart/Mediastinum: Unremarkable. No cardiomegaly. Bones/joints: Unremarkable. XR/XR chest 1V portable [id number] IMPRESSION: There is a right-sided PICC positioned with its tip near the upper cavoatrial junction.
--- NOTE | 2023-09-15 19:53 | PC.NURSE ---
Pharmacy called. Antidote for Levophed infiltration not available.
--- NOTE | 2023-09-15 20:40 | PICC.NOTE ---
Triple lumen PICC placed to right brachial vein. Referred to vascular access nurse for PICC placement due to poor access and need for vasopressors. Risks and benefits discussed with family. Informed consent obtained from patient daughter. Right arm assessed with right basilic vein measuring 4.8 mm, straight, and apparent best choice for placement. Using sterile technique and MST, right basilic vein accessed x 1 stick. Unable to thread wire. Needle removed. Right brachial vein then accessed x 1 stick. Wire able to thread without difficulty. Mid-arm circumference measured 10 cm from right AC 53 cm. Trimmed cath 44 cm with 3 cm external length noted. CXR shows tip to appear to be in the distal SVC, cavoatrial junction. Awaiting read from [facility]. Line secured with stat-lock. Insertion site covered with Biopatch and TSM. Report given to bedside nurse, ARMINDA Dean.
[2023-09-15] MEDS: vancomycin 1,500 MG/300 ML PIGGYBACK 200 MG IV (20:41)
[2023-09-15] MEDS: propofol 1,000 MG/100 ML INJ 35.0300000000000011 MG IV (20:47)
[2023-09-15 21:03] LABS: Basophils # 0.2 10^3/uL (0.0-0.1); Basophils % 0.7 %; Eosinophils % 0.1 %; Hematocrit 31.3 % (36-47); Lymphocytes # 3.7 10^3/uL (0.8-4.8); Lymphocytes % 16.9 %; Mean Corpuscular HGB Conc 32.3 g/dL (30-55); Mean Corpuscular Hemoglobin 29.1 pg (27-33); Mean Corpuscular Volume 90.2 fl (85-98); Mean Platelet Volume 11.5 fL (7.4-10.4); Monocytes # 3.2 10^3/uL (0.2-0.9); Monocytes % 14.8 %; Neutrophils # 14.54 10^3/uL (1.8-7.7); Neutrophils % 66.9 %; Nucleated Red Blood Cells % 0 %; Platelet Count 141 10^3/cmm (157-399); Red Blood Count 3.47 10^6/uL (3.85-5.65); Red Cell Distribution Width 20.2 % (12.1-15.1); White Blood Count 21.75 10^3/uL (3.29-11.43)
[2023-09-15 22:12] LABS: Glucose Point of Care 148 mg/dL (70-110)
[2023-09-15] MEDS: fentaNYL 1,000 MCG/100 ML BAG 10 MCG IV (23:15)
[2023-09-16] VITALS (76 sets, daily range): BP systolic 71–129; BP diastolic 36–79; PULSE 69–102; RESP 16–24; TEMP 36.6–37.2; O2SAT 89–98
[2023-09-16] MEDS: propofol 1,000 MG/100 ML INJ 15.5700000000000003 MG IV ×3 (01:16→21:28)
[2023-09-16] MEDS: piperacillin-tazobactam 3.375 GM in sodium chloride 0.9% (plus) 50 ML IV ×3 (01:53→18:09)
[2023-09-16] MEDS: norepinephrine 4 MG/250 ML BAG 67.5 MG IV (02:32)
[2023-09-16 03:17] LABS: Basophils # 0.2 10^3/uL (0.0-0.1); Basophils % 0.7 %; Eosinophils # 0.1 10^3/uL (0.0-0.8); Eosinophils % 0.3 %; Hematocrit 28.9 % (36-47); Lymphocytes # 5.1 10^3/uL (0.8-4.8); Lymphocytes % 23.2 %; Mean Corpuscular HGB Conc 31.8 g/dL (30-55); Mean Corpuscular Hemoglobin 28.8 pg (27-33); Mean Corpuscular Volume 90.3 fl (85-98); Monocytes % 13.6 %; Neutrophils # 13.61 10^3/uL (1.8-7.7); Neutrophils % 61.4 %; Nucleated Red Blood Cells % 0 %; Platelet Count 151 10^3/cmm (157-399); Red Cell Distribution Width 20.1 % (12.1-15.1); White Blood Count 22.15 10^3/uL (3.29-11.43)
--- NOTE | 2023-09-16 03:53 | PC.NURSE ---
[address] Zambrano notified of current level and downward trend. Notified of increased need of levophed. Approximately 200 mls out of MELONIE. Dr Zambrano to bedside pt assessed. Orders given to recheck HH 4 hrs after last check.
[2023-09-16] MEDS: sodium chloride 0.9% 1,000 ML 125 ML IV ×3 (04:22→21:31)
[2023-09-16 05:01] LABS: ABG PCO2 39.9 mmHg (35-45); ABG PH Result 7.34 (7.35-7.45); Alveolar-Arterial Oxygen Gradi 11.1 mmHg (5-10); Arterial Blood Gas Hematocrit 31.8 % (37-47); Base Excess ABG -4.3 mmol/L (-2.0-2.0); Blood Gas Allen Test Pos; Blood Gas Sample Site ARTLINE; Blood Gas Sample Type Arterial; Blood Gas Tidal Volume 0.45; Carboxyhemoglobin 1.8 %THgb (0.4-20.1); HCO3 ABG 21.2 mmol/L (22-26); HGB O2 Sat 93.9 % (95-100); Ionized Calcium Level - ABG 1.1 mmol/L (1.1-1.4); Methemoglobin 0.7 % (0.4-1.5); Oxygen Device VENT; Oxygen Saturation ABG 96.4; PO2 ABG 78.3 mmHg (80.0-100.0); PO2 FiO2 Ratio Arterial Blood 0; Potassium Level - ABG 3.7 mmol/L (3.5-5.0); Total Hemoglobin 10.4 g/dL (12-16)
--- NOTE | 2023-09-16 05:21 | PC.NURSE ---
Upon assuming care of pt at 1900 propofol was infusing at 50 mcg/kg/min, and fentanyl was infusing at 75 mcg/hr. Corrected rate in MAR to reflect current infusion rate.
[2023-09-16] MEDS: norepinephrine 4 MG/250 ML BAG 75 MG IV ×2 (05:26→07:32)
[2023-09-16 06:10] LABS: Alanine Aminotransferase 13 U/L (0-33); Alkaline Phosphatase 72 U/L (35-105); Anion Gap 13.1 (5-19); Aspartate Amino Transferase 27 U/L (0-32); Blood Urea Nitrogen 23 mg/dL (8-23); Calcium 7.3 mg/dL (8.5-10.5); Carbon Dioxide 22 mmol/L (22-29); Chloride 106 mmol/L (98-107); Creatinine Clr Calc Pharmacy 69.6426; Glucose 150 mg/dL (65-115); Magnesium 1.7 mg/dL (1.7-2.3); Osmolality Calculated 291 mOsm/kg (285-295); Potassium 4.1 mmol/L (3.5-5.1); Sodium 137 mmol/L (136-145); Total Bilirubin 0.6 mg/dL (0.15-1.2)
[2023-09-16 06:25] LABS: Hematocrit 26.5 % (36-47)
--- NOTE | 2023-09-16 06:44 | CTR_ITS ---
PROCEDURE INFORMATION: Exam: CT Abdomen And Pelvis With Contrast Exam date and time: 09/16/2023 8:59 AM Age: 73 years old Clinical indication: Other: Decreased h h, increased output from berny drain; Patient HX: 50ml oral contrast TECHNIQUE: Imaging protocol: Computed tomography of the abdomen and pelvis with contrast. Radiation optimization: All CT scans at this facility use at least one of these dose optimization techniques: automated exposure control; mA and/or kV adjustment per patient size (includes targeted exams where dose is matched to clinical indication); or iterative reconstruction. Contrast material: OMNI 350; Contrast volume: 100 ml; Contrast route: INTRAVENOUS (IV); COMPARISON: CT angio chest w abd pel w con 09/14/2023 5:09 PM RADIATION DOSE METRICS: Total DLP (mGy-cm): 1246.36 FINDINGS: Tubes, catheters and devices: Percutaneous right abdominal drainage catheter coils lateral adjacent to the right liver margin, and a 2nd right-sided percutaneous drainage catheter has its tip positioned in the vicinity of the lesser sac. NG tube is in place with the tip positioned within the gastric body lumen. Lungs: Partially visualized lung bases demonstrate a small right pleural effusion with mild associated atelectasis/concentrate, and a trace left pleural effusion. Heart: Mild cardiomegaly. Coronary arteries: Partially imaged coronary artery atheromatous calcifications. Liver: Mild hepatomegaly. Liver nodular contours, which can be seen in cirrhosis; clinically correlate. Previously seen hyperdense hemorrhage within the gallbladder fossa is no longer present Gallbladder and bile ducts: Cholecystectomy clips. Associated CBD dilation (up to 10 mm maximally). Pancreas: Pancreatic atrophy. Spleen: Normal. No splenomegaly. Adrenal glands: Normal. No mass. Kidneys and ureters: Unchanged multiple bilateral renal cysts, not well evaluated secondary to obscuration from technical artifact. Stomach and bowel: Diffuse gastric wall thickening, including prominent thickening of the gastric pylorus/antrum hartman; this may be at least in part artifactual secondary to nondistention. Differential diagnosis for this appearance includes inflammatory/infectious/neoplastic etiologies. Appendix: No evidence of appendicitis. Intraperitoneal space: Similar appearance several pockets of pneumoperitoneum in the region of the lesser sac. Previous scattered foci of hemoperitoneum are no longer present. Suggestion of trace ascites Vasculature: Unchanged 30 mm diameter fusiform distal AAA. Hypodensity within the SMV represents clot versus flow artifact as seen on series 10/06. Aortoiliac atheromatous calcifications Lymph nodes: Unremarkable. No enlarged lymph nodes. Urinary bladder: Urinary bladder is decompressed with Ulloa bladder. Catheter. Reproductive: Uterus is not well visualized secondary to artifact, and abnormal thickening of the endometrial stripe cannot be excluded. Follow-up as clinically indicated. Bones/joints: No suspicious osseous findings. Minimal grade 1 listhesis at L4-L5. Suggestion of up to severe bilateral foraminal stenoses at L4-L5 and L5-S1. Soft tissues: Unremarkable. CT/CT abdomen pelvis w con* [id number] IMPRESSION: 1. Evaluation is limited secondary to large amount of technical artifact which obscures portions of the abdomen and pelvis. 2. Interval placement of 2 right sided perihepatic drainage catheters, resulting in evacuation of previously seen perihepatic hemoperitoneum. 3. Previously seen hyperdense hemorrhage in the gallbladder fossa is no longer present. Other previously seen scattered foci of upper abdominal hemoperitoneum are no longer present 4. Similar pockets of known pneumoperitoneum in the vicinity of the lesser sac. 5. Gastric wall thickening above, as discussed. 6. Trace ascites 7. Hypodensity within the SMV represents clot versus flow artifact 8. Partially visualized lung bases demonstrate a small right pleural effusion with mild associated atelectasis/concentrate, and a trace left pleural effusion. 9. Chronic findings as above
[2023-09-16] MEDS: sodium chloride 0.9% 1,000 ML 999 ML IV (06:53)
--- NOTE | 2023-09-16 06:57 | PC.NURSE ---
Called Dr Lindsey about HH trending down and an increase in output from MELONIE drain. Current HH 8.4. Ordered stat CT of abdomen with IV and oral contrast and a 1 liter bolus of normal saline. Asked about orders for OG, wants it hooked to low intermittent suction.
[2023-09-16] MEDS: iohexol 350 mg/mL 500 mL Btl (per mL) IV (09:11)
[2023-09-16] MEDS: iohexol 350 mg/mL 500 mL Btl (per mL) PO (09:12)
[2023-09-16] MEDS: fentaNYL 1,000 MCG/100 ML BAG 7.5 MCG IV (09:27)
[2023-09-16 10:30] LABS: Basophils # 0.1 10^3/uL (0.0-0.1); Basophils % 0.7 %; Eosinophils # 0.1 10^3/uL (0.0-0.8); Eosinophils % 0.5 %; Hematocrit 25.5 % (36-47); Lymphocytes # 3.5 10^3/uL (0.8-4.8); Lymphocytes % 21.3 %; Mean Corpuscular HGB Conc 31.4 g/dL (30-55); Mean Corpuscular Hemoglobin 29.5 pg (27-33); Mean Corpuscular Volume 94.1 fl (85-98); Mean Platelet Volume 11.1 fL (7.4-10.4); Monocytes % 11.7 %; Neutrophils # 10.81 10^3/uL (1.8-7.7); Neutrophils % 65.1 %; Nucleated Red Blood Cells % 0 %; Platelet Count 108 10^3/cmm (157-399); Red Blood Count 2.71 10^6/uL (3.85-5.65); Red Cell Distribution Width 20.1 % (12.1-15.1); White Blood Count 16.62 10^3/uL (3.29-11.43)
[2023-09-16] MEDS: norepinephrine 4 MG/250 ML BAG 60 MG IV ×2 (11:36→16:42)
--- NOTE | 2023-09-16 13:33 | P.PN_ITS ---
Subjective 2 Subjective: Patient seen and examined. She is much more alert now with minimal abdominal pain. Vitals/I&O/Wt Last Vital Signs Temp 98 F 09/16/23 12:00 Pulse 78 09/16/23 12:00 Resp 17 09/16/23 12:26 BP 108/59 09/16/23 12:00 Pulse Ox 97 09/16/23 12:26 O2 Del Method Mechanical Ventilation 09/16/23 08:19 O2 Flow Rate 50 09/14/23 19:39 FiO2 30 09/16/23 12:26 09/15/23 09/16/23 09/16/23 22:59 06:59 14:59 Intake Total 1088.412 / 2538.611 1576.179 / 4114.790 2438.824 / 2438.824 Output Total 100 / 510 1605 / 2115 1055 / 1055 Balance 988.412 / 2028.611 -28.821 / 2599.027 1751.824 / 1383.824 Weight last 48 hrs Weight 296 lb 8 oz Weight 294 lb 4.8 oz Physical Exam 2 Narrative: General: No acute distress, intubated and sedated but alertable Abdomen: Soft, nondistended, appropriately tender to palpation, no guarding or rebound Urinary Catheter Management: Ulloa: Cath Placed During This Visit: yes Reason for Continuing Indwelling Catheter: Accurate Measurement of Urinary Output in Critically Ill Patients Urinary Catheter Date of Insertion: 09/14/23 Data 09/16/23 10:23 09/16/23 04:51 A&P Assessment and plan (1) Postoperative haemorrhage: (2) Liver cirrhosis: (3) Paroxysmal A-fib: (4) Gallbladder mass: (5) Acute pulmonary embolism: Plan Postoperative day #2 status post diagnostic laparoscopy with control of hemorrhage after laparoscopic cholecystectomy 3100 cc blood in the abdomen, active bleeding from gallbladder fossa controlled with clipping and surgicel Daily labs 3100 cc of blood loss translates to approximately 12 units of PRBCs. She is only gotten 4 units of PRBCs replaced so far. This is likely why she continues to need Levophed. I spoke with the hospitalist about further transfusions. Also, I ordered a CT of the abdomen pelvis this morning which does not show any new pathology other than a possible SMV thrombus. Recommend therapeutic anticoagulation now Hospitalist consulted- appreciate recommendations Attestations 2 Medical Necessity Statement*: Patient is can require at least 1 more night in the hospital to be weaned off of vasopressors and ventilator after diagnostic laparoscopy with control of hemorrhage Coding Level of Care Code Acute Code for Chg Fwd Diagnoses Postoperative haemorrhage Liver cirrhosis K74.60 Paroxysmal A-fib I48.0 Gallbladder mass K82.8 Acute pulmonary embolism I26.99
--- NOTE | 2023-09-16 15:06 | P.PN_ITS ---
Subjective 2 Subjective: Intubated sedated however will wake up to command and open eyes. Nods her head yes and no. WBC 16,000 today. Hemoglobin 8. Did get 1 L normal saline bolus this morning. Platelets 108. INR 1.26. Patient is still on 14 of Levophed. Denies being on chronic steroids at home. Repeat CT abdomen does not show any evidence of new bleed. Vitals/I&O/Wt Last Vital Signs Temp 97.9 F 09/16/23 14:22 Pulse 78 09/16/23 12:00 Resp 24 H 09/16/23 14:22 BP 109/46 09/16/23 14:22 Pulse Ox 97 09/16/23 12:26 O2 Del Method Mechanical Ventilation 09/16/23 08:19 O2 Flow Rate 50 09/14/23 19:39 FiO2 30 09/16/23 12:26 09/16/23 09/16/23 09/16/23 06:59 14:59 22:59 Intake Total 1576.179 / 4114.790 2438.824 / 2438.824 Output Total 1605 / 2115 1055 / 1055 Balance -28.821 / 6415.911 0779.824 / 1383.824 Weight last 48 hrs Weight 134.49 kg Weight 133.492 kg Physical Exam 2 Narrative: General: intubated, sedated but able to nod yes and no and wakes up on command. HEENT: Normocephalic, atraumatic, Cardio: Regular rate rhythm., normal S1-S2, Respiratory: Mainly clear to auscultation with diminished at bases. Difficult auscultation due to body habitus. GI: Abdomen soft, aura drain in place Extremities: Obese extremities, trace edema bilateral lower extremities Urinary Catheter Management: Ulloa: Cath Placed During This Visit: yes Reason for Continuing Indwelling Catheter: Accurate Measurement of Urinary Output in Critically Ill Patients Urinary Catheter Date of Insertion: 09/14/23 Data 09/16/23 10:23 09/16/23 04:51 A&P Assessment and plan (1) CAD (coronary artery disease): Qualifiers: Coronary Disease-Associated Artery/Lesion type: [place] artery [place] vs. transplanted heart: [place] heart Associated angina: without angina Qualified Code(s): I25.10 - Atherosclerotic heart disease of [place] coronary artery without angina pectoris (2) Paroxysmal A-fib: (3) Liver cirrhosis: (4) Gallbladder mass: (5) Cholelithiasis: (6) GI bleed: Qualifiers: GI bleed type/associated pathology: gastric ulcer Qualified Code(s): K 25.4 - Chronic or unspecified gastric ulcer with hemorrhage (7) Postoperative haemorrhage: (8) Acute anemia: (9) Acute blood loss anemia: (10) Acute pulmonary embolism: (11) Type 2 diabetes mellitus: Plan #Hemorrhagic shock status post laparoscopic cholecystectomy followed by laproscopy for control of hemorrhage #Acute pulmonary embolism right lower lobe #Liver disease? Nodular liver. Probable cirrhosis? #Kidney mass? #Masslike density in gallbladder along with cholecystitis status post elective cholecystectomy. #History of GI bleed, ulcers in the past #Unable to tolerate anticoagulation #High risk medication use #Type 2 diabetes mellitus/prediabetes #CAD #Splenomegaly, hepatomegaly #Elective intubation ? Type and cross 4 units packed RBC, 2 units FFP ordered, 1 unit platelet ordered ? Check stat CBC, CMP, magnesium, ABG ? Check CT chest angio protocol PE, CT abdomen pelvis with contrast stat. ? V rads called with results: Patient does have acute pulmonary embolism right lower lobe, he is actively bleeding in gallbladder fossa. Findings suggestive of active hemorrhage arising from gallbladder right upper quadrant hemoperitoneum/hematoma. Hematoma exerts mass effect of proximal duodenum possibly resulting in functional gastric outlet obstruction. Pneumoperitoneum in lesser sac and upper abdomen favored to be postsurgical however consider correlation with direct visualization to exclude gastric perforation. ? Discussed the above findings with patient's family. Patient is being taken back to the OR at this time for exploration. ? I have told the family that patient is high risk at this time and prognosis may be poor given that she has active bleeding and a pulmonary embolism at the same time. I have told family patient is high risk for further blood clots. ? Tranexamic as it has been ordered by the surgeon. ? Levophed has been ordered ? Protonix 40 IV twice daily ? Recheck labs postop. Check CBC every 8 hours ? Check CMP, magnesium in a.m. ? Started on empiric Zosyn every 8 hours ? Check lactic acid -Continue oxygen and wean off as able. -Will transfer patient to ICU after surgery. Full code. Discussed this with the patient and she would like to be a full code at this time ? DVT prophylaxis: Pharmacological is contraindicated strictly in this patient. May only do SCDs. Thank you for involving us in the care of this patient. Medicine will continue to follow. Todays plan: 09/16/2023 - Currently intubated sedated patient. ? Hemoglobin 8. ? Continue to serially check CBC every 8 hours ? Wean off Levophed as able ? Continue propofol, fentanyl for sedation. ?Continue Zosyn, vancomycin ? Monitor for blood loss via Aura drain ? Plan for sedation vacation in a.m. if clinically stable and will attempt to extubate. As long as we can come down on vasopressor requirement we may be able to extubate. -Check cortisol level. ? Continue on vent today. -Discussed with general surgery at length. Patient had 31 cc of blood loss. We will give 2 more units of packed RBC. CT abdomen pelvis shows possible SMV thrombus and there is already imaging evidence of acute PE right lower lobe. After discussion with general surgery and clearance from them we may start therapeutic anticoagulation now. ? I will place patient on heparin drip and monitor hemoglobin closely. ? Discussed with surgery, RN, patient's family in detail. Attestations 2 Medical Necessity Statement*: Patient is can require at least 1 more night in the hospital to be weaned off of vasopressors and ventilator after diagnostic laparoscopy with control of hemorrhage Critical Care Time: The high probability of a clinically significant, sudden or life threatening deterioration of the patient's [cardiovascular, respiratory] system(s) required my full and direct attention, intervention and personal management. The critical care time is as shown. This time is in addition to time spent performing any reported procedures but includes the following: [x] Data and vital sign review and interpretation [x] Patient assessment, examination and intervention [x] Documentation [x] Medication orders and management Critical Care Time (min): 45 Coding Level of Care Code Acute Code for Chg Fwd Diagnoses Coronary artery disease involving [place] coronary artery of [place] heart without angina pectoris I25.10 Coronary Disease-Associated Artery/Lesion type: [place] artery [place] vs. transplanted heart: [place] heart Associated angina: without angina Paroxysmal A-fib I48.0 Liver cirrhosis K74.60 Gallbladder mass K82.8 Cholelithiasis K80.20 Gastrointestinal hemorrhage associated with gastric ulcer K25.4 GI bleed type/associated pathology: gastric ulcer Postoperative haemorrhage Acute anemia D64.9 Acute blood loss anemia D62 Acute pulmonary embolism I26.99 Type 2 diabetes mellitus with hyperglycemia, without long-term current use of insulin E11.9
[2023-09-16 16:52] LABS: Cortisol Random 7.03 ug/dL (2.47-19.5)
[2023-09-16 18:42] LABS: Basophils # 0.1 10^3/uL (0.0-0.1); Basophils % 0.8 %; Eosinophils # 0.2 10^3/uL (0.0-0.8); Hematocrit 30.1 % (36-47); Lymphocytes # 3.7 10^3/uL (0.8-4.8); Mean Corpuscular HGB Conc 31.9 g/dL (30-55); Mean Corpuscular Hemoglobin 28.9 pg (27-33); Mean Corpuscular Volume 90.7 fl (85-98); Mean Platelet Volume 10.4 fL (7.4-10.4); Monocytes % 11.5 %; Neutrophils # 11.57 10^3/uL (1.8-7.7); Neutrophils % 65.1 %; Nucleated Red Blood Cells % 0 %; Platelet Count 125 10^3/cmm (157-399); Red Blood Count 3.32 10^6/uL (3.85-5.65); Red Cell Distribution Width 19.2 % (12.1-15.1); White Blood Count 17.75 10^3/uL (3.29-11.43)
[2023-09-16] MEDS: heparin 5,000 unit/mL INJ 1 mL IV (18:52)
[2023-09-16] MEDS: heparin drip 25,000 UNIT/500 ML PREMIX 37.6599999999999966 UNIT IV (18:53)
--- NOTE | 2023-09-16 19:29 | PC.NURSE ---
heidy . dr tello here checked berny drainage and taken to ct at am .. monitor vs weaning levophed as tolerated orders for prbc to start today unit of blood started also aware of bleeding issue both doctors discussed and to proceed with heparin due to risk heparin proceeded started monitor berny drain at this time platlets now arrived
--- NOTE | 2023-09-16 20:18 | PC.NURSE ---
Patient has had 80 cc of laurent red blood in MELONIE drain since the beginning of this nurse's shift and they are on a heparin drip. Dr. Vaca was notified and he ordered for the heparin to be stopped and he will asses the patient.
--- NOTE | 2023-09-16 22:05 | PC.NURSE ---
At the beginning of this nurse's shift the levophed drip was running at 12 mcg/min. MAR was updated to reflect this.
[2023-09-16 22:13] LABS: Glucose Point of Care 134 mg/dL (70-110)
[2023-09-16] MEDS: norepinephrine 4 MG/250 ML BAG 37.5 MG IV (22:13)
[2023-09-16 22:32] LABS: Basophils # 0.1 10^3/uL (0.0-0.1); Basophils % 0.6 %; Eosinophils # 0.2 10^3/uL (0.0-0.8); Eosinophils % 1.1 %; Lymphocytes # 3.3 10^3/uL (0.8-4.8); Lymphocytes % 22.6 %; Mean Corpuscular Hemoglobin 32.2 pg (27-33); Mean Corpuscular Volume 91.9 fl (85-98); Mean Platelet Volume 11.9 fL (7.4-10.4); Monocytes # 1.5 10^3/uL (0.2-0.9); Monocytes % 10.3 %; Neutrophils # 9.44 10^3/uL (1.8-7.7); Neutrophils % 64.9 %; Nucleated Red Blood Cells % 0 %; Platelet Count 135 10^3/cmm (157-399); Red Blood Count 2.83 10^6/uL (3.85-5.65); Red Cell Distribution Width 19.3 % (12.1-15.1); White Blood Count 14.55 10^3/uL (3.29-11.43)
[2023-09-16] MEDS: fentaNYL 2,500 MCG/250 ML BAG 7.5 MCG IV (23:00)
[2023-09-16 23:08] LABS: Vancomycin Trough 5.6 ug/mL (10-15)
--- NOTE | 2023-09-16 23:34 | PC.NURSE ---
Platelets where returned back to blood blank because Dr. Vaca ordered for them to not be given at this time.
[2023-09-17] VITALS (54 sets, daily range): BP systolic 87–154; BP diastolic 53–128; PULSE 76–127; RESP 16–19; TEMP 36.3–36.8; O2SAT 2–99; BMI 47.0
[2023-09-17] MEDS: vancomycin 1,500 MG/300 ML PIGGYBACK 200 MG IV ×3 (01:16→23:56)
[2023-09-17] MEDS: piperacillin-tazobactam 3.375 GM in sodium chloride 0.9% (plus) 50 ML IV ×3 (01:17→17:13)
[2023-09-17] MEDS: propofol 1,000 MG/100 ML INJ 19.4600000000000009 MG IV ×2 (02:08→06:58)
[2023-09-17 05:47] LABS: ABG PCO2 41.4 mmHg (35-45); ABG PH Result 7.35 (7.35-7.45); Base Excess ABG -2.8 mmol/L (-2.0-2.0); Blood Gas Allen Test Pos; Blood Gas Sample Site ARTLINE; Blood Gas Sample Type Arterial; Carboxyhemoglobin 1.6 %THgb (0.4-20.1); HCO3 ABG 22.7 mmol/L (22-26); HGB O2 Sat 98.4 % (95-100); Ionized Calcium Level - ABG 1.1 mmol/L (1.1-1.4); Methemoglobin 0.7 % (0.4-1.5); Oxygen Device VENT; Oxygen Saturation ABG > 100.0; PO2 FiO2 Ratio Arterial Blood 0; Potassium Level - ABG 3.7 mmol/L (3.5-5.0); Total Hemoglobin 9.1 g/dL (12-16)
[2023-09-17] MEDS: norepinephrine 4 MG/250 ML BAG 7.5 MG IV (06:16)
[2023-09-17] MEDS: sodium chloride 0.9% 1,000 ML 125 ML IV (06:18)
[2023-09-17 06:28] LABS: Basophils # 0.1 10^3/uL (0.0-0.1); Basophils % 0.7 %; Eosinophils # 0.2 10^3/uL (0.0-0.8); Eosinophils % 1.8 %; Hematocrit 28.5 % (36-47); Lymphocytes # 3.4 10^3/uL (0.8-4.8); Lymphocytes % 25.5 %; Mean Corpuscular HGB Conc 30.9 g/dL (30-55); Mean Corpuscular Hemoglobin 28.6 pg (27-33); Mean Corpuscular Volume 92.5 fl (85-98); Monocytes # 1.5 10^3/uL (0.2-0.9); Neutrophils # 8.14 10^3/uL (1.8-7.7); Neutrophils % 60.6 %; Nucleated Red Blood Cells % 0 %; Platelet Count 138 10^3/cmm (157-399); Red Blood Count 3.08 10^6/uL (3.85-5.65); Red Cell Distribution Width 19.5 % (12.1-15.1); White Blood Count 13.41 10^3/uL (3.29-11.43)
[2023-09-17 06:54] LABS: INR 1.18 (0.8-1.2)
[2023-09-17 07:01] LABS: Alanine Aminotransferase 12 U/L (0-33); Albumin Level 2.7 g/dL (3.5-5.2); Alkaline Phosphatase 81 U/L (35-105); Anion Gap 13.9 (5-19); Aspartate Amino Transferase 23 U/L (0-32); Blood Urea Nitrogen 14 mg/dL (8-23); Calcium 7.5 mg/dL (8.5-10.5); Carbon Dioxide 21 mmol/L (22-29); Chloride 107 mmol/L (98-107); Creatinine Clr Calc Pharmacy 87.7497; Globulin 2.9 g/dL (1.3-4.6); Glucose 116 mg/dL (65-115); Magnesium 1.7 mg/dL (1.7-2.3); Osmolality Calculated 287 mOsm/kg (285-295); Phosphorus 2.3 mg/dL (2.5-4.5); Potassium 3.9 mmol/L (3.5-5.1); Sodium 138 mmol/L (136-145); Total Bilirubin 0.7 mg/dL (0.15-1.2); Total Protein 5.6 g/dL (6.6-8.7)
--- NOTE | 2023-09-17 08:00 | PC.NURSE ---
weaning sedation this am and prepaing to attempt extubate .. lungs with increase crackles noted doctor called and lasix given , large amt of edema noted generalized / weaned off levophed
[2023-09-17] MEDS: FUROsemide 10 mg/mL SDV 4mL 40 MG IVP (08:57)
--- NOTE | 2023-09-17 10:00 | PC.NURSE ---
large amt of urine output post lasix given on cpap for weaning , extubated after trail and placed on 2lnc .. increased with bloody drainage berny since yesterday
--- NOTE | 2023-09-17 13:00 | PC.NURSE ---
Dr tello here exam pt at this time ordered regular diet and increase activity up in chair .. also reqest pt and to restart heparin and notify him if it was stopped ... transfer up to chair
--- NOTE | 2023-09-17 13:30 | P.PN_ITS ---
Subjective 2 Subjective: Patient seen and examined. She was extubated this morning and denies any significant pain. She denies any nausea or vomiting. She does feel weak. She is no longer on vasopressors. Heparin drip was stopped overnight due to sanguinous Venu drain output Vitals/I&O/Wt Last Vital Signs Temp 97.9 F 09/17/23 10:00 Pulse 125 H 09/17/23 10:30 Resp 17 09/17/23 09:22 BP 122/101 09/17/23 10:30 Pulse Ox 94 09/17/23 10:30 O2 Del Method Mechanical Ventilation 09/17/23 06:00 O2 Flow Rate 50 09/14/23 19:39 FiO2 30 09/17/23 09:46 09/16/23 09/17/23 09/17/23 22:59 06:59 14:59 Intake Total 2302.653 / 4741.477 1802.549 / 6544.026 517.139 / 517.139 Output Total 1865 / 2920 1310 / 4230 2645 / 2645 Balance 437.653 / 1821.477 492.549 / 2314.026 -2127.861 / -2127.861 Weight last 48 hrs Weight 300 lb 8 oz Physical Exam 2 Narrative: General: No acute distress, awake alert and oriented x 3 Abdomen: Soft, nondistended, appropriately tender Drain: Sanguinous Urinary Catheter Management: Ulloa: Cath Placed During This Visit: yes Reason for Continuing Indwelling Catheter: Accurate Measurement of Urinary Output in Critically Ill Patients Urinary Catheter Date of Insertion: 09/14/23 Data 09/17/23 04:49 09/17/23 04:49 A&P Assessment and plan (1) Postoperative haemorrhage: (2) Liver cirrhosis: (3) Paroxysmal A-fib: (4) Gallbladder mass: (5) Acute pulmonary embolism: Plan Postoperative day #3 status post diagnostic laparoscopy with control of hemorrhage after laparoscopic cholecystectomy for gallbladder mass 3100 cc blood in the abdomen, active bleeding from gallbladder fossa controlled with clipping and surgicel Daily labs 3100 cc of blood loss translates to approximately 12 units of PRBCs. Her Hgb was 14 preoperatively and is 8.8 as of this morning. She received 6 units PRBC's and 2 units FFP during this hospital stay. Nothing to suggest current/active bleeding CT of the abdomen pelvis this morning which does not show any new pathology other than a possible SMV thrombus. Restart Heparin gtt. Please call me with any concerns of new/active bleeding She was previously on Eliquis for paroxysmal A-fib Hospitalist consulted- appreciate recommendations Regular diet PT consult regular diet Out of bed to chair 3 times daily Will likely be discharged tomorrow or Monday, depending on PT recommendations Attestations 2 Medical Necessity Statement*: Patient requires at least 1 more night in the hospital for recovery. She was just extubated this morning and is starting a diet. PT evaluation in the morning Coding Level of Care Code Acute Code for Chg Fwd Diagnoses Postoperative haemorrhage Liver cirrhosis K74.60 Paroxysmal A-fib I48.0 Gallbladder mass K82.8 Acute pulmonary embolism I26.99
--- NOTE | 2023-09-17 13:36 | PC.NURSE ---
art line removed ice chips started family at bedside
--- NOTE | 2023-09-17 14:04 | P.PN_ITS ---
Subjective 2 Subjective: pt had 80 cc of bloody output in [place] overnight therefore the heparin drip was held by night doc. this morning, there is 100 cc output in drain pt says she feels good. she was extubated to ar this am after passing a SBT family at bedside platelet 138 wbc down to 13K She is asking for ice chips Vitals/I&O/Wt Last Vital Signs Temp 97.9 F 09/17/23 10:00 Pulse 125 H 09/17/23 10:30 Resp 17 09/17/23 09:22 BP 122/101 09/17/23 10:30 Pulse Ox 94 09/17/23 10:30 O2 Del Method Mechanical Ventilation 09/17/23 06:00 O2 Flow Rate 50 09/14/23 19:39 FiO2 30 09/17/23 09:46 09/16/23 09/17/23 09/17/23 22:59 06:59 14:59 Intake Total 2302.653 / 4741.477 1802.549 / 6544.026 517.139 / 517.139 Output Total 1865 / 2920 1310 / 4230 2645 / 2645 Balance 437.653 / 1821.477 492.549 / 2314.026 -2127.861 / -2127.861 Weight last 48 hrs Weight 136.305 kg Physical Exam 2 Narrative: General: NAD HEENT: Normocephalic, atraumatic, Cardio: Regular rate rhythm., normal S1-S2, Respiratory: Mainly clear to auscultation with diminished at bases. Difficult auscultation due to body habitus. GI: Abdomen soft, aura drain in place Extremities: Obese extremities, 1+ edema bilateral lower extremities Urinary Catheter Management: Ull[place]: Cath Placed During This Visit: yes Reason for Continuing Indwelling Catheter: Accurate Measurement of Urinary Output in Critically Ill Patients Urinary Catheter Date of Insertion: 09/14/23 Data 09/17/23 04:49 09/17/23 04:49 A&P Assessment and plan (1) CAD (coronary artery disease): Qualifiers: Coronary Disease-Associated Artery/Lesion type: [place] artery [place] vs. transplanted heart: [place] heart Associated angina: without angina Qualified Code(s): I25.10 - Atherosclerotic heart disease of [place] coronary artery without angina pectoris (2) Paroxysmal A-fib: (3) Liver cirrhosis: (4) Gallbladder mass: (5) Cholelithiasis: (6) GI bleed: Qualifiers: GI bleed type/associated pathology: gastric ulcer Qualified Code(s): K 25.4 - Chronic or unspecified gastric ulcer with hemorrhage (7) Postoperative haemorrhage: (8) Acute anemia: (9) Acute blood loss anemia: (10) Acute pulmonary embolism: (11) Type 2 diabetes mellitus: Plan #Hemorrhagic shock status post laparoscopic cholecystectomy followed by laproscopy for control of hemorrhage - RESOLVED #Acute pulmonary embolism right lower lobe #Liver disease? Nodular liver. Probable cirrhosis? #Kidney mass? #Masslike density in gallbladder along with cholecystitis status post elective cholecystectomy. #History of GI bleed, ulcers in the past #Unable to tolerate anticoagulation #High risk medication use #Type 2 diabetes mellitus/prediabetes #CAD #Splenomegaly, hepatomegaly #Elective intubation - RESOLVED ? Type and cross 4 units packed RBC, 2 units FFP ordered, 1 unit platelet ordered ? Check stat CBC, CMP, magnesium, ABG ? Check CT chest angio protocol PE, CT abdomen pelvis with contrast stat. ? V rads called with results: Patient does have acute pulmonary embolism right lower lobe, he is actively bleeding in gallbladder fossa. Findings suggestive of active hemorrhage arising from gallbladder right upper quadrant hemoperitoneum/hematoma. Hematoma exerts mass effect of proximal duodenum possibly resulting in functional gastric outlet obstruction. Pneumoperitoneum in lesser sac and upper abdomen favored to be postsurgical however consider correlation with direct visualization to exclude gastric perforation. ? Discussed the above findings with patient's family. Patient is being taken back to the OR at this time for exploration. ? I have told the family that patient is high risk at this time and prognosis may be poor given that she has active bleeding and a pulmonary embolism at the same time. I have told family patient is high risk for further blood clots. ? Tranexamic as it has been ordered by the surgeon. ? Levophed has been ordered ? Protonix 40 IV twice daily ? Recheck labs postop. Check CBC every 8 hours ? Check CMP, magnesium in a.m. ? Started on empiric Zosyn every 8 hours ? Check lactic acid -Continue oxygen and wean off as able. -Will transfer patient to ICU after surgery. Full code. Discussed this with the patient and she would like to be a full code at this time ? DVT prophylaxis: Pharmacological is contraindicated strictly in this patient. May only do SCDs. Thank you for involving us in the care of this patient. Medicine will continue to follow. Todays plan: 09/17/2023 - Pt successfully extubated to NC - Heparin drip restarted by gen surgery. ? Continue to serially check CBC every 12 hours - Pt off pressors- prop,fent - stop vancomycin - continue zosyn - would recommend to transfuse for Hb < 7 - Pt has hx of upper gi bleed and was on eliquis in the past which was stopped - there is possible concern for SMV thrombosis? Consider repeat imaging with contrast - Pt does have acute PE right lower lobe. - on heparin drip now. - PT consult - out of bed to chair - SHe will need GI referral at discharge for f/u on liver disease. Attestations 2 Medical Necessity Statement*: Defer to primary team Critical Care Time: The high probability of a clinically significant, sudden or life threatening deterioration of the patient's [respiratory, cardiovascular] system(s) required my full and direct attention, intervention and personal management. The critical care time is as shown. This time is in addition to time spent performing any reported procedures but includes the following: [x] Data and vital sign review and interpretation [x] Patient assessment, examination and intervention [x] Documentation [x] Medication orders and management Critical Care Time (min): 45 Coding Level of Care Code Critical Care >/= 30 minutes Critical care time (in minutes): 45 The high probability of a clinically significant, sudden or life threatening deterioration, as referenced in this documentation, required my full and direct attention, intervention and personal management. The critical care time shown is in addition to time spent performing any reported separately billable procedures and includes the following: [x] Data and vital sign review and interpretation [x ] Patient assessment, examination and intervention [x] Medication orders and management [x] Patient/Family updates as able [x] Care Coordination and Documentation. Diagnoses Coronary artery disease involving [place] coronary artery of [place] heart without angina pectoris I25.10 Coronary Disease-Associated Artery/Lesion type: [place] artery [place] vs. transplanted heart: [place] heart Associated angina: without angina Paroxysmal A-fib I48.0 Liver cirrhosis K74.60 Gallbladder mass K82.8 Cholelithiasis K80.20 Gastrointestinal hemorrhage associated with gastric ulcer K25.4 GI bleed type/associated pathology: gastric ulcer Postoperative haemorrhage Acute anemia D64.9 Acute blood loss anemia D62 Acute pulmonary embolism I26.99 Type 2 diabetes mellitus with hyperglycemia, without long-term current use of insulin E11.9
[2023-09-17] MEDS: heparin 5,000 unit/mL INJ 1 mL IV (14:08)
[2023-09-17] MEDS: heparin drip 25,000 UNIT/500 ML PREMIX 37.6000000000000014 UNIT IV (14:11)
[2023-09-17] MEDS: morphine 4 mg/mL SDV 1 mL 2 MG IVP ×2 (19:23→23:55)
[2023-09-17 20:10] LABS: Partial Thromboplastin Time 187.5 SECONDS (23.9-36.7)
--- NOTE | 2023-09-17 21:11 | PC.NURSE ---
Critical PTT reported by lab at 2009. Heparin stopped, and reported to Dr. Lindsey. Requested that lab be called to hospitalist for further management. Dr. Vaca made aware of lab, new order received to recheck PTT in two hours.
[2023-09-17 21:48] LABS: Glucose Point of Care 108 mg/dL (70-110)
[2023-09-17 21:50] LABS: Vancomycin Trough 18.4 ug/mL (10-15)
[2023-09-17 23:23] LABS: Partial Thromboplastin Time 48.1 SECONDS (23.9-36.7)
[2023-09-18] VITALS (14 sets, daily range): BP systolic 114–153; BP diastolic 50–95; PULSE 55–112; RESP 16–19; TEMP 36–36.8; O2SAT 92–99
[2023-09-18] MEDS: piperacillin-tazobactam 3.375 GM in sodium chloride 0.9% (plus) 50 ML IV ×3 (02:00→17:10)
--- NOTE | 2023-09-18 02:36 | PC.NURSE ---
Received follow up APTT results, Dr. Vaca made aware of results and heparin restarted at 30 ml per hour
[2023-09-18 07:06] LABS: Basophils # 0.1 10^3/uL (0.0-0.1); Basophils % 0.7 %; Eosinophils # 0.2 10^3/uL (0.0-0.8); Eosinophils % 2.9 %; Hematocrit 28.2 % (36-47); Lymphocytes # 1.4 10^3/uL (0.8-4.8); Lymphocytes % 20.1 %; Mean Corpuscular HGB Conc 30.5 g/dL (30-55); Mean Corpuscular Hemoglobin 28.4 pg (27-33); Mean Corpuscular Volume 93.1 fl (85-98); Mean Platelet Volume 11.1 fL (7.4-10.4); Monocytes # 0.8 10^3/uL (0.2-0.9); Monocytes % 10.9 %; Neutrophils # 4.64 10^3/uL (1.8-7.7); Neutrophils % 64.8 %; Nucleated Red Blood Cells % 0 %; Platelet Count 119 10^3/cmm (157-399); Red Blood Count 3.03 10^6/uL (3.85-5.65); Red Cell Distribution Width 18.9 % (12.1-15.1); White Blood Count 7.16 10^3/uL (3.29-11.43)
[2023-09-18 07:12] LABS: Partial Thromboplastin Time 45.5 SECONDS (23.9-36.7)
[2023-09-18] MEDS: heparin drip 25,000 UNIT/500 ML PREMIX 30 UNIT IV (07:43)
[2023-09-18 07:55] LABS: Anion Gap 12.6 (5-19); Blood Urea Nitrogen 12 mg/dL (8-23); Calcium 7.3 mg/dL (8.5-10.5); Carbon Dioxide 24 mmol/L (22-29); Chloride 108 mmol/L (98-107); Creatinine Clr Calc Pharmacy 87.8191; Glucose 105 mg/dL (65-115); Magnesium 1.5 mg/dL (1.7-2.3); Osmolality Calculated 292 mOsm/kg (285-295); Potassium 3.6 mmol/L (3.5-5.1); Sodium 141 mmol/L (136-145)
[2023-09-18] MEDS: magnesium sulfate premix 4 GM/100 ML PREMIX IV ×2 (08:30→21:51)
--- NOTE | 2023-09-18 11:24 | PM.PN ---
Subjective Subjective: seen this morning says she has to use the bathroom hb 8.6 platelet 119 as per RN, 600 cc output from berny drain bloody Vitals/I&O/Wt Last Vital Signs Temp 96.8 F L 09/18/23 08:00 Pulse 99 09/18/23 10:00 Resp 16 09/18/23 09:32 BP 138/63 09/18/23 08:00 Pulse Ox 92 09/18/23 10:00 O2 Del Method Nasal Cannula 09/18/23 09:32 O2 Flow Rate 3 09/18/23 09:32 FiO2 30 09/17/23 09:46 09/17/23 09/18/23 09/18/23 22:59 06:59 14:59 Intake Total 1571.334 / 2088.473 600 / 2688.473 385.0 / 385.0 Output Total 1455 / 4200 725 / 4925 100 / 100 Balance 116.334 / -2111.527 -125 / -2236.527 285.0 / 285.0 Weight last 48 hrs Weight 136.486 kg Weight 136.305 kg Physical Exam Narrative: General: NAD HEENT: Normocephalic, atraumatic, Cardio: Regular rate rhythm., normal S1-S2, Respiratory: Mainly clear to auscultation with diminished at bases. Difficult auscultation due to body habitus. GI: Abdomen soft, berny drain in place, bulb recently emptied Extremities: Obese extremities, 1+ edema bilateral lower extremities Urinary Catheter Management: Ull[place]: Cath Placed During This Visit: yes Reason for Continuing Indwelling Catheter: Accurate Measurement of Urinary Output in Critically Ill Patients Urinary Catheter Date of Insertion: 09/14/23 Data 09/18/23 06:15 09/18/23 06:15 A&P Assessment and plan (1) CAD (coronary artery disease): Qualifiers: Coronary Disease-Associated Artery/Lesion type: [place] artery [place] vs. transplanted heart: [place] heart Associated angina: without angina Qualified Code(s): I25.10 - Atherosclerotic heart disease of [place] coronary artery without angina pectoris (2) Paroxysmal A-fib: (3) Liver cirrhosis: (4) Gallbladder mass: (5) Cholelithiasis: (6) GI bleed: Qualifiers: GI bleed type/associated pathology: gastric ulcer Qualified Code(s): K25.4 - Chronic or unspecified gastric ulcer with hemorrhage (7) Postoperative haemorrhage: (8) Acute anemia: (9) Acute blood loss anemia: (10) Acute pulmonary embolism: (11) Type 2 diabetes mellitus: Plan #Hemorrhagic shock status post laparoscopic cholecystectomy followed by laproscopy for control of hemorrhage - RESOLVED #Acute pulmonary embolism right lower lobe #Liver disease? Nodular liver. Probable cirrhosis? #Kidney mass? #Masslike density in gallbladder along with cholecystitis status post elective cholecystectomy. #History of GI bleed, ulcers in the past #Unable to tolerate anticoagulation #High risk medication use #Type 2 diabetes mellitus/prediabetes #CAD #Splenomegaly, hepatomegaly, gastric varicies #Elective intubation - RESOLVED ? Type and cross 4 units packed RBC, 2 units FFP ordered, 1 unit platelet ordered ? Check stat CBC, CMP, magnesium, ABG ? Check CT chest angio protocol PE, CT abdomen pelvis with contrast stat. ? V rads called with results: Patient does have acute pulmonary embolism right lower lobe, he is actively bleeding in gallbladder fossa. Findings suggestive of active hemorrhage arising from gallbladder right upper quadrant hemoperitoneum/hematoma. Hematoma exerts mass effect of proximal duodenum possibly resulting in functional gastric outlet obstruction. Pneumoperitoneum in lesser sac and upper abdomen favored to be postsurgical however consider correlation with direct visualization to exclude gastric perforation. ? Discussed the above findings with patient's family. Patient is being taken back to the OR at this time for exploration. ? I have told the family that patient is high risk at this time and prognosis may be poor given that she has active bleeding and a pulmonary embolism at the same time. I have told family patient is high risk for further blood clots. ? Tranexamic as it has been ordered by the surgeon. ? Levophed has been ordered ? Protonix 40 IV twice daily ? Recheck labs postop. Check CBC every 8 hours ? Check CMP, magnesium in a.m. ? Started on empiric Zosyn every 8 hours ? Check lactic acid -Continue oxygen and wean off as able. -Will transfer patient to ICU after surgery. Full code. Discussed this with the patient and she would like to be a full code at this time ? DVT prophylaxis: Pharmacological is contraindicated strictly in this patient. May only do SCDs. Thank you for involving us in the care of this patient. Medicine will continue to follow. Todays plan: 09/18/2023 - Pt successfully extubated to DC 09/16 - Heparin drip is running. ? Continue to serially check CBC every 12 hours - Pt off pressors- prop,fent - stop vancomycin - continue zosyn - would recommend to transfuse for Hb < 7 - Pt has hx of upper gi bleed and was on eliquis in the past which was stopped. pt also has a history of gastric varicies. - there is possible concern for SMV thrombosis? Consider repeat imaging with contrast - Pt does have acute PE right lower lobe. - on heparin drip now. - PT consult - out of bed to chair - SHe will need GI referral at discharge for f/u on liver disease. She says she follows with someone already and has f/u appointment with them in november. Attestations Medical Necessity Statement*: Defer to primary team Diagnoses Coronary artery disease involving [place] coronary artery of [place] heart without angina pectoris I25.10 Coronary Disease-Associated Artery/Lesion type: [place] artery [place] vs. transplanted heart: [place] heart Associated angina: without angina Paroxysmal A-fib I48.0 Liver cirrhosis K74.60 Gallbladder mass K82.8 Cholelithiasis K80.20 Gastrointestinal hemorrhage associated with gastric ulcer K25.4 GI bleed type/associated pathology: gastric ulcer Postoperative haemorrhage Acute anemia D64.9 Acute blood loss anemia D62 Acute pulmonary embolism I26.99 Type 2 diabetes mellitus with hyperglycemia, without long-term current use of insulin E11.9
[2023-09-18] MEDS: vancomycin 1,500 MG/300 ML PIGGYBACK 200 MG IV ×2 (11:29→22:52)
[2023-09-18 14:51] LABS: Partial Thromboplastin Time 57.7 SECONDS (23.9-36.7)
--- NOTE | 2023-09-18 21:14 | P.PN_ITS ---
Subjective 2 Subjective: Patient seen and examined. Pain controlled Vitals/I&O/Wt Last Vital Signs Temp 97.9 F 09/18/23 16:00 Pulse 88 09/18/23 18:00 Resp 16 09/18/23 09:32 BP 135/74 09/18/23 18:00 Pulse Ox 96 09/18/23 18:00 O2 Del Method Nasal Cannula 09/18/23 09:32 O2 Flow Rate 3 09/18/23 09:32 FiO2 30 09/17/23 09:46 09/18/23 09/18/23 09/18/23 06:59 14:59 22:59 Intake Total 600 / 2688.473 1347.667 / 1347.667 Output Total 725 / 4925 230 / 230 1200 / 1430 Balance -125 / -2236.527 1117.667 / 1117.667 -1200 / -82.333 Weight last 48 hrs Weight 300 lb 14.4 oz Weight 300 lb 8 oz Physical Exam 2 Narrative: General: No acute distress, awake alert and oriented x 3 Abdomen: Soft, nondistended, appropriately tender Drain: Sanguinous Urinary Catheter Management: Ull[place]: Cath Placed During This Visit: yes Reason for Continuing Indwelling Catheter: Accurate Measurement of Urinary Output in Critically Ill Patients Urinary Catheter Date of Insertion: 09/14/23 Data 09/21/23 06:11 09/21/23 06:11 A&P Assessment and plan (1) Postoperative haemorrhage: (2) Liver cirrhosis: (3) Paroxysmal A-fib: (4) Gallbladder mass: (5) Acute pulmonary embolism: Plan Postoperative day #4 status post diagnostic laparoscopy with control of hemorrhage after laparoscopic cholecystectomy for gallbladder mass 3100 cc blood in the abdomen, active bleeding from gallbladder fossa controlled with clipping and surgicel CT of the abdomen pelvis this morning which does not show any new pathology other than a possible SMV thrombus. She was previously on Eliquis for paroxysmal A-fib Hospitalist consulted- appreciate recommendations Regular diet PT consult regular diet Out of bed to chair 3 times daily Will likely be discharged depending on PT recommendations Attestations 2 Medical Necessity Statement*: Patient requires at least 1 more night in the hospital for recovery. Not yet tolerating regular diet after surgery and requires further physical therapy and is awaiting placement Coding Level of Care Code Acute Code for Chg Fwd Diagnoses Postoperative haemorrhage Liver cirrhosis K74.60 Paroxysmal A-fib I48.0 Gallbladder mass K82.8 Acute pulmonary embolism I26.99
[2023-09-18] MEDS: morphine 4 mg/mL SDV 1 mL 2 MG IVP (22:52)
[2023-09-18] MEDS: heparin drip 25,000 UNIT/500 ML PREMIX 33 UNIT IV (22:52)
[2023-09-19] VITALS (12 sets, daily range): BP systolic 102–141; BP diastolic 58–82; PULSE 72–116; RESP 16–18; TEMP 36.3–37.1; O2SAT 95–98
[2023-09-19 00:01] LABS: Partial Thromboplastin Time 124.6 SECONDS (23.9-36.7)
[2023-09-19 00:12] LABS: Glucose Point of Care 112 mg/dL (70-110)
[2023-09-19] MEDS: piperacillin-tazobactam 3.375 GM in sodium chloride 0.9% (plus) 50 ML IV ×3 (01:16→16:40)
--- NOTE | 2023-09-19 02:45 | PC.NURSE ---
Transfer orders received, report called to med surg at this time
[2023-09-19] MEDS: morphine 4 mg/mL SDV 1 mL 2 MG IVP ×3 (03:31→20:49)
[2023-09-19 05:59] LABS: Basophils % 0.5 %; Eosinophils # 0.2 10^3/uL (0.0-0.8); Eosinophils % 3.2 %; Hematocrit 27.9 % (36-47); Lymphocytes # 1.7 10^3/uL (0.8-4.8); Lymphocytes % 21.8 %; Mean Corpuscular HGB Conc 31.2 g/dL (30-55); Mean Corpuscular Hemoglobin 29.3 pg (27-33); Mean Corpuscular Volume 93.9 fl (85-98); Mean Platelet Volume 10.1 fL (7.4-10.4); Monocytes # 0.8 10^3/uL (0.2-0.9); Monocytes % 10.6 %; Neutrophils # 4.81 10^3/uL (1.8-7.7); Neutrophils % 63.4 %; Nucleated Red Blood Cells % 0 %; Platelet Count 115 10^3/cmm (157-399); Red Blood Count 2.97 10^6/uL (3.85-5.65); Red Cell Distribution Width 18.8 % (12.1-15.1); White Blood Count 7.58 10^3/uL (3.29-11.43)
[2023-09-19 06:21] LABS: Anion Gap 11.6 (5-19); Blood Urea Nitrogen 10 mg/dL (8-23); Calcium 7.6 mg/dL (8.5-10.5); Carbon Dioxide 24 mmol/L (22-29); Chloride 106 mmol/L (98-107); Creatinine Clr Calc Pharmacy 89.7836; Glucose 103 mg/dL (65-115); Magnesium 2.2 mg/dL (1.7-2.3); Osmolality Calculated 285 mOsm/kg (285-295); Potassium 3.6 mmol/L (3.5-5.1); Sodium 138 mmol/L (136-145)
[2023-09-19 06:54] LABS: Partial Thromboplastin Time 84.7 SECONDS (23.9-36.7)
[2023-09-19] MEDS: vancomycin 1,500 MG/300 ML PIGGYBACK 200 MG IV (11:31)
--- NOTE | 2023-09-19 11:44 | PM.PN ---
Subjective Subjective: hemoglobin stable this am hb 8.70 300 output from berny drain feels tired and weak. Vitals/I&O/Wt Last Vital Signs Temp 98.0 F 09/19/23 11:41 Pulse 116 H 09/19/23 11:41 Resp 18 09/19/23 11:41 BP 113/70 09/19/23 11:41 Pulse Ox 95 09/19/23 11:41 O2 Del Method Nasal Cannula 09/19/23 11:41 O2 Flow Rate 4 09/19/23 09:15 FiO2 30 09/17/23 09:46 09/18/23 09/19/23 09/19/23 22:59 06:59 14:59 Intake Total 1020.6 / 2368.267 612.9 / 2981.167 292.5 / 292.5 Output Total 1390 / 1620 1075 / 2695 225 / 225 Balance -369.4 / 748.267 -462.1 / 286.167 67.5 / 67.5 Weight last 48 hrs Weight 141.606 kg Weight 136.486 kg Physical Exam Narrative: General: NAD HEENT: Normocephalic, atraumatic, Cardio: Regular rate rhythm., normal S1-S2, Respiratory: Mainly clear to auscultation with diminished at bases. Difficult auscultation due to body habitus. GI: Abdomen soft, berny drain in place,bloody drainage Extremities: Obese extremities, 1+ edema bilateral lower extremities Urinary Catheter Management: Ulloa: Cath Placed During This Visit: yes Reason for Continuing Indwelling Catheter: Acute Urinary Retention or Obstruction Urinary Catheter Date of Insertion: 09/14/23 Data 09/19/23 05:51 09/19/23 05:51 A&P Assessment and plan (1) CAD (coronary artery disease): Qualifiers: Coronary Disease-Associated Artery/Lesion type: [place] artery [place] vs. transplanted heart: [place] heart Associated angina: without angina Qualified Code(s): I25.10 - Atherosclerotic heart disease of [place] coronary artery without angina pectoris (2) Paroxysmal A-fib: (3) Liver cirrhosis: (4) Gallbladder mass: (5) Cholelithiasis: (6) GI bleed: Qualifiers: GI bleed type/associated pathology: gastric ulcer Qualified Code(s): K25.4 - Chronic or unspecified gastric ulcer with hemorrhage (7) Postoperative haemorrhage: (8) Acute anemia: (9) Acute blood loss anemia: (10) Acute pulmonary embolism: (11) Type 2 diabetes mellitus: Plan #Hemorrhagic shock status post laparoscopic cholecystectomy followed by laproscopy for control of hemorrhage - RESOLVED #Acute pulmonary embolism right lower lobe #Liver disease? Nodular liver. Probable cirrhosis? #Kidney mass? #Masslike density in gallbladder along with cholecystitis status post elective cholecystectomy. #History of GI bleed, ulcers in the past #Unable to tolerate anticoagulation #High risk medication use #Type 2 diabetes mellitus/prediabetes #CAD #Splenomegaly, hepatomegaly, gastric varicies #Elective intubation - RESOLVED ? Type and cross 4 units packed RBC, 2 units FFP ordered, 1 unit platelet ordered ? Check stat CBC, CMP, magnesium, ABG ? Check CT chest angio protocol PE, CT abdomen pelvis with contrast stat. ? V rads called with results: Patient does have acute pulmonary embolism right lower lobe, he is actively bleeding in gallbladder fossa. Findings suggestive of active hemorrhage arising from gallbladder right upper quadrant hemoperitoneum/hematoma. Hematoma exerts mass effect of proximal duodenum possibly resulting in functional gastric outlet obstruction. Pneumoperitoneum in lesser sac and upper abdomen favored to be postsurgical however consider correlation with direct visualization to exclude gastric perforation. ? Discussed the above findings with patient's family. Patient is being taken back to the OR at this time for exploration. ? I have told the family that patient is high risk at this time and prognosis may be poor given that she has active bleeding and a pulmonary embolism at the same time. I have told family patient is high risk for further blood clots. ? Tranexamic as it has been ordered by the surgeon. ? Levophed has been ordered ? Protonix 40 IV twice daily ? Recheck labs postop. Check CBC every 8 hours ? Check CMP, magnesium in a.m. ? Started on empiric Zosyn every 8 hours ? Check lactic acid -Continue oxygen and wean off as able. -Will transfer patient to ICU after surgery. Full code. Discussed this with the patient and she would like to be a full code at this time ? DVT prophylaxis: Pharmacological is contraindicated strictly in this patient. May only do SCDs. Thank you for involving us in the care of this patient. Medicine will continue to follow. Todays plan: 09/19/2023 - Pt successfully extubated to DC 09/16 - Heparin drip is running. ? Continue to serially check CBC every 12 hours - continue zosyn - would recommend to transfuse for Hb < 7 - Pt has hx of upper gi bleed and was on eliquis in the past which was stopped. pt also has a history of gastric varicies. - there is possible concern for SMV thrombosis - Pt does have acute PE right lower lobe. - on heparin drip now. Pt will need to be on ac at dc with close monitoring for bleeding and serial cbcs and close f/u with primary care doctor. - PT consult - out of bed to chair - SHe will need GI referral at discharge for f/u on liver disease. She says she follows with someone already and has f/u appointment with them in november. PT recommends rehab. Pt would like to go to [facility]. Attestations Medical Necessity Statement*: Defer to primary team Diagnoses Coronary artery disease involving [place] coronary artery of [place] heart without angina pectoris I25.10 Coronary Disease-Associated Artery/Lesion type: [place] artery [place] vs. transplanted heart: [place] heart Associated angina: without angina Paroxysmal A-fib I48.0 Liver cirrhosis K74.60 Gallbladder mass K82.8 Cholelithiasis K80.20 Gastrointestinal hemorrhage associated with gastric ulcer K25.4 GI bleed type/associated pathology: gastric ulcer Postoperative haemorrhage Acute anemia D64.9 Acute blood loss anemia D62 Acute pulmonary embolism I26.99 Type 2 diabetes mellitus with hyperglycemia, without long-term current use of insulin E11.9
[2023-09-19 13:56] LABS: Partial Thromboplastin Time 66.3 SECONDS (23.9-36.7)
--- NOTE | 2023-09-19 20:08 | P.PN_ITS ---
Subjective 2 Subjective: Patient seen and examined. Tolerating diet. Pain minimal and controlled Vitals/I&O/Wt Last Vital Signs Temp 98.7 F 09/19/23 19:40 Pulse 88 09/19/23 19:40 Resp 16 09/19/23 19:40 BP 107/66 09/19/23 19:40 Pulse Ox 98 09/19/23 19:40 O2 Del Method Nasal Cannula 09/19/23 19:40 O2 Flow Rate 4 09/19/23 09:15 FiO2 30 09/17/23 09:46 09/19/23 09/19/23 09/19/23 06:59 14:59 22:59 Intake Total 612.9 / 2981.167 799.433 / 799.433 120 / 919.433 Output Total 1075 / 2695 375 / 375 1100 / 1475 Balance -462.1 / 286.167 424.433 / 424.433 -980 / -555.567 Weight last 48 hrs Weight 312 lb 3 oz Weight 300 lb 14.4 oz Physical Exam 2 Narrative: General: No acute distress, awake alert and oriented x 3 Abdomen: Soft, nondistended, appropriately tender Drain: Sanguinous likely secondary to the multiple pieces of Surgicel Urinary Catheter Management: Ulloa: Cath Placed During This Visit: yes Reason for Continuing Indwelling Catheter: Acute Urinary Retention or Obstruction Urinary Catheter Date of Insertion: 09/14/23 Data 09/21/23 06:11 09/21/23 06:11 A&P Assessment and plan (1) Postoperative haemorrhage: (2) Liver cirrhosis: (3) Paroxysmal A-fib: (4) Gallbladder mass: (5) Acute pulmonary embolism: Plan Postoperative day #5 status post diagnostic laparoscopy with control of hemorrhage after laparoscopic cholecystectomy for gallbladder mass 3100 cc blood in the abdomen, active bleeding from gallbladder fossa controlled with clipping and surgicel Continue heparin drip for now due to PE and possible SMV thrombus with plans to discharge on Eliquis that she was previously on Hospitalist consulted- appreciate recommendations Regular diet PT consult regular diet Out of bed to chair 3 times daily Awaiting placement Attestations 2 Medical Necessity Statement*: Patient requires at least 1 more night in the hospital for recovery. He requires further physical therapy and days is awaiting placement Coding Level of Care Code Acute Code for Chg Fwd Diagnoses Postoperative haemorrhage Liver cirrhosis K74.60 Paroxysmal A-fib I48.0 Gallbladder mass K82.8 Acute pulmonary embolism I26.99
[2023-09-19 20:11] LABS: Glucose Point of Care 131 mg/dL (70-110)
[2023-09-19] MEDS: heparin drip 25,000 UNIT/500 ML PREMIX 22 UNIT IV (20:34)
[2023-09-19 21:42] LABS: Partial Thromboplastin Time 89.5 SECONDS (23.9-36.7)
[2023-09-20] VITALS (11 sets, daily range): BP systolic 95–154; BP diastolic 60–79; PULSE 76–107; RESP 14–18; TEMP 36.4–37.1; O2SAT 93–97
[2023-09-20] MEDS: piperacillin-tazobactam 3.375 GM in sodium chloride 0.9% (plus) 50 ML IV ×3 (00:09→17:22)
[2023-09-20] MEDS: ALPRAZolam 0.5 mg Tablet PO ×2 (00:16→20:49)
[2023-09-20 00:44] LABS: Vancomycin Trough 16.6 ug/mL (10-15)
[2023-09-20] MEDS: vancomycin 1,250 MG/250 ML PIGGYBACK 250 MG IV (02:55)
[2023-09-20 04:20] LABS: Basophils # 0.1 10^3/uL (0.0-0.1); Basophils % 0.6 %; Eosinophils # 0.2 10^3/uL (0.0-0.8); Hematocrit 30.1 % (36-47); Lymphocytes % 25.3 %; Mean Corpuscular HGB Conc 29.6 g/dL (30-55); Mean Corpuscular Hemoglobin 29.7 pg (27-33); Mean Corpuscular Volume 100.3 fl (85-98); Mean Platelet Volume 10.4 fL (7.4-10.4); Monocytes # 0.9 10^3/uL (0.2-0.9); Monocytes % 10.7 %; Neutrophils # 4.69 10^3/uL (1.8-7.7); Neutrophils % 59.3 %; Nucleated Red Blood Cells % 0 %; Platelet Count 157 10^3/cmm (157-399); Red Cell Distribution Width 19.1 % (12.1-15.1); White Blood Count 7.92 10^3/uL (3.29-11.43)
[2023-09-20 04:31] LABS: Partial Thromboplastin Time 44.2 SECONDS (23.9-36.7)
[2023-09-20 04:35] LABS: Anion Gap 10.8 (5-19); Blood Urea Nitrogen 9 mg/dL (8-23); Calcium 7.6 mg/dL (8.5-10.5); Carbon Dioxide 25 mmol/L (22-29); Chloride 106 mmol/L (98-107); Creatinine Clr Calc Pharmacy 89.7836; Glucose 94 mg/dL (65-115); Magnesium 1.8 mg/dL (1.7-2.3); Osmolality Calculated 284 mOsm/kg (285-295); Potassium 3.8 mmol/L (3.5-5.1); Sodium 138 mmol/L (136-145)
[2023-09-20] MEDS: heparin 5,000 unit/mL INJ 1 mL IV (05:12)
[2023-09-20] MEDS: metoprolol tartrate 25 mg Tablet PO ×2 (08:36→20:49)
[2023-09-20] MEDS: morphine 4 mg/mL SDV 1 mL 2 MG IVP ×3 (09:06→20:49)
--- NOTE | 2023-09-20 10:30 | P.PN_ITS ---
Subjective 2 Subjective: Patient seen and examined. Tolerating diet and pain controlled Vitals/I&O/Wt Last Vital Signs Temp 98.0 F 09/21/23 12:00 Pulse 75 09/21/23 12:00 Resp 16 09/21/23 14:03 BP 93/55 09/21/23 12:00 Pulse Ox 93 09/21/23 12:00 O2 Del Method Room Air 09/21/23 12:00 O2 Flow Rate 4 09/21/23 08:00 FiO2 30 09/17/23 09:46 Physical Exam 2 Narrative: General: No acute distress, awake alert and oriented x 3 Abdomen: Soft, nondistended, appropriately tender Drain: Sanguinous likely secondary to the multiple pieces of Surgicel Urinary Catheter Management: Ulloa: Cath Placed During This Visit: yes Reason for Continuing Indwelling Catheter: Acute Urinary Retention or Obstruction Urinary Catheter Date of Insertion: 09/14/23 Data 09/21/23 06:11 09/21/23 06:11 A&P Assessment and plan (1) Postoperative haemorrhage: (2) Liver cirrhosis: (3) Paroxysmal A-fib: (4) Gallbladder mass: (5) Acute pulmonary embolism: Plan Postoperative day #6 status post diagnostic laparoscopy with control of hemorrhage after laparoscopic cholecystectomy for gallbladder mass 3100 cc blood in the abdomen, active bleeding from gallbladder fossa controlled with clipping and surgicel Continue heparin drip for now due to PE and possible SMV thrombus with plans to discharge on Eliquis that she was previously on Hospitalist consulted- appreciate recommendations Regular diet PT consult regular diet Out of bed to chair 3 times daily Awaiting placement Attestations 2 Medical Necessity Statement*: Patient requires at least 1 more night in the hospital for recovery. He requires further physical therapy and days is awaiting placement Coding Level of Care Code Acute Code for Chg Fwd Diagnoses Postoperative haemorrhage Liver cirrhosis K74.60 Paroxysmal A-fib I48.0 Gallbladder mass K82.8 Acute pulmonary embolism I26.99
[2023-09-20 11:20] LABS: Partial Thromboplastin Time 39.7 SECONDS (23.9-36.7)
--- NOTE | 2023-09-20 12:15 | P.PN_ITS ---
Subjective 2 Subjective: pt had an episode of afib overnight however subsequently converted back to sinus rhythm sotalol has been held since admission she has been placed on lopressor 25 bid, currently rate controlled is on heparin drip as well hb stable at 8.9 as per staff physician, 500 cc output from berny drain in last 24 hours Vitals/I&O/Wt Last Vital Signs Temp 98.0 F 09/20/23 11:53 Pulse 76 09/20/23 11:53 Resp 14 09/20/23 11:53 BP 106/72 09/20/23 11:53 Pulse Ox 94 09/20/23 11:53 O2 Del Method Room Air 09/20/23 11:53 O2 Flow Rate 1 09/20/23 08:08 FiO2 30 09/17/23 09:46 09/19/23 09/20/23 09/20/23 22:59 06:59 14:59 Intake Total 451.034 / 1250.467 661.267 / 1911.734 495.667 / 495.667 Output Total 1100 / 1475 2000 / 3475 425 / 425 Balance -648.966 / -224.533 -1338.733 / -1563.266 70.667 / 70.667 Weight last 48 hrs Weight 141.606 kg Weight 141.606 kg Physical Exam 2 Narrative: General: NAD HEENT: Normocephalic, atraumatic, Cardio: Regular rate rhythm., normal S1-S2, Respiratory: Mainly clear to auscultation with diminished at bases. Difficult auscultation due to body habitus. GI: Abdomen soft, berny drain in place,bloody drainage Extremities: Obese extremities, 1+ edema bilateral lower extremities Urinary Catheter Management: Ulloa: Cath Placed During This Visit: yes Reason for Continuing Indwelling Catheter: Acute Urinary Retention or Obstruction Urinary Catheter Date of Insertion: 09/14/23 Data 09/20/23 04:12 09/20/23 04:12 A&P Assessment and plan (1) CAD (coronary artery disease): Qualifiers: Coronary Disease-Associated Artery/Lesion type: [place] artery [place] vs. transplanted heart: [place] heart Associated angina: without angina Qualified Code(s): I25.10 - Atherosclerotic heart disease of [place] coronary artery without angina pectoris (2) Paroxysmal A-fib: (3) Liver cirrhosis: (4) Gallbladder mass: (5) Cholelithiasis: (6) GI bleed: Qualifiers: GI bleed type/associated pathology: gastric ulcer Qualified Code(s): K 25.4 - Chronic or unspecified gastric ulcer with hemorrhage (7) Postoperative haemorrhage: (8) Acute anemia: (9) Acute blood loss anemia: (10) Acute pulmonary embolism: (11) Type 2 diabetes mellitus: Plan #Hemorrhagic shock status post laparoscopic cholecystectomy followed by laproscopy for control of hemorrhage - RESOLVED #Acute pulmonary embolism right lower lobe #Liver disease? Nodular liver. Probable cirrhosis? #Kidney mass? #Masslike density in gallbladder along with cholecystitis status post elective cholecystectomy. #History of GI bleed, ulcers in the past #Unable to tolerate anticoagulation #High risk medication use #Type 2 diabetes mellitus/prediabetes #CAD #Splenomegaly, hepatomegaly, gastric varicies #Elective intubation - RESOLVED ? Type and cross 4 units packed RBC, 2 units FFP ordered, 1 unit platelet ordered ? Check stat CBC, CMP, magnesium, ABG ? Check CT chest angio protocol PE, CT abdomen pelvis with contrast stat. ? V rads called with results: Patient does have acute pulmonary embolism right lower lobe, he is actively bleeding in gallbladder fossa. Findings suggestive of active hemorrhage arising from gallbladder right upper quadrant hemoperitoneum/hematoma. Hematoma exerts mass effect of proximal duodenum possibly resulting in functional gastric outlet obstruction. Pneumoperitoneum in lesser sac and upper abdomen favored to be postsurgical however consider correlation with direct visualization to exclude gastric perforation. ? Discussed the above findings with patient's family. Patient is being taken back to the OR at this time for exploration. ? I have told the family that patient is high risk at this time and prognosis may be poor given that she has active bleeding and a pulmonary embolism at the same time. I have told family patient is high risk for further blood clots. ? Tranexamic as it has been ordered by the surgeon. ? Levophed has been ordered ? Protonix 40 IV twice daily ? Recheck labs postop. Check CBC every 8 hours ? Check CMP, magnesium in a.m. ? Started on empiric Zosyn every 8 hours ? Check lactic acid -Continue oxygen and wean off as able. -Will transfer patient to ICU after surgery. Full code. Discussed this with the patient and she would like to be a full code at this time ? DVT prophylaxis: Pharmacological is contraindicated strictly in this patient. May only do SCDs. Thank you for involving us in the care of this patient. Medicine will continue to follow. Todays plan: 09/20/2023 - Pt successfully extubated to PR 09/16 - Heparin drip is running. ? check cbc every 12 hours - continue zosyn. switch to augmentin at discharge, complete total 10-14 day course. - would recommend to transfuse for Hb < 7 - Pt has hx of upper gi bleed and was on eliquis in the past which was stopped. pt also has a history of gastric varicies. - there is possible concern for SMV thrombosis - Pt does have acute PE right lower lobe. - on heparin drip now. Pt will need to be on ac at dc with close monitoring for bleeding and serial cbcs and close f/u with primary care doctor. - PT consult - out of bed to chair - SHe will need GI referral at discharge for f/u on liver disease. She says she follows with someone already and has f/u appointment with them in november. PT recommends rehab. Pt would like to go to [facility]. For atrial fibrillation, pt may be able to dc on lopressor 25 mg bid. This may be uptitrated by her PCP if needed. She will need cardiology f/u at discharge. Medicine will continue to follow while admitted. Attestations 2 Medical Necessity Statement*: Defer to primary team Diagnoses Coronary artery disease involving [place] coronary artery of [place] heart without angina pectoris I25.10 Coronary Disease-Associated Artery/Lesion type: [place] artery [place] vs. transplanted heart: [place] heart Associated angina: without angina Paroxysmal A-fib I48.0 Liver cirrhosis K74.60 Gallbladder mass K82.8 Cholelithiasis K80.20 Gastrointestinal hemorrhage associated with gastric ulcer K25.4 GI bleed type/associated pathology: gastric ulcer Postoperative haemorrhage Acute anemia D64.9 Acute blood loss anemia D62 Acute pulmonary embolism I26.99 Type 2 diabetes mellitus with hyperglycemia, without long-term current use of insulin E11.9
--- NOTE | 2023-09-20 13:41 | PC.SOCIAL ---
Pg 2 IMM Explained to pt Pg 2 IMM. No questions voiced. Provided pt a copy. Initialed, dated, & timed a copy & placed in chart.
[2023-09-20] MEDS: heparin drip 25,000 UNIT/500 ML PREMIX 22 UNIT IV (20:49)
[2023-09-20 22:20] LABS: Glucose Point of Care 123 mg/dL (70-110)
[2023-09-21] VITALS (7 sets, daily range): BP systolic 93–140; BP diastolic 55–71; PULSE 72–90; RESP 14–20; TEMP 36.6–36.8; O2SAT 92–98
[2023-09-21 00:14] LABS: Partial Thromboplastin Time 77.8 SECONDS (23.9-36.7)
[2023-09-21] MEDS: piperacillin-tazobactam 3.375 GM in sodium chloride 0.9% (plus) 50 ML IV ×2 (00:58→08:31)
[2023-09-21] MEDS: morphine 4 mg/mL SDV 1 mL 2 MG IVP ×3 (00:58→14:03)
[2023-09-21 06:27] LABS: Basophils # 0.1 10^3/uL (0.0-0.1); Basophils % 0.7 %; Eosinophils # 0.2 10^3/uL (0.0-0.8); Eosinophils % 2.4 %; Hematocrit 32.6 % (36-47); Lymphocytes % 23.1 %; Mean Corpuscular HGB Conc 29.4 g/dL (30-55); Mean Corpuscular Hemoglobin 29.3 pg (27-33); Mean Corpuscular Volume 99.4 fl (85-98); Mean Platelet Volume 10.5 fL (7.4-10.4); Monocytes % 11.8 %; Neutrophils # 5.29 10^3/uL (1.8-7.7); Neutrophils % 60.6 %; Nucleated Red Blood Cells % 0 %; Platelet Count 159 10^3/cmm (157-399); Red Blood Count 3.28 10^6/uL (3.85-5.65); Red Cell Distribution Width 19.2 % (12.1-15.1); White Blood Count 8.73 10^3/uL (3.29-11.43)
[2023-09-21 06:37] LABS: Partial Thromboplastin Time 60.3 SECONDS (23.9-36.7)
[2023-09-21 06:47] LABS: Anion Gap 11.9 (5-19); Blood Urea Nitrogen 10 mg/dL (8-23); Calcium 7.7 mg/dL (8.5-10.5); Carbon Dioxide 24 mmol/L (22-29); Chloride 104 mmol/L (98-107); Creatinine Clr Calc Pharmacy 89.7836; Glucose 117 mg/dL (65-115); Magnesium 1.7 mg/dL (1.7-2.3); Osmolality Calculated 282 mOsm/kg (285-295); Potassium 3.9 mmol/L (3.5-5.1); Sodium 136 mmol/L (136-145)
[2023-09-21] MEDS: metoprolol tartrate 25 mg Tablet PO (08:31)
--- NOTE | 2023-09-21 08:48 | PM.PN ---
Subjective Subjective: seen this am 800 output from drain otherwise pt doing ok serosanguinus drainage. hb 9.6 and stable . Vitals/I&O/Wt Last Vital Signs Temp 97.8 F 09/21/23 07:27 Pulse 90 09/21/23 08:20 Resp 16 09/21/23 08:20 BP 105/67 09/21/23 07:27 Pulse Ox 92 09/21/23 08:20 O2 Del Method Room Air 09/21/23 08:20 O2 Flow Rate 4 09/20/23 20:00 FiO2 30 09/17/23 09:46 09/20/23 09/21/23 09/21/23 22:59 06:59 14:59 Intake Total 499.699 / 1405.366 128.833 / 1534.199 120 / 120 Output Total 1800 / 2225 475 / 2700 125 / 125 Balance -1300.301 / -819.634 -346.167 / -1165.801 -5 / -5 Weight last 48 hrs Weight 141.606 kg Weight 141.606 kg Physical Exam Narrative: General: NAD HEENT: Normocephalic, atraumatic, Cardio: Regular rate rhythm., normal S1-S2, Respiratory: Mainly clear to auscultation GI: Abdomen soft, berny drain in place,serosanguinus drainage Extremities: Obese extremities, 1+ edema bilateral lower extremities Urinary Catheter Management: Ulloa: Cath Placed During This Visit: yes Reason for Continuing Indwelling Catheter: Acute Urinary Retention or Obstruction Urinary Catheter Date of Insertion: 09/14/23 Data 09/21/23 06:11 09/21/23 06:11 A&P Assessment and plan (1) CAD (coronary artery disease): Qualifiers: Coronary Disease-Associated Artery/Lesion type: [place] artery [place] vs. transplanted heart: [place] heart Associated angina: without angina Qualified Code(s): I25.10 - Atherosclerotic heart disease of [place] coronary artery without angina pectoris (2) Paroxysmal A-fib: (3) Liver cirrhosis: (4) Gallbladder mass: (5) Cholelithiasis: (6) GI bleed: Qualifiers: GI bleed type/associated pathology: gastric ulcer Qualified Code(s): K25.4 - Chronic or unspecified gastric ulcer with hemorrhage (7) Postoperative haemorrhage: (8) Acute anemia: (9) Acute blood loss anemia: (10) Acute pulmonary embolism: (11) Type 2 diabetes mellitus: Plan #Hemorrhagic shock status post laparoscopic cholecystectomy followed by laproscopy for control of hemorrhage - RESOLVED #Acute pulmonary embolism right lower lobe #Liver disease? Nodular liver. Probable cirrhosis? #Kidney mass? #Masslike density in gallbladder along with cholecystitis status post elective cholecystectomy. #History of GI bleed, ulcers in the past #Unable to tolerate anticoagulation #High risk medication use #Type 2 diabetes mellitus/prediabetes #CAD #Splenomegaly, hepatomegaly, gastric varicies #Elective intubation - RESOLVED ? Type and cross 4 units packed RBC, 2 units FFP ordered, 1 unit platelet ordered ? Check stat CBC, CMP, magnesium, ABG ? Check CT chest angio protocol PE, CT abdomen pelvis with contrast stat. ? V rads called with results: Patient does have acute pulmonary embolism right lower lobe, he is actively bleeding in gallbladder fossa. Findings suggestive of active hemorrhage arising from gallbladder right upper quadrant hemoperitoneum/hematoma. Hematoma exerts mass effect of proximal duodenum possibly resulting in functional gastric outlet obstruction. Pneumoperitoneum in lesser sac and upper abdomen favored to be postsurgical however consider correlation with direct visualization to exclude gastric perforation. ? Discussed the above findings with patient's family. Patient is being taken back to the OR at this time for exploration. ? I have told the family that patient is high risk at this time and prognosis may be poor given that she has active bleeding and a pulmonary embolism at the same time. I have told family patient is high risk for further blood clots. ? Tranexamic as it has been ordered by the surgeon. ? Levophed has been ordered ? Protonix 40 IV twice daily ? Recheck labs postop. Check CBC every 8 hours ? Check CMP, magnesium in a.m. ? Started on empiric Zosyn every 8 hours ? Check lactic acid -Continue oxygen and wean off as able. -Will transfer patient to ICU after surgery. Full code. Discussed this with the patient and she would like to be a full code at this time ? DVT prophylaxis: Pharmacological is contraindicated strictly in this patient. May only do SCDs. Thank you for involving us in the care of this patient. Medicine will continue to follow. Todays plan: 09/21/2023 - Pt successfully extubated to [place] 5 - stop heparin drip. switch to eliquis 5 mg bid. ? may check cbc daily. - continue zosyn. switch to augmentin at discharge, complete total 10-14 day course. - would recommend to transfuse for Hb < 7 - Pt has hx of upper gi bleed and was on eliquis in the past which was stopped. pt also has a history of gastric varicies. - there is possible concern for SMV thrombosis - Pt does have acute PE right lower lobe. - Pt will need to be on ac at dc with close monitoring for bleeding and serial cbcs and close f/u with primary care doctor. - PT consult - She will need GI referral at discharge for f/u on liver disease. She says she follows with someone already and has f/u appointment with them in november. PT recommends rehab. Pt would like to go to [facility]. For atrial fibrillation, pt may be able to dc on lopressor 25 mg bid. This may be uptitrated by her PCP if needed. She will need cardiology f/u at discharge. Medicine will continue to follow while admitted. Attestations Medical Necessity Statement*: Defer to primary team Diagnoses Coronary artery disease involving [place] coronary artery of [place] heart without angina pectoris I25.10 Coronary Disease-Associated Artery/Lesion type: [place] artery [place] vs. transplanted heart: [place] heart Associated angina: without angina Paroxysmal A-fib I48.0 Liver cirrhosis K74.60 Gallbladder mass K82.8 Cholelithiasis K80.20 Gastrointestinal hemorrhage associated with gastric ulcer K25.4 GI bleed type/associated pathology: gastric ulcer Postoperative haemorrhage Acute anemia D64.9 Acute blood loss anemia D62 Acute pulmonary embolism I26.99 Type 2 diabetes mellitus with hyperglycemia, without long-term current use of insulin E11.9
--- NOTE | 2023-09-21 08:50 | PC.NURSE ---
Pt has had a lot of output from MELONIE drain. 700mL overnight and another 125mL upon me taking over her care this morning. Dr. Lindsey says he expects pt to have a lot of output, however, I let Dr. Colon know as well as it concerned me being post op day 7.
[2023-09-21 14:24] LABS: SARS Covid-2 Antigen negative (Negative)
--- NOTE | 2023-09-21 14:26 | PC.NURSE ---
This nurse removed MELONIE drain per Dr. Lindsey at 1420 without complications. Pt tolerated well. Incision site covered with sterile gauze and ABD pads.
--- NOTE | 2023-09-21 14:35 | PC.NURSE ---
This nurse tried to call patients sons, Hermes and Oz. Neither answered. Voicemail was left for Hermes informing him that pt would be going to [facility] today.
--- NOTE | 2023-09-21 15:00 | PC.NURSE ---
This nurse called report to Renea at [facility] at 1445. [facility] should be here to transport pt to their facility within the next hour.
--- NOTE | 2023-09-21 15:39 | PC.NURSE ---
Per Arleen in , [facility] decided not to come get pt. Arleen set up a medicaid ride for pt and a 3hr window is allotted.
--- NOTE | 2023-09-21 16:33 | P.DS_ITS ---
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 She underwent laparoscopic cholecystectomy in which advanced cirrhosis was identified. There was a moderate amount of bleeding during the procedure which controlled with cauterization and Surgicel. Postoperatively her blood pr essure and oxygenation were low. A stat CT was ordered and intra-abdominal hemorrhage is identified along with a small pulmonary embolism. She was quickly taken to the operative room and underwent a diagnostic laparoscopy. Acute bleeding was identified underneath the Surgicel in the gallbladder fossa. This was controlled with clipping, electrocautery and additional Surgicel. Approximately 3100 cc of blood was suctioned from the abdomen. She received blood transfusions and her vital signs normalized hemoglobin became stable. Pathology showed intracholecystic papillary neoplasm with high-grade dysplasia but without invasion. Subsequent imaging showed a possible SMV thrombus and lower extremities to be free of DVT. In the setting of chronic A-fib, she was placed back on Eliquis bridged by a heparin drip. She is discharged in good condition to a detention facility. Physical Exam Narrative: General : Patient is well developed , no acute distress, oriented x3 Head : Normal cephalic, a-traumatic. Ears : Pinnae and external canal are normal. Hearing is normal. Eyes : PERRLA, Sclera and injection are normal. No conjunctival discharge. Nose : Mucous membranes are without erythema. Throat : buccal mucosa is normal, gums are without significant recession or hypertrophy. Lungs : Equal chest rise bilaterally, no use of accessory muscles, trachea is midline. Cor : Rate and rhythm are normal. Abdomen : Soft, ND, NT, no g/r/m Extremities : No edema, no cyanosis or clubbing, dorsalis pedis pulses are present bilaterally, non-tender to palpation of calves. Upper extremities are normal bilaterally. Back : non-tender to palpation, no CVA tenderness. Neuro : CN II - XII intact, Upper and lower extremities have equal and full strength Urinary Catheter Management: [place]: Cath Placed During This Visit: yes Reason for Continuing Indwelling Catheter: Acute Urinary Retention or Obstruction Urinary Catheter Date of Insertion: 09/14/23 Discharge Data Studies Completed and Pending Completed Studies During Hospitalization Category Date Time Status CT abdomen pelvis w con* [id number] Stat Cat Scan 09/16/23 06:[address] angio chest w abd pel w con Stat Cat Scan 09/14/23 16:17 Completed CXRP [XR chest 1V portable [id number]] Routine Exams 09/14/23 15:21 Completed CXRP [XR chest 1V portable [id number]] Routine Exams 09/15/23 09:08 Completed CXRP [XR chest 1V portable [id number]] Routine Exams 09/15/23 10:14 Completed CXRP [XR chest 1V portable [id number]] Routine Exams 09/15/23 18:58 Completed Pathology: Surgical [PTH] Routine Pth 09/14/23 10:15 [place] [id number] Routine Ultrasound 09/14/23 19:42 Completed Radiology Impressions Chest/Abdomen/Pelvis CT 09/14/23 16:17 IMPRESSION: 1. Acute right lower lobe subsegmental PE. No evidence of pulmonary infarct or right heart strain. IMPRESSION: 1. Findings suggestive of active hemorrhage arising from the gallbladder fossa with right upper quadrant hemoperitoneum/hematoma. 2. Hematoma exerts mass effect of the proximal duodenum, possibly resulting in functional gastric outlet obstruction. 3. Pneumoperitoneum in the lesser sac and upper abdomen, favored to be postsurgical. Consider correlation with direct visualization to exclude gastric perforation. The findings were verbally communicated by telephone with Dr. Colon at 5:37 PM CDT on 09/14/2023. Chest X-Ray 09/15/23 18:58 IMPRESSION: There is a right-sided PICC positioned with its tip near the upper cavoatrial junction. Abdomen/Pelvis CT 09/16/23 06:44 IMPRESSION: 1. Evaluation is limited secondary to large amount of technical artifact which obscures portions of the abdomen and pelvis. 2. Interval placement of 2 right sided perihepatic drainage catheters, resulting in evacuation of previously seen perihepatic hemoperitoneum. 3. Previously seen hyperdense hemorrhage in the gallbladder fossa is no longer present. Other previously seen scattered foci of upper abdominal hemoperitoneum are no longer present 4. Similar pockets of known pneumoperitoneum in the vicinity of the lesser sac. 5. Gastric wall thickening above, as discussed. 6. Trace ascites 7. Hypodensity within the SMV represents clot versus flow artifact 8. Partially visualized lung bases demonstrate a small right pleural effusion with mild associated atelectasis/concentrate, and a trace left pleural effusion. 9. Chronic findings as above Laboratory Results WBC 8.73 10^3/uL (3.29-11.43) 09/21/23 06:11 Corrected WBC Cancelled 09/14/23 08:53 RBC 3.28 10^6/uL (3.85-5.65) L 09/21/23 06:11 Hgb 9.60 g/dL (11.27-16.99) L 09/21/23 06:11 Hct 32.6 % (36-47) L 09/21/23 06:11 MCV 99.4 fl (85-98) H 09/21/23 06:11 MCH 29.3 pg (27-33) 09/21/23 06:11 MCHC 29.4 g/dL (30-55) L 09/21/23 06:11 RDW 19.2 % (12.1-15.1) H 09/21/23 06:11 Plt Count 159 10^3/cmm (157-399) 09/21/23 06:11 MPV 10.5 fL (7.4-10.4) H 09/21/23 06:11 Gran % Cancelled 09/14/23 08:53 Neut % (Auto) 60.6 % 09/21/23 06:11 Lymph % (Auto) 23.1 % 09/21/23 06:11 [place] % (Auto) 11.8 % 09/21/23 06:11 Eos % (Auto) 2.4 % 09/21/23 06:11 Baso % (Auto) 0.7 % 09/21/23 06:11 Neut # (Auto) 5.29 10^3/uL (1.8-7.7) 09/21/23 06:11 Lymph # (Auto) 2.0 10^3/uL (0.8-4.8) 09/21/23 06:11 [place] # (Auto) 1.0 10^3/uL (0.2-0.9) H 09/21/23 06:11 Eos # (Auto) 0.2 10^3/uL (0.0-0.8) 09/21/23 06:11 Baso # (Auto) 0.1 10^3/uL (0.0-0.1) 09/21/23 06:11 Absolute Gran (auto) Cancelled 09/14/23 08:53 Nucleated RBC % (auto) 0 % 09/21/23 06:11 Nucleated RBCs # 0.0 /100WBC 09/21/23 06:11 PT 15.40 SECONDS (12.1-14.9) H 09/17/23 04:49 INR 1.18 (0.8-1.2) 09/17/23 04:49 APTT 60.3 SECONDS (23.9-36.7) H 09/21/23 06:11 D-Dimer 2.24 ug/mLFEU (0-0.59) H 09/14/23 16:49 Specimen Type Arterial 09/17/23 05:40 Sample Site Artline 09/17/23 05:40 ABG pH 7.35 (7.35-7.45) 09/17/23 05:40 ABG pCO2 41.4 mmHg (35-45) 09/17/23 05:40 ABG pO2 383.0 mmHg (80.0-100.0) H 09/17/23 05:40 ABG PO2/FiO2 Ratio 0 09/17/23 05:40 ABG HCO3 22.7 mmol/L (22-26) 09/17/23 05:40 ABG O2 Saturation > 100.0 09/17/23 05:40 ABG Base Excess -2.8 mmol/L (-2.0-2.0) L 09/17/23 05:40 Andi Test Pos 09/17/23 05:40 A-a O2 Gradient 0.0 mmHg (5-10) L 09/17/23 05:40 Hematocrit 28.0 % (37-47) L 09/17/23 05:40 Hgb O2 Saturation 98.4 % (95-100) 09/17/23 05:40 Carboxyhemoglobin 1.6 %THgb (0.4-20.1) 09/17/23 05:40 Methemoglobin 0.7 % (0.4-1.5) 09/17/23 05:40 Total Hemoglobin 9.1 g/dL (12-16) L 09/17/23 05:40 Sodium 140.0 mmol/L (131-143) 09/17/23 05:40 Potassium 3.7 mmol/L (3.5-5.0) 09/17/23 05:40 Glucose 113.0 mg/dL (70-115) 09/17/23 05:40 Ionized Calcium 1.1 mmol/L (1.1-1.4) 09/17/23 05:40 O2 Delivery Device Vent 09/17/23 05:40 O2 Liters/Min 3.0 % 09/14/23 16:30 FiO2 30.0 % 09/17/23 05:40 Tidal Volume 0.45 09/16/23 04:45 PEEP 5.0 cmH20 09/17/23 05:40 Named Account Executive ID [email or web address] 09/17/23 05:40 Sodium 136 mmol/L (136-145) 09/21/23 06:11 Potassium 3.9 mmol/L (3.5-5.1) 09/21/23 06:11 Chloride 104 mmol/L (98-107) 09/21/23 06:11 Carbon Dioxide 24 mmol/L (22-29) 09/21/23 06:11 Anion Gap 11.9 (5-19) 09/21/23 06:11 BUN 10 mg/dL (8-23) 09/21/23 06:11 Creatinine 0.6 mg/dL (0.5-0.9) 09/21/23 06:11 GFR Calculation Not Reportable 09/21/23 06:11 Glucose 117 mg/dL (65-115) H 09/21/23 06:11 POC Glucose 123 mg/dL (70-110) H 09/20/23 22:17 Calculated Osmolality 282 mOsm/kg (285-295) L 09/21/23 06:11 Calcium 7.7 mg/dL (8.5-10.5) L 09/21/23 06:11 Phosphorus 2.3 mg/dL (2.5-4.5) L 09/17/23 04:49 Magnesium 1.7 mg/dL (1.7-2.3) 09/21/23 06:11 Total Bilirubin 0.7 mg/dL (0.15-1.2) 09/17/23 04:49 AST 23 U/L (0-32) 09/17/23 04:49 ALT 12 U/L (0-33) 09/17/23 04:49 Alkaline Phosphatase 81 U/L (35-105) 09/17/23 04:49 Total Protein 5.6 g/dL (6.6-8.7) L 09/17/23 04:49 Albumin 2.7 g/dL (3.5-5.2) L 09/17/23 04:49 Globulin 2.9 g/dL (1.3-4.6) 09/17/23 04:49 Random Cortisol 7.03 ug/dL (2.47-19.5) 09/16/23 16:04 Vancomycin Trough 16.6 ug/mL (10-15) H 09/20/23 00:16 SARS-CoV-2 Ag (Rapid) negative (Negative) 09/21/23 14:00 Blood Type O Negative 09/14/23 16:48 Rho(D) Type Rh negative 09/14/23 16:48 Antibody Screen Negative 09/14/23 16:48 Crossmatch See Detail 09/14/23 16:48 Procedures Performed Laparoscopic cholecystectomy Diagnostic laparoscopy with control of hemorrhage Vitals Last Vital Signs Temp 98.0 F 09/21/23 12:00 Pulse 75 09/21/23 12:00 Resp 16 09/21/23 14:03 BP 93/55 09/21/23 12:00 Pulse Ox 93 09/21/23 12:00 O2 Del Method Room Air 09/21/23 12:00 O2 Flow Rate 4 09/21/23 08:00 FiO2 30 09/17/23 09:46 Discharge Plan Discharge Patient Disposition: Xfer SNF Prescriptions: New amoxicillin-pot clavulanate 875-125 mg tablet 1 tab PO BID Qty: 14 0RF Eliquis 5 mg tablet 5 mg PO Q12H Qty: 60 11RF Rx Instructions: 0900,2100 oxycodone 5 mg tablet 5 mg PO Q6H PRN (Reason: pain) Qty: 20 0RF Colace 100 mg capsule 100 mg PO BID Qty: 14 0RF Continued montelukast [Singulair] 10 mg tablet 10 mg PO DAILY fluticasone propionate [Flonase Allergy Relief] 50 mcg/actuation spray,suspension 2 spray INTRANASAL DAILY alprazolam 0.5 mg tablet 0.5 mg PO TID losartan 25 mg tablet 25 mg PO DAILY Hold Instructions: Resume on 03/13/23. hold until you see primary care pantoprazole [Protonix] 40 mg tablet,delayed release (DR/EC) 40 mg PO BID 42 Days Qty: 84 1RF iron bisgly,ps-FA-B-C#12-succ 65 mg-65 mg -1,000 mcg (24) tablet 65 - 1,000 tab PO DAILY sotalol 80 mg tablet See Rx Instructions .ROUTE .COMPLEX Qty: 270 3RF Dose Instruction: TAKE 1 AND 1/2 TABLETS BY MOUTH TWICE DAILY Rx Instructions: TAKE 1 AND 1/2 TABLETS BY MOUTH TWICE DAILY magnesium oxide 250 mg magnesium tablet 250 mg PO DAILY Qty: 90 3RF hydrochlorothiazide 12.5 mg tablet 12.5 mg PO QAM Hold Instructions: Resume on 03/13/23. hold until you see primary care digoxin 125 mcg (0.125 mg) tablet 125 mcg PO DAILY Rx Instructions: TAKE ONE TABLET BY MOUTH EVERY DAY Discontinued hydrocodone-acetaminophen 7.5-325 mg tablet 1 tab PO Q4H PRN (Reason: Pain) Hold Instructions: Resume on 09/19/23. Discharge Orders: Discharge Order (Routine); Ordered 09/21/23 Ordered By: Demetrio Lindsey Referrals: Demetrio Lindsey DO [Physician] - 10/02/23 10:35 am (Dr. Lindsey's office will call you with your 2 week post-op appointment. ) Discharge Diet: Advance as tolerated Discharge Activity: Resume usual activity Patient Instructions: Amoxicillin/Clavulanate Potassium (By mouth), Oxycodone, Rapid Release (By mouth), Apixaban (By mouth), Pulmonary Embolism (GEN), Post Anesthesia Care Activity Restrictions/Additional Instructions: Do not soak incisions underwater for 2 weeks. Shower daily. Drain removal site may leak for up to 3 weeks Discharge Attestations Time Spent in Discharge Care*: less than 30 min Quality Metrics Clinical Quality Measures [ Venous Thromboembolism { Contraindication to Overlap Therapy: None; Overlap threrpy ordered; VTE Discharge Education: Education about anticoagulant therapy/Care Notes given, Follow-up arranged; Deep Vein Thrombosis/Pulmonary Embolism Present on Admission: No; Contraindication to Pharm VTE Prophylaxis: Other (Intermittent pneumatic compression boots applied); Documentation of Mechanical Device: Intermittent pneumatic compression boot}] Coding Level of Care Code Acute Code for Chg Fwd Diagnoses Postoperative haemorrhage Liver cirrhosis K74.60 Paroxysmal A-fib I48.0 Gallbladder mass K82.8 Acute pulmonary embolism I26.99
== END 2023-09-21 18:42 | disposition skilled nursing facility (03) | DRG 417 ==
LOC: ICU 17:13 → MEDSURG 09-19 03:21
PROVIDERS: Anesthesiology; Family Medicine; Internal Medicine; Student in an Organized Health Care Education/Training Program; Admitting Provider Internal Medicine; PCP Internal Medicine; Visit Provider Surgery
PROC: 0FT44ZZ Resection of Gallbladder, Percutaneous Endoscopic Approach (ICD-10-PCS; CPT 47562; principal; 2023-09-14 09:50)
DX: C23 Malignant neoplasm of gallbladder (principal); I26.99 Other pulmonary embolism without acute cor pulmonale; R57.8 Other shock; E89.811 Postprocedural hemorrhage of an endocrine system organ or structure following other procedure; D62 Acute posthemorrhagic anemia; Z68.42 Body mass index [BMI] 45.0-49.9, adult; K80.20 Calculus of gallbladder without cholecystitis without obstruction; I10 Essential (primary) hypertension; K21.9 Gastro-esophageal reflux disease without esophagitis; I48.0 Paroxysmal atrial fibrillation; J45.909 Unspecified asthma, uncomplicated; G47.33 Obstructive sleep apnea (adult) (pediatric); I25.10 Atherosclerotic heart disease of native coronary artery without angina pectoris; E11.65 Type 2 diabetes mellitus with hyperglycemia; F17.210 Nicotine dependence, cigarettes, uncomplicated; R16.2 Hepatomegaly with splenomegaly, not elsewhere classified; I35.8 Other nonrheumatic aortic valve disorders; E66.01 Morbid (severe) obesity due to excess calories; I95.81 Postprocedural hypotension; K74.60 Unspecified cirrhosis of liver; Z11.52 Encounter for screening for COVID-19; Z90.5 Acquired absence of kidney
CPT/HCPCS: 36415; 36416; 36430; 36573; 36592; 36600; 51702; 71045; 71275; 74177; 80048; 80051; 80053; 80202; 82330; 82533; 82805; 82962; 83735; 84100; 85014; 85018; 85025; 85378; 85610; 85730; 86850; 86900; 86920; 86927; 87426; 88304; 93970; 94002; 94003; 94799; 96376; 97110; 97116; 97162; 97167; 97530; 97535; A4570; C1751; J0330; J0690; J1100; J1170; J1644; J1940; J2270; J2371; J2405; J2543; J2704; J2710; J3010; J3370; J3475; J3490; J7030; J7040; P9016; P9017; P9045; Q9967

== ENCOUNTER → 2023-10-02 11:11 | Outpatient (BNVA) | payer MEDICARE, MEDICAID, SELFPAY | PROVIDERS: PCP Internal Medicine; Visit Provider Surgery | DX: D49.0 Neoplasm of unspecified behavior of digestive system (principal); K74.60 Unspecified cirrhosis of liver; I26.99 Other pulmonary embolism without acute cor pulmonale; Z98.890 Other specified postprocedural states | CPT/HCPCS: 99024 ==

== ENCOUNTER → 2024-01-31 09:40 | Outpatient (BNVA) | payer MEDICARE, MEDICAID, SELFPAY | PROVIDERS: PCP Internal Medicine; Visit Provider Nurse Practitioner Family | DX: I25.10 Atherosclerotic heart disease of native coronary artery without angina pectoris (principal); I48.0 Paroxysmal atrial fibrillation; I10 Essential (primary) hypertension; Z87.891 Personal history of nicotine dependence | CPT/HCPCS: 99214 ==

== ENCOUNTER → 2024-07-31 14:57 | Outpatient (BNVA) | payer MEDICARE, MEDICAID, SELFPAY | PROVIDERS: PCP Internal Medicine; Visit Provider Internal Medicine Cardiovascular Disease | DX: I48.0 Paroxysmal atrial fibrillation (principal); Z79.01 Long term (current) use of anticoagulants; I35.8 Other nonrheumatic aortic valve disorders; I10 Essential (primary) hypertension; Z86.711 Personal history of pulmonary embolism; Z87.891 Personal history of nicotine dependence; Z87.898 Personal history of other specified conditions | CPT/HCPCS: 99214 ==

== ENCOUNTER 2025-02-01 08:40 | Emergency (ER) | payer MEDICARE, MEDICAID, SELFPAY ==
--- OUTSIDE RECORDS SUMMARY | 2025-01-27 10:00 | XMS_ITS | Encounter Summary ---
[facility] Organization [facility] Address [address] [place] [address] Care Team Providers Care Repacker Name Role Phone Ihsan Velásquez DO Primary Care Provide r Reason for Referral * Radiology Services (Routine) - Open Specialty Diagnoses / Procedures Referred By Contac t Referred To Contact Radiology Diagnoses Hepatic cirrhosis, unspecified hepatic cirrhosis type, unspecified whether ascites present (CMS/HCC) H/O gallbladder cancer Procedures US ABDOMEN LIMITED [facility]co [facility] [address] [facility] [address] [place] [id number] Phone: tel: fax: [facility] Ultrasound [place] [address] [place] [address] Phone: tel: fax: Referral ID Status Reason Start Date Expiration Date V isits Requested Visits Authorized [id number] Open MIN View CTS to Schedule 01/27/2025 02/27/2026 1 1 * Outpatient Services (Routine) - Open Specialty Diagnoses / Procedures Referred By Contact Referred To Contact Gastroenterology Diagnoses Hepatic cirrhosis, unspecified hepatic cirrhosis type, unspecified whether ascites present (CMS/HCC) H/O esophageal varices Nausea Procedures EGD WY ESOPHAGOGASTRODUODENOSCOPY TRANSORAL DIAGNOSTIC WY EGD TRANSORAL BIOPSY SINGLE/MULTIPLE WY EGD BALLOON DILATION ESOPHAGUS <30 MM DIAM WY DILATION ESOPH UNGUIDED SOUND/BOUGIE 1/MULT PASS new request Elvira Orozco NP [address] [address] Phone: tel: fax:[phone] [address] Phone: tel:[phone] fax: Referral ID Status Reason Start Date Expiration Date Visits Requested Visits Authorized [id number] Open Performing Department to Schedule 01/27/2025 02/27/2026 1 1 Reason for Visit * Reason Comments Follow Up Encounter Details Date Type Department Care Team (Late st Contact Info) Description 01/27/2025 10:00 AM CDT Office Visit [address] [address] Elvira Orozco NP [address] [address] Hepatic cirrhosis, unspecified hepatic cirrhosis type, unspecified whether ascites present (CMS/HCC) (Primary Dx); H/O gallbladder cancer; H/O esophageal varices; Nausea; Chronic fatigue Social History Tobacco Use Types Packs/Day Years Used Date Smoking Tobacco: Some Days Cigarettes Alcohol Use Standard Drinks/Week Comments Never 0 (1 standard drink = 0.6 oz pur e alcohol) Comments No Sex and Gender Information Value Date Recorded Sex Assigned at Not on file Legal Sex Female 8:56 AM CDT Gender Identity Not on file Sexual Orientation Not on file documented as of this encounter Last Filed Vital Signs Vital Sign Reading Time Taken Comments Blood Pressure 112/65 01/27/2025 9:43 AM CDT Pulse 52 01/27/2025 9:43 AM CDT Temperature - - Respiratory Rate - - Oxygen Saturation - - Inhaled Oxygen Concentration - - Weight 122 kg (269 lb) 01/27/2025 9:43 AM CDT Height 170.2 cm (5' 7 ) 01/27/2025 9:43 AM CDT Body Mass Index 42.13 01/27/2025 9:43 AM CDT documented in this encounter Progress Notes * Elvira Orozco, MOTEL KEEPER - 01/27/2025 10:05 AM CDT GI Clinic Note Lisa Rahman [facility] [id number] 01/27/2025 Collaborative physician: Shaheen Muhammad MD Referring Provider: Ihsan Velásquez DO History of Present Illness The patient is a 74-year-old female who presents for a routine follow-up for a history of cirrhosis, suspected secondary to obesity and non-alcoholic steatohepatitis (DE GUZMAN), complicated by a gastrointestinal bleed from a gastric ulcer, esophageal and rectal varices per panendoscopy in 05/2023. She has additional past medical history of unspecified gallbladder cancer, renal cell carcinoma, and atrial fibrillation with deep vein thrombosis (DVT) on anticoagulation therapy with Eliquis. She was last seen via telephone visit in 06/2024. She reports no history of alcohol use. She has noted some mild peripheral edema for which she takesHCTZ. She has no history of jaundice or changes in mental cognition. She has never undergone a paracentesis. She takes chronic opioids for back pain, ankle, and knee pain, and uses MiraLAX daily to control her constipation. In 06/2023, elastography was consistent with cirrhosis with a Metavir score of 4. Cholelithiasis and gallbladder sludge were noted, along with dilated extrahepatic biliary and borderline main pancreatic duct dilatation. An MRI in 06/2023 at [facility] noted a mass-like finding in the gallbladder, leading to a cholecystectomy in 09/2023 at [facility] in [place], which was complicated by unspecified gallbladder cancer and a mayco to my liver. A suspicious renal cell neoplasm was found in the left kidney, and the right kidney was atrophied. 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 She has been following up with Dr. Segovia and reports a nonfunctioning right kidney. An EGD and colonoscopy completed in 05/2023 noted nonbleeding esophageal varices and multiple sessile subcentimeter polyps in the transverse and sigmoid colon, with rectal varices also noted. The recommendation was to repeat the colonoscopy in 5 years. There was no pathology report available. An ultrasound ordered in 06/2024 does not appear to have been completed. Labs from 05/2024 noted a CBC with thrombocytosis of platelets 108, but otherwise unremarkable. INR was 1.6. CMP results included AST 47, ALT 25, albumin 4.2, alk phos 114, total bilirubin 0.8, creatinine 0.8, and sodium 138. A lipid panel noted total cholesterol 180 and triglycerides 190. Hemoglobin A1c was 5.6. She is scheduled for an upcoming MRI in 03/2025 as ordered by her oncologist. Alpha- fetoprotein tumor marker in12/2023 was normal at 5.9. Previously requested outside records for liver workup have not been submitted. She reports no presence of blood or dark, tarry stools. 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 She has lost some weight due to decreased appetite and reports that food does not taste good to her. She often feels fatigued and occasionally desires to sleep throughout the day. She is currently taking iron supplements but does not take any vitamin D supplements. She reports no issues with bowel movements or constipation. She experiences nausea when her stomach is empty, particularly in the mornings, but this is alleviated by eating toast or cereal. She is not takingany medication for nausea. She occasionally experiences sharp pain in the epigastric area but has not had acid reflux for a long time. She continues to take blood thinners and is under the care of Dr. Hart for her Eliquis management. She has noticed a decrease in leg swelling compared to previous observations and describes a sensation of loose skin when walking. She is currently on HCTZ for this condition. She has had polyps removed on several occasions, none of which were cancerous. She has been coughing up mucus for the past 6 weeks, which she believes may be draining from her sinuses and causing throat congestion. She has not consulted her branch services manager since her surgery. Alcohol: No history of alcohol use Sleep: Reports feeling fatigued and occasionally desires to sleep throughout the day PAST SURGICAL HISTORY: - Cholecystectomy at [facility] in [place] in 09/2023 with complications of unspecified gallbladder cancer and a mayco to my liver - Kidney biopsy confirming clear cell renal cell carcinoma FAMILY HISTORY She has no family history of colon cancer. PAST MEDICAL HISTORY: Past Medical History: Diagnosis Date A-fib (CMS/HCC) Asthma Blood clotting disorder Deep vein thrombosis (DVT) (CMS/HCC) Hypertension Malignant neoplasm (CMS/HCC) REVIEW OF SYSTEMS: Complete ROS was negative aside from what was noted above. PHYSICAL EXAM: VITALS: BP 112/65 Pulse (!) 52 Ht 5' 7 (1.702 m) Wt 122 kg (269 lb) BMI 42.13 kg/m?? GEN: Lisa Rahman is a 74 y.o. female in no acute distress. HEENT: Mucous membranes pink and moist. Sclera anicteric. NECK: Trachea midline without obvious lymphadenopathy or thyromegaly. LUNGS: Regular respiratory effort with no intercostal retractions HEART: Regular rate. Non-pitting lower extremity edema noted. ABD: Soft, obese, Non-distended. RECTAL: Not done at this time. EXT: Without cyanosis, Non-pitting lower extremity edema noted. SKIN: [place], warm, dry. DIAGNOSTICS: Results Labs - CBC: 05/2024, Thrombocytosis of platelets 108 - INR: 05/2024, 1.6 - CMP: 05/2024, AST 47, ALT 25, albumin 4.2, alk phos 114, total bilirubin 0.8, creatinine 0.8, sodium 138 - Lipid panel: 05/2024, Total cholesterol 180, triglycerides 190 - Hemoglobin A1c: 05/2024, 5.6 - Alpha-fetoprotein tumor marker: 12/2023, Normal at 5.9 Imaging - Elastography: 06/2023, Consistent with cirrhosis with a metavir meta score of four. Cholelithiasis and gallbladder sludge noted and dilated extrahepatic biliary and borderline main pancreatic duct dilatation noted. - MRI: 06/2023, Mass like finding in the gallbladder. Diagnostic Testing - Kidney biopsy: Clear cell renal cell carcinoma WHO/ISUP grade 1-2 - EGD: 05/2023, Nonbleeding esophageal varices which were not graded, but no other concerning findings. - Colonoscopy: 05/2023, Multiple sessile subcentimeter polyps noted in the transverse and sigmoid colon. Rectal varices noted. Assessment & Plan 1. Cirrhosis: - History of cirrhosis suspected secondary to obesity and DE GUZMAN, complicated by GI bleeding from gastric ulcers, esophageal, and rectal varices. - Elastography in June 2023 confirmed cirrhosis with a Metavir score F4. -An ultrasound ordered in June 2024 was not completed. -Alpha-fetoprotein tumor marker in December 2023 was normal at 5.9. -Scheduled for MRI in March 2025. - Advised to maintain good blood sugar control, stay active, lose weight, and continue avoiding alcohol to preserve liver function. -Upper endoscopy will be scheduled to assess esophageal varices further. -Contact office if noticing black tarry stools or coffee ground emesis for potential outpatient endoscopy. Go to ER if experiencing copious amounts of bright red bleeding in vomit or stool. 2. Renal Cell Carcinoma: - History of renal cell carcinoma treated with cryoablation by Dr. Cruz. Nonfunctioning right kidney. - Scheduled for annual MRIs for five years, with the next one in March 2025. Advised to follow up with branch services manager to ensure stable kidney function. 3. Peripheral Edema: - Mild peripheral edema, non-pitting more consistent with lipedema/lymphedema. - Managed with HCTZ. No changes to current medication regimen until lab results are available. 4. Esophageal Varices: - History of esophageal varices noted in May 2023. - Upper endoscopy will be scheduled to reassess varices and potentially perform banding if necessary. Consult precision inspector regarding temporary discontinuation of Eliquis before the procedure. 5. Colon Polyps: - Multiple sessile subcentimeter polyps noted in the transverse and sigmoid colon during colonoscopy in May 2023. - Advised to sign another release to obtain pathology report. Depending on pathology, repeat colonoscopy may be recommended in 1 to 3 years. 6. Nausea: - Occasional nausea, especially when stomach is empty. - Currently taking pantoprazole once a day for acid reflux. - Zofran will be prescribed for nausea management, advised to take it d3mctec as needed. 7. Fatigue: - Feeling tired all the time. - Currently taking iron pills. -Labs will be checked today to assess hemoglobin, iron level, and vitamin D level to determine if anemia or vitamin D deficiency is contributing to fatigue. Follow-up: A follow-up visit is scheduled for 07/2025. Discussed alarm signs and symptoms that would indicate need for sooner follow up, such as new onsetor worsening dysphagia, evidence of bloody vomit or stool, weight loss, or changes in bowel habits. The patient indicates understanding of these issues and agrees with the plan. Total time taking care of the patient was greater than 45 minutes with greater than 50% of the timespent counseling the patient, coordinating their care, reviewing chart including labwork/procedure workup and other specialty notes This note has been partially dictated using voice recognition software. Every effort has been made to ensure accuracy. Patient provided verbal consent for the use of [employer] to assist in documentation of today's visit. Plan of care discussed and developed in collaboration with Shaheen Muhammad MD Tambra L Sellers, NP documented in this encounter Miscellaneous Notes * Patient Instructions - Elvira Orozco NP - 01/27/2025 10:38 AM CDT Thank you for coming to [facility] for your care and allowing me to beyour provider today. You may receive a survey about your experience. We would appreciate your feedback about your visit today. Your feedback will help us continually improve to better meet your needsand expectations. Below are some of the things we discussed today. If you have any questions or concerns, Call [phone], or contact us on the [employer] Meet. We are blessed to be a part of your healthcare team. Thanks again for choosing [facility]. Elvira Orozco, MSN, DEAD MAIL CHECKER, ROAD MANAGER-C Gastroenterology >await upcoming MRI results >repeat ultrasound of liver in September 2025 >labs today >EGD/upper scope to be scheduled in [place] for esophageal varices/banding >Talk to precision inspector about holding your blood thinner for a few days prior to the EGD Cirrhosis: After Your Visit Your Care Instructions Cirrhosis occurs when healthy liver tissue becomes scarred. This keeps the liver from working well.Cirrhosis usually happens after years of liver inflammation. It is the result of any chronic liver disease. Sometimes no reason for the cirrhosis can be found. Treatment cannot completely fix liver damage, but you may be able to slow or prevent more liver damage if you do not drink alcohol or use drugs that harm your liver. Follow-up care is a lizarraga part of your treatment and safety. Be sure to make and go to all appointments, and call your doctor if you are having problems. It???s also a good idea to know your test results and keep a list of the medicines you take. How can you care for yourself at home? Do not drink any alcohol. It can harm your liver. Talk to your doctor if you need help to stop drinking. Take your medicines exactly as prescribed. Call your doctor if you think you are having a problem with your medicine. Do not take any other medicines, including lqas-tcr-ptkyrgw medicines and herbal products, without talking to your doctor first. The preferred analgesic in cirrhosis and liver disease is Tylenol, up to 2g daily. It is recommended to avoid all NSAIDs such as ibuprofen (Advil, Motrin), or naproxen (Aleve). These can sometimes cause more liver damage. Talk with your doctor if you are not sure whether these medicines are safe for you to take. Eat a low-salt diet if your cirrhosis is causing fluid buildup in your body. Use less salt when youcook and at the table. Do not eat fast foods or snack foods with a lot of salt. Fluid buildup in your belly, legs, and chest can cause serious problems. Avoid excessive sugary foods and drinks. When should you call for help? Call 911 anytime you think you may need emergency care. For example, call if: You vomit blood or what looks like coffee grounds. You pass maroon or very bloody stools. You passed out (lost consciousness). You feel very confused and disoriented. This is a sign of brain problems from severe liver damage. You have severe trouble breathing. Call your doctor now or seek immediate medical care if: You have mental changes, such as sleepiness, confusion, moodiness, or a poor memory. You have new belly pain or swelling. You have many nosebleeds or are bleeding from the gums or rectum. You have a fever. Your stools are black and tarlike or have streaks of blood. Watch closely for changes in your health, and be sure to contact your doctor if: Your skin or the whites of your eyes turn yellow, or they are more yellow than they were before. You cannot control itching. About Liver Cirrhosis When something attacks and damages the liver, liver cells are killed and scar tissue is formed. This scarring process is called fibrosis ( fi-bro-sis ), and it happens slowly over many years. When the whole liver is scarred, it shrinks and hardens. This is called cirrhosis. Usually cirrhosis cannot be undone. Any illness that affects the liver over a long period of time may lead to fibrosis and eventually, cirrhosis. Heavy drinking and viruses (like hepatitis C or B) are common causes of cirrhosis. However, there are other causes as well. Cirrhosis may be caused by a buildup of fat in the liver of people who are overweight or have diabetes. Some people inherit genes that cause liver disease. Other causes include certain prescribed and qqio-paj-scykmpp medicines, environmental poisons, and autoimmune hepatitis, a condition in which a person's own immune system attacks the liver as if it were a foreign body. What happens when you have Cirrhosis? Because the liver becomes lumpy and stiff in cirrhosis, blood cannot flow through it easily, so pressure builds up in a vein, called the portal vein, which brings blood to the liver. When pressure ishigh in the portal vein, the condition is called portal hypertension. To relieve this pressure, theblood goes around the portal vein, through other veins. Some of these veins, called varices, can befound in the pipe that carries food from your mouth to your stomach (the esophagus) or in your stomach itself. When you have cirrhosis, the high pressure in the portal vein backs up into another organ called the spleen, which then gets big and destroys more platelets than usual. Platelets are blood cells thathelp in blood clotting. With cirrhosis, blood is blocked from entering the liver and toxic substances that the liver normallyh filters escape into general blood circulation. Aside from the problems with liver blood flow, when cirrhosis is advanced, there aren't enough healthy worker cells to make good substances, such as albumin (a protein) and clotting factors that the liver normally makes. Liver cancer, called hepatocellular carcinoma (HCC), can also occur if some ofthe sick liver cells start to multiply out of control. What are the symptoms of cirrhosis? At first, you may have no no symptoms at all (this is called compensated cirrhosis). In fact, a person may live many years with cirrhosis without being aware that his or her liver is scarred. This isbecause the pressure in the portal vein is not yet too high and there are still in the healthy liver cells to keep up with the body's needs. But if nothing is done about the cause of cirrhosis (if you continue to drink alcohol or if your hepatitis is not treated), the pressure in the portal vein gets higher and the few remaining healthy worker cells become overwhelmed. At that point, you may notice symptoms like low energy, poor appetite, weight loss, or loss of muscle mass. You can also develop the following serious problems: 1) internal bleeding from large blood vessels in the esophagus, called bleeding varices 2) a buildup of fluid in the belly, called ascites( a-sigh-tees ) 3) confusion from the buildup of toxins in the blood, called encephalopathy ( lh-exg-t-lop-a-thee ) 4) yellowing of the eyes and skin, called jaundice Another serious complication of cirrhosis his liver cancer, which may occur in the compensated for decompensated stage. There may be no signs of liver cancer until the cancer has grown very large andcauses pain. What is decompensated cirrhosis? If you experience any of the serious problems described below, your liver disease has progressed from compensated cirrhosis to decompensated cirrhosis. You are then at risk of dying from life-threatening complications of liver disease, unless your sick liver can be replaced with the healthy liver (liver transplant). 1. Bleeding varices (internal bleeding) Large blood vessels (varices) in the food to get bigger and bigger over time and can burst open. When this happens, you may vomit blood were noticed her stool is black and tar like. If either of these things have been, you should go to the emergency room immediately to get help and stop the bleeding. This can be life-threatening. 2. Ascites (fluid in the belly) Another problem caused by high-pressure in the veins of the liver is ascites. Fluid leaks out from the liver into the belly and begins to fill it up. This can make the abdomen and large like a balloon filled with water. The legs to get swollen 2. This can be very uncomfortable. Eating can be a problem because there is less room for food. Even breathing can be a problem, especially when you are lying down. But the most dangerous problem associated with ascites infection, which can be life-threatening. 3. Encephalopathy (confusion) A poorly working liver may not be able to get rid of toxic substances like ammonia (which comes from the intestines), and it may allow the substances to go to the brain and caused confusion. S5 confusion, toxins in the brain causing changes in sleep, mood, concentration, and memory. If he gets really bad, the toxins can even cause a coma. These changes are all symptoms of hepatic encephalopathy (HE). If you have encephalopathy, you may have problems driving, writing, calculating, and performingother activities of daily living. Signs of encephalopathy are trembling and hand flapping. Encephalopathy may occur when you have an infection or when you have internal bleeding, and is it may also occur if you are constipated or taking too many water pills or taking tranquilizers or opioids or sleeping pills. 4. Jaundice (yellowing of the eyes and skin) A liver that is working poorly cannot get rid of bilirubin, a substance that produces a yellowing of the eyes and skin, called jaundice. Too much alcohol and some medicines can also lead to jaundice.If you have cirrhosis and noticed jaundice for the 1st time it may be a sign of worsening of your liver function, and infection, or other new problems. documented in this encounter Plan of Treatment Upcoming Encounters Date Type Department Care Team (Late st Contact Info) Description 03/19/2025 11:30 AM SHIFT PRODUCTION SUPERVISOR Appointment [facility] [address] [place] [id number] Israel Segovia MD [address] [place] [address] 07/28/2025 1:30 PM CDT Office Visit [facility] [place] [address] [address] Elvira Orozco NP [address] [address] Scheduled Orders Name Type Priority Associated Diagnoses Orde r Schedule EGD GI Routine Hepatic cirrhosis, unspecified hepatic cirrhosis type, unspecified whether ascites present (CMS/HCC) H/O esophageal varices Nausea Expected: 01/27/2025 (Approximate), Expires: 04/27/2025 US ABDOMEN LIMITED Imaging Routine Hepatic cirrhosis, unspecified hepatic cirrhosis type, unspecified whether ascites present (CMS/HCC) H/O gallbladder cancer Expected: 01/27/2025 (Approximate), Expires: 04/27/2025 documented as of this encounter Procedures Procedure Name Priority Date/Time Associated Diagnosis Comments F-ACTIN IGG Routine 01/27/2025 11:01 AM CDT Hepatic cirrhosis, unspecified hepatic cirrhosis type, unspecified whether ascites present (CMS/HCC) ACUTE HEPATITIS PANEL Routine 01/27/2025 11:01 AM CDT Hepatic cirrhosis, unspecified hepatic cirrhosis type, unspecified whether ascites present (CMS/HCC) LIVER KIDNEY MICROSOMAL ANTIBODY Routine 01/27/2025 11:01 AM CDT Hepatic cirrhosis, unspecified hepatic cirrhosis type, unspecified whether ascites present (CMS/HCC) IRON, TIBC, AND PERCENT SATURATION Routine 01/27/2025 11:01 AM CDT Hepatic cirrhosis, unspecified hepatic cirrhosis type, unspecified whether ascites present (CMS/HCC) H/O esophageal varices Chronic fatigue CERULOPLASMIN Routine 01/27/2025 11:01 AM CDT Hepatic cirrhosis, unspecified hepatic cirrhosis type, unspecified whether ascites present (CMS/HCC) ALPHA 1 ANTITRYPSIN Routine 01/27/2025 1 1:01 AM CDT Hepatic cirrhosis, unspecified hepatic cirrhosis type, unspecified whether ascites present (CMS/HCC) ALPHA FETOPROTEIN TUMOR MARKER Routine 01/27/2025 11:01 AM CDT Hepatic cirrhosis, unspecified hepatic cirrhosis type, unspecified whether ascites present (CMS/HCC) CBC WITH DIFFERENTIAL Routine 01/27/2025 11:01 AM CDT Hepatic cirrhosis, unspecified hepatic cirrhosis type, unspecified whether ascites present (CMS/HCC) VITAMIN D 25 HYDROXY Routine 01/27/2025 11:01 AM CDT Hepatic cirrhosis, unspecified hepatic cirrhosis type, unspecified whether ascites present (CMS/HCC) Chronic fatigue PROTIME-INR Routine 01/27/2025 11:01 AM CDT Hepatic cirrhosis, unspecified hepatic cirrhosis type, unspecified whether ascites present (CMS/HCC) CISCO SCREEN W/REFLEX Routine 01/27/2025 1 1:01 AM CDT Hepatic cirrhosis, unspecified hepatic cirrhosis type, unspecified whether ascites present (CMS/HCC) GGT Routine 01/27/2025 11:01 AM CDT Hepatic cirrhosis, unspecified hepatic cirrhosis type, unspecified whether ascites present (CMS/HCC) FERRITIN Routine 01/27/2025 11:01 AM CDT Hepatic cirrhosis, unspecified hepatic cirrhosis type, unspecified whether ascites present (CMS/HCC) H/O esophageal varices Chronic fatigue COMPREHENSIVE METABOLIC PANEL Routine 01/27/2025 11:01 AM CDT Hepatic cirrhosis, unspecified hepatic cirrhosis type, unspecified whether ascites present (CMS/HCC) documented in this encounter Results * (ABNORMAL) VITAMIN D 25 HYDROXY (01/27/2025 11:01 AM CDT) Pathologist [facility] VITAMIN D, 25 OH, TOTAL 23(L) 30 - 100 ng/mL [facility] Comment: Vitamin D Status 25-OH Vitamin D: Deficiency: <20 ng/mL Insufficiency: 20 - 29 ng/mL Optimal: > or = 30 ng/mL For 25-OH Vitamin D testing on patients on D2-supplementation and patients for whom quantitation of D2 and D3 fractions is required, the [facility] 25-OH VIT D, (D2,D3), LC/MS/MS is recommended: order code 12211 (patients >2yrs). See Note 1 Note 1 For additional information, please refer to http://education.Triptelligent.Equiphon/faq/PAL973 (This link is being provided for informational/ educational purposes only.) FASTING:NO FASTING: NO Test Performed at: [facility] [address] [place] [address] Cliff Villa MD Blood 01/27/2025 11:0 1 AM CDT 01/27/2025 11:01 AM CDT us Elvira L Orozco MOTEL KEEPER CHEMISTRY ORDERABLES Final R esult [facility] [phone] [facility] [address] [place] [address] [place] [address] * (ABNORMAL) IRON, TIBC, AND PERCENT SATURATION (01/27/2025 11:01 AM CDT) IRON 37(L) 45 - 160 mcg/dL [facility] TIBC 296 250 - 450 mcg/dL (calc) [facility] IRON % SATURATION 13(L) 16 - 45 % (calc) [facility] Comment: FASTING:NO FASTING: NO Test Performed at: [address] [place] [address] Cliff Villa MD Blood 01/27/2025 11:0 1 AM CDT 01/27/2025 11:01 AM CDT us Elvira L Orozco MOTEL KEEPER CHEMISTRY ORDERABLES Final R esult Performing Organization Address City/[facility]/ZIP Co de Phone Number [facility] [phone] [facility] [address] [place] [address] * FERRITIN (01/27/2025 11:01 AM CDT) FERRITIN 170 16 - 288 ng/mL [facility] Comment: Test Performed at: [facility] [address] [place] [address] Cliff Villa MD Blood 01/27/2025 11:0 1 AM CDT 01/27/2025 11:01 AM CDT us Elvira L Orozco MOTEL KEEPER CHEMISTRY ORDERABLES Final R esult [facility] [phone] [facility] [address] [place] [address], [place] [address] * (ABNORMAL) CBC WITH DIFFERENTIAL (01/27/2025 11:01 AM CDT) WBC 5.6 3.8 - 10.8 Thousand/u L [facility] RBC 4.76 3.80 - 5.10 Million/uL [facility] HEMOGLOBIN 14.9 11.7 - 15.5 g/dL [facility] HEMATOCRIT 47.4(H) 35.0 - 45.0 % [facility] MCV 99.6 80.0 - 100.0 fL [facility] MCH 31.3 27.0 - 33.0 pg [facility] MCHC 31.4(L) 32.0 - 36.0 g/dL [facility] Comment: For adults, a slight decrease in the calculated MCHC value (in the range of 30 to 32 g/dL) is most likely not clinically significant; however, it should be interpreted with caution in correlation with other red cell parameters and the patient's clinical condition. RDW 15.2(H) 11.0 - 15.0 % [facility] PLATELETS 102(L) 140 - 400 Thousand/u L [facility] MPV 12.3 7.5 - 12.5 fL [facility] NEUTROPHIL ABSOLUTE 3,550 1,500 - 7,800 cells/uL [facility] LYMPHOCYTE ABSOLUTE 1,198 850 - 3,900 cells/uL [facility] MONOCYTE ABSOLUTE 616 200 - 950 cells/uL [facility] EOSINOPHIL ABSOLUTE 174 15 - 500 cells/uL [facility] BASOPHILS ABSOLUTE 62 0 - 200 cells/uL [facility] NEUTROPHIL 63.4 % [facility] LYMPHOCYTES 21.4 % [facility] MONOCYTE 11.0 % [facility] EOSINOPHILS 3.1 % [facility] BASOPHILS 1.1 % [facility] Comment: FASTING:NO FASTING: NO Test Performed at: [facility] [address] [place] [address] Alessio Welsh Blood 01/27/2025 11:0 1 AM CDT 01/27/2025 11:01 AM CDT us Elvira Orozco NP HEMATOLOGY ORDERABLES Final Result [facility] [phone] [facility] [address] [place] [address] * (ABNORMAL) COMPREHENSIVE METABOLIC PANEL (01/27/2025 11:01 AM CDT) GLUCOSE 105 65 - 139 mg/dL [facility] Comment: Non-fasting reference interval BUN 22 7 - 25 mg/dL [facility] CREATININE 1.08(H) 0.60 - 1.00 mg/dL [facility] GFR 53(L) > OR = 60 mL/min/1.7 3m2 [facility] BUN/CREAT RATIO 20 6 - 22 (calc) [facility] SODIUM 138 135 - 146 mmol/L [facility] POTASSIUM 4.5 3.5 - 5.3 mmol/L [facility] CHLORIDE 102 98 - 110 mmol/L [facility] CO2 30 20 - 32 mmol/L [facility] CALCIUM 9.0 8.6 - 10.4 mg/dL [facility] TOTAL PROTEIN 8.1 6.1 - 8.1 g/dL [facility] ALBUMIN 3.9 3.6 - 5.1 g/dL [facility] GLOBULIN 4.2(H) 1.9 - 3.7 g/dL (calc) [facility] ALBUMIN/GLOBULIN RATIO 0.9(L) 1.0 - 2.5 (calc) [facility] BILIRUBIN TOTAL 1.2 0.2 - 1.2 mg/dL [facility] ALKALINE PHOSPHATASE 150 37 - 153 U/L [facility] AST 85(H) 10 - 35 U/L [facility] ALT 41(H) 6 - 29 U/L [facility] Comment: FASTING:NO FASTING: NO Test Performed at: [facility] [address] [place] [address] Alessio Shila Anitha Blood 01/27/2025 11:0 1 AM CDT 01/27/2025 11:01 AM CDT us Elvira Orozco NP CHEMISTRY ORDERABLES Final R esult Performing Organization Address City/[facility] de Phone Number [facility] [phone] [facility] [address] [place] [address] * (ABNORMAL) PROTIME-INR (01/27/2025 11:01 AM CDT) INR 1.4(H) [facility] Comment: Reference Range 0.9-1.1 Moderate-intensity Warfarin Therapy 2.0-3.0 Higher-intensity Warfarin Therapy 3.0-4.0 PROTIME 14.2(H) 9.0 - 11.5 sec [facility] Comment: For additional information, please refer to http://education.Nveloped/faq/LNL923 (This link is being provided for informational/ educational purposes only.) FASTING:NO FASTING: NO Test Performed at: [facility] [facility] [address] [place] [address] Alessio Shila Braney Blood 01/27/2025 11:0 1 AM CDT 01/27/2025 11:01 AM CDT Elvira Orozco MOTEL KEEPER HEMATOLOGY ORDERABLES Final Result Performing Organization Address [facility] Co de Phone Number [facility] [phone] [facility] [address] [facility], [place] [address] * LIVER KIDNEY MICROSOMAL ANTIBODY (01/27/2025 11:01 AM CDT) LIVER KIDNEY MICROSOMAL AB <=20.0 <=20.0 U [facility] Comment: Reference Range: <=20.0 Negative 20.1-24.9 Equivocal >=25.0 Positive Anti-liver/kidney microsomal antibodies (Anti-LKM-1) were previously tested by indirect immunofluorescence (IF) using rodent liver/kidney substrate. Identification of a specific antibody target as cytochrome P450 IID6 has led to the current recombinant based DB. Antibodies to this cytochrome are present in approximately 70% of patients with autoimmune hepatitis type 2. This antibody is also present in approximately 10% of patients with hepatitis C infection. FASTING:NO FASTING: NO Test Performed at: [facility] [address] [facility] [place] [place] Adis Storey M.D.,PhD Blood 01/27/2025 11:0 1 AM CDT 01/27/2025 11:01 AM CDT Elvira L Orozco MOTEL KEEPER CHEMISTRY ORDERABLES Final R esult Performing Organization Address [facility] Co de Phone Number [facility] [phone] [facility] [employer] [address] [facility] [place] * (ABNORMAL) GGT (01/27/2025 11:01 AM CDT) GGT 115(H) 3 - 65 U/L [facility] Comment: Test Performed at: [facility] [address] [place] [address] Cliff Villa MD Blood 01/27/2025 11:0 1 AM CDT 01/27/2025 11:01 AM CDT [facility] MOTEL KEEPER CHEMISTRY ORDERABLES Final R esult Performing Organization Address City/State/[facility] Co de Phone Number [facility] [phone] [facility] [address] [facility] [place] [address] * F-ACTIN IGG (01/27/2025 11:01 AM CDT) SMOOTH MUSCLE AB (ACTIN) IGG <20 <20 U [facility] Comment: Reference Range: <20 U: Negative >or=20 U: Positive Antibodies recognizing actin are the main component of smooth muscle antibodies associated with auto- immune liver disease. Actin antibodies are found in approximately 75% of patients with autoimmune hepatitis (AIH) type 1, approximately 65% of patients with autoimmune cholangitis, approximately 30% of patients with primary biliary cirrhosis and approximately 2% of healthy controls. High values are closely correlated with AIH type 1. FASTING:NO FASTING: NO Test Performed at: [facility] [address] [place] Adis Storey M.D.,PhD Blood 01/27/2025 11:0 1 AM CDT 01/27/2025 11:01 AM CDT [facility] MOTEL KEEPER CHEMISTRY ORDERABLES Final R esult Performing Organization Address City/[facility] Co de Phone Number [facility] [phone] [facility] [address] [place] * CERULOPLASMIN (01/27/2025 11:01 AM CDT) CERULOPLASMIN 28 14 - 48 mg/dL [facility] Comment: FASTING:NO FASTING: NO Test Performed at: [facility] [address] [facility] [place] [address] Cliff Villa MD Blood 01/27/2025 11:0 1 AM CDT 01/27/2025 11:01 AM CDT Elvira Barrera Orozco MOTEL KEEPER CHEMISTRY ORDERABLES Final R esult Performing Organization Address City/[facility]/ZIP Co de Phone Number [facility] [phone] [facility] [address] [facility] [place] [address] * CISCO SCREEN W/REFLEX (01/27/2025 11:01 AM CDT) Pathologist [facility] CISCO SCREEN NEGATIVE NEGATIVE [facility] [place] Comment: CISCO IFA is a first line screen for detecting the presence of up to approximately 150 autoantibodies in various autoimmune diseases. A negative CISCO IFA result suggests an CISCO-associated autoimmune disease is not present at this time, and does not reflex further. If there is high clinical suspicion for Sjogren's syndrome, testing for anti-SS-A/Ro antibody should be considered. Anti-Casi-1 antibody should be considered for clinically suspected inflammatory myopathies. AC-0: Negative International Consensus on CISCO Patterns (https://doi.org/10.1515/ythv-7373-2839) For additional information, please refer to http://education.Upower/faq/FBE096 (This link is being provided for informational/ educational purposes only.) FASTING:NO FASTING: NO Test Performed at: [address] [place] [address] Cliff Villa MD Blood 01/27/2025 11:0 1 AM CDT 01/27/2025 11:01 AM CDT Elvira Barrera Orozco MOTEL KEEPER CHEMISTRY ORDERABLES Final R esult [facility] [phone] [facility] [address] [facility] [place] [address] * (ABNORMAL) ALPHA FETOPROTEIN TUMOR MARKER (01/27/2025 11:01 AM CDT) Pathologist [facility] ALPHA FETOPROTEIN TUMOR MARKER 506414.0(H ) ng/mL [facility] [place] Comment: Reference Range: <6.1 The use of AFP as a tumor marker in females is not recommended. This test was performed using the Viviane Zane chemiluminescent method. Values obtained from different assay methods cannot be used interchangeably. AFP levels, regardless of value, should not be interpreted as absolute evidence of the presence or absence of disease. FASTING:NO FASTING: NO Test Performed at: [facility] [address] Demetrio Hannon Blood 01/27/2025 11:0 1 AM CDT 01/27/2025 11:01 AM CDT [facility] MOTEL KEEPER CHEMISTRY ORDERABLES Final [facility] Performing Organization Address City/[facility]/ZIP Co de Phone Number [facility] [phone] [facility] [employer] [address] * ALPHA 1 ANTITRYPSIN (01/27/2025 11:01 AM CDT) Pathologist [facility] ALPHA 1 ANTITRYPSIN 174 83 - 199 mg/dL [facility] Comment: Test Performed at: [facility] [address] [place] [address] Cliff Villa MD Blood 01/27/2025 11:0 1 AM CDT 01/27/2025 11:01 AM CDT [facility] MOTEL KEEPER CHEMISTRY ORDERABLES Final R [facility] [phone] [facility] [address] [facility] [place] [address] * ACUTE HEPATITIS PANEL (01/27/2025 11:01 AM CDT) Pathologist [facility] HEPATITIS A IGM NON-REACTI VE NON-REACT TAWNYA [facility] Comment: For additional information, please refer to http://education.BioTrove.Equiphon/faq/NHP754 (This link is being provided for informational/ educational purposes only.) HEPATITIS B SURFACE AG NON-REACTI VE NON-REACT TAWNYA [facility] Comment: For additional information, please refer to http://Client24/faq/TEY338 (This link is being provided for informational/ educational purposes only.) HEPATITIS B CORE IGM NON-REACTI VE NON-REACT TAWNYA [facility] Comment: For additional information, please refer to http://Client24/faq/MXT256 (This link is being provided for informational/ educational purposes only.) HEPATITIS C AB NON-REACTI VE NON-REACT TAWNYA [facility] Comment: HCV antibody was non-reactive. There is no laboratory evidence of HCV infection. In most cases, no further action is required. However, if recent HCV exposure is suspected, a test for HCV RNA (test code 85347) is suggested. For additional information please refer to http://Client24/faq/OQK48j6 (This link is being provided for informational/ educational purposes only.) FASTING:NO FASTING: NO Test Performed at: [facility] [address] [place] [address] Cliff Villa MD Blood 01/27/2025 11:0 1 AM CDT 01/27/2025 11:01 AM CDT Elvira Orozco MOTEL KEEPER CHEMISTRY ORDERABLES Final R esult [facility] [phone] [facility] [address] [place] [address] documented in this encounter Visit Diagnoses Diagnosis Hepatic cirrhosis, unspecified hepatic cirrhosis type, unspecified whether ascites present (CMS/HCC)- Primary H/O gallbladder cancer Personal history of malignant neoplasm of other site in gastrointestinal tract H/O esophageal varices Personal history of other diseases of digestive system Nausea Nausea alone Chronic fatigue Other malaise and fatigue documented in this encounter Care Teams Repacker Relationship Specialty Start Date End Date Ihsan Velásquez DO [address] [phone] PCP - General Internal Medicine 06/05/23 documented as of this encounter
--- OUTSIDE RECORDS SUMMARY | 2025-02-01 08:48 | XMS_ITS | Encounter Summary ---
Author Organization [facility] Address [address] [place] [address] Care Team Providers Care Contact Finger Assembler Name Role Phone Ihsan Velásquez DO Primary Care Provide r Encounter Details Date Type Department Care Team (Late st Contact Info) Description 01/29/[address] [address] Belkys Willingham RN Social History Tobacco Use Types Packs/Day Years [...] on file documented as of this encounter Plan of Treatment Upcoming Encounters Date Type Department Care Team (Late st Contact Info) Description 03/19/2025 11:30 AM NARROW GAUGE ENGINEER Appointment [facility] [address] [place] [address] Israel Segovia MD [address] [place] [address] 07/28/2025 1:30 PM CDT Office Visit [address] [address] Elvira Orozco NP [address] [address] documented as of this encounter Visit Diagnoses Not on filedocumented in this encounter Care Teams Contact Finger Assembler Relationship Specialty Start Date End Date Ihsan Velásquez DO [address] [address] PCP - General Internal Medicine 06/05/23 documented as of this encounter
--- OUTSIDE RECORDS SUMMARY | 2025-02-01 08:48 | XMS_ITS | Clinical Summary ---
Author Organization [facility] de Address [address] [place] [address] Phone Care Team Providers Care Skin Lifter Bacon Name Role Phone Ihsan Velásquez Primary Care Provide r Allergies Active Allergy Reactions Criticality Noted Date Comments Acetaminophen Other (See Comments) 01/27/2025 Aspirin Abdominal Pain Low 05/31/2023 Medications amoxicillin (AMOXIL) 500 mg capsule Take 500 mg by mouth 2 times daily. Active clarithromycin (BIAXIN XL) 500 mg Extended Release 24 hour tablet Take 500 mg by mouth 2 times daily. Active sucralfate (CARAFATE) 1 gram tablet Take 1 Gram by mouth 2 times daily. Active pantoprazole (PROTONIX) 40 mg Tablet, Delayed Release (E.C.) Take 40 mg by mouth 2 times daily. Active ALPRAZolam (XANAX XR) 0.5 mg Extended Release 24 hour tablet Take 0.5 mg by mouth 3 times daily. Active digoxin (LANOXIN) 125 mcg (0.125 mg) tablet Take 125 mcg by mouth daily. Active FLUTICASONE PROPION-SALMETER OL INHALATION Take by inhalation. Active magnesium oxide 250 mg magnesium Tablet Take 250 mg by mouth daily. Active montelukast (SINGULAIR) 10 mg tablet Take 10 mg by mouth daily at bedtime. Active potassium chloride (KLOR-CON) 8 mEq Extended Release tablet Take 8 mEq by mouth daily. Active sotaloL (BETAPACE) 120 mg Tablet Take 120 mg by mouth 2 times daily. Active hydroCHLOROthiaz jorge 12.5 mg tablet Take 12.5 mg by mouth daily. Active losartan (COZAAR) 25 mg tablet Take 25 mg by mouth daily. Active amLODIPine (NORVASC) 2.5 mg tablet Take 2.5 mg by mouth daily. Active oxyCODONE (ROXICODONE) 10 mg tablet Take 10 mg by mouth every 8 hours as needed for Pain, Severe (Pt TAKES EVERY 6 HOURS). 4 Active Eliquis 5 mg tablet Take 1 Tablet by mouth 2 times daily. 4 Active fluticasone propionate (FLONASE) 50 mcg/spray [place], Suspension nasal inhaler Administer 1 [place] in each nostril daily. 4 Active polyethylene glycol 3350 (MIRALAX) 17 gram/dose Powder Take 17 Grams by mouth one time only. 4 Active ferrous sulfate (FeroSuL) 325 mg (65 mg iron) tabletIndication s:Iron deficiency anemia, unspecified iron deficiency anemia type Take 1 Tablet (325 mg) by mouth daily. 90 Tablet 1 5 Active ondansetron (ZOFRAN ODT) 4 mg Tablet, Rapid DissolveIndicati ons:Nausea Take 1 Tablet (4 mg) by mouth every 6 hours as needed for Nausea/Emesis. Dissolve tablet on top of tongue, then swallow with saliva. 30 Tablet 3 5 Active Active Problems No known active problems Encounters Date Type Department Care Team Description 01/29/2025 Abstract [facility] [address] Belkys Willingham RN 01/28/2025 External Device Data [facility] ABSTRACTION Provider, Abstract 01/27/2025 10:00 AM CDT Office Visit [facility] [address] Elvira Orozco, ALISSA Hepatic cirrhosis, unspecified hepatic cirrhosis type, unspecified whether ascites present (CMS/HCC) (Primary Dx); H/O gallbladder cancer; H/O esophageal varices; Nausea; Chronic fatigue 11/27/2024 External Device Data [facility] ABSTRACTION Provider, Abstract 11/26/2024 External Device Data [facility] ABSTRACTION Provider, Abstract 11/05/2024 External Device Data [facility] ABSTRACTION Provider, Abstract from Last 3 Months Social History Tobacco Use Types Packs/Day Years Used Date Smoking Tobacco: Some Days Cigarettes Tobacco Cessation:Ready to Q uit: Not Asked; Counseling Given: Not Answered Alcohol Use Standard Drinks/Week Comments Never 0 (1 standard drink = 0.6 oz pur e alcohol) Comments No Sex and Gender Information Value Date Recorded Sex Assigned at Not on file Legal Sex Female 8:56 AM CDT Gender Identity Not on file Sexual Orientation Not on file Last Filed Vital Signs Vital Sign Reading Time Taken Comments Blood Pressure 112/65 01/27/2025 9:43 AM CDT Pulse 52 01/27/2025 9:43 AM CDT Temperature 36.9 C (98.5 F) 02/09/2024 2:45 PM CDT Respiratory Rate 16 02/09/2024 2:45 PM CDT Oxygen Saturation 96% 02/09/2024 2:45 PM CDT Inhaled Oxygen Concentration - - Weight 122 kg (269 lb) 01/27/2025 9:43 AM CDT Height 170.2 cm (5' 7 ) 01/27/2025 9:43 AM CDT Body Mass Index 42.13 01/27/2025 9:43 AM CDT Plan of Treatment Upcoming Encounters Date Type Department Care Team (Late st Contact Info) Description 03/19/2025 11:30 AM CAD DETAILER Appointment [facility] [address] [place] [id number] Israel Segovia MD [address] [place] [address] 07/28/2025 1:30 PM CDT Office Visit [facility]- [place] [address] [address] Elvira Orozco NP [address] [facility] [address] [place] [address] Health Maintenance Due Date Last Done Comments DIABETES ANNUAL FOOT EXAM 1966 DIABETES ANNUAL RETINAL EXAM 1966 DIABETES MICROALBUMIN ANNUAL SCREEN 1966 LDL CHOLESTEROL ANNUAL 1966 DTAP/TDAP/TD VACCINES (1 - Tdap) 1967 Traditional Medicare (ACO) A nnual Wellness Visit 1967 ZOSTER VACCINE (1 of 2) 1998 OSTEOPOROSIS SCREENING 2013 PNEUMOCOCCAL VACCINE 50+ YEA RS (3 of 3 - PCV20 or PCV21) 02/26/2020 02/25/2015, 04/04/2006 RSV VACCINE (60+ or ) (1 - 1-dose 75+ series) 2023 INFLUENZA VACCINE (#1) 2024 , 03/31/2021, 02/25/2015, Additional history exists COVID-19 Vaccine ( - 2024-2 6 season) 2025 04/14/2021, 07/28/2020, 06/30/2020 DIABETES HBA1C Q 6 MONTHS 02/20/20252024, 02/21/2024, 11/22/2023, Additional history exists COLORECTAL SCREENING Discontinued 05/24/2023 Colorectal Cancer Screening Discontinued FIT-DNA Q 3 years Discontinued FIT/FOBT Q 1 year Discontinued Flex Sig/CT Colonography Q 5 years Discontinued Procedures Procedure Name Priority Date/Time Associated Diagnosis Comments VITAMIN D 25 HYDROXY Routine 01/27/2025 11:01 AM CDT Hepatic cirrhosis, unspecified hepatic cirrhosis type, unspecified whether ascites present (CMS/HCC) Chronic fatigue IRON, TIBC, AND PERCENT SATURATION Routine 01/27/2025 11:01 AM CDT Hepatic cirrhosis, unspecified hepatic cirrhosis type, unspecified whether ascites present (CMS/HCC) H/O esophageal varices Chronic fatigue FERRITIN Routine 01/27/2025 11:01 AM CDT Hepatic cirrhosis, unspecified hepatic cirrhosis type, unspecified whether ascites present (CMS/HCC) H/O esophageal varices Chronic fatigue CBC WITH DIFFERENTIAL Routine 01/27/2025 11:01 AM CDT Hepatic cirrhosis, unspecified hepatic cirrhosis type, unspecified whether ascites present (CMS/HCC) COMPREHENSIVE METABOLIC PANEL Routine 01/27/2025 11:01 AM CDT Hepatic cirrhosis, unspecified hepatic cirrhosis type, unspecified whether ascites present (CMS/HCC) PROTIME-INR Routine 01/27/2025 11:01 AM CDT Hepatic cirrhosis, unspecified hepatic cirrhosis type, unspecified whether ascites present (CMS/HCC) LIVER KIDNEY MICROSOMAL ANTIBODY Routine 01/27/2025 11:01 AM CDT Hepatic cirrhosis, unspecified hepatic cirrhosis type, unspecified whether ascites present (CMS/HCC) GGT Routine 01/27/2025 11:01 AM CDT Hepatic cirrhosis, unspecified hepatic cirrhosis type, unspecified whether ascites present (CMS/HCC) F-ACTIN IGG Routine 01/27/2025 11:01 AM CDT Hepatic cirrhosis, unspecified hepatic cirrhosis type, unspecified whether ascites present (CMS/HCC) CERULOPLASMIN Routine 01/27/2025 11:01 AM CDT Hepatic [...] cirrhosis type, unspecified whether ascites present (CMS/HCC) from Last 3 Months Results * F-ACTIN IGG (01/27/2025 11:01 AM CDT) SMOOTH MUSCLE AB (ACTIN) IGG <20 <20 U [facility] Comment: Reference Range: <20 U: Negative >or=20 [...] 1. FASTING:NO FASTING: NO Test Performed at: [facility] [address] [facility] [place], [place] Adis Storey M.D.,PhD Blood 01/27/2025 11:0 1 AM CDT 01/27/2025 11:01 AM CDT us Elvira Orozco FIRE TECHNOLOGY INSTRUCTOR CHEMISTRY ORDERABLES Final R esult [facility] [phone] [facility] [address] [facility] [place], [place] * ACUTE HEPATITIS PANEL (01/27/2025 11:01 AM CDT) HEPATITIS A IGM NON-REACTI VE NON-REACT TAWNYA [facility] Comment: For additional information, please refer to http://CompassMD.Volly/faq/XOD663 (This link is being provided for informational/ educational purposes only.) HEPATITIS B SURFACE AG NON-REACTI VE NON-REACT TAWNYA [facility] Comment: For additional information, please refer to http://CompassMD.Volly/faq/FXF702 (This link is being provided for informational/ educational purposes only.) HEPATITIS B CORE IGM NON-REACTI VE NON-REACT TAWNYA [facility] Comment: For additional information, please refer to http://CompassMD.Volly/faq/GFV012 (This link is being provided for informational/ educational purposes only.) HEPATITIS C AB NON-REACTI VE NON-REACT TAWNYA [facility] Comment: HCV antibody was non-reactive. There is no laboratory evidence of HCV infection. In most cases, no further action is required. However, if recent HCV exposure is suspected, a test for HCV RNA (test code 26822) is suggested. For additional information please refer to http://education.Volly/faq/CXH99k3 (This link is being provided for informational/ educational purposes only.) FASTING:NO FASTING: NO Test Performed at: [facility] [address] [facility] [place] [address] Cliff Villa MD Blood 01/27/2025 11:0 1 AM CDT 01/27/2025 11:01 AM CDT Elvira Orozco FIRE TECHNOLOGY INSTRUCTOR CHEMISTRY ORDERABLES Final R esult [facility] [phone] [facility] [address] [place] [address] * LIVER KIDNEY MICROSOMAL ANTIBODY (01/27/2025 11:01 AM CDT) LIVER KIDNEY MICROSOMAL AB <=20.0 <=20.0 U [facility] Comment: Reference Range: <=20.0 Negative 20.1-24.9 [...] infection. FASTING:NO FASTING: NO Test Performed at: [facility] [address] [facility] [place] [address] Adis Storey M.D.,PhD Blood 01/27/2025 11:0 1 AM CDT 01/27/2025 11:01 AM CDT Elvira Orozco FIRE TECHNOLOGY INSTRUCTOR CHEMISTRY ORDERABLES Final R esult Performing Organization Address [facility] Co de Phone Number [facility] [phone] [facility]/[place] [address] [facility] [place] [address] * (ABNORMAL) IRON, TIBC, AND PERCENT SATURATION (01/27/2025 11:01 AM CDT) IRON 37(L) 45 - 160 mcg/dL [facility] TIBC 296 250 - 450 mcg/dL (calc) [facility] IRON % SATURATION 13(L) 16 - 45 % (calc) [facility] Comment: FASTING:NO FASTING: NO Test Performed at: [facility] [address] [place] [address] Cliff Villa MD Blood 01/27/2025 11:0 1 AM CDT 01/27/2025 11:01 AM CDT Elvira Orozco FIRE TECHNOLOGY INSTRUCTOR CHEMISTRY ORDERABLES Final R [facility] Performing Organization Address [facility] Co de Phone Number [facility] [phone] [facility] [address] [place] [address] * CERULOPLASMIN (01/27/2025 11:01 AM CDT) CERULOPLASMIN 28 14 - 48 mg/dL [facility] Comment: FASTING:NO FASTING: NO Test Performed at: [facility] [address] [place] [address] Cliff Villa MD Blood 01/27/2025 11:0 1 AM CDT 01/27/2025 11:01 AM CDT Elvira Orozco FIRE TECHNOLOGY INSTRUCTOR CHEMISTRY ORDERABLES Final R esult Performing Organization Address City/[facility] Co de Phone Number [facility] [phone] [facility] [address] [place] [address] * ALPHA 1 ANTITRYPSIN (01/27/2025 11:01 AM CDT) Pathologist [facility] ALPHA 1 ANTITRYPSIN 174 83 - 199 mg/dL [facility] Comment: Test Performed at: [facility] [address] [place] [address] Cliff Villa MD Blood 01/27/2025 11:0 1 AM CDT 01/27/2025 11:01 AM CDT Elvira L Orozco FIRE TECHNOLOGY INSTRUCTOR CHEMISTRY ORDERABLES Final R [facility] Performing Organization Address [facility] de Phone Number [facility] [phone] [facility] [address] [place] [address] * (ABNORMAL) ALPHA FETOPROTEIN TUMOR MARKER (01/27/2025 11:01 AM CDT) Pathologist [facility] ALPHA FETOPROTEIN TUMOR MARKER 512469.0(H ) ng/mL [facility] [place] Comment: Reference Range: <6.1 The use of AFP as a tumor marker in females is not recommended. This test was performed using the Viviane Malden chemiluminescent method. Values obtained from different assay methods cannot be used interchangeably. AFP levels, regardless of value, should not be interpreted as absolute evidence of the presence or absence of disease. FASTING:NO FASTING: NO Test Performed at: [facility] [address] Demetrio Hannon Blood 01/27/2025 11:0 1 AM CDT 01/27/2025 11:01 AM CDT us Elvira L Orozco FIRE TECHNOLOGY INSTRUCTOR CHEMISTRY ORDERABLES Final R [facility] Performing Organization Address [facility] Co de Phone Number [facility] [phone] [facility] [address] [place] [address] * (ABNORMAL) CBC WITH DIFFERENTIAL (01/27/2025 11:01 [...] Comment: FASTING:NO FASTING: NO Test [facility]formed [facility]: [facility] [address] [place] [address] Alessio Shila Welsh Blood 01/27/2025 11:0 1 AM CDT 01/27/2025 11:01 AM CDT us Elvira L Orozco FIRE TECHNOLOGY INSTRUCTOR HEMATOLOGY ORDERABLES Final Result Performing Organization Address City/[facility]/ZIP Co de Phone Number [facility] [phone] [facility] [address] [place] [address] * (ABNORMAL) VITAMIN D 25 HYDROXY (01/27/2025 11:01 AM CDT) Pathologist [facility] VITAMIN D, 25 OH, TOTAL 23(L) 30 - 100 ng/mL [facility] Comment: Vitamin D Status 25-OH Vitamin D: Deficiency: <20 ng/mL Insufficiency: 20 - 29 ng/mL Optimal: > or = 30 ng/mL For 25-OH Vitamin D testing on patients on D2-supplementation and patients for whom quantitation of D2 and D3 fractions is required, the [facility](TM) 25-OH VIT D, (D2,D3), LC/MS/MS is recommended: order code 17659 (patients >2yrs). See Note 1 Note 1 For additional information, please refer to http://education.Galapagos/faq/YHY408 (This link is being provided for informational/ educational purposes only.) FASTING:NO FASTING: NO Test Performed at: [facility] [address] [place] [address] Cliff Villa MD Blood 01/27/2025 11:0 1 AM CDT 01/27/2025 11:01 AM CDT us Elvira Orozco FIRE TECHNOLOGY INSTRUCTOR CHEMISTRY ORDERABLES Final R esult [facility] [phone] [facility] [address] [place] [address] * (ABNORMAL) PROTIME-INR (01/27/2025 11:01 AM CDT) Pathologist [facility] INR 1.4(H) [facility] Comment: Reference Range 0.9-1.1 Moderate-intensity Warfarin Therapy 2.0-3.0 Higher-intensity Warfarin Therapy 3.0-4.0 PROTIME 14.2(H) 9.0 - 11.5 sec [facility] Comment: For additional information, please refer to http://CompassMD.Volly/faq/DIK383 (This link is being provided for informational/ educational purposes only.) FASTING:NO FASTING: NO Test Performed at: [facility] [address] [place] [address] Alessio Welsh Blood 01/27/2025 11:0 1 AM CDT 01/27/2025 11:01 AM CDT Elvira Orozco FIRE TECHNOLOGY INSTRUCTOR HEMATOLOGY ORDERABLES Final Result [facility] [phone] [facility] [address] [place] [address] * CISCO SCREEN W/REFLEX (01/27/2025 11:01 AM CDT) [facility] CISCO SCREEN NEGATIVE NEGATIVE [facility] Comment: CISCO IFA is a first line [...] AC-0: Negative International Consensus on CISCO Patterns (https://doi.org/10.1515/qnzr-6506-8828) For additional information, please refer to http://education.Galapagos/faq/FDE675 (This link is being provided for informational/ educational purposes only.) FASTING:NO FASTING: NO Test Performed at: [facility] [address] Cliff Villa MD Blood 01/27/2025 11:0 1 AM CDT 01/27/2025 11:01 AM CDT Elvira L Orozco FIRE TECHNOLOGY INSTRUCTOR CHEMISTRY ORDERABLES Final R esult Performing Organization Address City/[facility]/ZIP Co de Phone Number [facility] [phone] [address] * (ABNORMAL) GGT (01/27/2025 11:01 AM CDT) GGT 115(H) 3 - 65 U/L [facility] Comment: Test Performed at: [facility] [address] MaryLashay Villa MD Blood 01/27/2025 11:0 1 AM CDT 01/27/2025 11:01 AM CDT Elvira L Orozco FIRE TECHNOLOGY INSTRUCTOR CHEMISTRY ORDERABLES Final R esult Performing Organization Address City/[facility]/ZIP Co de Phone Number [facility] [phone] [address] * FERRITIN (01/27/2025 11:01 AM CDT) FERRITIN 170 16 - 288 ng/mL [facility] Comment: Test Performed at: [facility] [address] MaryLashay Villa MD Blood 01/27/2025 11:0 1 AM CDT 01/27/2025 11:01 AM CDT Elvira L Orozco FIRE TECHNOLOGY INSTRUCTOR CHEMISTRY ORDERABLES Final R esult [facility] [phone] [facility] [place] [place] [address] [place] [address] * (ABNORMAL) COMPREHENSIVE METABOLIC PANEL (01/27/2025 11:01 AM CDT) GLUCOSE 105 65 - 139 mg/dL [facility] Comment: Non-fasting reference interval BUN 22 7 - 25 mg/dL [facility] CREATININE 1.08(H) 0.60 - 1.00 mg/dL [facility] GFR 53(L) > OR = 60 mL/min/1.[address] [facility] BUN/CREAT RATIO 20 6 - 22 (calc) [facility] SODIUM 138 135 - 146 mmol/L [facility] POTASSIUM 4.5 3.5 - 5.3 mmol/L [facility] RR CHLORIDE 102 98 - 110 mmol/L [facility] CO2 30 20 - 32 mmol/L [facility] CALCIUM 9.0 8.6 - 10.4 mg/dL [facility] TOTAL PROTEIN 8.1 6.1 - 8.1 g/dL [facility] ALBUMIN 3.9 3.6 - 5.1 g/dL [facility] GLOBULIN 4.2(H) 1.9 - 3.7 g/dL (calc) [facility] ALBUMIN/GLOBULIN RATIO 0.9(L) 1.0 - 2.5 (calc) [facility] BILIRUBIN TOTAL 1.2 0.2 - 1.2 mg/dL [facility] ALKALINE PHOSPHATASE 150 37 - 153 U/L [facility] AST 85(H) 10 - 35 U/L [facility] ALT 41(H) 6 - 29 U/L [facility] Comment: FASTING:NO FASTING: NO Test Performed at: [facility] [address] [place] [address] Alessio Welsh Blood 01/27/2025 11:0 1 AM CDT 01/27/2025 11:01 AM CDT us Elvira L Orozco FIRE TECHNOLOGY INSTRUCTOR CHEMISTRY ORDERABLES Final R esult [facility] [phone] [facility] [address] [place] [address] from Last 3 Months Insurance MEDICARE PART A AND B [place]ICAID [place] Care Teams Skin Lifter Bacon Relationship Specialty Start Date End Date Ihsan Velásquez DO [address] [place] [address] PCP - General Internal Medicine 06/05/23
--- OUTSIDE RECORDS SUMMARY | 2025-02-01 08:48 | XMS_ITS | Patient Health Record ---
Author Organization [facility] Address [address] [place] [address] Care Team Providers Care Assistant Women'S Soccer Coach Name Role Phone Godfrey Pastor Primary Care Provider UnavailJuan Drummond Unavailable Allergies Allergen (clinical drug ingredient) Drug/Non Drug Allergy documented on EMR Reaction Allergy Type Onset Date Status Substance with 7-fdsuqgo-5-methylgluta ryl-coenzyme A reductase inhibitor mechanism of action (substance) Statins Unknown Drug Allergy Active Reason For Referral No Information Medications Medication SIG (Take, Route, Frequency, Duration) Notes Start Date End Date Status ALPRAZolam 0.5 MG Tablet 1 tablet Orally Twice a day Active Eliquis 5 MG Tablet 1 tablet Orally Twic e a day Active Digoxin 125 MCG Tablet 1 tablet Orally Active hydroCHLOROthiazide 12.5 MG Capsule 1 capsule in the morning Orally Once a day Active oxyCODONE HCl 10 MG Tablet 1 tablet as n eeded Orally every 6 hrs; Duration: 30 days 09/27/2023 Active Losartan Potassium 25 MG Tablet 1 tablet Orally Once a day Active Flonase Allergy Relief 50 MCG/ACT Suspension 1 spray in each nostril Nasally Once a day Active Montelukast Sodium 10 MG Tablet 1 tablet Orally Once a day Active Magnesium Oxide 250 MG Tablet 1 tablet a s needed Orally Once a day Active Sotalol HCl 80 MG Tablet 1 tablet Orally every 12 hrs Active Pantoprazole Sodium 40 MG Tablet Delayed Release 1 tablet Orally Once a day Active Colace 100 MG Capsule 1 capsule as neede d Orally Once a day Active Amoxicillin-Pot Clavulanate 875-125 MG Tablet 1 tablet Orally every 12 hrs Active Problems Problem Type SNOMED Code ICD Code Onset Dates Problem Status W/U Status Risk Notes Problem Paroxysmal atrial fibrillation (323012964) Paroxysmal atrial fibrillation (I48.0) Active confirmed Problem Atherosclerosis of coronary artery without angina pectoris (233208201925791) Atherosclerosis of [place] coronary artery of [place] heart without angina pectoris (I25.10) Active confirmed Problem Cirrhosis - non-alcoholic (043195709) Hepatic cirrhosis, unspecified hepatic cirrhosis type, unspecified whether ascites present (K74.60) Active confirmed Plan Of Treatment No Information Insurance Providers Payer Name Payer Address Payer Phone Subscriber Number Group Number Insured Name Patient Relationship to Insured Coverage Start Date Coverage End Date [place] [address] [address] [place] [address] [phone] [id number] BRANDI ACOSTA Self - patient is the insured [place] Medicaid [address] [place] [address] [id number] BRANDI ACOSTA Self - patient is the insured
--- OUTSIDE RECORDS SUMMARY | 2025-02-01 08:48 | XMS_ITS | Encounter Summary ---
Author Organization [facility] Address [address] [place] [address] Care Team Providers Care Rpg Programmer Name Role Phone Ihsan Velásquez DO Primary Care Provide r Reason for Visit * Reason Onset Date Comments AJ 07/17/2023 Encounter Details Date Type Department Care Team (Late st Contact Info) Description 07/17/2023 Telephone [facility] Urology- [place] [address] Entrance [address], 3[address] [place] [address] Reema Montes PA [address] [place] [address] AJ Social History Tobacco Use Types Packs/Day Years Used Date Smoking Tobacco: Some Days Cigarettes Alcohol Use Standard Drinks/Week Comments Never 0 (1 standard drink = 0.6 oz pur e alcohol) Comments Unknown Sex and Gender Information Value Date Recorded Sex Assigned at Not on file Legal Sex Female 8:56 AM CDT Gender Identity Not on file Sexual Orientation Not on file documented as of this encounter Miscellaneous Notes * Telephone Encounter - Belkys Hunt - 07/20/2023 9:54 AM CST AJ PT calling back. Pt is wanting to schedule consult. LAY OUT WORKER * Telephone Encounter - Sara Barlow LPN - 07/18/2023 11:34 AM CST Left a message for the patient to return my call. LAY OUT WORKER * Telephone Encounter - Belkys Hunt - 07/17/2023 1:51 PM CST AJ Pt calling in and wants to know if surgery can be done [facility] or if it has to be in [place]. PT would be home by herself most everyday if surgery done in [place] and in [place] she has daughters that can take care of her. LAY OUT WORKER documented in this encounter Plan of Treatment Upcoming Encounters Date Type Department Care Team (Late st Contact Info) Description 03/19/2025 11:30 AM WELD LAY OUT WORKER Appointment [facility] [address] [place] [phone] Israel Segovia MD [address] [place] [address] 07/28/2025 1:30 PM CDT Office Visit [facility] Gastroenterology- [place] [address] [place] [address] Elvira Orozco, CREDENTIALER [address] [place] [address] documented as of this encounter Visit Diagnoses Not on filedocumented in this encounter Care Teams Rpg Programmer Relationship Specialty Start Date End Date Ihsan Velásquez DO [address] [facility] [address] [place] [address] PCP - General Internal Medicine 06/05/23 documented as of this encounter
--- OUTSIDE RECORDS SUMMARY | 2025-02-01 08:48 | XMS_ITS | Encounter Summary ---
Author Organization [facility] Address [address] [place] [address] Care Team Providers Care Bronzer Name Role Phone Ihsan Velásquez DO Primary Care Provide r Encounter Details Date Type Department Care Team (Late st Contact Info) Description 01/28/2025 External Device Data ST[place] ABSTRACTION Provider, Abstract NO ADDRESS ON FILE Social History Tobacco Use Types Packs/Day Years [...] st Contact Info) Description 03/19/2025 11:30 AM SOFTWOOD FALLER Appointment [facility] [address] [place] [phone] Israel Segovia MD [address] [place] [address] 07/28/2025 1:30 PM CDT Office Visit [facility] Gastroenterology- [place] [address] [address] Elvira Orozco NP [address] [facility] [address] [place] [address] documented as of this encounter Visit Diagnoses Not on filedocumented in this encounter Care Teams Bronzer Relationship Specialty Start Date End Date Ihsan Velásquez DO [address] [address] PCP - General Internal Medicine 06/05/23 documented as of this encounter
--- NOTE | 2025-02-01 08:53 | CTR_ITS ---
PROCEDURE INFORMATION: Exam: CT Abdomen And Pelvis With Contrast Exam date and time: 02/01/2025 9:47 AM Age: 74 years old Clinical indication: Abdominal pain; Prior surgery; Surgery date: 6+ months; Surgery type: Gb, hernia; Additional info: Abd pain TECHNIQUE: Imaging protocol: Computed tomography of the abdomen and pelvis with contrast. Radiation optimization: All CT scans at this facility use at least one of these dose optimization techniques: automated exposure control; mA and/or kV adjustment per patient size (includes targeted exams where dose is matched to clinical indication); or iterative reconstruction. Contrast material: OMNI 350; Contrast volume: 100 ml; Contrast route: INTRAVENOUS (IV); COMPARISON: CT abdomen pelvis w con* [id number] 09/16/2023 8:59 AM RADIATION DOSE METRICS: Total DLP (mGy-cm): 1100.39 FINDINGS: Lungs: Calcified granuloma in the right lung base. Liver: Nodular hepatic surface contour suggestive of cirrhosis. Vague hypoattenuating lesion in the right hepatic lobe measuring 3.1 x 2.8 cm, greater than simple fluid attenuation. Questionable partial occlusive filling defects versus venous admixture in the main portal vein and extending into the right and left portal veins. Gallbladder and biliary ducts: Surgically absent gallbladder. Dilated common duct measuring up to 16 mm in diameter. No significant intrahepatic ductal dilatation. Pancreas: No discrete mass. Nondilated main pancreatic duct. Spleen: Mild splenomegaly. Adrenal glands: Normal. No mass. Kidneys and ureters: Mild left and moderate right renal atrophy/cortical scarring. Numerous bilateral renal cysts of varying attenuation and degrees of calcification. Majority of the cysts are simple fluid attenuation however some cysts appear mildly complex either by slightly increased attenuation or calcification. No hydronephrosis. Stomach and bowel: Unremarkable stomach. Nondistended bowel loops. Scattered colonic diverticula. Appendix: Not well seen however no overt evidence of acute appendicitis. Intraperitoneal space: Small volume abdominopelvic ascites. Mesenteric edema. Vasculature: Aneurysmal dilatation of the infrarenal abdominal aorta measuring 3.5 cm in transverse diameter. Extensive atherosclerosis. The SMA appears patent throughout its course. Lymph nodes: No pathologically enlarged lymph nodes. Urinary bladder: Unremarkable as visualized. Reproductive: Unremarkable as visualized. Bones/joints: No acute fracture. Degenerative changes of the spine. Grade 1 anterolisthesis of L4-L5. Soft tissues: Small fat containing ventral abdominal hernia. CT/CT abdomen pelvis w con* [id number] IMPRESSION: 1. Nodular hepatic surface contour consistent with cirrhosis. Indeterminate hypoattenuating right hepatic lobe lesion measuring 3.1 cm, HCC not excluded. Further evaluation with dedicated multiphase liver MRI or CT is advised to exclude hepatocellular carcinoma. 2. Stigmata of portal hypertension including mild splenomegaly, small volume ascites, mesenteric edema. 3. Questionable nonocclusive filling defects versus mixing artifact in the main, right, left portal veins. Portal vein thrombosis not excluded. 4. Infrarenal abdominal aortic aneurysm, 3.5 cm. Recommend vascular follow-up with surveillance imaging every 3 years per guidelines. 5. Numerous bilateral renal cysts, some mildly complex with calcifications/slight hyperattenuation. These could also be further evaluated on follow up MRI/CT. 6. Dilated common bile duct which can be seen in the post cholecystectomy state however further evaluation with MRI/MRCP could be considered if there is clinical concern for biliary obstruction. 7. Additional chronic and incidental/ancillary findings as above. COMMENTS: Consistent with the [place] [employer]'s Incidental Findings Committee white paper (J Am Al Radiol 2018): Any incidental renal lesion less than 1 cm or classified as too small to characterize, or any incidental cystic renal lesion characterized as simple-appearing, is likely benign. No follow-up imaging is recommended for these lesions per consensus recommendations based on imaging criteria.
[2025-02-01 09:01] VITALS: BP 146/73; PULSE 63; RESP 17; TEMP 37; O2SAT 93; BMI 40.2
[2025-02-01 09:04] LABS: Hematocrit 45.6 % (36-47); Hemoglobin 14.70 g/dL (11.27-16.99); Mean Corpuscular HGB Conc 32.2 g/dL (30-55); Mean Corpuscular Hemoglobin 30.9 pg (27-33); Mean Corpuscular Volume 95.8 fl (85-98); Nucleated Red Blood Cells % 0 %; Platelet Count 108 10^3/cmm (157-399); Red Blood Count 4.76 10^6/uL (3.85-5.65); White Blood Count 6.91 10^3/uL (3.29-11.43)
--- NOTE | 2025-02-01 09:17 | W.ED.ABDPA2 ---
HPI - Abdominal Pain General: Chief Complaint: Abdominal Pain Stated Complaint: ABD Pain going into back, N Time Seen by Provider: 02/01/25 08:48 Source: patient Mode of arrival: ambulatory Limitations: no limitations History of Present Illness: 74-year-old female with history of cirrhosis states that she been having abdominal pain over the last 3 days. States she has had some chronic abdominal pain from her cirrhosis states pain sharp in nature rates it 7 out of 10 had some nausea denies any vomiting she denies any fevers denies any worse improved factors. Associated Symptoms: Reports nausea; Denies chills, diarrhea, fever(s) and vomiting Related Data Home Medications ?Medication ?Instructions ?Recorded ?Confirmed fluticasone propionate 50 2 spray intranasal DAILY 05/27/19 02/01/25 mcg/actuation nasal spray,suspension (Flonase Allergy Relief) montelukast 10 mg tablet 10 mg PO DAILY 05/27/19 02/01/25 (Singulair) losartan 25 mg tablet 25 mg PO DAILY 07/20/22 02/01/25 polyethylene glycol 3350 17 4 g PO DAILY 07/31/24 02/01/25 gram/dose oral powder (Miralax) alprazolam 0.5 mg tablet,extended 0.5 mg PO TID 02/01/25 02/01/25 release 24 hr amlodipine 2.5 mg tablet 2.5 mg PO DAILY 02/01/25 02/01/25 apixaban 5 mg tablet (Eliquis) 5 mg PO BID 02/01/25 02/01/25 ferrous sulfate 325 mg (65 mg 325 mg PO DAILY 02/01/25 02/01/25 iron) tablet (FeroSul) fluticasone 250 mcg-salmeterol 50 1 inh inhalation BID 02/01/25 02/01/25 mcg/dose blistr powdr for inhalation ondansetron 4 mg disintegrating 4 mg PO Q6H PRN Nausea And Vomiting 02/01/25 02/01/25 tablet oxycodone 10 mg tablet 10 mg PO Q6H PRN Pain 02/01/25 02/01/25 potassium chloride 8 mEq 8 meq PO DAILY 02/01/25 02/01/25 tablet,extended release sotalol 80 mg tablet 120 mg PO BID 02/01/25 02/01/25 sucralfate 1 gram tablet (Carafate) 1 g PO BID 02/01/25 02/01/25 Previous Rx's ?Medication ?Instructions ?Recorded pantoprazole 40 mg tablet,delayed 40 mg PO BID 6 weeks #84 tabs 04/04/23 release (Protonix) digoxin 125 mcg (0.125 mg) tablet 125 mcg PO DAILY #90 tabs 07/04/24 magnesium oxide 250 mg PO DAILY #90 tabs 08/30/24 hydrochlorothiazide 12.5 mg tablet 12.5 mg PO QAM #90 tabs 11/01/24 Allergies Allergy/AdvReac Type Severity Reaction Status Date / Time acetaminophen (From Tylenol) Allergy ADR-Abdominal Verified 07/31/24 15:34 Pain aspirin Allergy Unknown Verified 07/31/24 15:34 [id number]-EdL Reductase Allergy leg pain Verified 07/31/24 15:34 Inhibitor Review of Systems Const: Denies: fever(s), chills, body aches or change in appetite ENMT: Denies: throat pain or dental pain Card: Denies: chest pain Resp: Denies: dyspnea GI: Reports: abdominal pain and nausea; Denies: vomiting or diarrhea Musc: Denies: neck pain or back pain Skin/Breast: Denies: rash Neuro: Denies: headache(s) PFSH ED PFSH: Medical History Anticoagulation adequate with anticoagulant therapy High risk medication use Aortic valve sclerosis Essential (primary) hypertension GERD (gastroesophageal reflux disease) Paroxysmal A-fib Asthma ELVIN (obstructive sleep apnea) Chronic cough CAD (coronary artery disease) Type 2 diabetes mellitus Surgical History History of kidney surgery H/O partial nephrectomy H/O tubal ligation H/O shoulder surgery Hx of cataract surgery Family History Mother Hypertension Diabetes Congestive heart failure (CHF) CAD (coronary artery disease) Stroke Brother Hypertension Stroke Cancer Diabetes Father Myocardial infarction CAD (coronary artery disease) Grandfather Diabetes Family/Other Diabetes Denies family history of Clotting disorder Dementia Chronic kidney disease (CKD) Suicide Anesthesia complication Bleeding disorder Lung disease Social History Smoking and tobacco/nicotine status: former use of tobacco/nicotine Quit status (tobacco/nicotine): has quit using Alcohol intake: never Substance/Drug Use: never Household members: none Marital status: / Current occupational status: retired Do you think of yourself as: Straight/Heterosexual Current gender identity: Female Physical Exam Const: COMMON NORMALS: no acute distress, patient oriented x3 and healthy appearing HENMT: COMMON NORMALS: normocephalic and atraumatic HEAD & SCALP: normocephalic and atraumatic Neck/C-Spine: COMMON NORMALS: full ROM and supple Chest: COMMONS NORMALS: normal inspection of the chest and normal palpation of entire chest wall Resp: COMMON NORMALS: normal respiratory effort, No retractions, No use of accessory muscles and clear to auscultation bilaterally AUSCULTATION: clear to auscultation bilaterally Cardio: COMMON NORMALS: regular rate, regular rhythm and No murmurs present (Cardio) RATE: regular rate RHYTHM: regular rhythm GI: COMMON NORMALS: Normal to inspection, nondistended, normoactive bowel sounds present, Soft to palpation, non-tender and no masses PALPATION: Yes Soft to palpation Extremity: COMMON NORMALS: normal to inspection and full ROM Neuro: COMMON NORMALS: patient oriented x3, moves all extremities and no focal motor deficits Psych: COMMON NORMALS: mental status grossly normal, Normal thought process present and cooperative THOUGHT PROCESS: Normal thought process present Skin: COMMON NORMALS: no rashes or lesions noted and no wounds GENERAL SKIN EXAM: no rashes or lesions noted Course Vital Signs: Vital signs: Vital Signs Temperature 98.6 F 02/01/25 09:01 Pulse Rate 70 02/01/25 12:16 Respiratory Rate 18 02/01/25 12:16 Blood Pressure 109/78 02/01/25 12:16 Pulse Oximetry 97 02/01/25 12:16 Oxygen Delivery Me thod Room Air 02/01/25 09:59 MDM - Abdominal Pain Medical Decision Making Patient presents with abdominal pain that is chronic in nature patient's blood work here is all normal no signs of infection her abdominal pain here is improved her exam and discharge is benign. CT showed no acute findings she stable for discharge she is follow-up with PCP return if worsening she understands agrees to plan. Medical Records I reviewed the patient's medical records. Lab Data I reviewed the patient's lab results. 02/01/25 09:00 02/01/25 09:00 Labs/Radiology: Radiology Impressions Abdomen/Pelvis CT 02/01/25 08:53 IMPRESSION: 1. Nodular hepatic surface contour consistent with cirrhosis. Indeterminate hypoattenuating right hepatic lobe lesion measuring 3.1 cm, HCC not excluded. Further evaluation with dedicated multiphase liver MRI or CT is advised to exclude hepatocellular carcinoma. 2. Stigmata of portal hypertension including mild splenomegaly, small volume ascites, mesenteric edema. 3. Questionable nonocclusive filling defects versus mixing artifact in the main, right, left portal veins. Portal vein thrombosis not excluded. 4. Infrarenal abdominal aortic aneurysm, 3.5 cm. Recommend vascular follow-up with surveillance imaging every 3 years per guidelines. 5. Numerous bilateral renal cysts, some mildly complex with calcifications/slight hyperattenuation. These could also be further evaluated on follow up MRI/CT. 6. Dilated common bile duct which can be seen in the post cholecystectomy state however further evaluation with MRI/MRCP could be considered if there is clinical concern for biliary obstruction. 7. Additional chronic and incidental/ancillary findings as above. COMMENTS: Consistent with the [place] [employer]'s Incidental Findings Committee white paper (J Am Al Radiol 2018): Any incidental renal lesion less than 1 cm or classified as too small to characterize, or any incidental cystic renal lesion characterized as simple-appearing, is likely benign. No follow-up imaging is recommended for these lesions per consensus recommendations based on imaging criteria. Laboratory Results WBC 6.91 10^3/uL (3.29-11.43) 02/01/25 09:00 RBC 4.76 10^6/uL (3.85-5.65) 02/01/25 09:00 Hgb 14.70 g/dL (11.27-16.99) 02/01/25 09:00 Hct 45.6 % (36-47) 02/01/25 09:00 MCV 95.8 fl (85-98) 02/01/25 09:00 MCH 30.9 pg (27-33) 02/01/25 09:00 MCHC 32.2 g/dL (30-55) 02/01/25 09:00 RDW 15.2 % (12.1-15.1) H 02/01/25 09:00 Plt Count 108 10^3/cmm (157-399) L 02/01/25 09:00 MPV 12.0 fL (7.4-10.4) H 02/01/25 09:00 Neut % (Auto) 70.7 % 02/01/25 09:00 Lymph % (Auto) 16.1 % 02/01/25 09:00 [place] % (Auto) 9.7 % 02/01/25 09:00 Eos % (Auto) 2.0 % 02/01/25 09:00 Baso % (Auto) 1.2 % 02/01/25 09:00 Neut # (Auto) 4.89 10^3/uL (1.8-7.7) 02/01/25 09:00 Lymph # (Auto) 1.1 10^3/uL (0.8-4.8) 02/01/25 09:00 [place] # (Auto) 0.7 10^3/uL (0.2-0.9) 02/01/25 09:00 Eos # (Auto) 0.1 10^3/uL (0.0-0.8) 02/01/25 09:00 Baso # (Auto) 0.1 10^3/uL (0.0-0.1) 02/01/25 09:00 Nucleated RBC % (auto) 0 % 02/01/25 09:00 Nucleated RBCs # 0.0 /100WBC 02/01/25 09:00 Sodium 137 mmol/L (136-145) 02/01/25 09:00 Potassium 4.7 mmol/L (3.5-5.1) 02/01/25 09:00 Chloride 101 mmol/L (98-107) 02/01/25 09:00 Carbon Dioxide 22 mmol/L (22-29) 02/01/25 09:00 Anion Gap 18.7 (5-19) 02/01/25 09:00 BUN 40 mg/dL (8-23) H 02/01/25 09:00 Creatinine 1.4 mg/dL (0.5-0.9) H 02/01/25 09:00 GFR Calculation Not Reportable 02/01/25 09:00 Glucose 105 mg/dL (65-115) 02/01/25 09:00 Calculated Osmolality 294 mOsm/kg (285-295) 02/01/25 09:00 Calcium 8.8 mg/dL (8.5-10.5) 02/01/25 09:00 Total Bilirubin 1.2 mg/dL (0.15-1.2) 02/01/25 09:00 AST 107 U/L (0-32) H 02/01/25 09:00 ALT 50 U/L (0-33) H 02/01/25 09:00 Alkaline Phosphatase 186 U/L (35-105) H 02/01/25 09:00 Total Protein 8.2 g/dL (6.6-8.7) 02/01/25 09:00 Albumin 3.6 g/dL (3.5-5.2) 02/01/25 09:00 Globulin 4.6 g/dL (1.3-4.6) 02/01/25 09:00 Lipase 210 U/L (13-60) H 02/01/25 09:00 Urine Color Dark yellow (Yellow) A 02/01/25 09:06 Urine Appearance Clear (CLEAR) 02/01/25 09:06 Urine pH 5.0 (5-7) 02/01/25 09:06 Ur Specific [place] 1.018 (1.005-1.030) 02/01/25 09:06 Urine Protein 1+ (Negative) A 02/01/25 09:06 Urine Glucose (UA) Negative (Normal) 02/01/25 09:06 Urine Ketones Trace (Negative) 02/01/25 09:06 Urine Blood Negative (Negative) 02/01/25 09:06 Urine Nitrate Negative (Negative) 02/01/25 09:06 Urine Bilirubin Negative (Negative) 02/01/25 09:06 Urine Urobilinogen 1.0 mg/dL (Negative) 02/01/25 09:06 Ur Leukocyte Esterase Trace (Negative) A 02/01/25 09:06 Urine RBC 0-2 /hpf (0-2) 02/01/25 09:06 Urine WBC 0-5 /hpf (0-5) 02/01/25 09:06 Ur Squamous Epith Cells 0-5 /hpf (0-5) 02/01/25 09:06 Amorphous Sediment Not Reportable 02/01/25 09:06 Urine Bacteria None seen /hpf (NONE) 02/01/25 09:06 Hyaline Casts 3.30 /lpf 02/01/25 09:06 All radiology interpretation(s) finalized by discharge Discharge Plan Discharge Patient Disposition: Home Clinical Impression: Abdominal pain Condition: Stable Prescriptions: No Action montelukast [Singulair] 10 mg tablet 10 mg PO DAILY fluticasone propionate [Flonase Allergy Relief] 50 mcg/actuation spray,suspension 2 spray INTRANASAL DAILY losartan 25 mg tablet 25 mg PO DAILY pantoprazole [Protonix] 40 mg tablet,delayed release (DR/EC) 40 mg PO BID 42 Days Qty: 84 1RF polyethylene glycol 3350 [Miralax] 17 gram/dose powder 4 g PO DAILY digoxin 125 mcg (0.125 mg) tablet 125 mcg PO DAILY Qty: 90 3RF magnesium oxide 250 mg magnesium tablet 250 mg PO DAILY Qty: 90 3RF hydrochlorothiazide 12.5 mg tablet 12.5 mg PO QAM Qty: 90 3RF ferrous sulfate [FeroSul] 325 mg (65 mg iron) tablet 325 mg PO DAILY oxycodone 10 mg tablet 10 mg PO Q6H PRN (Reason: Pain) sotalol 80 mg tablet 120 mg PO BID Eliquis 5 mg tablet 5 mg PO BID fluticasone propion-salmeterol 250-50 mcg/dose Blister With Device 1 inh INHALATION BID sucralfate [Carafate] 1 gram Tablet 1 g PO BID amlodipine 2.5 mg Tablet 2.5 mg PO DAILY potassium chloride 8 mEq Tablet Extended Release 8 meq PO DAILY ondansetron 4 mg tablet,disintegrating 4 mg PO Q6H PRN (Reason: Nausea And Vomiting) alprazolam 0.5 mg Tablet Extended Release 24 Hr 0.5 mg PO TID Discharge Orders: Discharge ED (Routine); Ordered 02/01/25 Ordered By: Janice Rosenberg Referrals: Akil Muñiz MD [Primary Care Provider, Family Practice] - 4-7 days Discharge Diet: Advance as tolerated Discharge Activity: Resume usual activity Patient Instructions: Abdominal Pain (ED) Print Language: Kyrgyz Coding Level of Care Code ED Food Truck Caterer for Bhavik Hernandez
[2025-02-01 09:18] LABS: Glucose Urine UA Negative (Normal); Nitrate Urine Negative (Negative); Specific Gravity, Urine 1.018 (1.005-1.030)
[2025-02-01 09:23] LABS: Add Urine Microscopic? YES
[2025-02-01 09:23] LABS: Alanine Aminotransferase 50 U/L (0-33); Albumin Level 3.6 g/dL (3.5-5.2); Alkaline Phosphatase 186 U/L (35-105); Anion Gap 18.7 (5-19); Aspartate Amino Transferase 107 U/L (0-32); Blood Urea Nitrogen 40 mg/dL (8-23); Calcium 8.8 mg/dL (8.5-10.5); Carbon Dioxide 22 mmol/L (22-29); Chloride 101 mmol/L (98-107); Creatinine Clr Calc Pharmacy 45.1116; Globulin 4.6 g/dL (1.3-4.6); Glucose 105 mg/dL (65-115); Lipase 210 U/L (13-60); Osmolality Calculated 294 mOsm/kg (285-295); Potassium 4.7 mmol/L (3.5-5.1); Sodium 137 mmol/L (136-145); Total Protein 8.2 g/dL (6.6-8.7)
[2025-02-01] MEDS: iohexol 350 mg/mL 500 mL Btl (per mL) IV (09:52)
[2025-02-01 09:59] VITALS: PULSE 60; O2SAT 96
--- NOTE | 2025-02-01 10:31 | PC.PHAR ---
Pt presented current med list with several new rx's from [facility].
[2025-02-01 10:47] VITALS: BP 96/71; PULSE 63; O2SAT 92
[2025-02-01 11:40] VITALS: BP 133/78; PULSE 70; O2SAT 93
[2025-02-01 12:16] VITALS: BP 109/78; PULSE 70; RESP 18; O2SAT 97; O2SAT 99
[2025-02-01] MEDS: oxyCODONE 5 mg IR Tab/Cap PO (12:16)
== END 2025-02-01 12:17 | disposition home or self-care (01) ==
PROVIDERS: Emergency Provider Emergency Medicine; PCP Family Medicine
DX: R10.9 Unspecified abdominal pain (principal); Z79.01 Long term (current) use of anticoagulants; Z87.891 Personal history of nicotine dependence; E11.9 Type 2 diabetes mellitus without complications; I25.10 Atherosclerotic heart disease of native coronary artery without angina pectoris; I10 Essential (primary) hypertension
CPT/HCPCS: 36415; 74177; 80053; 81001; 83690; 85025; 99285; J9999

== ENCOUNTER 2025-02-04 08:19 | Inpatient (IN) | payer MEDICARE, MEDICAID, SELFPAY ==
[2025-02-04] VITALS (13 sets, daily range): BP systolic 101–121; BP diastolic 60–71; PULSE 49–63; RESP 16–18; TEMP 36.4–36.8; O2SAT 89–99; BMI 42.0; BMI 42.3
--- NOTE | 2025-02-04 08:20 | XR_ITS ---
WS: [id number] Exam: XR chest 1V portable [id number] Date/Time of Exam: 02/04/2025 8:22 AM Reason For Exam: dyspnea/cough Comparison 09/15/2023. Lungs are fully inflated and clear. Heart size top limits normal. No pleural effusions. The mediastinum is unremarkable for technique. Bony structures are intact. XR/XR chest 1V portable [id number] IMPRESSION: 1. No acute cardiopulmonary finding.
--- NOTE | 2025-02-04 08:25 | PC.NURSE ---
PATIENT PLACED ON 2 L NC TO MAINTAIN O2 SATURATION ABOVE 89%.
--- NOTE | 2025-02-04 08:29 | ECG_ITS ---
[facility] Pat Name: Lisa Rahman Department: Room: Gender: Female Investment Executive: : 1950 Requested By: Eris Barrera Order Number: [id number] Rik MD: Saravanan Morgan M.D. Measurements Intervals [place] Rate: 52 P: 263 LA: 227 QRS: -20 QRSD: 114 T: 205 QT: 496 QTc: 463 Interpretive Statements SINUS BRADYCARDIA WITH FIRST DEGREE AV BLOCK LOW QRS VOLTAGE IN EXTREMITY LEADS [QRS DEFLECTION < 0.5 mV IN LIMB LEADS] SEPTAL MYOCARDIAL INFARCTION , PROBABLY OLD [40+ ms Q WAVE IN V1/V2] T WAVE INVERSION, POSSIBLE ISCHEMIA Compared to ECG 08/07/2023 14:42:53 First degree AV block now present Low QRS voltage now present SUPRAVENTRICULAR ECTOPIC COMPLEXES NO LONGER PRESENT T WAVE INVERSION IS NEW Electronically Signed On 02-05-2025 21:16:34 CDT by Saravanan Morgan M.D. [email or web address]
--- OUTSIDE RECORDS SUMMARY | 2025-02-04 08:29 | XMS_ITS | Encounter Summary ---
Author Organization [facility] Address [address] [place] [address] Care Team Providers Care Planning Analyst Name Role Phone Ihsan Velásquez DO Primary Care Provide r Encounter Details Date Type Department Care Team (Late st Contact Info) Description 01/29/[address] [address] Belkys Willingham RN Social History [...] st Contact Info) Description 03/19/2025 11:30 AM INFANTRY WEAPONS CREWMEMBER Appointment [facility] [address] [place] [address] Israel Segovia MD [address] [place] [address] 07/28/2025 1:30 PM CDT Office Visit [address] [address] Elvira Orozco NP [address] [address] documented as of this encounter Visit Diagnoses Not on filedocumented in this encounter Care Teams Planning Analyst Relationship Specialty Start Date End Date Ihsan Velásquez DO [address] [address] PCP - General Internal Medicine 06/05/23 documented as of this encounter
--- OUTSIDE RECORDS SUMMARY | 2025-02-04 08:29 | XMS_ITS | Patient Health Record ---
Author Organization [facility] Address [address] [place] [address] Care Team Providers Care Gre Instructor Name Role Phone Godfrey Pastor Primary Care Provider UnavailJuan Drummond Unavailable [phone] Allergies Allergen (clinical drug ingredient) Drug/Non Drug Allergy documented on EMR Reaction Allergy Type Onset Date Status Substance with 3-iwqwycm-1-methylgluta ryl-coenzyme A reductase inhibitor mechanism of action [...] Status Risk Notes Problem Paroxysmal atrial fibrillation (689348890) Paroxysmal atrial fibrillation (I48.0) Active confirmed Problem Atherosclerosis of coronary artery without angina pectoris (673311740433697) Atherosclerosis of [place] coronary artery of [place] heart without angina pectoris (I25.10) Active confirmed Problem Cirrhosis - non-alcoholic (907540082) Hepatic cirrhosis, unspecified hepatic cirrhosis type, unspecified whether ascites present (K74.60) Active confirmed Plan Of Treatment No Information Insurance Providers Payer Name Payer Address Payer Phone Subscriber Number Group Number Insured Name Patient Relationship to Insured Coverage Start Date Coverage End Date [place] Medicare [place] [address] [address] [place] [address] [phone] [id number] BRANDI ACOSTA Self - patient is the insured [place] Medicaid [address] [place] [address] [id number] BRANDI ACOSTA Self - patient is the insured
--- OUTSIDE RECORDS SUMMARY | 2025-02-04 08:29 | XMS_ITS | Clinical Summary ---
Author Organization [facility] de Address [address] [place] [address] Phone Care Team Providers Care Pest Controller Assistant Name Role Phone Ihsan Velásquez Primary Care [...] 4 Active fluticasone propionate (FLONASE) 50 mcg/spray [place], Suspension nasal inhaler Administer 1 [place] in each nostril daily. 4 Active polyethylene [...] Type Department Care Team Description 01/29/2025 Abstract [facility] [address] Belkys Willingham RN 01/28/2025 External Device Data STL ABSTRACTION Provider, Abstract 01/27/2025 10:00 AM CDT Office Visit [facility] [address] Elvira Orozco, ALISSA Hepatic cirrhosis, unspecified hepatic [...] st Contact Info) Description 03/19/2025 11:30 AM LOGISTICS SPECIALIST Appointment [facility] [address] [place] [address] Israel Segovia MD [address] [place] [address] 07/28/2025 1:30 PM CDT Office Visit [facility] Gastroenterology- [place] [address] [address] Elvira Orozco NP [address] [facility] [address] [place] [address] Health Maintenance Due Date Last Done Comments DIABETES ANNUAL FOOT EXAM 1966 DIABETES ANNUAL RETINAL EXAM 1966 DIABETES MICROALBUMIN ANNUAL SCREEN 1966 LDL CHOLESTEROL ANNUAL 1966 DTAP/TDAP/TD VACCINES (1 - Tdap) 1967 ZOSTER VACCINE (1 of 2) 1998 OSTEOPOROSIS SCREENING 2013 PNEUMOCOCCAL VACCINE 50+ YEA RS (3 of 3 - PCV20 or PCV21) 02/26/2020 02/25/2015, 04/04/2006 RSV VACCINE (60+ or ) (1 - 1-dose 75+ series) 2023 INFLUENZA VACCINE (#1) 2024 2, 03/31/2021, 02/25/2015, Additional history exists COVID-19 Vaccine [...] MUSCLE AB (ACTIN) IGG <20 <20 U [facility] Comment: Reference Range: <20 U: Negative [...] 1. FASTING:NO FASTING: NO Test Performed at: [facility] [address] [place] Adis Storey M.D.,PhD Blood 01/27/2025 11:0 1 AM CDT 01/27/2025 11:01 AM CDT us Elvira Orozco COAL PULVERIZING OPERATOR CHEMISTRY ORDERABLES Final R esult [facility] [phone] [facility] [address] [place] * ACUTE HEPATITIS PANEL (01/27/2025 11:01 AM CDT) HEPATITIS A IGM NON-REACTI VE NON-REACT TAWNYA [facility] Comment: For additional information, please refer to http://Encore Alert.Bioxodes/faq/ONG758 (This link is being provided for informational/ educational purposes only.) HEPATITIS B SURFACE AG NON-REACTI VE NON-REACT TAWNYA [facility] Comment: For additional information, please refer to http://Encore Alert.Bioxodes/faq/JKX512 (This link is being provided for informational/ educational purposes only.) HEPATITIS B CORE IGM NON-REACTI VE NON-REACT TAWNYA [facility] Comment: For additional information, please refer to http://Encore Alert.Bioxodes/faq/KFX000 (This link is being provided for informational/ educational purposes only.) HEPATITIS C AB NON-REACTI VE NON-REACT TAWNYA [facility] Comment: HCV antibody was non-reactive. There is no laboratory evidence of HCV infection. In most cases, no further action is required. However, if recent HCV exposure is suspected, a test for HCV RNA (test code 74155) is suggested. For additional information please refer to http://education.Bioxodes/faq/MTM08e4 (This link is being provided for informational/ educational purposes only.) FASTING:NO FASTING: NO Test Performed at: [facility] [address] [place] [address] Cliff Villa MD Blood 01/27/2025 11:0 1 AM CDT 01/27/2025 11:01 AM CDT Elvira Orozco NP CHEMISTRY ORDERABLES Final R esult [facility] [phone] [facility] [address] [place] [address] * LIVER KIDNEY MICROSOMAL ANTIBODY (01/27/2025 11:01 AM CDT) LIVER KIDNEY MICROSOMAL AB <=20.0 <=20.0 U [facility]/ [facility] Comment: Reference Range: <=20.0 Negative [...] infection. FASTING:NO FASTING: NO Test Performed at: [facility] [address] [place] Adis Storey M.D.,PhD Blood 01/27/2025 11:0 1 AM CDT 01/27/2025 11:01 AM CDT us Elvira L Orozco COAL PULVERIZING OPERATOR CHEMISTRY ORDERABLES Final R esult [facility] [phone] [facility] [address] [place] [address] * (ABNORMAL) IRON, TIBC, AND PERCENT SATURATION (01/27/2025 11:01 AM CDT) IRON 37(L) 45 - 160 mcg/dL [facility] TIBC 296 250 - 450 mcg/dL (calc) [facility] IRON % SATURATION 13(L) 16 - 45 % (calc) [facility] Comment: FASTING:NO FASTING: NO Test Performed at: [facility] [address] [place] [address] Cliff Villa MD Blood 01/27/2025 11:0 1 AM CDT 01/27/2025 11:01 AM CDT us Elvira L Orozco COAL PULVERIZING OPERATOR CHEMISTRY ORDERABLES Final R esult Performing Organization Address City/[facility] Co de Phone Number [facility] [phone] [facility] [address] [place] [address] * CERULOPLASMIN (01/27/2025 11:01 AM CDT) CERULOPLASMIN 28 14 - 48 mg/dL [facility] Comment: FASTING:NO FASTING: NO Test Performed at: [facility] [address] [place] [address] Cliff Villa MD Blood 01/27/2025 11:0 1 AM CDT 01/27/2025 11:01 AM CDT us Elvira L Orozco COAL PULVERIZING OPERATOR CHEMISTRY ORDERABLES Final R esult [facility] [phone] [facility] [address] [place] [address] * ALPHA 1 ANTITRYPSIN (01/27/2025 11:01 AM CDT) [facility] ALPHA 1 ANTITRYPSIN 174 83 - 199 mg/dL [facility] Comment: Test Performed at: [facility] [address] [place] [address] Cliff Villa MD Blood 01/27/2025 11:0 1 AM CDT 01/27/2025 11:01 AM CDT Elvira WebPT COAL PULVERIZING OPERATOR CHEMISTRY ORDERABLES Final R esult Performing Organization Address City/[facility]/ZIP Co de Phone Number [facility] [phone] [address] * (ABNORMAL) ALPHA FETOPROTEIN TUMOR MARKER (01/27/2025 11:01 AM CDT) [facility] ALPHA FETOPROTEIN TUMOR MARKER 095867.0(H ) ng/mL [facility] [place] Comment: Reference Range: <6.1 The use of AFP as a tumor marker in females is not recommended. This test was performed using the Viviane [place] chemiluminescent method. Values obtained from different assay methods cannot be used interchangeably. AFP levels, regardless of value, should not be interpreted as absolute evidence of the presence or absence of disease. FASTING:NO FASTING: NO Test Performed at: [facility] [address] Demetrio Hannon Blood 01/27/2025 11:0 1 AM CDT 01/27/2025 11:01 AM CDT Elvira WebPT COAL PULVERIZING OPERATOR CHEMISTRY ORDERABLES Final R esult Performing Organization Address City/[facility]/ZIP Co de Phone Number [facility] [phone] [facility] [address] [place] [address] * (ABNORMAL) CBC WITH DIFFERENTIAL (01/27/2025 11:01 [...] Comment: FASTING:NO FASTING: NO Test Performed at: [facility] [address] [place] [address] Alessio Shila Anitha Blood 01/27/2025 11:0 1 AM CDT 01/27/2025 11:01 AM CDT Elvira L Orozco COAL PULVERIZING OPERATOR HEMATOLOGY ORDERABLES Final Result Performing Organization Address [facility] Co de Phone Number [facility] [phone] [facility] [address] [place] [address] * (ABNORMAL) VITAMIN D 25 HYDROXY (01/27/2025 11:01 AM CDT) Pathologist [facility] VITAMIN D, 25 OH, TOTAL 23(L) 30 - 100 ng/mL [facility] Comment: Vitamin D Status 25-OH Vitamin D: Deficiency: <20 ng/mL Insufficiency: 20 - 29 ng/mL Optimal: > or = 30 ng/mL For 25-OH Vitamin D testing on patients on D2-supplementation and patients for whom quantitation of D2 and D3 fractions is required, the [facility](TM) 25-OH VIT D, (D2,D3), LC/MS/MS is recommended: order code 90496 (patients >2yrs). See Note 1 Note 1 For additional information, please refer to http://education.MuckRock/faq/LQB750 (This link is being provided for informational/ educational purposes only.) FASTING:NO FASTING: NO Test Performed at: [facility] [address] [place] [address] Cliff Villa MD Blood 01/27/2025 11:0 1 AM CDT 01/27/2025 11:01 AM CDT Elvira Orozco COAL PULVERIZING OPERATOR CHEMISTRY ORDERABLES Final R esult Performing Organization Address City/[facility]/ZIP Co de Phone Number [facility] [phone] [facility] [address] [place] [address] * (ABNORMAL) PROTIME-INR (01/27/2025 11:01 AM CDT) INR 1.4(H) [facility] Comment: Reference Range 0.9-1.1 Moderate-intensity Warfarin Therapy 2.0-3.0 Higher-intensity Warfarin Therapy 3.0-4.0 PROTIME 14.2(H) 9.0 - 11.5 sec [facility] Comment: For additional information, please refer to http://Encore Alert.Bioxodes/faq/IMX433 (This link is being provided for informational/ educational purposes only.) FASTING:NO FASTING: NO Test Performed at: [facility] [address] [place] [address] Alessio Welsh Blood 01/27/2025 11:0 1 AM CDT 01/27/2025 11:01 AM CDT Elvira Orozco NP HEMATOLOGY ORDERABLES Final Result [facility] [phone] [facility] [address] [place] [address] * CISCO SCREEN W/REFLEX (01/27/2025 11:01 AM CDT) Pathologist [facility] CISCO SCREEN NEGATIVE NEGATIVE [facility] [place] Comment: CISCO IFA is a first line [...] AC-0: Negative International Consensus on CISCO Patterns (https://doi.org/10.1515/ariu-5727-4584) For additional information, please refer to http://Encore Alert.MuckRock/faq/SGH652 (This link is being provided for informational/ educational purposes only.) FASTING:NO FASTING: NO Test Performed at: [facility] [address] [place] [place] [address] Cliff Villa MD Blood 01/27/2025 11:0 1 AM CDT 01/27/2025 11:01 AM CDT us Elvira L Orozco COAL PULVERIZING OPERATOR CHEMISTRY ORDERABLES Final R esult Performing Organization Address [facility] Co de Phone Number [facility] [phone] [facility] [address] * (ABNORMAL) GGT (01/27/2025 11:01 AM CDT) GGT 115(H) 3 - 65 U/L [facility] Comment: Test Performed at: [facility] [address] [place] [address] Cliff Villa MD Blood 01/27/2025 11:0 1 AM CDT 01/27/2025 11:01 AM CDT us Elvira L Orozco COAL PULVERIZING OPERATOR CHEMISTRY ORDERABLES Final R esult Performing Organization Address [facility] Co de Phone Number [facility] [phone] [facility] [address] [place] [address] * FERRITIN (01/27/2025 11:01 AM CDT) FERRITIN 170 16 - 288 ng/mL [facility] Comment: Test Performed at: [facility] [address] [place] [address] Cliff Villa MD Blood 01/27/2025 11:0 1 AM CDT 01/27/2025 11:01 AM CDT us Elvira L Orozco COAL PULVERIZING OPERATOR CHEMISTRY ORDERABLES Final R esult Performing Organization Address City/[facility] Co de Phone Number [facility] [phone] [facility] [address] [place] [address] * (ABNORMAL) COMPREHENSIVE METABOLIC PANEL (01/27/2025 11:01 AM CDT) GLUCOSE 105 65 - 139 mg/dL [facility] Comment: Non-fasting reference interval BUN 22 7 - 25 mg/dL [facility] CREATININE 1.08(H) 0.60 - 1.00 mg/dL [facility] GFR 53(L) > OR = 60 mL/min/1.7 3m2 [facility] BUN/CREAT RATIO 20 6 - 22 (calc) [facility] SODIUM 138 135 - 146 mmol/L [facility] POTASSIUM 4.5 3.5 - 5.3 mmol/L [facility] CHLORIDE 102 98 - 110 mmol/L [facility] CO2 30 20 - 32 mmol/L [facility] CALCIUM 9.0 8.6 - 10.4 mg/dL [facility] TOTAL PROTEIN 8.1 6.1 - 8.1 g/dL [facility] ALBUMIN 3.9 3.6 - 5.1 g/dL [facility] GLOBULIN 4.2(H) 1.9 - 3.7 g/dL (calc) [facility] ALBUMIN/GLOBULIN RATIO 0.9(L) 1.0 - 2.5 (calc) [facility] BILIRUBIN TOTAL 1.2 0.2 - 1.2 mg/dL [facility] ALKALINE PHOSPHATASE 150 37 - 153 U/L [facility] AST 85(H) 10 - 35 U/L [facility] ALT 41(H) 6 - 29 U/L [facility] Comment: FASTING:NO FASTING: NO Test Performed at: [facility] [address] [place] [address] Alessio Welsh Blood 01/27/2025 11:0 1 AM CDT 01/27/2025 11:01 AM CDT us Elvira Orozco COAL PULVERIZING OPERATOR CHEMISTRY ORDERABLES Final R esult [facility] [phone] [facility] [address] [place] [address] from Last 3 Months Insurance MEDICARE PART A AND B [place]ICAID [place] Care Teams Pest Controller Assistant Relationship Specialty Start Date End Date Ihsan Velásquez DO [address] [facility] [address] [place] [address] PCP - General Internal Medicine 06/05/23
--- OUTSIDE RECORDS SUMMARY | 2025-02-04 08:29 | XMS_ITS | Encounter Summary ---
Author Organization [facility] Address [address] [place] [address] Care Team Providers Care Bath Tester Name Role Phone Ihsan Velásquez DO Primary Care Provide r Reason for Visit * Reason Onset Date Comments AJ 07/17/2023 Encounter Details Date Type Department Care Team (Late st Contact Info) Description 07/17/2023 Telephone [facility] Urology- [place] [address]tr[address], 3[address] [place] [address] Reema Montes PA [address] [place] [address] AJ Social History Tobacco Use [...] back. Pt is wanting to schedule consult. IONHOLDER INFORMATION CLERK * Telephone Encounter - Sara Barlow LPN - 07/18/2023 11:34 AM CST Left a message for the patient to return my call. IONHOLDER INFORMATION CLERK * Telephone Encounter - Belkys Hunt - 07/17/2023 1:51 PM CST AJ Pt calling in and wants to know if surgery can be done [facility] or if it has to be in [place]. PT would be home by herself most everyday if surgery done in [place] and in [place] she has daughters that can take care of her. IONHOLDER INFORMATION CLERK documented in this encounter Plan of Treatment Upcoming Encounters Date Type Department Care Team (Late st Contact Info) Description 03/19/2025 11:30 AM PENSIONHOLDER INFORMATION CLERK Appointment [facility] [address] [place] [address] Israel Segovia MD [address] [place] [address] 07/28/2025 1:30 PM CDT Office Visit [facility] Gastroenterology- [place] [address] [place] [address] Elvira Orozco, MILL HOUSE SUPERVISOR [address] [place] [address] documented as of this encounter Visit Diagnoses Not on filedocumented in this encounter Care Teams Bath Tester Relationship Specialty Start Date End Date Ihsan Velásquez DO [address] [facility] [address] [place] [address] PCP - General Internal Medicine 06/05/23 documented as of this encounter
--- OUTSIDE RECORDS SUMMARY | 2025-02-04 08:29 | XMS_ITS | Encounter Summary ---
Author Organization [facility] Address [address] [place] [address] Care Team Providers Care Advertising Designer Name Role Phone Ihsan Velásquez DO Primary [...] st Contact Info) Description 03/19/2025 11:30 AM WIRE CHIEF Appointment [facility] [address] [place] [address] Israel Segovia MD [address] [place] [address] 07/28/2025 1:30 PM CDT Office Visit [facility] Gastroenterology- [place] [address] [address] Elvira Orozco NP [address] [facility] [address] [place] [address] documented as of this encounter Visit Diagnoses Not on filedocumented in this encounter Care Teams Advertising Designer Relationship Specialty Start Date End Date Ihsan Velásquez DO [address] [address] PCP - General Internal Medicine 06/05/23 documented as of this encounter
[2025-02-04 08:48] LABS: Hematocrit 44.0 % (36-47); Hemoglobin 14.10 g/dL (11.27-16.99); Mean Corpuscular HGB Conc 32.0 g/dL (30-55); Mean Corpuscular Hemoglobin 30.9 pg (27-33); Mean Corpuscular Volume 96.3 fl (85-98); Nucleated Red Blood Cells % 0 %; Platelet Count 122 10^3/cmm (157-399); Red Blood Count 4.57 10^6/uL (3.85-5.65); White Blood Count 6.43 10^3/uL (3.29-11.43)
--- NOTE | 2025-02-04 08:55 | W.ED.NAVMDI ---
HPI - Nausea/Vomiting/Diarrhea General: Chief complaint: Nausea/Vomiting/Diarrhea Stated complaint: abd pain - n/v/d - cirr of liver Time Seen by Provider: 02/04/25 08:19 History of Present Illness: 74-year-old male presents to the emergency room complaints of abdominal pain and discomfort. Initial pressure for EMS from the 70s over 40s she denies any fever sweats or chills. She has history of liver cirrhosis she is on anticoagulants she is also on digoxin and amiodarone. She is bradycardic on arrival here but her blood pressures Associated symtoms: Denies chest pain or dysuria Related Data Home Medications ?Medication ?Instructions ?Recorded ?Confirmed fluticasone propionate 50 2 spray intranasal DAILY 05/27/19 02/04/25 mcg/actuation nasal spray,suspension (Flonase Allergy Relief) montelukast 10 mg tablet 10 mg PO DAILY 05/27/19 02/04/25 (Singulair) losartan 25 mg tablet 25 mg PO DAILY 07/20/22 02/04/25 polyethylene glycol 3350 17 4 g PO DAILY 07/31/24 02/04/25 gram/dose oral powder (Miralax) alprazolam 0.5 mg tablet,extended 0.5 mg PO TID 02/01/25 02/04/25 release 24 hr amlodipine 2.5 mg tablet 2.5 mg PO DAILY 02/01/25 02/04/25 apixaban 5 mg tablet (Eliquis) 5 mg PO BID 02/01/25 02/04/25 ferrous sulfate 325 mg (65 mg 325 mg PO DAILY 02/01/25 02/04/25 iron) tablet (FeroSul) fluticasone 250 mcg-salmeterol 50 1 inh inhalation BID 02/01/25 02/04/25 mcg/dose blistr powdr for inhalation ondansetron 4 mg disintegrating 4 mg PO Q6H PRN Nausea And Vomiting 02/01/25 02/04/25 tablet oxycodone 10 mg tablet 10 mg PO Q6H PRN Pain 02/01/25 02/04/25 potassium chloride 8 mEq 8 meq PO DAILY 02/01/25 02/04/25 tablet,extended release sotalol 80 mg tablet 120 mg PO BID 02/01/25 02/04/25 sucralfate 1 gram tablet (Carafate) 1 g PO BID 02/01/25 02/04/25 Previous Rx's ?Medication ?Instructions ?Recorded pantoprazole 40 mg tablet,delayed 40 mg PO BID 6 weeks #84 tabs 04/04/23 release (Protonix) digoxin 125 mcg (0.125 mg) tablet 125 mcg PO DAILY #90 tabs 07/04/24 magnesium oxide 250 mg PO DAILY #90 tabs 08/30/24 hydrochlorothiazide 12.5 mg tablet 12.5 mg PO QAM #90 tabs 11/01/24 Allergies Allergy/AdvReac Type Severity Reaction Status Date / Time acetaminophen (From Tylenol) Allergy ADR-Abdominal Verified 07/31/24 15:34 Pain aspirin Allergy Unknown Verified 07/31/24 15:34 [id number] Reductase Allergy leg pain Verified 07/31/24 15:34 Inhibitor Review of Systems Const: Denies: fever(s) or chills Card: Denies: chest pain Resp: Denies: dyspnea GI: Denies: abdominal pain : Denies: dysuria, urinary frequency or urinary urgency Musc: Denies: neck pain or back pain Skin/Breast: Denies: rash PFSH ED PFSH: Medical History Gallbladder neoplasm Renal mass Acute pulmonary embolism Liver cirrhosis Anticoagulation adequate with anticoagulant therapy High risk medication use Aortic valve sclerosis Essential (primary) hypertension GERD (gastroesophageal reflux disease) Paroxysmal A-fib Asthma ELVIN (obstructive sleep apnea) Chronic cough CAD (coronary artery disease) Type 2 diabetes mellitus Surgical History History of kidney surgery H/O partial nephrectomy H/O tubal ligation H/O shoulder surgery Hx of cataract surgery Family History Mother Hypertension Diabetes Congestive heart failure (CHF) CAD (coronary artery disease) Stroke Brother Hypertension Stroke Cancer Diabetes Father Myocardial infarction CAD (coronary artery disease) Grandfather Diabetes Family/Other Diabetes Denies family history of Clotting disorder Dementia Chronic kidney disease (CKD) Suicide Anesthesia complication Bleeding disorder Lung disease Social History Smoking and tobacco/nicotine status: former use of tobacco/nicotine Quit status (tobacco/nicotine): has quit using Alcohol intake: never Substance/Drug Use: never Household members: none Marital status: / Current occupational status: retired Do you think of yourself as: Straight/Heterosexual Current gender identity: Female Physical Exam Const: GENERAL APPEARANCE: cooperative ORIENTATION/CONSCIOUSNESS: Yes awake, Yes oriented to person, Yes oriented to place and Yes oriented to time HENMT: COMMON NORMALS: normocephalic, atraumatic and hearing grossly normal bilaterally HEAD & SCALP: normocephalic and atraumatic Resp: COMMON NORMALS: normal respiratory effort, No retractions, No use of accessory muscles and clear to auscultation bilaterally AUSCULTATION: clear to auscultation bilaterally Cardio: COMMON NORMALS: regular rhythm and No murmurs present (Cardio) RATE: bradycardic RHYTHM: regular rhythm GI: COMMON NORMALS: Soft to palpation and No hepatosplenomegaly present AUSCULTATION: Yes normoactive bowel sounds PALPATION: Yes Soft to palpation, No Tenderness to palpation present (GI), No Guarding due to palpation present (GI) and Yes No hepatosplenomegaly present Extremity: COMMON NORMALS: normal to inspection, capillary refill normal, no clubbing, cyanosis or edema, no calf tenderness and no pedal edema Neuro: SENSORIUM/ORIENTATION: Yes oriented to person, Yes oriented to place and Yes oriented to time Skin: COMMON NORMALS: no rashes or lesions noted GENERAL SKIN EXAM: no rashes or lesions noted Course Vital Signs: Vital signs: Vital Signs Temperature 97.6 F 02/04/25 12:42 Pulse Rate 55 L 02/04/25 15:39 Respiratory Rate 16 02/04/25 15:30 Blood Pressure 105/68 02/04/25 12:44 Pulse Oximetry 92 02/04/25 15:30 Oxygen Delivery Me thod Nasal Cannula 02/04/25 15:30 Oxygen Flow Rate 2 02/04/25 15:30 MDM - Nausea/Vomiting/Diarrhea Medical Decision Making Multiple acute issues at this point. Patient recently had a CT of the abdomen which showed possible venal venous vein thrombosis. Not identified definitively on the CT ultrasound of the abdomen is pending. She has known cirrhosis uncertain etiology. She is did toxics with an acute kidney injury she is also mildly hyperkalemic. Will hold her digoxin hyperkalemia treated. Discussed with hospitalist ultrasound of the abdomen will be ordered as an inpatient. Continue apixaban for now. IV fluids. Patient given insulin and glucose and calcium gluconate for hyperkalemia. Orders written for hospital admission. Medical Records I reviewed the patient's medical records. Lab Data I reviewed the patient's lab results. 02/04/25 08:40 02/04/25 08:40 Radiology Impressions Chest X-Ray 02/04/25 08:20 IMPRESSION: 1. No acute cardiopulmonary finding. Abdomen Ultrasound 02/04/25 12:42 IMPRESSION: 1. Abnormal flow and waveform in the portal vein. No thrombus is identified but the entire portal vein is not well visualized. Filling defect noted in the portal vein on CT may represent a partial thrombus. 2. Markedly dilated common bile duct at 1.4 cm. Consider evaluation by MRCP. 3. Prior cholecystectomy. 4. Cirrhotic liver. 5. Small amount of ascites RIGHT upper quadrant. 6. No hepatic mass identified. Laboratory Results WBC 6.43 10^3/uL (3.29-11.43) 02/04/25 08:40 RBC 4.57 10^6/uL (3.85-5.65) 02/04/25 08:40 Hgb 14.10 g/dL (11.27-16.99) 02/04/25 08:40 Hct 44.0 % (36-47) 02/04/25 08:40 MCV 96.3 fl (85-98) 02/04/25 08:40 MCH 30.9 pg (27-33) 02/04/25 08:40 MCHC 32.0 g/dL (30-55) 02/04/25 08:40 RDW 15.7 % (12.1-15.1) H 02/04/25 08:40 Plt Count 122 10^3/cmm (157-399) L 02/04/25 08:40 MPV 12.1 fL (7.4-10.4) H 02/04/25 08:40 Neut % (Auto) 71.3 % 02/04/25 08:40 Lymph % (Auto) 15.2 % 02/04/25 08:40 [place] % (Auto) 10.0 % 02/04/25 08:40 Eos % (Auto) 2.0 % 02/04/25 08:40 Baso % (Auto) 1.2 % 02/04/25 08:40 Neut # (Auto) 4.58 10^3/uL (1.8-7.7) 02/04/25 08:40 Lymph # (Auto) 1.0 10^3/uL (0.8-4.8) 02/04/25 08:40 [place] # (Auto) 0.6 10^3/uL (0.2-0.9) 02/04/25 08:40 Eos # (Auto) 0.1 10^3/uL (0.0-0.8) 02/04/25 08:40 Baso # (Auto) 0.1 10^3/uL (0.0-0.1) 02/04/25 08:40 Nucleated RBC % (auto) 0 % 02/04/25 08:40 Nucleated RBCs # 0.0 /100WBC 02/04/25 08:40 PT 24.20 SECONDS (12.1-14.9) H 02/04/25 08:40 INR 2.03 (0.8-1.2) H 02/04/25 08:40 APTT 48.9 SECONDS (23.9-36.7) H 02/04/25 08:40 Specimen Type Arterial 02/04/25 08:47 Sample Site Radial, right 02/04/25 08:47 ABG pH 7.33 (7.35-7.45) L 02/04/25 08:47 ABG pCO2 43.6 mmHg (35-45) 02/04/25 08:47 ABG pO2 72.5 mmHg (80.0-100.0) L 02/04/25 08:47 ABG PO2/FiO2 Ratio 278 02/04/25 08:47 ABG HCO3 23.2 mmol/L (22-26) 02/04/25 08:47 ABG O2 Saturation 95.2 02/04/25 08:47 ABG Base Excess -2.8 mmol/L (-2.0-2.0) L 02/04/25 08:47 Andi Test Pos 02/04/25 08:47 A-a O2 Gradient 7.6 mmHg (5-10) 02/04/25 08:47 Hematocrit 44.2 % (37-47) 02/04/25 08:47 Hgb O2 Saturation 92.3 % (95-100) L 02/04/25 08:47 Carboxyhemoglobin 2.9 %THgb (0.4-20.1) 02/04/25 08:47 Methemoglobin 0.1 % (0.4-1.5) L 02/04/25 08:47 Total Hemoglobin 14.4 g/dL (12-16) 02/04/25 08:47 Sodium 136.0 mmol/L (131-143) 02/04/25 08:47 Potassium 5.2 mmol/L (3.5-5.0) H 02/04/25 08:47 Glucose 99.0 mg/dL (70-115) 02/04/25 08:47 Ionized Calcium 1.1 mmol/L (1.1-1.4) 02/04/25 08:47 O2 Delivery Device Nc 02/04/25 08:47 O2 Liters/Min 1.5 % 02/04/25 08:47 FiO2 26.0 % 02/04/25 08:47 Monogram Machine Operator ID glc 02/04/25 08:47 Sodium 134 mmol/L (136-145) L 02/04/25 08:40 Potassium 5.7 mmol/L (3.5-5.1) H 02/04/25 08:40 Chloride 98 mmol/L (98-107) 02/04/25 08:40 Carbon Dioxide 23 mmol/L (22-29) 02/04/25 08:40 Anion Gap 18.7 (5-19) 02/04/25 08:40 BUN 60 mg/dL (8-23) H 02/04/25 08:40 Creatinine 3.0 mg/dL (0.5-0.9) H 02/04/25 08:40 GFR Calculation Not Reportable 02/04/25 08:40 Glucose 104 mg/dL (65-115) 02/04/25 08:40 Calculated Osmolality 295 mOsm/kg (285-295) 02/04/25 08:40 Lactic Acid 1.5 mmol/L (0.5-2.2) 02/04/25 08:40 Calcium 8.5 mg/dL (8.5-10.5) 02/04/25 08:40 Magnesium 3.1 mg/dL (1.7-2.3) H 02/04/25 08:40 Total Bilirubin 1.1 mg/dL (0.15-1.2) 02/04/25 08:40 AST 122 U/L (0-32) H 02/04/25 08:40 ALT 64 U/L (0-33) H 02/04/25 08:40 Alkaline Phosphatase 207 U/L (35-105) H 02/04/25 08:40 Ammonia 92 umol/L (11-51) H 02/04/25 08:40 Total Protein 8.3 g/dL (6.6-8.7) 02/04/25 08:40 Albumin 3.6 g/dL (3.5-5.2) 02/04/25 08:40 Globulin 4.7 g/dL (1.3-4.6) H 02/04/25 08:40 Lipase 163 U/L (13-60) H 02/04/25 08:40 Urine Color Dark yellow (Yellow) A 02/04/25 08:45 Urine Appearance Cloudy (CLEAR) A 02/04/25 08:45 Urine pH 5.0 (5-7) 02/04/25 08:45 Ur Specific [place] 1.022 (1.005-1.030) 02/04/25 08:45 Urine Protein Trace (Negative) A 02/04/25 08:45 Urine Glucose (UA) Negative (Normal) 02/04/25 08:45 Urine Ketones Trace (Negative) 02/04/25 08:45 Urine Blood Negative (Negative) 02/04/25 08:45 Urine Nitrate Negative (Negative) 02/04/25 08:45 Urine Bilirubin 2+ (Negative) H 02/04/25 08:45 Urine Urobilinogen 1.0 mg/dL (Negative) 02/04/25 08:45 Ur Leukocyte Esterase Negative (Negative) 02/04/25 08:45 Urine RBC 0-2 /hpf (0-2) 02/04/25 08:45 Urine WBC 0-5 /hpf (0-5) 02/04/25 08:45 Ur Squamous Epith Cells 6-10 /hpf (0-5) 02/04/25 08:45 Amorphous Sediment Not Reportable 02/04/25 08:45 Urine Bacteria None seen /hpf (NONE) 02/04/25 08:45 Hyaline Casts 87.29 /lpf 02/04/25 08:45 Digoxin 1.7 ng/mL (0.6-1.2) H 02/04/25 08:40 All radiology interpretation(s) finalized by discharge EKG Data EKG 1: Interpretation: EKG 02/04/2025 8:29 AM sinus bradycardia first-degree AV block rate of 52 [place] interval 227 QTc 463. Q waves in V1 and 2 unchanged from previous. Compared EKG 08/07/2023 bradycardia now present but no acute changes Discharge Plan Discharge Patient Disposition: Admitted As Inpatient Admit Provider: Gerald Trujillo Clinical Impression: FAVIO (acute kidney injury), Paroxysmal A-fib, Aortic valve sclerosis, Anticoagulation adequate with anticoagulant therapy, Liver cirrhosis, Left kidney mass, Bradycardia, Elevated digoxin level, Hepatic vein thrombosis Condition: Stable Coding Level of Care Code ED Physical Fitness Teacher for Bhavik Hernandez
[2025-02-04 08:59] LABS: ABG PCO2 43.6 mmHg (35-45); ABG PH Result 7.33 (7.35-7.45); Alveolar-Arterial Oxygen Gradi 7.6 mmHg (5-10); Arterial Blood Gas Hematocrit 44.2 % (37-47); Blood Gas Allen Test Pos; Blood Gas LPM 1.5 %; Blood Gas Operator Identificat glc; Blood Gas Sample Site Radial, right; Blood Gas Sample Type Arterial; Carboxyhemoglobin 2.9 %THgb (0.4-20.1); Glucose Level-ABG 99.0 mg/dL (70-115); HCO3 ABG 23.2 mmol/L (22-26); Ionized Calcium Level - ABG 1.1 mmol/L (1.1-1.4); Methemoglobin 0.1 % (0.4-1.5); Oxygen Saturation ABG 95.2; PO2 ABG 72.5 mmHg (80.0-100.0); PO2 FiO2 Ratio Arterial Blood 278; Potassium Level - ABG 5.2 mmol/L (3.5-5.0); Sodium Level - ABG 136.0 mmol/L (131-143)
[2025-02-04 09:03] LABS: INR 2.03 (0.8-1.2); Partial Thromboplastin Time 48.9 SECONDS (23.9-36.7); Prothrombin Time 24.20 SECONDS (12.1-14.9)
[2025-02-04 09:03] LABS: Glucose Urine UA Negative (Normal); Nitrate Urine Negative (Negative); Specific Gravity, Urine 1.022 (1.005-1.030)
[2025-02-04 09:05] LABS: Ammonia 92 umol/L (11-51); Lactic Sepsis W/Reflex 1.5 mmol/L (0.5-2.2)
[2025-02-04 09:06] LABS: Alanine Aminotransferase 64 U/L (0-33); Albumin Level 3.6 g/dL (3.5-5.2); Alkaline Phosphatase 207 U/L (35-105); Anion Gap 18.7 (5-19); Aspartate Amino Transferase 122 U/L (0-32); Blood Urea Nitrogen 60 mg/dL (8-23); Calcium 8.5 mg/dL (8.5-10.5); Carbon Dioxide 23 mmol/L (22-29); Chloride 98 mmol/L (98-107); Creatinine Clr Calc Pharmacy 21.5548; Globulin 4.7 g/dL (1.3-4.6); Glucose 104 mg/dL (65-115); Lipase 163 U/L (13-60); Magnesium 3.1 mg/dL (1.7-2.3); Osmolality Calculated 295 mOsm/kg (285-295); Potassium 5.7 mmol/L (3.5-5.1); Sodium 134 mmol/L (136-145); Total Protein 8.3 g/dL (6.6-8.7)
[2025-02-04 09:08] LABS: Add Urine Microscopic? YES
[2025-02-04 09:19] LABS: Digoxin 1.7 ng/mL (0.6-1.2)
[2025-02-04 09:35] LABS: UA Slide Review UA Slide Review Perf
--- NOTE | 2025-02-04 10:10 | US_ITS ---
WS: [id number] Abdominal ultrasound, limited. History: Evaluate for ascites. Comparison: None. All 4 quadrants are imaged by ultrasound to evaluate for ascites. Very tiny amount of fluid within the peritoneal cavity. US/US abdomen lmt fluid [id number] IMPRESSION: Tiny amount of ascites. Insufficient for paracentesis.
[2025-02-04] MEDS: morphine 4 mg/mL SDV 1 mL 2 MG IVP (10:48)
--- NOTE | 2025-02-04 11:32 | PM.HP ---
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 Presented to the emergency department today for abdominal pain. Describes pain across the whole belly and across the lower back (all around). Reports nausea; one episode of vomiting yesterday; diarrhea yesterday. Denies blood in stool or black stools. On arrival had hypotension with blood pressure in the 70s/40s and heart rate in the 40s?60s; received 1 liter fluid bolus and morphine in the ED with subsequent improvement of blood pressure to 105/61. Current/ED vitals documented: heart rate 49, respiratory rate 18, temperature 98.3?F, oxygen saturation 90% on room air. Laboratory data: complete blood count (CBC) with normal white blood cell count, hemoglobin 14.9 g/dL, platelets chronically low at 122 K/?L; international normalized ratio (INR) 2.03. Arterial blood gas (ABG): pH 7.33, pCO2 43.6 mmHg, pO2 72.5 mmHg, bicarbonate 23.2 mEq/L. Basic/chemistry panel: sodium 134 mEq/L, potassium 5.7 mEq/L, chloride 98 mEq/L, bicarbonate 23 mEq/L, anion gap 18.7, creatinine 3.0 mg/dL, glucose 104 mg/dL, lactic acid 1.5 mmol/L, magnesium 3.1 mg/dL. Liver-related labs: total bilirubin 1.1 mg/dL, aspartate aminotransferase (AST) 122 U/L (higher than 9/20), alanine aminotransferase (ALT) 64 U/L (mildly higher than 9/20), alkaline phosphatase 207 U/L, ammonia 92 ?mol/L, albumin 3.6 g/dL, globulin 4.7 g/dL. Lipase 163 U/L. Urinalysis: dark yellow, trace protein 2+, bilirubin present, no bacteria; [Unclear] hyaline casts 87.29. Digoxin level in ED 1.7. Electrocardiogram (ECG): sinus bradycardia, first-degree atrioventricular (AV) block; old Q waves in V1 and V2. Chest X-ray: no acute cardiopulmonary findings. Abdominal ultrasound: tiny amount of ascites, insufficient for paracentesis. Reports ongoing care with gastroenterology and urology: GI noted cirrhosis and discussed possible esophageal varices banding; urology froze a kidney mass (procedure done about a year ago) with annual tests planned; prior gallbladder removed with cancer in gallbladder; there may be a 3.1 cm lesion in right liver lobe requiring further investigation; possible hepatic venous/portal vein thrombosis under consideration and additional duplex ultrasound planned. Review of Systems Const: Reports: malaise; Denies: fever(s), chills or body aches ENMT: Denies: throat pain Card: Denies: chest pain, edema, pre-syncope or dyspnea on exertion Resp: Denies: dyspnea, productive cough, change in phlegm color or hemoptysis GI: Reports: abdominal pain, nausea, vomiting and diarrhea; Denies: constipation, hematochezia or melena : Denies: flank pain, urinary frequency or hematuria Musc: Denies: back pain, joint swelling or joint redness Skin/Breast: Denies: rash or new lesions Neuro: Denies: headache(s) or confusion Medications/Allergies Home Medications ?Medication ?Instructions ?Recorded ?Confirmed ?Last Taken ?Type fluticasone propionate 50 2 spray intranasal DAILY 05/27/19 02/04/25 02/03/25 History mcg/actuation nasal spray,suspension (Flonase Allergy Relief) montelukast 10 mg tablet 10 mg PO DAILY 05/27/19 02/04/25 02/03/25 History (Singulair) losartan 25 mg tablet 25 mg PO DAILY 07/20/22 02/04/25 02/03/25 History pantoprazole 40 mg tablet,delayed 40 mg PO BID 6 weeks #84 tabs 04/04/23 02/04/25 02/03/25 Rx release (Protonix) digoxin 125 mcg (0.125 mg) tablet 125 mcg PO DAILY #90 tabs 07/04/24 02/04/25 02/03/25 Rx polyethylene glycol 3350 17 4 g PO DAILY 07/31/24 02/04/25 02/03/25 History gram/dose oral powder (Miralax) magnesium oxide 250 mg PO DAILY #90 tabs 04/02/04/25 02/03/25 Rx hydrochlorothiazide 12.5 mg tablet 12.5 mg PO QAM #90 tabs 11/01/24 02/04/25 02/03/25 Rx alprazolam 0.5 mg tablet,extended 0.5 mg PO TID 02/01/25 02/04/25 02/03/25 History release 24 hr amlodipine 2.5 mg tablet 2.5 mg PO DAILY 02/01/25 02/04/25 02/03/25 History apixaban 5 mg tablet (Eliquis) 5 mg PO BID 02/01/25 02/04/25 02/03/25 History ferrous sulfate 325 mg (65 mg 325 mg PO DAILY 02/01/25 02/04/25 02/03/25 History iron) tablet (FeroSul) fluticasone 250 mcg-salmeterol 50 1 inh inhalation BID 02/01/25 02/04/25 02/03/25 History mcg/dose blistr powdr for inhalation ondansetron 4 mg disintegrating 4 mg PO Q6H PRN Nausea And Vomiting 02/01/25 02/04/25 Unknown History tablet oxycodone 10 mg tablet 10 mg PO Q6H PRN Pain 02/01/25 02/04/25 Unknown History potassium chloride 8 mEq 8 meq PO DAILY 02/01/25 02/04/25 02/03/25 History tablet,extended release sotalol 80 mg tablet 120 mg PO BID 02/01/25 02/04/25 02/03/25 History sucralfate 1 gram tablet (Carafate) 1 g PO BID 02/01/25 02/04/25 02/03/25 History Allergies Allergy/AdvReac Type Severity Reaction Status Date / Time acetaminophen (From Tylenol) Allergy ADR-Abdominal Verified 07/31/24 15:34 Pain aspirin Allergy Unknown Verified 07/31/24 15:34 Lckigmo-BML-SiF Reductase Allergy leg pain Verified 07/31/24 15:34 Inhibitor PFSH Acute PFSH: Medical History Gallbladder neoplasm Renal mass Acute pulmonary embolism Liver cirrhosis Anticoagulation adequate with anticoagulant therapy High risk medication use Aortic valve sclerosis Essential (primary) hypertension GERD (gastroesophageal reflux disease) Paroxysmal A-fib Asthma ELVIN (obstructive sleep apnea) Chronic cough CAD (coronary artery disease) Type 2 diabetes mellitus Surgical History History of kidney surgery H/O partial nephrectomy H/O tubal ligation H/O shoulder surgery Hx of cataract surgery Family History Mother Hypertension Diabetes Congestive heart failure (CHF) CAD (coronary artery disease) Stroke Brother Hypertension Stroke Cancer Diabetes Father Myocardial infarction CAD (coronary artery disease) Grandfather Diabetes Family/Other Diabetes Denies family history of Clotting disorder Dementia Chronic kidney disease (CKD) Suicide Anesthesia complication Bleeding disorder Lung disease Social History Smoking and tobacco/nicotine status: former use of tobacco/nicotine Quit status (tobacco/nicotine): has quit using Alcohol intake: never Substance/Drug Use: never Household members: none Marital status: / Current occupational status: retired Do you think of yourself as: Straight/Heterosexual Current gender identity: Female Vitals/I&O/Wt Last Vital Signs Temp 98.3 F 02/04/25 08:20 Pulse 49 L 02/04/25 10:53 Resp 18 02/04/25 08:20 BP 105/61 02/04/25 10:53 Pulse Ox 92 02/04/25 10:53 O2 Del Method Room Air 02/04/25 10:53 Weight last 48 hrs Weight 121.563 kg Physical Exam Narrative: Accompanied by her son Const: COMMON NORMALS: patient oriented x3 and alert GENERAL APPEARANCE: cooperative ORIENTATION/CONSCIOUSNESS: Yes awake HENMT: COMMON NORMALS: oropharynx normal Neck/C-Spine: COMMON NORMALS: no JVD Resp: COMMON NORMALS: normal respiratory effort and clear to auscultation bilaterally AUSCULTATION: clear to auscultation bilaterally Cardio: COMMON NORMALS: no JVD, regular rhythm, S1 normal heart sound present, S2 normal heart sound present and No murmurs present (Cardio) RHYTHM: regular rhythm HEART SOUNDS: S1 normal heart sound present and S2 normal heart sound present GI: COMMON NORMALS: Soft to palpation and non-tender PALPATION: Yes Soft to palpation OTHER: Large abomen, poss min distention Extremity: COMMON NORMALS: no joint enlargement and no pedal edema NARRATIVE EXTREMITY EXAM: Infiltrated IV L forearm Neuro: COMMON NORMALS: patient oriented x3 and moves all extremities SENSORIUM/ORIENTATION: Yes alert Skin: COMMON NORMALS: no rashes or lesions noted GENERAL SKIN EXAM: no rashes or lesions noted Data 02/04/25 08:40 02/04/25 08:40 Micro: Microbiology 02/04/25 09:00 Blood Culture - Preliminary Blood SPECIMEN COLLECTED 02/04/25 08:40 Blood Culture - Preliminary Blood SPECIMEN COLLECTED A&P Assessment and plan 1. FAVIO (acute kidney injury): Acute kidney injury (FAVIO) with creatinine 3.0 mg/dL : FAVIO recognized on labs; some home antihypertensives may contribute; dehydration and low BP discussed. Reviewed vitals, CMP, reviewed recent CT. No obstructive uropathy. Suspect may be multifactorial with possible ATN currently, with hypovolemia following nausea vomiting diarrhea, in combination with HCTZ. Also hypotension due to the above as well as losartan and amlodipine. Hold antihypertensives, hold diuretic. Received fluid challenge. Clear liquid diet as tolerating. Reassess blood pressures. Consider further volume expansion with albumin if needed in the setting of cirrhosis. With supratherapeutic digoxin level is resolved. With bradycardia. - Hold hydrochlorothiazide (HCTZ) and losartan for now - Reassess renal function - Monitor intake and output 2. Hepatic vein thrombosis: Possible hepatic vein thrombosis not excluded on imaging review. - Obtain additional ultrasound with duplex study to better visualize hepatic vessels (as part of thrombosis assessment) - Anticoagulation with heparin drip at current time, question of possible failure of Eliquis 3. Gastroenteritis: Abdominal pain with nausea, vomiting, and diarrhea : Patient reports diffuse abdominal and lower back pain, nausea, one episode of vomiting yesterday, and diarrhea yesterday. Stool and viral etiologies considered. Has been unable to tolerate oral intake. Received fluid challenge. Reviewed vitals, CBC, ABG, INR, CMP, UA, digoxin level, abdominal ultrasound, chest x-ray, ED provider note, discussed with ED provider. - Clear liquids for now until symptoms improve - Obtain viral swab for possible viral infection - Obtain stool studies including Salmonella, Shigella, Campylobacter - Obtain stool studies for Clostridioides difficile (C. diff) - Follow up on a panel for possible gastroenteritis - Dilated CBD on prior CT possibly due to cholecystectomy. Consider MRCP. 4. Hypotension: Hypotension (improved after fluids) : Initial hypotension in ED improved after 1 L fluid bolus; risk of fluid overload with cirrhosis noted. At risk of hypovolemic shock. - Hold antihypertensives, diuretic - Monitor blood pressures - Be cautious with fluids due to high risk of fluid overload in cirrhosis - Consider albumin infusions if needed for further volume expansion in the setting of cirrhosis 5. Bradycardia: Bradycardia with first-degree AV block : Sinus bradycardia with first-degree AV block on ECG; concern for digoxin effect in context of FAVIO. - Hold digoxin for now and recheck digoxin level - Monitor heart rates - Hold amiodarone today and reassess tomorrow depending on heart rate 6. Elevated digoxin level: With bradycardia. Reviewed digoxin level. Elevated. Hold for now. Reassess level. Monitor telemetry with risk of severe bradycardia. Monitor for digoxin toxicity. 7. Liver mass: Possible right hepatic lobe mass (~3.1 cm) : Imaging suggests approximately 3.1 cm lesion in the right hepatic lobe; needs additional investigation. - Obtain US of possible mass -Dilated CBD on prior CT possibly due to cholecystectomy. Consider MRCP. 8. Liver cirrhosis: Decompensated liver cirrhosis with hyperammonemia, ammonia 92. Liver cirrhosis with hyperammonemia and small ascites : Known cirrhosis; ammonia elevated; tiny ascites on ultrasound. -Once diarrhea is also will benefit from lactulose - Reassess ammonia with hyperammonemia in the setting of cirrhosis - Hold off on excess IV fluids due to risk of fluid overload - Consider albumin infusions if needed (see hypotension plan) Plan: Follow-up : Future care coordination noted. - Keep gastroenterology appointment for possible variceal banding, as well as discussed with her and her son possible hepatic mass and possible hepatic vein thrombosis. As well as for CBD dilation. - Liver cirrhosis - Atrial fibrillation: On digoxin, sotalol, anticoagulation with Eliquis. Continue sotalol. Reviewed EKG, reviewed QTc. - Hypertension - Obstructive sleep apnea - Coronary artery disease - Type 2 diabetes mellitus: SSI, monitor POC glucose. - Prior pulmonary embolism - History of kidney mass (per patient treated with cryoablation and in remission; follow-up reported as no residual disease in Dec on follow-up with urologist Dr. Pimentel) - History of gallbladder neoplasm s/p cholecystectomy here - Prior concern for superior mesenteric vein (SMV) thrombosis PDMP PDMP Reviewed: Not Reviewed Attestations Medical Necessity Statement*: Admission of over 2 midnights anticipated for assessment and management of ATN in the setting of hypovolemia, hypotension, possible hepatic vein thrombosis, in a lady with decompensated cirrhosis, FAVIO with supratherapeutic digoxin level, bradycardia, possible liver mass in right hepatic lobe, additional comorbidities as above. and High MDM includes amount and/or complexity of data reviewed/ordered [ previous or external records, resulted lab(s)/test(s), ordered lab(s)/test(s) and other healthcare professional discussion] and described risk of complication, morbidity or mortality of management as documented Diagnoses FAVIO (acute kidney injury) N17.9 Hepatic vein thrombosis I82.0 Gastroenteritis K52.9 Hypotension I95.9 Bradycardia R00.1 Elevated digoxin level R78.89 Liver mass R16.0 Liver cirrhosis K74.60
--- NOTE | 2025-02-04 12:22 | PC.NURSE ---
PT IS HARD STICK, ULTRASOUND IV NEEDED. IV WAS ESTABLISHED BUT WENT BAD, MEDS DELAYED D/T NO IV ACCESS.
--- NOTE | 2025-02-04 12:42 | US_ITS ---
WS: [id number] RIGHT UPPER QUADRANT ULTRASOUND HISTORY: assess for hepatic vein thrombosis and COMPARISON: CT 02/01/2025 Liver: 21.1 cm in length. Liver is enlarged and coarse echotexture. Surface is undulating. Changes of cirrhosis. Small amount of fluid adjacent to the liver. Portal Vein: Abnormal flow in the portal vein. Marked decrease of velocity. No obvious thrombus is identified but the entire portal vein is not well imaged. Gallbladder: Prior cholecystectomy. CBD: 1.4 cm Pancreas: Poorly visualized. Right kidney: 12.7 cm in length. Normal size kidney. Multiple RIGHT renal cysts. The largest from the lower pole measures 2.8 x 2.7 cm. Aorta and IVC: Unremarkable abdominal aorta and IVC. Small amount of ascites. US/US abdomen limited [id number] IMPRESSION: 1. Abnormal flow and waveform in the portal vein. No thrombus is identified bu t the entire portal vein is not well visualized. Filling defect noted in the po rtal vein on CT may represent a partial thrombus. 2. Markedly dilated common bile duct at 1.4 cm. Consider evaluation by MRCP. 3. Prior cholecystectomy. 4. Cirrhotic liver. 5. Small amount of ascites RIGHT upper quadrant. 6. No hepatic mass identified.
--- NOTE | 2025-02-04 13:22 | MRR_ITS ---
PROCEDURE INFORMATION: Exam: MR Abdomen Without Contrast Exam date and time: 02/04/2025 5:21 PM Age: 74 years old Clinical indication: Abdominal pain; Additional info: -dilated cbd TECHNIQUE: Imaging protocol: Magnetic resonance imaging of the abdomen without contrast. COMPARISON: CT abdomen pelvis w con* [id number] 02/01/2025 9:47 AM FINDINGS: Liver: Cirrhotic liver morphology again noted with mild hepatomegaly and moderate contour lobulation. 2.1 x 1.9 x 2 cm vaguely T2 hypointense lesion in the inferior right hepatic lobe (series 401, image 4) is new from 09/16/2023, suspicious for HCC. Gallbladder and biliary ducts: Gallbladder is absent. Mild intrahepatic biliary dilatation. Moderate dilatation of the CBD up to 1.6 cm has increased from 09/16/2023 although without obvious stricture or filling defect, favoring reservoir effect with or without biliary stasis. LFT correlation and follow-up suggested. Pancreas: Unremarkable. No ductal dilation. Spleen: Mild splenomegaly up to 14.9 cm. Adrenal glands: Unremarkable. No mass. Kidneys: 2 x 1.7 cm exophytic lesion of the lower pole of the left kidney corresponds to the reported solid enhancing mass 07/05/2023 with decreased size, compared to 3.1 x 2.5 cm previously. Several other bilateral renal cysts demonstrate simple unilocular morphology without solid component. Mild bilateral renal parenchymal thinning, right greater than left. Stomach and bowel: Visualized stomach and intestines are unremarkable. Intraperitoneal space: Mild ascites in the upper abdomen similar to the recent CT, increased from previous imaging. Vasculature: No abdominal aortic aneurysm. Lymph nodes: No enlarged nodes. Bones/joints: Unremarkable. No suspicious lesions. Soft tissues: Unremarkable. MR/MR MRCP [id number] IMPRESSION: 1. 2.1 cm new right lobe liver lesion highly suspicious for HCC as reported on 01/24/2025 CT. Contrast-enhanced multiphase MRI recommended to confirm and for treatment planning. 2. Increased CBD dilatation since 09/16/2023 without stricture or filling defect, favoring reservoir effect and possibly biliary stasis although distal stricture of the ampulla is possible. Correlation with LFTs and follow-up recommended. 3. Moderate-advanced hepatic cirrhosis with stigmata of portal hypertension.
--- NOTE | 2025-02-04 13:49 | PICC.NOTE ---
Referred to vascular access nurse due to difficult IV access status. 20 gauge peripheral IV started to right forearm x 1 stick with US guidance. Good blood return noted. Flushed without difficulty. Report given to bedside nurse, ARMINDA Wallace.
[2025-02-04] MEDS: heparin 5,000 unit/mL INJ 1 mL IVP (14:37)
[2025-02-04] MEDS: heparin drip 25,000 UNIT/500 ML PREMIX 35 UNIT IV (14:49)
--- NOTE | 2025-02-04 17:57 | PC.NURSE ---
called pharmacy harpreet in regards to insulin and calcium chloride not given in er, was to be given in er prior to arrival on [facility] floor. wasnt given because of issues with iv access. harpreet in pharmacy called back, dr. granado said to hold off and redraw a potassium.
[2025-02-04] MEDS: oxyCODONE 5 mg IR Tab/Cap 10 MG PO (18:31)
[2025-02-04 19:29] LABS: Alanine Aminotransferase 61 U/L (0-33); Albumin Level 3.2 g/dL (3.5-5.2); Alkaline Phosphatase 190 U/L (35-105); Blood Urea Nitrogen 63 mg/dL (8-23); Calcium 8.0 mg/dL (8.5-10.5); Carbon Dioxide 19 mmol/L (22-29); Chloride 99 mmol/L (98-107); Creatinine Clr Calc Pharmacy 23.2168; Globulin 4.6 g/dL (1.3-4.6); Glucose 86 mg/dL (65-115); Osmolality Calculated 289 mOsm/kg (285-295); Sodium 131 mmol/L (136-145); Total Protein 7.8 g/dL (6.6-8.7)
[2025-02-04 19:30] LABS: Anion Gap 18.5 (5-19); Aspartate Amino Transferase 119 U/L (0-32); Potassium 5.5 mmol/L (3.5-5.1)
[2025-02-04 21:06] LABS: Coronavirus 229E,HKU1,NL63,OC4 Not Detected (NOT DETECT); Parainfluenza Virus Type 1 Not Detected (NOT DETECT); Parainfluenza Virus Type 2 Not Detected (NOT DETECT); Parainfluenza Virus Type 3 Not Detected (NOT DETECT); Parainfluenza Virus Type 4 Not Detected (NOT DETECT); SARS-COV-2 Not Detected (NOT DETECT)
[2025-02-04 21:50] LABS: Partial Thromboplastin Time > 250.0 SECONDS (23.9-36.7)
[2025-02-05] VITALS (17 sets, daily range): BP systolic 99–138; BP diastolic 53–72; PULSE 48–63; RESP 16–20; TEMP 36.4–36.6; O2SAT 87–97
[2025-02-05 00:59] LABS: Hematocrit 41.0 % (36-47); Hemoglobin 13.30 g/dL (11.27-16.99); Mean Corpuscular HGB Conc 32.4 g/dL (30-55); Mean Corpuscular Hemoglobin 31.1 pg (27-33); Mean Corpuscular Volume 96.0 fl (85-98); Nucleated Red Blood Cells % 0 %; Platelet Count 116 10^3/cmm (157-399); Red Blood Count 4.27 10^6/uL (3.85-5.65); White Blood Count 6.02 10^3/uL (3.29-11.43)
[2025-02-05 01:10] LABS: Partial Thromboplastin Time 52.3 SECONDS (23.9-36.7)
[2025-02-05 01:19] LABS: Alanine Aminotransferase 60 U/L (0-33); Albumin Level 3.4 g/dL (3.5-5.2); Alkaline Phosphatase 187 U/L (35-105); Anion Gap 19.6 (5-19); Aspartate Amino Transferase 115 U/L (0-32); Blood Urea Nitrogen 66 mg/dL (8-23); Calcium 8.1 mg/dL (8.5-10.5); Carbon Dioxide 22 mmol/L (22-29); Chloride 98 mmol/L (98-107); Creatinine Clr Calc Pharmacy 21.6690; Globulin 4.2 g/dL (1.3-4.6); Glucose 79 mg/dL (65-115); Magnesium 3.1 mg/dL (1.7-2.3); Osmolality Calculated 296 mOsm/kg (285-295); Potassium 5.6 mmol/L (3.5-5.1); Sodium 134 mmol/L (136-145); Total Protein 7.6 g/dL (6.6-8.7)
[2025-02-05] MEDS: oxyCODONE 5 mg IR Tab/Cap 10 MG PO ×3 (05:44→22:04)
[2025-02-05 08:34] LABS: Partial Thromboplastin Time 93.6 SECONDS (23.9-36.7)
[2025-02-05] MEDS: albumin 37.5 GM/150 ML VIAL IV (08:36)
[2025-02-05] MEDS: ferrous sulfate EC 325 mg Tablet PO (08:36)
[2025-02-05] MEDS: fluticasone nasal spray 16gm Btl 2 SPRAY INTRANASAL (08:37)
--- NOTE | 2025-02-05 09:53 | PC.CHAP ---
Pastoral Care Encounter/Spiritual Assessment Type of Contact [] Declined spice fumigator visit [] Patient/Family/Request visit [] Outpatient visit [] Follow-up visit [] Physician referral [] Code/Alert [x] Routine visit [] Staff referral [] Actively dying [] Patient sleeping [x] Family support [] [] Out of room [] Palliative care [] [] Receiving care in room [] Pre-surgical visit [] Trauma [] Long length of stay [] ICU visit [] Other: Relational/Emotional Strength [x] Patient feels connected with others/family/visitors/staff [] Distress [] Loneliness/isolation [] Abandonment Spirituality of Patient [x] Person of Minerva [] Attends Uatsdin of their [place]a [x] Believes in Prayer [] Reads Bible or Buddhism materials [] There are Spiritual issues to be addressed Switcher Interventions [x] Prayer [x] Active listening [x] Non-anxious presence [x] Spiritual/emotional support [] Crisis/trauma care [] Spiritual counseling [] Bereavement support [] Provided bereavement packet [] Provided Bible/devotional materials [] Provided toy/stuffed animal, coloring book to patient or family member [] Provided Communion [] Anointing/Page [] Salvation [xxx] Completed spiritual assessment [] Other: Impact on Illness or Injury [] Angry [] Fearful [] Anxious [] Often cries [] Exhaustion [] Unable to work [] Unable to attend confucianist [] Unable to walk/stand [] Unable to read [] Unable to drive [] Unable to eat/drink [] Unable to sleep [] Unable to be with family [] Patient intubated [] Other: Summary Time spent with patient 5 min
[2025-02-05 13:00] LABS: Bacillus subtillis group Detected (NOT DETECT)
[2025-02-05] MEDS: heparin drip 25,000 UNIT/500 ML PREMIX 19.3 UNIT IV (13:24)
--- NOTE | 2025-02-05 13:36 | P.PN_ITS ---
Subjective 2 Subjective: She reports is not feeling quite significantly better today, but denies any further vomiting, has not had any additional diarrhea. So far tolerating clear liquids. Vitals/I&O/Wt Last Vital Signs Temp 97.8 F 02/05/25 07:26 Pulse 49 L 02/05/25 11:45 Resp 16 02/05/25 11:45 BP 99/63 02/05/25 07:26 Pulse Ox 94 02/05/25 11:45 O2 Del Method Nasal Cannula 02/05/25 11:45 O2 Flow Rate 1 02/05/25 11:45 02/04/25 02/05/25 02/05/25 22:59 06:59 14:59 Intake Total 1725.083 / 1725.083 0 / 6066.620 8644.058 / 1287.058 Output Total 200 / 200 300 / 300 Balance 1525.083 / 1525.083 0 / 1525.083 987.058 / 987.058 Weight last 48 hrs Weight 122.833 kg Weight 122.697 kg Weight 121.563 kg Physical Exam 2 Narrative: Accompanied by her friend Const: COMMON NORMALS: patient oriented x3 and alert GENERAL APPEARANCE: c ooperative ORIENTATION/CONSCIOUSNESS: Yes awake HENMT: COMMON NORMALS: oropharynx normal Neck/C-Spine: COMMON NORMALS: no JVD Resp: COMMON NORMALS: normal respiratory effort and clear to auscultation bilaterally AUSCULTATION: clear to auscultation bilaterally Cardio: COMMON NORMALS: no JVD, regular rhythm, S1 normal heart sound present, S2 normal heart sound present and No murmurs present (Cardio) RHYTHM: regular rhythm HEART SOUNDS: S1 normal heart sound present and S2 normal heart sound present GI: COMMON NORMALS: Soft to palpation and non-tender PALPATION: Yes Soft to palpation OTHER: Large abomen Extremity: COMMON NORMALS: no joint enlargement and no pedal edema N ARRATIVE EXTREMITY EXAM: Infiltrated IV L forearm with subsiding/resolving localized swelling Neuro: COMMON NORMALS: patient oriented x3 and moves all extremities S ENSORIUM/ORIENTATION: Yes alert Skin: COMMON NORMALS: no rashes or lesions noted GENERAL SKIN EXAM: no rashes or lesions noted Data 02/05/25 00:37 02/05/25 00:37 Micro: Microbiology 02/04/25 08:40 Blood Culture - Preliminary Blood 02/04/25 09:00 Blood Culture - Preliminary Blood NEGATIVE TO DATE A&P Assessment and plan 1. FAVIO (acute kidney injury): Reviewed vitals, intake and output, noted in positive balance, producing urine. Reviewed chemistry, BUN, creatinine noted 66, 3 respectively. Noted still with hyperkalemia potassium 5.6, without worsening. With hypokalemia, low contraction, poor oral intake recently, additional expansion requested with albumin 37.5 g. Hold off on continuous IV fluids. However, likely now in ATN. Discussed with her and her friend. Will reassess chemistry in the morning. Continue to withhold antihypertensives, continue to hold HCTZ. Hold digoxin with supratherapeutic level. Sotalol level had to be adjusted due to bradycardia. Monitor for risk of further bradycardia, tachycardia. - Hold hydrochlorothiazide (HCTZ) and losartan for now - Reassess renal function - Monitor intake and output Discussed with her daughter. Discussed with nursing, bilingual case manager. 2. Hepatic vein thrombosis: Discussed ultrasound findings with her, her friend and her daughter. Partial hepatic vein thrombus not excluded due to flow limitation. Continue to coagulation currently with heparin drip. Reassess blood counts. Monitor PTT. Monitor for risk of bleeding. 3. Liver mass: MRCP obtained, reviewed, discussed results with her, her friend, and her daughter. Noted 2.1 cm mass suspicious for HCC, MRI with contrast recommended but currently unable to obtain due to renal dysfunction. As per discussion with her and her family, will need to follow-up with gastroenterology further to consider additional assessment, biopsy. HCC possibly on a background of cirrhosis. 4. Gastroenteritis: Patient resolved. No further vomiting so far. No diarrhea. Tolerating clear liquids. Would like to advance to GI soft diet, requested. Reviewed viral panel. Negative. Stool studies have been requested, uncollected. - Obtain stool studies including Salmonella, Shigella, Campylobacter - Obtain stool studies for Clostridioides difficile (C. diff) - Dilated CBD on prior CT possibly due to cholecystectomy. Obtained and reviewed MRCP. Possibly reservoir effect after cholecystectomy in the past. No obvious obstruction. However, stricture at the ampulla not entirely excluded. Will need to follow-up with gastroenterology as per discussion. 5. Hypotension: So far resolved although blood pressure still soft. Continue to hold antihypertensives. Hypotension (improved after fluids) : Initial hypotension in ED improved after 1 L fluid bolus; risk of fluid overload with cirrhosis noted. At risk of hypovolemic shock. - Hold antihypertensives, diuretic - Monitor blood pressures - Be cautious with fluids due to high risk of fluid overload in cirrhosis - Consider albumin infusions if needed for further volume expansion in the setting of cirrhosis 6. Bradycardia: Continue to hold digoxin. Recheck digoxin level in the morning. As discussed sotalol level decreased to to bradycardia. Monitor for risk of further bradycardia, tachycardia. History of bradycardia arrest. Monitor on telemetry. Bradycardia with first-degree AV block : Sinus bradycardia with first-degree AV block on ECG; concern for digoxin effect in context of FAVIO. - Hold digoxin for now and recheck digoxin level - Monitor heart rates - Hold amiodarone today and reassess tomorrow depending on heart rate 7. Elevated digoxin level: Repeat level requested for the morning. With bradycardia. Reviewed digoxin level. Elevated. Hold for now. Reassess level. Monitor telemetry with risk of severe bradycardia. Monitor for digoxin toxicity. 8. Liver cirrhosis: Decompensated liver cirrhosis with hyperammonemia, ammonia 92. Liver cirrhosis with hyperammonemia and small ascites : Known cirrhosis; ammonia elevated; tiny ascites on ultrasound. -Once diarrhea is also will benefit from lactulose - Reassess ammonia with hyperammonemia in the setting of cirrhosis - Hold off on excess IV fluids due to risk of fluid overload - Consider albumin infusions if needed (see hypotension plan) Plan: Follow-up : Future care coordination noted. - Keep gastroenterology appointment for possible variceal banding, as well as discussed with her and her son possible hepatic mass and possible hepatic vein thrombosis. As well as for CBD dilation. Aortic aneurysm 3.5 cm also incidentally seen on the recent CT scan. Will need outpatient follow-up. - Liver cirrhosis - Atrial fibrillation: On digoxin, sotalol, anticoagulation with Eliquis. Continue sotalol. Reviewed EKG, reviewed QTc. - Hypertension - Obstructive sleep apnea - Coronary artery disease - Type 2 diabetes mellitus: SSI, monitor POC glucose. - Prior pulmonary embolism - History of kidney mass (per patient treated with cryoablation and in remission; follow-up reported as no residual disease in Dec on follow-up with urologist Dr. 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 and High MDM includes amount and/or complexity of data reviewed/ordered [ resulted lab(s)/test(s), ordered lab(s)/test(s), independent historian and other healthcare professional discussion] and described risk of complication, morbidity or mortality of management as documented Diagnoses FAVIO (acute kidney injury) N17.9 Hepatic vein thrombosis I82.0 Liver mass R16.0 Gastroenteritis K52.9 Hypotension I95.9 Bradycardia R00.1 Elevated digoxin level R78.89 Liver cirrhosis K74.60
[2025-02-05 15:53] LABS: Partial Thromboplastin Time 53.1 SECONDS (23.9-36.7)
[2025-02-05] MEDS: ondansetron 2 mg/ML SDV 2 mL 4 MG IVP (17:04)
[2025-02-05 23:44] LABS: Partial Thromboplastin Time 87.3 SECONDS (23.9-36.7)
[2025-02-06] VITALS (11 sets, daily range): BP systolic 110–156; BP diastolic 66–93; PULSE 51–63; RESP 14–18; TEMP 36.3–36.8; O2SAT 93–98
[2025-02-06] MEDS: ondansetron 2 mg/ML SDV 2 mL 4 MG IVP (02:34)
[2025-02-06 06:05] LABS: Hematocrit 44.9 % (36-47); Hemoglobin 13.90 g/dL (11.27-16.99); Mean Corpuscular HGB Conc 31.0 g/dL (30-55); Mean Corpuscular Hemoglobin 30.7 pg (27-33); Mean Corpuscular Volume 99.1 fl (85-98); Nucleated Red Blood Cells % 0 %; Platelet Count 126 10^3/cmm (157-399); Red Blood Count 4.53 10^6/uL (3.85-5.65); White Blood Count 6.15 10^3/uL (3.29-11.43)
[2025-02-06 06:21] LABS: Partial Thromboplastin Time 69.5 SECONDS (23.9-36.7)
[2025-02-06 06:28] LABS: Digoxin 1.3 ng/mL (0.6-1.2)
[2025-02-06 06:43] LABS: Alanine Aminotransferase 65 U/L (0-33); Albumin Level 3.5 g/dL (3.5-5.2); Alkaline Phosphatase 193 U/L (35-105); Anion Gap 22.0 (5-19); Aspartate Amino Transferase 112 U/L (0-32); Blood Urea Nitrogen 72 mg/dL (8-23); Calcium 8.0 mg/dL (8.5-10.5); Carbon Dioxide 17 mmol/L (22-29); Chloride 98 mmol/L (98-107); Creatinine Clr Calc Pharmacy 21.7786; Globulin 4.4 g/dL (1.3-4.6); Glucose 95 mg/dL (65-115); Osmolality Calculated 293 mOsm/kg (285-295); Potassium 6.0 mmol/L (3.5-5.1); Sodium 131 mmol/L (136-145); Total Protein 7.9 g/dL (6.6-8.7)
[2025-02-06] MEDS: ferrous sulfate EC 325 mg Tablet PO (09:36)
[2025-02-06] MEDS: oxyCODONE 5 mg IR Tab/Cap 10 MG PO ×2 (10:39→17:48)
--- NOTE | 2025-02-06 11:57 | PM.CONSULT ---
Providers/Reason For Consult Consulting Physician/Specialty*: [facility] / telenephrology Reason for Consult*: FAVIO, hyperkalemia, metabolic acidosis Requesting Physician: Dr Radha Trujillo Attending Physician: Gerald Trujillo Primary Care Provider: Akil Muñiz MD History of Present Illness History of Present Illness Lisa Rahman is a 74 year old female admitted on February 04, 2025 for abdominal pain and acute kidney injury. The patient has underlying liver cirrhosis atrial fibrillation hypertension obstructive sleep apnea, CAD, type 2 diabetes history of pulmonary embolism. She has a history of a kidney mass status post cryoablation. She has history of gallbladder neoplasm status postcholecystectomy. There is question of superior mesenteric vein Thrombosis. On admission the patient was complaining of abdominal pain nausea episodes of diarrhea and vomiting denies bloody stools. In the emergency room she was hypotensive with blood pressure in the 70s over 40s heart rate as low as 40s to 60s. She received fluids her blood pressure improved however her creatinine has gone up from baseline of 0.6 mg/dL in September 2023 to this month on admission creatinine was 3 up from February 01 when creatinine was 1.4 mg/dL. Please note that patient was in the ER on February 01, [address] scan with contrast on that day. The patient has underlying cirrhosis follows up with a liver doctor in [place]. On admission patient is thiazide and losartan was stopped the patient received fluids. Her digoxin was held the patient had an MRCP. The patient continues to feel poorly states she has diarrhea. She was hyperkalemic digoxin was held her thiazide and losartan was held. On MRI the patient was found to have a 2.1 centimeter mass suspicious for hepatocellular CA her ammonia was as high as 92. Renal was called to see the patient as creatinine is stable even though she is urinating. Review of Systems Narrative: Weak lethargic poor appetite short of breath dyspnea on exertion abdominal pain abdominal distention leg edema rash nausea itching some confusion. Medications/Allergies Home Medications ?Medication ?Instructions ?Recorded ?Confirmed ?Last Taken ?Type fluticasone propionate 50 2 spray intranasal DAILY 05/27/19 02/04/25 02/03/25 History mcg/actuation nasal spray,suspension (Flonase Allergy Relief) montelukast 10 mg tablet 10 mg PO DAILY 05/27/19 02/04/25 02/03/25 History (Singulair) losartan 25 mg tablet 25 mg PO DAILY 07/20/22 02/04/25 02/03/25 History pantoprazole 40 mg tablet,delayed 40 mg PO BID 6 weeks #84 tabs 04/04/23 02/04/25 02/03/25 Rx release (Protonix) digoxin 125 mcg (0.125 mg) tablet 125 mcg PO DAILY #90 tabs 07/04/24 02/04/25 02/03/25 Rx polyethylene glycol 3350 17 4 g PO DAILY 07/31/24 02/04/25 02/03/25 History gram/dose oral powder (Miralax) magnesium oxide 250 mg PO DAILY #90 tabs 08/30/24 02/04/25 02/03/25 Rx hydrochlorothiazide 12.5 mg tablet 12.5 mg PO QAM #90 tabs 11/01/24 02/04/25 02/03/25 Rx alprazolam 0.5 mg tablet,extended 0.5 mg PO TID 02/01/25 02/04/25 02/03/25 History release 24 hr amlodipine 2.5 mg tablet 2.5 mg PO DAILY 02/01/25 02/04/25 02/03/25 History apixaban 5 mg tablet (Eliquis) 5 mg PO BID 02/01/25 02/04/25 02/03/25 History ferrous sulfate 325 mg (65 mg 325 mg PO DAILY 02/01/25 02/04/25 02/03/25 History iron) tablet (FeroSul) fluticasone 250 mcg-salmeterol 50 1 inh inhalation BID 02/01/25 02/04/25 02/03/25 History mcg/dose blistr powdr for inhalation ondansetron 4 mg disintegrating 4 mg PO Q6H PRN Nausea And Vomiting 02/01/25 02/04/25 Unknown History tablet oxycodone 10 mg tablet 10 mg PO Q6H PRN Pain 02/01/25 02/04/25 Unknown History potassium chloride 8 mEq 8 meq PO DAILY 02/01/25 02/04/25 02/03/25 History tablet,extended release sotalol 80 mg tablet 120 mg PO BID 02/01/25 02/04/25 02/03/25 History sucralfate 1 gram tablet (Carafate) 1 g PO BID 02/01/25 02/04/25 02/03/25 History Allergies Allergy/AdvReac Type Severity Reaction Status Date / Time acetaminophen (From Tylenol) Allergy ADR-Abdominal Verified 07/31/24 15:34 Pain aspirin Allergy Unknown Verified 07/31/24 15:34 [id number] Reductase Allergy leg pain Verified 07/31/24 15:34 Inhibitor Current Medications Generic Name Dose Route Start Last Admin Trade Name Freq PRN Reason Stop Dose Admin Albuterol Sulfate 2.5 mg 02/04/25 16:00 02/06/25 11:20 Albuterol 2.5 Mg/3 Ml Neb INHALATION 2.5 mg QID.RESPIRATORY MATTIE Administration Budesonide 0.5 mg 02/04/25 20:00 02/06/25 07:52 Budesonide 0.5 Mg/2 Ml Neb INHALATION 0.5 mg BID.RESPIRATORY MATTIE Administration Ferrous Sulfate 325 mg 02/05/25 09:00 02/06/25 09:36 Ferrous Sulfate Ec 325 Mg Tablet PO 325 mg DAILY MATTIE Administration Fluticasone Propionate 2 spray 02/05/25 09:00 02/06/25 10:28 Fluticasone Nasal [place] 16gm Btl INTRANASAL Not Given DAILY MATTIE Dextrose 250 mls @ 1,000 mls/hr 02/04/25 10:59 02/04/25 21:32 D10w IV Infused PRN PRN Infusion HYPOGLYCEMIA Heparin Sodium/Sodium Chloride 25,000 unit in 500 mls @ 0 mls/hr 02/04/25 12:42 02/06/25 07:29 Heparin Drip IV 6.99 unit/kg/hr CONT MATTIE 17 mls/hr Protocol Titration Per Protocol Insulin Human Lispro 0 unit 02/04/25 18:00 02/06/25 08:04 Insulin Lispro 100 Unit/1 Ml SUBCUT Not Given [facility] Protocol Montelukast Sodium 10 mg 02/04/25 12:45 02/06/25 09:36 Montelukast Sodium 10 Mg Tablet PO 10 mg DAILY MATTIE Administration Ondansetron HCl 4 mg 02/04/25 12:42 02/06/25 02:34 Ondansetron 2 Mg/Ml Sdv 2 Ml IVP 4 mg Q8H PRN Administration vomiting, or N/V if npo Oxycodone HCl 10 mg 02/04/25 12:45 02/06/25 10:39 Oxycodone 5 Mg Ir Tab/Cap PO 10 mg Q6H PRN Administration Pain Pantoprazole Sodium 40 mg 02/04/25 17:00 02/06/25 05:[address] 40 Mg Tablet PO 40 mg BID@0500,1700 MATTIE Administration Sotalol HCl 80 mg 02/05/25 17:00 02/06/25 05:34 Sotalol 80 Mg Tablet PO 80 mg BID@0500,1700 MATTIE Administration Sucralfate 1 gm 02/04/25 17:00 02/06/25 05:34 Sucralfate 1 Gm Tablet PO 1 gm BID@0500,1700 MATTIE Administration PFSH Acute PFSH: Medical History (Updated 02/04/25 @ 16:53 by Eris Malik DO) Gallbladder neoplasm Renal mass Acute pulmonary embolism Liver cirrhosis Anticoagulation adequate with anticoagulant therapy High risk medication use Aortic valve sclerosis Essential (primary) hypertension GERD (gastroesophageal reflux disease) Paroxysmal A-fib Asthma ELVIN (obstructive sleep apnea) Chronic cough CAD (coronary artery disease) Type 2 diabetes mellitus Surgical History History of kidney surgery H/O partial nephrectomy H/O tubal ligation H/O shoulder surgery Hx of cataract surgery Family History Mother Hypertension Diabetes Congestive heart failure (CHF) CAD (coronary artery disease) Stroke Brother Hypertension Stroke Cancer Diabetes Father Myocardial infarction CAD (coronary artery disease) Grandfather Diabetes Family/Other Diabetes Denies family history of Clotting disorder Dementia Chronic kidney disease (CKD) Suicide Anesthesia complication Bleeding disorder Lung disease Social History Smoking and tobacco/nicotine status: former use of tobacco/nicotine Quit status (tobacco/nicotine): has quit using Alcohol intake: never Substance/Drug Use: never Household members: none Marital status: / Current occupational status: retired Do you think of yourself as: Straight/Heterosexual Current gender identity: Female Vitals/I&O/Wt Last Vital Signs Temp 97.8 F 02/06/25 08:01 Pulse 62 02/06/25 11:19 Resp 16 02/06/25 11:19 BP 156/93 02/06/25 08:01 Pulse Ox 93 02/06/25 11:19 O2 Del Method Nasal Cannula 02/06/25 11:19 O2 Flow Rate 1 02/06/25 11:19 02/05/25 02/06/25 02/06/25 22:59 06:59 14:59 Intake Total 62.082 / 1676.955 164.648 / 1841.603 247.217 / 247.217 Output Total 400 / 700 150 / 850 Balance -337.918 / 976.955 14.648 / 991.603 247.217 / 247.217 Weight last 48 hrs Weight 123.785 kg Weight 122.833 kg Weight 122.697 kg Physical Exam Narrative: No signs noted. Heart rate up to 60. Patient is short of breath sitting up in bed using nasal cannula oxygen. HEENT normocephalic atraumatic neck is supple lungs have crackles bilaterally heart has a systolic murmur positive S1-S2 abdomen is soft positive bowel sounds mild distention. Extremities have bilateral edema neurologically awake alert oriented x 2+. Moves all extremities. Mild tremors. Data 02/06/25 05:58 02/06/25 05:58 Micro: Microbiology 02/04/25 08:40 Blood Culture - Preliminary Blood 02/04/25 09:00 Blood Culture - Preliminary Blood NEGATIVE TO DATE A&P Assessment and plan 1. FAVIO (acute kidney injury): 74-year-old lady history of liver cirrhosis, atrial fibrillation, hypertension, obesity, obstructive sleep apnea, CAD, type II DM diabetes mellitus pulmonary embolism, kidney mass status post cryoablation. History of cholecystectomy for gallbladder neoplasm. Question of superior mesenteric vein thrombosis. 1. Patient developed acute May as of admission February 01, 2025 creatinine was 1.4 up from her baseline of 0.6 mg/dL. By February 04 her creatinine is at 3 mg/dL. Differential diagnosis is ATN from hypotension and bradycardia versus contrast-induced FAVIO versus hepatorenal syndrome versus interstitial nephritis versus others. Urinalysis on admission had trace protein 2+ bilirubin and hyaline cast. Patient was given fluids. Creatinine is stable but not improving. Will send urine electrolytes. Imaging does not reveal any hydronephrosis. If patient becomes an uric consider looking for renal vein thrombosis -Will check CPK both to have rhabdomyolysis. Albumin above 3 bilirubin not so elevated transaminases only AST and ALT of 112 and 65 I doubt hepatorenal syndrome. At this time most likely ATN I will give diuretics to see if she improves. 2. Hyperkalemia will treat medically and monitor. 3. Increased anion gap metabolic acidosis of 16 along with respiratory acidosis as pCO2 of 44. Etiology is likely from acute kidney injury and may be she has low respiratory drive due to medications or lethargy. Will repeat blood gas. Will check a lactate Monitor with diuretics and may start sodium bicarbonate based on blood gas results 4. Digoxin level improving monitor bradycardia. Medications reviewed. Patient was seen and examined using A/V equipment and aid of a nurse. Patient consented to telehealth. I discussed with the patient her conditions and answered her wrist and her sister's questions in detail. Plan: see above PDMP PDMP Reviewed: Not Reviewed Consult Attestations Medical Necessity Statement: Acute kidney injury, metabolic acidosis, hyperkalemia Time Spent in Patient Care: Greater than 35 minutes (>than 50% of time spent in counselling and/or direct pt care on unit). Coding Level of Care Code Acute Code for [facility] Fwd Diagnoses FAVIO (acute kidney injury) N17.9
[2025-02-06 12:54] LABS: ABG PCO2 48.8 mmHg (35-45); ABG PH Result 7.27 (7.35-7.45); Alveolar-Arterial Oxygen Gradi 1.5 mmHg (5-10); Arterial Blood Gas Hematocrit 43.9 % (37-47); Blood Gas Allen Test Pos; Blood Gas LPM 2.0 %; Blood Gas Operator Identificat WALCI; Blood Gas Sample Site Radial, right; Blood Gas Sample Type Arterial; Carboxyhemoglobin 1.2 %THgb (0.4-20.1); Glucose Level-ABG 98.0 mg/dL (70-115); HCO3 ABG 22.4 mmol/L (22-26); Ionized Calcium Level - ABG 1.1 mmol/L (1.1-1.4); Methemoglobin 0.9 % (0.4-1.5); Oxygen Saturation ABG 95.3; PO2 ABG 77.6 mmHg (80.0-100.0); Potassium Level - ABG 5.4 mmol/L (3.5-5.0); Sodium Level - ABG 134.0 mmol/L (131-143)
[2025-02-06 13:08] LABS: Partial Thromboplastin Time 60.5 SECONDS (23.9-36.7)
[2025-02-06 13:15] LABS: Lactate (Lactic Acid level) 1.7 mmol/L (0.5-2.2)
--- NOTE | 2025-02-06 13:44 | CT_ITS ---
WS: [id number] CT ABDOMEN PELVIS TECHNIQUE: Noncontrast CT of the abdomen and pelvis with coronal and sagittal reformatted images. CLINICAL INFORMATION: Recent vomiting. New melena. Large abdomen. COMPARISON: 02/01/2025 DLP: 1178.[address] scans at [facility] use at least one of these dose optimization techniques: automated exposure control; mA and/or kV adjustment per patient size (includes targeted exams where dose is matched to clinical indication); or iterative reconstruction. FINDINGS: Cirrhotic liver. Splenomegaly. Evidence of portal venous hypertension with portosystemic collaterals, mesenteric edema and small volume ascites. Developing varices in the upper abdomen. Small esophageal hiatal hernia. Paraesophageal varices. Stable indeterminate lesion RIGHT hepatic lobe measuring 2.5 cm previously described Cardiomegaly. Slight bibasal atelectasis with trace pleural fluid. Cholecystectomy. Fatty atrophy of the pancreas. Dilated common bile duct likely physiologic postcholecystectomy but technically indeterminate. This be followed up with MRCP on an elective basis. Mesenteric edema. Small volume ascites with mesenteric congestion. Aortic calcification. Sigmoid diverticulosis. No evidence of acute diverticulitis on this noncontrast study. No evidence of small or large bowel obstruction. Adrenal glands are normal. Atrophic RIGHT kidney. Bilateral renal cysts. No other remarkable changes compared to previous. Aneurysmal distal abdominal aorta measuring 2.9 x 3.5 [address] by transverse CT/CT abdomen pelvis wo con [id number] IMPRESSION: 1. Overall no remarkable changes compared to previous. 2. Cirrhotic liver with splenomegaly and portal venous hypertension. 3. Small volume ascites with mesenteric congestion. 4. Prior cholecystectomy. 5. Sigmoid diverticulosis. No evidence of acute diverticulitis. 6. No evidence of small or large bowel obstruction. 7. Wall thickening in the RIGHT colon and transverse colon likely due to angélica l hypertension and hypoalbuminemia.
[2025-02-06 13:47] LABS: Hepatitis B Surface Antigen Non-Reactive (Nonreactive)
[2025-02-06 14:10] LABS: Thyroid Stimulating Hormone 1.12 uIU/mL (0.27-4.20)
--- NOTE | 2025-02-06 14:20 | P.TS_ITS ---
Transfer Summary Providers Date of Admission: 02/04/25 12:05 Date of Discharge/Transfer: 02/06/25 Attending Provider at Admission: Gerald Trujillo Attending Provider at Transfer: Gerald Trujillo Primary Care Provider: Akil Muñiz MD Transfer Plans: Anticipated date of transfer: 02/06/25 . Diagnoses at Discharge Discharge Diagnosis 1. 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 Presented to the emergency department today for abdominal pain. Describes pain across the whole belly and across the lower back (all around). Reports nausea; one episode of vomiting yesterday; diarrhea yesterday. Denies blood in stool or black stools. On arrival had hypotension with blood pressure in the 70s/40s and heart rate in the 40s?60s; received 1 liter fluid bolus and morphine in the ED with subsequent improvement of blood pressure to 105/61. Current/ED vitals documented: heart rate 49, respiratory rate 18, temperature 98.3?F, oxygen saturation 90% on room air. Laboratory data: complete blood count (CBC) with normal white blood cell count, hemoglobin 14.9 g/dL, platelets chronically low at 122 K/?L; international normalized ratio (INR) 2.03. Arterial blood gas (ABG): pH 7.33, pCO2 43.6 mmHg, pO2 72.5 mmHg, bicarbonate 23.2 mEq/L. Basic/chemistry panel: sodium 134 mEq/L, potassium 5.7 mEq/L, chloride 98 mEq/L, bicarbonate 23 mEq/L, anion gap 18.7, creatinine 3.0 mg/dL, glucose 104 mg/dL, lactic acid 1.5 mmol/L, magnesium 3.1 mg/dL. Liver- related labs: total bilirubin 1.1 mg/dL, aspartate aminotransferase (AST) 122 U/L (higher than /20), alanine aminotransferase (ALT) 64 U/L (mildly higher than /20), alkaline phosphatase 207 U/L, ammonia 92 ?mol/L, albumin 3.6 g/dL, globulin 4.7 g/dL. Lipase 163 U/L. Urinalysis: dark yellow, trace protein 2+, bilirubin present, no bacteria; hyaline casts 87.29. Digoxin level in ED 1.7. Electrocardiogram (ECG): sinus bradycardia, first-degree atrioventricular (AV) block; old Q waves in V1 and V2. Chest X-ray: no acute cardiopulmonary findings. Abdominal ultrasound: tiny amount of ascites, insufficient for paracentesis. Reports ongoing care with gastroenterology and urology: GI noted cirrhosis and discussed possible esophageal varices banding; urology froze a kidney mass (procedure done about a year ago) with annual tests planned; prior gallbladder removed with cancer in gallbladder; there may be a 3.1 cm lesion in right liver lobe requiring further investigation; possible hepatic venous/portal vein thrombosis under consideration and additional duplex ultrasound planned. Hospital Course Hospital Course She received a liter of IV fluid in the ED with blood pressure improvement from 70s over 40s with initial hypotension, as well as FAVIO and hypertensives were held including amlodipine, HCTZ, losartan. With hyperkalemia potassium supplements held, she trialed clear liquids which she tolerated with resolution of vomiting. Bradycardia remaining stable heart rates 50s-60s often digoxin and with reduction of sotalol dose to 80 mg twice daily. Digoxin level is decreasing. She has had no profuse diarrhea, few soft stools. Tolerated trial of clear liquids and advancement to GI soft diet initially, although currently no appetite. Renal function despite volume challenge, and additional volume expansion with albumin did not improve, creatinine remaining at 3, BUN up to 72. She has been producing urine. Does not have obstructive uropathy on recent CT. With worsening renal function nephrology opinion is further sought. Her blood counts have remained steady, however, today for the first time she has experienced melena with her stool. She has remained malaised and generally weak. She has been on anticoagulation which was switched to heparin drip during hospitalization for concern of portal vein thrombosis. Venous duplex was obta ined which did not directly visualize thrombosis, but with flow abnormality partial thrombus is suspected. With CBD dilation, some abnormality of liver enzymes, mild elevation of alk phos, mild transaminitis, MRCP was obtained, without visualized obstruction, favoring reservoir effect, however, stricture lower down in the ampulla is not excluded. MRCP additionally echo suspicion of likely new HCC focus in the right hepatic lobe of about 2.1 cm as per discussion with patient and family. This will need further evaluation once she is able to with triple phase MRI. With unimproved FAVIO with ATN and persistent and worsening hyperkalemia she is given Kayexalate. Nephrology is making arrangements for bicarb with diuresis due to metabolic acidosis, considering differential including ATN, GILDARDO, HRS. Remains with worsened generalized weakness with malaise, poor appetite. Generalized body aches. CK checked and normal. Due to patient's specialist providers being at [facility] patient and family request for transfer to [facility] for continued assessment and care. After discussion with GI specialist there and accepting hospitalist provider she is accepted for transfer pending bed opening. Imaging is requested to be pushed to [facility]. CT ABDOMEN PELVIS TECHNIQUE: Noncontrast CT of the abdomen and pelvis with coronal and sagittal reformatted images. CLINICAL INFORMATION: Recent vomiting. New melena. Large abdomen. COMPARISON: 02/01/2025 DLP: 1178.[address] scans at [facility] use at least one of these dose optimization techniques: automated exposure control; mA and/or kV adjustment per patient size (includes targeted exams where dose is matched to clinical indication); or iterative reconstruction. FINDINGS: Cirrhotic liver. Splenomegaly. Evidence of portal venous hypertension with portosystemic collaterals, mesenteric edema and small volume ascites. Developing varices in the upper abdomen. Small esophageal hiatal hernia. Paraesophageal varices. Stable indeterminate lesion RIGHT hepatic lobe measuring 2.5 cm previously described Cardiomegaly. Slight bibasal atelectasis with trace pleural fluid. Cholecystectomy. Fatty atrophy of the pancreas. Dilated common bile duct likely physiologic postcholecystectomy but technically indeterminate. This be followed up with MRCP on an elective basis. Mesenteric edema. Small volume ascites with mesenteric congestion. Aortic calcification. Sigmoid diverticulosis. No evidence of acute diverticulitis on this noncontrast study. No evidence of small or large bowel obstruction. Adrenal glands are no rmal. Atrophic RIGHT kidney. Bilateral renal cysts. No other remarkable changes compared to previous. Aneurysmal distal abdominal aorta measuring 2.9 x 3.5 cm [address] by transverse CT/CT abdomen pelvis wo con [id number] IMPRESSION: 1. Overall no remarkable changes compared to previous. 2. Cirrhotic liver with splenomegaly and portal venous hypertension. 3. Small volume ascites with mesenteric congestion. 4. Prior cholecystectomy. 5. Sigmoid diverticulosis. No evidence of acute diverticulitis. 6. No evidence of small or large bowel obstruction. 7. Wall thickening in the RIGHT colon and transverse colon likely due to portal hypertension and hypoalbuminemia. Dictated By: Jon Mullins MD Signed By: Jon Mullins MD Signed Date/Time: 02/06/25 1448 DD/ 1432 Physical Exam Narrative: Accompanied by her son. Generally weak, reports malaise, diffuse body ache. Const: COMMON NORMALS: patient oriented x3 and alert GENERAL APPEARANCE: cooperative NUTRITIONAL APPEARANCE: obese ORIENTATION/CONSCIOUSNESS: Yes awake HENMT: COMMON NORMALS: oropharynx normal Neck/C-Spine: COMMON NORMALS: no JVD Resp: COMMON NORMALS: normal respiratory effort and clear to auscultation bilaterally AUSCULTATION: clear to auscultation bilaterally Cardio: COMMON NORMALS: no JVD, regular rhythm, S1 normal heart sound present, S2 normal heart sound present and No murmurs present (Cardio) RHYTHM: regular rhythm HEART SOUNDS: S1 normal heart sound present and S2 normal heart sound present GI: COMMON NORMALS: Normal to inspection, nondistended, normoactive bowel sounds present, Soft to palpation and non-tender PALPATION: Yes Soft to palpation OTHER: Large abdomen. Extremity: COMMON NORMALS: no joint enlargement and no pedal edema OTHER: Improving focal edema left volar area. Neuro: COMMON NORMALS: patient oriented x3 and moves all extremities SENSORIUM/ORIENTATION: Yes alert Skin: COMMON NORMALS: no rashes or lesions noted GENERAL SKIN EXAM: no rashes or lesions noted TS Data Studies Completed and Pending Pending at discharge Category Date Time Status CT abdomen pelvis wo con [id number] Urgent Cat Scan 02/06/25 13:44 Taken Ammonia Stat Lab 02/06/25 13:54 Received Blood Culture Stat Lab 02/04/25 09:00 Results C.Diff PCR (Lab) Routine Lab 02/04/25 13:14 Uncollected Complete Blood Count w/Auto AM LABS Lab 02/07/25 04:00 Ordered Comprehensive Metabolic Panel AM LABS Lab 02/07/25 04:00 Ordered Comprehensive Metabolic Panel AM LABS Lab 02/07/25 04:00 Ordered Comprehensive Metabolic Panel AM LABS Lab 02/08/25 04:00 Ordered Comprehensive Metabolic Panel AM LABS Lab 02/09/25 04:00 Ordered Cortisol Random AM LABS Lab 02/07/25 04:00 Ordered Digoxin AM LABS Lab 02/07/25 04:00 Ordered Digoxin AM LABS Lab 02/08/25 04:00 Ordered Digoxin AM LABS Lab 02/09/25 04:00 Ordered Ferritin AM LABS Lab 02/07/25 04:00 Ordered Magnesium AM LABS Lab 02/07/25 04:00 Ordered Magnesium AM LABS Lab 02/08/25 04:00 Ordered Magnesium AM LABS Lab 02/09/25 04:00 Ordered Phosphorus AM LABS Lab 02/07/25 04:00 Ordered Phosphorus AM LABS Lab 02/08/25 04:00 Ordered Phosphorus AM LABS Lab 02/09/25 04:00 Ordered Platelet Count Q2D Lab 02/08/25 04:00 Ordered Stool Culture - Enteric [Salmonella / Shigella / Campy] Lab 02/04/25 13:14 Ordered Routine Total Iron Binding Capacity AM LABS Lab 02/07/25 04:00 Ordered Urinalysis and Microscopic Stat Lab 02/06/25 12:13 Uncollected Urine Creatinine Routine Lab 02/06/25 12:13 Uncollected Urine Microalbumin Creat Ratio Routine Lab 02/06/25 12:13 Uncollected Urine Protein Random Routine Lab 02/06/25 12:13 Uncollected Urine Random Lytes Routine Lab 02/06/25 12:13 Uncollected Urine Random Sodium Routine Lab 02/06/25 12:13 Uncollected Completed Studies During Hospitalization Category Date Time Status XR chest 1V portable [id number] Stat Exams 02/04/25 08:20 Completed MR MRCP [id number] Routine MRI 02/04/25 13:22 Completed US abdomen limited [id number] Routine Ultrasound 02/04/25 12:42 Completed US abdomen lmt fluid [id number] Stat Ultrasound 02/04/25 10:10 Completed Laboratory Last Values WBC 6.15 10^3/uL (3.29-11.43) 02/06/25 05:58 RBC 4.53 10^6/uL (3.85-5.65) 02/06/25 05:58 Hgb 13.90 g/dL (11.27-16.99) 02/06/25 05:58 Hct 44.9 % (36-47) 02/06/25 05:58 MCV 99.1 fl (85-98) H 02/06/25 05:58 MCH 30.7 pg (27-33) 02/06/25 05:58 MCHC 31.0 g/dL (30-55) 02/06/25 05:58 RDW 15.9 % (12.1-15.1) H 02/06/25 05:58 Plt Count 126 10^3/cmm (157-399) L 02/06/25 05:58 MPV 12.2 fL (7.4-10.4) H 02/06/25 05:58 Neut % (Auto) 76.3 % 02/06/25 05:58 Lymph % (Auto) 13.3 % 02/06/25 05:58 [place] % (Auto) 9.3 % 02/06/25 05:58 Eos % (Auto) 0.3 % 02/06/25 05:58 Baso % (Auto) 0.5 % 02/06/25 05:58 Neut # (Auto) 4.69 10^3/uL (1.8-7.7) 02/06/25 05:58 Lymph # (Auto) 0.8 10^3/uL (0.8-4.8) 02/06/25 05:58 [place] # (Auto) 0.6 10^3/uL (0.2-0.9) 02/06/25 05:58 Eos # (Auto) 0.0 10^3/uL (0.0-0.8) 02/06/25 05:58 Baso # (Auto) 0.0 10^3/uL (0.0-0.1) 02/06/25 05:58 Nucleated RBC % (auto) 0 % 02/06/25 05:58 Nucleated RBCs # 0.0 /100WBC 02/06/25 05:58 PT 24.20 SECONDS (12.1-14.9) H 02/04/25 08:40 INR 2.03 (0.8-1.2) H 02/04/25 08:40 APTT 60.5 SECONDS (23.9-36.7) H 02/06/25 12:46 Specimen Type Arterial 02/06/25 12:43 Sample Site Radial, right 02/06/25 12:43 ABG pH 7.27 (7.35-7.45) L 02/06/25 12:43 ABG pCO2 48.8 mmHg (35-45) H 02/06/25 12:43 ABG pO2 77.6 mmHg (80.0-100.0) L 02/06/25 12:43 ABG PO2/FiO2 Ratio 278 02/04/25 08:47 ABG HCO3 22.4 mmol/L (22-26) 02/06/25 12:43 ABG O2 Saturation 95.3 02/06/25 12:43 ABG Base Excess -4.9 mmol/L (-2.0-2.0) L 02/06/25 12:43 Andi Test Pos 02/06/25 12:43 A-a O2 Gradient 1.5 mmHg (5-10) L 02/06/25 12:43 Hematocrit 43.9 % (37-47) 02/06/25 12:43 Hgb O2 Saturation 93.2 % (95-100) L 02/06/25 12:43 Carboxyhemoglobin 1.2 %THgb (0.4-20.1) 02/06/25 12:43 Methemoglobin 0.9 % (0.4-1.5) 02/06/25 12:43 Total Hemoglobin 14.3 g/dL (12-16) 02/06/25 12:43 Sodium 134.0 mmol/L (131-143) 02/06/25 12:43 Potassium 5.4 mmol/L (3.5-5.0) H 02/06/25 12:43 Glucose 98.0 mg/dL (70-115) 02/06/25 12:43 Ionized Calcium 1.1 mmol/L (1.1-1.4) 02/06/25 12:43 O2 Delivery Device Nc 02/06/25 12:43 O2 Liters/Min 2.0 % 02/06/25 12:43 FiO2 26.0 % 02/04/25 08:47 Disciplinary Hearing Officer ID [place] 02/06/25 12:43 Sodium 131 mmol/L (136-145) L 02/06/25 05:58 Potassium 6.0 mmol/L (3.5-5.1) H 02/06/25 05:58 Chloride 98 mmol/L (98-107) 02/06/25 05:58 Carbon Dioxide 17 mmol/L (22-29) L 02/06/25 05:58 Anion Gap 22.0 (5-19) H 02/06/25 05:58 BUN 72 mg/dL (8-23) H 02/06/25 05:58 Creatinine 3.0 mg/dL (0.5-0.9) H 02/06/25 05:58 GFR Calculation Not Reportable 02/06/25 05:58 Glucose 95 mg/dL (65-115) 02/06/25 05:58 POC Glucose 96 mg/dL (70-110) 02/06/25 11:46 Calculated Osmolality 293 mOsm/kg (285-295) 02/06/25 05:58 Lactic Acid 1.5 mmol/L (0.5-2.2) 02/04/25 08:40 Lactate 1.7 mmol/L (0.5-2.2) 02/06/25 12:46 Calcium 8.0 mg/dL (8.5-10.5) L 02/06/25 05:58 Magnesium 3.1 mg/dL (1.7-2.3) H 02/05/25 00:37 Total Bilirubin 1.3 mg/dL (0.15-1.2) H 02/06/25 05:58 AST 112 U/L (0-32) H 02/06/25 05:58 ALT 65 U/L (0-33) H 02/06/25 05:58 Alkaline Phosphatase 193 U/L (35-105) H 02/06/25 05:58 Ammonia 92 umol/L (11-51) H 02/04/25 08:40 Creatine Kinase 123 U/L (26-192) 02/06/25 12:46 Total Protein 7.9 g/dL (6.6-8.7) 02/06/25 05:58 Albumin 3.5 g/dL (3.5-5.2) 02/06/25 05:58 Globulin 4.4 g/dL (1.3-4.6) 02/06/25 05:58 Lipase 163 U/L (13-60) H 02/04/25 08:40 TSH 1.12 uIU/mL (0.27-4.20) 02/06/25 12:46 Random Cortisol 28.95 ug/dL (2.47-19.5) H 02/06/25 12:46 Urine Color Dark yellow (Yellow) A 02/04/25 08:45 Urine Appearance Cloudy (CLEAR) A 02/04/25 08:45 Urine pH 5.0 (5-7) 02/04/25 08:45 Ur Specific [place] 1.022 (1.005-1.030) 02/04/25 08:45 Urine Protein Trace (Negative) A 02/04/25 08:45 Urine Glucose (UA) Negative (Normal) 02/04/25 08:45 Urine Ketones Trace (Negative) 02/04/25 08:45 Urine Blood Negative (Negative) 02/04/25 08:45 Urine Nitrate Negative (Negative) 02/04/25 08:45 Urine Bilirubin 2+ (Negative) H 02/04/25 08:45 Urine Urobilinogen 1.0 mg/dL (Negative) 02/04/25 08:45 Ur Leukocyte Esterase Negative (Negative) 02/04/25 08:45 Urine RBC 0-2 /hpf (0-2) 02/04/25 08:45 Urine WBC 0-5 /hpf (0-5) 02/04/25 08:45 Ur Squamous Epith Cells 6-10 /hpf (0-5) 02/04/25 08:45 Amorphous Sediment Not Reportable 02/04/25 08:45 Urine Bacteria None seen /hpf (NONE) 02/04/25 08:45 Hyaline Casts 87.29 /lpf 02/04/25 08:45 Digoxin 1.3 ng/mL (0.6-1.2) H 02/06/25 05:58 Adenovirus (PCR) Not detected (NOT DETECT) 02/04/25 18:15 C. pneumoniae DNA (PCR) Not detected (NOT DETECT) 02/04/25 18:15 Coronavirus 229E (PCR) Not detected (NOT DETECT) 02/04/25 18:15 Hep Bs Antigen Non-reactive (Nonreactive) 02/06/25 12:46 Hep Bs Antibody < 3.5 (11.5-1000) L 02/06/25 12:46 Hep B Core Total Ab Non-reactive (Nonreactive) 02/06/25 12:46 Hepatitis C Antibody Non-reactive (Nonreactive) 02/06/25 12:46 Human Metapneumovir PCR Not detected (NOT DETECT) 02/04/25 18:15 Influenza A (H1) PCR Not detected (NOT DETECT) 02/04/25 18:15 Influ A (H1/09) PCR Not detected (NOT DETECT) 02/04/25 18:15 Influenza A (H3) PCR Not detected (NOT DETECT) 02/04/25 18:15 Influenza Type A (PCR) Not detected (NOT DETECT) 02/04/25 18:15 Influenza Type B (PCR) Not detected (NOT DETECT) 02/04/25 18:15 M. pneumoniae (PCR) Not detected (NOT DETECT) 02/04/25 18:15 Parainfluenza 1 (PCR) Not detected (NOT DETECT) 02/04/25 18:15 Parainfluenza 2 (PCR) Not detected (NOT DETECT) 02/04/25 18:15 Parainfluenza 3 (PCR) Not detected (NOT DETECT) 02/04/25 18:15 Parainfluenza 4 (PCR) Not detected (NOT DETECT) 02/04/25 18:15 RSV Type A (PCR) Not detected (NOT DETECT) 02/04/25 18:15 RSV Type B (PCR) Not detected (NOT DETECT) 02/04/25 18:15 Entero/Rhino (PCR) Not detected (NOT DETECT) 02/04/25 18:15 SARS-CoV-2 (PCR) Not detected (NOT DETECT) 02/04/25 18:15 Radiology Impressions Chest X-Ray 02/04/25 08:20 IMPRESSION: 1. No acute cardiopulmonary finding. Abdomen Ultrasound 02/04/25 12:42 IMPRESSION: 1. Abnormal flow and waveform in the portal vein. No thrombus is identified but the entire portal vein is not well visualized. Filling defect noted in the portal vein on CT may represent a partial thrombus. 2. Markedly dilated common bile duct at 1.4 cm. Consider evaluation by MRCP. 3. Prior cholecystectomy. 4. Cirrhotic liver. 5. Small amount of ascites RIGHT upper quadrant. 6. No hepatic mass identified. Cholangiopancreatography MRI 02/04/25 13:22 IMPRESSION: 1. 2.1 cm new right lobe liver lesion highly suspicious for HCC as reported on 01/24/2025 CT. Contrast-enhanced multiphase MRI recommended to confirm and for treatment planning. 2. Increased CBD dilatation since 09/16/2023 without stricture or filling defect, favoring reservoir effect and possibly biliary stasis although distal stricture of the ampulla is possible. Correlation with LFTs and follow-up recommended. 3. Moderate-advanced hepatic cirrhosis with stigmata of portal hypertension. Recent Clincial Data Last Vital Signs Temp 97.4 F L 02/06/25 12:32 Pulse 51 L 02/06/25 12:32 Resp 14 02/06/25 12:32 BP 122/78 02/06/25 12:32 Pulse Ox 94 02/06/25 12:32 O2 Del Method Room Air 02/06/25 12:32 O2 Flow Rate 1 02/06/25 11:19 Vital Signs Temp Pulse Resp BP Pulse Ox O2 Del Method O2 Flow Rate 02/06/25 12:32 97.4 F L 51 L 14 122/78 94 Room Air 02/06/25 11:19 62 16 93 Nasal Cannula 1 02/06/25 10:39 18 02/06/25 08:01 97.8 F 52 L 14 156/93 98 Nasal Cannula 02/06/25 08:00 1 02/06/25 07:53 60 16 94 Nasal Cannula 2 02/06/25 04:00 97.5 F L 63 18 110/73 95 Nasal Cannula 2 Intake & Output/Weight 02/04/25 02/05/25 02/06/25 02/07/25 06:59 06:59 06:59 06:59 Intake Total 1725.083 / 3411.429 7352.603 / 1841.603 344.967 / 344.967 Output Total 200 / 200 850 / 850 Balance 1525.083 / 1525.083 991.603 / 991.603 344.967 / 344.967 Weight 122.833 kg 123.785 kg Vitals Last Vital Signs Temp 97.4 F L 02/06/25 12:32 Pulse 51 L 02/06/25 12:32 Resp 14 02/06/25 12:32 BP 122/78 02/06/25 12:32 Pulse Ox 94 02/06/25 12:32 O2 Del Method Room Air 02/06/25 12:32 O2 Flow Rate 1 02/06/25 11:19 TS Medications Medications Albuterol Sulfate (Albuterol 2.5 Mg/3 Ml Neb) 2.5 mg INHALATION QID.RESPIRATORY MATTIE Last Admin: 02/06/25 11:20 Dose: 2.5 mg Alprazolam (Alprazolam 0.5 Mg Tablet) 0.5 mg PO TID PRN PRN Reason: ANXIETY Budesonide (Budesonide 0.5 Mg/2 Ml Neb) 0.5 mg INHALATION BID.RESPIRATORY MATTIE Last Admin: 02/06/25 07:52 Dose: 0.5 mg Ferrous Sulfate (Ferrous Sulfate Ec 325 Mg Tablet) 325 mg PO DAILY MATTIE Last Admin: 02/06/25 09:36 Dose: 325 mg Fluticasone Propionate (Fluticasone Nasal [place] 16gm Btl) 2 spray INTRANASAL DAILY MATTIE Last Admin: 02/06/25 10:28 Dose: Not Given Glucagon (Glucagon 1 Mg/Ml Kit 1 Ml) 1 mg IM ONCE PRN; Protocol PRN Reason: Adult Acute Hypoglycemia Nursing Prot. Heparin Sodium (Porcine) (Heparin 5,000 Unit/Ml Inj 1 Ml) 0 unit IVP PRN PRN; Protocol PRN Reason: Heparin Weight Based Protocol -Subsequent Bolus Dextrose (D10w) 250 mls @ 1,000 mls/hr IV PRN PRN PRN Reason: HYPOGLYCEMIA Last Infusion: 02/04/25 21:32 Dose: Infused Heparin Sodium/Sodium Chloride (Heparin Drip) 25,000 unit in 500 mls @ 0 mls/hr IV CONT MATTIE; Protocol Last Titration: 02/06/25 13:14 Dose: 6.99 unit/kg/hr, 17 mls/hr Dextrose (D5w) 500 mls @ 0 mls/hr IV ONCE PRN; Protocol PRN Reason: Adult Acute Hypoglycemia Prot Dextrose (D10w) 125 mls @ 750 mls/hr IV PRN PRN; Protocol PRN Reason: Adult Acute Hypoglycemia Nursing Protocol Sodium Bicarbonate 150 meq/ (Dextrose) 1,150 mls @ 50 mls/hr IV .Q23H MATTIE Insulin Human Lispro (Insulin Lispro 100 Unit/1 Ml) 0 unit SUBCUT WM&BEDTIME MATTIE; Protocol Last Admin: 02/06/25 08:04 Dose: Not Given Montelukast Sodium (Montelukast Sodium 10 Mg Tablet) 10 mg PO DAILY MATTIE Last Admin: 02/06/25 09:36 Dose: 10 mg Ondansetron HCl (Ondansetron 2 Mg/Ml Sdv 2 Ml) 4 mg IVP Q8H PRN PRN Reason: vomiting, or N/V if npo Last Admin: 02/06/25 02:34 Dose: 4 mg Oxycodone HCl (Oxycodone 5 Mg Ir Tab/Cap) 10 mg PO Q6H PRN PRN Reason: Pain Last Admin: 02/06/25 10:39 Dose: 10 mg Pantoprazole Sodium (Pantoprazole 40 Mg Sdv) 40 mg IVP Q12H [facility] Sotalol HCl (Sotalol 80 Mg Tablet) 80 mg PO BID@0500,1700 [facility] Last Admin: 02/06/25 05:34 Dose: 80 mg Discontinued Medications Calcium Chloride (Calcium Chloride 10% Syr 10 Ml) 1 gm IVP ONCE ONE Stop: 02/04/25 11:00 Last Admin: 02/04/25 19:31 Dose: Not Given Furosemide (Furosemide 10 Mg/Ml Sdv 10ml) 60 mg IVP ONCE ONE Stop: 02/06/25 12:14 Heparin Sodium (Porcine) (Heparin 5,000 Unit/Ml Inj 1 Ml) 0 unit IVP ONCE ONE; Protocol Stop: 02/04/25 12:43 Last Admin: 02/04/25 14:37 Dose: 6,300 unit Sodium Chloride (Sodium Chloride 0.9%) 1,000 mls @ 999 mls/hr IV .Q1H1M ONE Stop: 02/04/25 09:19 Last Infusion: 02/04/25 21:32 Dose: Infused Sodium Chloride (Sodium Chloride 0.9%) 1,000 mls @ 100 mls/hr IV .Q10H [facility] Last Admin: 02/05/25 19:54 Dose: Not Given Albumin Human (Albumin) 37.5 gm in 150 mls @ 60 mls/hr IV ONCE ONE Stop: 02/05/25 10:17 Last Infusion: 02/05/25 12:37 Dose: Infused Insulin Human Regular (Insulin Regular-Human 100 Units/1 Ml) 10 unit IVP ONCE ONE Stop: 02/04/25 11:00 Last Admin: 02/04/25 19:31 Dose: Not Given Morphine Sulfate (Morphine 4 Mg/Ml Sdv 1 Ml) 2 mg IVP ONCE ONE Stop: 02/04/25 10:38 Last Admin: 02/04/25 10:48 Dose: 2 mg Non-Formulary Medication (Fluticasone Propion-Salmeterol) 1 inh INHALATION BID@0500,1700 [facility] Pantoprazole Sodium (Pantoprazole Dr 40 Mg Tablet) 40 mg PO BID@0500,1700 [facility] Last Admin: 02/06/25 05:34 Dose: 40 mg Sodium Polystyrene Sulfonate (Sodium Polystyrene Sulfonate 15 Gm/60 Ml Btl) 15 gm PO ONCE ONE Stop: 02/06/25 07:56 Last Admin: 02/06/25 09:36 Dose: 15 gm Sodium Polystyrene Sulfonate (Sodium Polystyrene Sulfonate 15 Gm/60 Ml Btl) 30 gm PO ONCE ONE Stop: 02/06/25 12:14 Last Admin: 02/06/25 13:00 Dose: 30 gm Sotalol HCl (Sotalol 80 Mg Tablet) 120 mg PO BID@0500,1700 [facility] Last Admin: 02/05/25 05:45 Dose: 120 mg Sucralfate (Sucralfate 1 Gm Tablet) 1 gm PO BID@0500,1700 [facility] Last Admin: 02/06/25 05:34 Dose: 1 gm Allergies acetaminophen (From Tylenol) Allergy (Verified 07/31/24 15:34) ADR-Abdominal Pain LIVER aspirin Allergy (Verified 07/31/24 15:34) Unknown [id number] Reductase Inhibitor Allergy (Verified 07/31/24 15:34) leg pain Home Medications fluticasone propionate 50 mcg/actuation nasal spray,suspension (Flonase Allergy Relief) 2 spray intranasal DAILY 05/27/19 [History Confirmed 02/04/25] montelukast 10 mg tablet (Singulair) 10 mg PO DAILY 05/27/19 [History Confirmed 02/04/25] losartan 25 mg tablet 25 mg PO DAILY 07/20/22 [History Confirmed 02/04/25] pantoprazole 40 mg tablet,delayed release (Protonix) 40 mg PO BID 6 weeks #84 tabs 04/04/23 [Rx Confirmed 02/04/25] digoxin 125 mcg (0.125 mg) tablet 125 mcg PO DAILY #90 tabs 07/04/24 [Rx Confirmed 02/04/25] polyethylene glycol 3350 17 gram/dose oral powder (Miralax) 4 g PO DAILY 07/31/24 [History Confirmed 02/04/25] magnesium oxide 250 mg PO DAILY #90 tabs 08/30/24 [Rx Confirmed 02/04/25] hydrochlorothiazide 12.5 mg tablet 12.5 mg PO QAM #90 tabs 11/01/24 [Rx Confirmed 02/04/25] alprazolam 0.5 mg tablet,extended release 24 hr 0.5 mg PO TID 02/01/25 [History Confirmed 02/04/25] amlodipine 2.5 mg tablet 2.5 mg PO DAILY 02/01/25 [History Confirmed 02/04/25] apixaban 5 mg tablet (Eliquis) 5 mg PO BID 02/01/25 [History Confirmed 02/04/25] ferrous sulfate 325 mg (65 mg iron) tablet (FeroSul) 325 mg PO DAILY 02/01/25 [History Confirmed 02/04/25] fluticasone 250 mcg-salmeterol 50 mcg/dose blistr powdr for inhalation 1 inh inhalation BID 02/01/25 [History Confirmed 02/04/25] ondansetron 4 mg disintegrating tablet 4 mg PO Q6H PRN Nausea And Vomiting 02/01/25 [History Confirmed 02/04/25] oxycodone 10 mg tablet 10 mg PO Q6H PRN Pain 02/01/25 [History Confirmed 02/04/25] potassium chloride 8 mEq tablet,extended release 8 meq PO DAILY 02/01/25 [History Confirmed 02/04/25] sotalol 80 mg tablet 120 mg PO BID 02/01/25 [History Confirmed 02/04/25] sucralfate 1 gram tablet (Carafate) 1 g PO BID 02/01/25 [History Confirmed 0 02/04/25] Discharge Plan Discharge Patient Disposition: Xfer Short-Term Hosp Condition: Stable Prescriptions: No Action montelukast [Singulair] 10 mg tablet 10 mg PO DAILY fluticasone propionate [Flonase Allergy Relief] 50 mcg/actuation spray,suspension 2 spray INTRANASAL DAILY losartan 25 mg tablet 25 mg PO DAILY pantoprazole [Protonix] 40 mg tablet,delayed release (DR/EC) 40 mg PO BID 42 Days Qty: 84 1RF polyethylene glycol 3350 [Miralax] 17 gram/dose powder 4 g PO DAILY digoxin 125 mcg (0.125 mg) tablet 125 mcg PO DAILY Qty: 90 3RF magnesium oxide 250 mg magnesium tablet 250 mg PO DAILY Qty: 90 3RF hydrochlorothiazide 12.5 mg tablet 12.5 mg PO QAM Qty: 90 3RF ferrous sulfate [FeroSul] 325 mg (65 mg iron) tablet 325 mg PO DAILY oxycodone 10 mg tablet 10 mg PO Q6H PRN (Reason: Pain) sotalol 80 mg tablet 120 mg PO BID Eliquis 5 mg tablet 5 mg PO BID fluticasone propion-salmeterol 250-50 mcg/dose Blister With Device 1 inh INHALATION BID sucralfate [Carafate] 1 gram Tablet 1 g PO BID amlodipine 2.5 mg Tablet 2.5 mg PO DAILY potassium chloride 8 mEq Tablet Extended Release 8 meq PO DAILY ondansetron 4 mg tablet,disintegrating 4 mg PO Q6H PRN (Reason: Nausea And Vomiting) alprazolam 0.5 mg Tablet Extended Release 24 Hr 0.5 mg PO TID Referrals: Akil Muñiz MD [Primary Care Provider, [facility]] Patient Instructions: Opioid Safety, Patient Portal & Meet Instructions Transfer Attestations Time Spent in Transfer Care: greater than 30 min Quality Metrics Clinical Quality Measures [ No reported AMI, CVA or VTE this stay] Coding Level of Care Code 42241 Total time (in minutes) for Discharge: 60 Diagnoses FAVIO (acute kidney injury) N17.9 Pending Studies Pending at discharge Category Date Time Status Blood Culture Stat Lab 02/04/25 09:00 Results C.Diff PCR (Lab) Routine Lab 02/04/25 13:14 Uncollected Complete Blood Count w/Auto AM LABS Lab 02/07/25 04:00 Ordered Comprehensive Metabolic Panel AM LABS Lab 02/07/25 04:00 Ordered Comprehensive Metabolic Panel AM LABS Lab 02/07/25 04:00 Ordered Comprehensive Metabolic Panel AM LABS Lab 02/08/25 04:00 Ordered Comprehensive Metabolic Panel AM LABS Lab 02/09/25 04:00 Ordered Cortisol Random AM LABS Lab 02/07/25 04:00 Ordered Digoxin AM LABS Lab 02/07/25 04:00 Ordered Digoxin AM LABS Lab 02/08/25 04:00 Ordered Digoxin AM LABS Lab 02/09/25 04:00 Ordered Ferritin AM LABS Lab 02/07/25 04:00 Ordered Magnesium AM LABS Lab 02/07/25 04:00 Ordered Magnesium AM LABS Lab 02/08/25 04:00 Ordered Magnesium AM LABS Lab 02/09/25 04:00 Ordered Phosphorus AM LABS Lab 02/07/25 04:00 Ordered Phosphorus AM LABS Lab 02/08/25 04:00 Ordered Phosphorus AM LABS Lab 02/09/25 04:00 Ordered Platelet Count Q2D Lab 02/08/25 04:00 Ordered Stool Culture - Enteric [Salmonella / Shigella / Campy] Lab 02/04/25 13:14 Or dered Routine Total Iron Binding Capacity AM LABS Lab 02/07/25 04:00 Ordered Urinalysis and Microscopic Stat Lab 02/06/25 12:13 Uncollected Urine Creatinine Routine Lab 02/06/25 12:13 Uncollected Urine Microalbumin Creat Ratio Routine Lab 02/06/25 12:13 Uncollected Urine Protein Random Routine Lab 02/06/25 12:13 Uncollected Urine Random Lytes Routine Lab 02/06/25 12:13 Uncollected Urine Random Sodium Routine Lab 02/06/25 12:13 Uncollected
[2025-02-06 14:21] LABS: Ammonia 159 umol/L (11-51)
[2025-02-06] MEDS: pantoprazole 40 mg SDV IVP (15:16)
[2025-02-06] MEDS: FUROsemide 10 mg/mL SDV 10mL 60 MG IVP (15:16)
--- NOTE | 2025-02-06 15:36 | PC.NURSE ---
Report: Report called to Violeta at [facility] [phone] Room #: [id number]
== END 2025-02-06 17:51 | disposition short-term general hospital (02) | DRG 682 ==
LOC: ER 10:34 → MEDSURG 12:05
PROVIDERS: Internal Medicine; Internal Medicine Nephrology; Admitting Provider Internal Medicine; Emergency Provider Family Medicine; PCP Family Medicine; Visit Provider Internal Medicine
DX: N17.0 Acute kidney failure with tubular necrosis (principal); I82.0 Budd-Chiari syndrome; E72.20 Disorder of urea cycle metabolism, unspecified; E87.20 Acidosis, unspecified; K92.1 Melena; K74.60 Unspecified cirrhosis of liver; E87.5 Hyperkalemia; I48.0 Paroxysmal atrial fibrillation; Z79.01 Long term (current) use of anticoagulants; I35.8 Other nonrheumatic aortic valve disorders; R00.1 Bradycardia, unspecified; E11.9 Type 2 diabetes mellitus without complications; I25.10 Atherosclerotic heart disease of native coronary artery without angina pectoris; G47.33 Obstructive sleep apnea (adult) (pediatric); J45.909 Unspecified asthma, uncomplicated; K21.9 Gastro-esophageal reflux disease without esophagitis; I10 Essential (primary) hypertension; Z90.49 Acquired absence of other specified parts of digestive tract; Z90.5 Acquired absence of kidney; E86.1 Hypovolemia; I95.2 Hypotension due to drugs; T46.5X5A Adverse effect of other antihypertensive drugs, initial encounter; K52.9 Noninfective gastroenteritis and colitis, unspecified; I44.0 Atrioventricular block, first degree; I71.9 Aortic aneurysm of unspecified site, without rupture; Z82.49 Family history of ischemic heart disease and other diseases of the circulatory system; Z82.3 Family history of stroke; Z80.9 Family history of malignant neoplasm, unspecified; Z83.3 Family history of diabetes mellitus; R16.0 Hepatomegaly, not elsewhere classified; Z85.09 Personal history of malignant neoplasm of other digestive organs; Y99.9 Unspecified external cause status
CPT/HCPCS: 36415; 36416; 36600; 71045; 74176; 74177; 74181; 76705; 80051; 80053; 80162; 81001; 82140; 82330; 82533; 82550; 82805; 82962; 83605; 83690; 83735; 84443; 85025; 85610; 85730; 86705; 86706; 86803; 87040; 87150; 87205; 87340; 87486; 87581; 87633; 93005; 94640; 96361; 96374; 99285; J1644; J1938; J2270; J2405; J2470; J7030; J7613; J7626; J7799; J9999; P9047